=== PATIENT | male | born 1940 | race Caucasian/White ===

== ENCOUNTER → 2018-01-27 06:52 | Outpatient (CLI) | payer MEDICARE, SELFPAY ==
[2018-01-27 07:45] LABS: AST(SGOT) 27 U/L (15-37); Alanine Aminotransfer ALT/SGPT 45 U/L (16-61); Albumin, Serum 3.7 g/dL (3.2-5.0); Alkaline Phosphatase 60 U/L (45-117); Cholesterol 94 mg/dL (200); Globulin 3.1 g/dL (2.2-4.2); High Density Lipoprotein 30 mg/dL; Protein, Total 6.8 g/dL (6.4-8.2); Triglycerides 202 mg/dL; Very Low Density Lipoprotein 40 mg/dL (5-40)
== END ==
PROVIDERS: Family Provider Family Medicine; PCP Family Medicine; Visit Provider Nurse Practitioner Family
DX: E78.5 Hyperlipidemia, unspecified (principal); Z79.899 Other long term (current) drug therapy
CPT/HCPCS: 36415; 80061; 80076

== ENCOUNTER → 2018-08-04 07:27 | Outpatient (CLI) | payer MEDICARE, SELFPAY ==
[2018-01-29 09:30] VITALS: BMI 34.2
[2018-08-04 08:31] LABS: Microalbumin,Random Urine 9.1 mg/L (NO RANGE EST.)
[2018-08-04 08:41] LABS: AST(SGOT) 38 U/L (15-37); Alanine Aminotransfer ALT/SGPT 63 U/L (16-61); Albumin, Serum 3.9 g/dL (3.2-5.0); Alkaline Phosphatase 68 U/L (45-117); Bilirubin, Direct 0.21 mg/dL (0.00-0.30); Cholesterol 122 mg/dL (200); Globulin 2.9 g/dL (2.2-4.2); High Density Lipoprotein 26 mg/dL; Protein, Total 6.8 g/dL (6.4-8.2); Triglycerides 429 mg/dL
[2018-08-04 08:51] LABS: Anion Gap 9 (5-15); BUN 26 mg/dL (7-18); BUN/Creat Ratio 20.5 RATIO (10-20); Calcium,Total 8.3 mg/dL (8.5-10.1); Chloride 104 mmol/L (98-107); Creatinine, Serum 1.27 mg/dL (0.70-1.30); EST Glomerular Filtration Rate 58 mL/min (>60); Est Glom Filt Rate - Afr Amer 70 mL/min (>60); Glucose 116 mg/dL (74-106); Potassium 3.8 mmol/L (3.5-5.1); Sodium Level 140 mmol/L (136-145)
--- OUTSIDE RECORDS SUMMARY | 2018-10-06 07:44 | XMS RPT_ITS ---
:1940 Author Organization OHIP Care Team Providers Name Role Phone Junior, Gordon Camargo Attending Unavailable Roof, Gordon Camargo Referring Unavailable Ennis, Mickey Primary Care Unavailable Osiris Rahman Attending Unavailable Ennis, Mickey Referring Unavailable Roof, Gordon Camargo Attending Unavailable Roof, Gordon Camargo Referring Unavailable EnnisMickey Primary Care Unavailable Nikhil Soto Attending Unavailable Ennis, Mickey Referring Unavailable Ennis, Mickey Primary Care Unavailable Roof, Gordon Camargo Attending Unavailable Ennis, Mickey Referring Unavailable Ennis, Mickey Primary Care Unavailable PROBLEMS PROBLEMS DATE TYPE CONDITION / CODE ATTENDING STATUS SOURCE 08/04/2018 Unknown E11.9 - Type 2 Godron Pacheco Active [place]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 mellitus Community without complications Hospital / E11.9(ICD-10) Repository 08/04/2018 Unknown E78.5 - Gordon Pacheco Active [place] Hyperlipidemia, Community unspecified / Hospital E78.5(ICD-10) Repository 01/27/2018 Unknown Z79.899 - Other long Gordon Pacheco Active [place] term (current) drug Community therapy / Hospital Z79.899(ICD-10) Repository 08/18/2017 Unknown I25.10 - Gordon Pacheco Active [place] Atherosclerotic heart Community disease of [facility] coronary artery Repository without angina pectoris / I25.10(ICD-10) 08/18/2017 Unknown I10 - Essential Roof, Gordon Camargo Active [place] (primary) Community hypertension / Hospital I10(ICD-10) Repository 08/18/2017 Unknown E78.2 - Mixed Roof, Gordon Camargo Active [place] hyperlipidemia / Community E78.2(ICD-10) Hospital Repository PROCEDURES PROCEDURES No Procedure Records FoundRESULTS RESULTS MICROALB:CREAT Collected: 08/04/2018 Status: F Source: [place] RATIO,RANDOM UR 7:36 AM [facility] REPOSITORY TYPE CODE TESTS RESULT OUT OF RANGE REFERENCE UNITS LAB L501.1200 NO RANGE EST. mg/dL Normal UR CREAT 82.70 LAB L502.0500 NO RANGE EST. mg/L Normal 9.1 MICROALBUMIN ,UR LAB L502.0600 <30 mg/g CRE mg/g CRE Normal 11.0 MALB:CREAT Performed By: #### L502.0250 #### [facility] [address], [place], [id number] LIVER PROFILE Collected: 08/04/2018 Status: F Source: [place] 7:36 AM [facility] REPOSITORY TYPE CODE TESTS RESULT OUT OF RANGE REFERENCE UNITS LAB L501.1500 6.4-8.2 g/dL Normal T PROT 6.8 LAB L501.1800 3.2-5.0 g/dL Normal ALB 3.9 LAB L501.1950 2.2-4.2 g/dL Normal GLOB 2.9 LAB L501.4100 15-37 U/L High AST 38 LAB L501.4305 45-117 U/L Normal ALK P 68 LAB L501.4405 16-61 U/L High ALT 63 LAB L501.4600 0.20-1.00 mg/dL Normal T BILI 0.90 LAB L501.4700 0.00-0.30 mg/dL Normal D BILI 0.21 Performed By: #### L500.3400, L500.4100 #### [facility] [address] [place], [place], [id number] LIPID PROFILE Collected: 08/04/2018 Status: F Source: [place] 7:36 AM [facility] REPOSITORY TYPE CODE TESTS RESULT OUT OF RANGE REFERENCE UNITS LAB L501.4900 200 mg/dL Normal CHOL 122 Result Comment: <200 mg/dL Desirable 200-240 mg/dL Borderline >240 mg/dL High Risk LAB L501.5000 mg/dL High TRIG 429 Result Comment: The drugs N-Acetylcysteine and Metamizole may falsely depress this assay. TRIGLYCERIDE IS GREATER THAN 400 mg/dL. LDL RESULT IS INVALID AND WILL NOT BE REPORTED. Serum Triglycerides Reference Interval Normal <150 mg/dL Borderline high 150 - 199 mg/dL High 200 - 499 mg/dL Very High > or = 500 mg/dL LAB L501.6400 mg/dL Low HDL 26 Result Comment: The drugs N-Acetylcysteine and Metamizole may falsely depress this assay. Reference Range HDL <40 mg/dL Low HDL Cholesterol HDL >or= 60 mg/dL High HDL Cholesterol LAB L501.6500 0-130 mg/dL Test Normal not performed LDL LAB L501.6600 5-40 mg/dL Test Normal not performed VLDL Performed By: #### L500.3400, L500.4100 #### [facility] [address] [place], [address] BASIC METABOLIC Collected: 08/04/2018 Status: F Source: [place] PROFILE ([facility]) 7:36 [facility] REPOSITORY TYPE CODE TESTS RESULT OUT OF RANGE REFERENCE UNITS LAB L501.0100 74-106 mg/dL High GLU 116 Result Comment: Fasting Glucose result from 100 to 125 mg/dL suggests IMPAIRED HOMEOSTASIS per A.D.A. criteria. Please note revised GLUCOSE reference range effective 2017. LAB L501.1000 7-18 mg/dL High BUN 26 LAB L501.1100 0.70-1.30 mg/dL Normal CREAT,SERUM 1.27 Result Comment: The validity of the calculated GFR AND GFRAA in patients over 70 years has not been determined. Clinical correlation is essential. LAB L501.1110 >60 mL/min Low EST GFR 58 Result Comment: Non- GFR Calc LAB L501.1115 >60 mL/min Normal EST GFR - AA 70 Result Comment: GFR Calc LAB L501.1300 10-20 RATIO High BUN/CRE 20.5 LAB L501.2200 8.5-10.1 mg/dL Low CA 8.3 LAB L501.5300 136-145 mmol/L NA Normal 140 LAB L501.5600 3.5-5.1 mmol/L K Normal 3.8 LAB L501.5900 98-107 mmol/L CL Normal 104 LAB L501.6100 21.0-32.0 mmol/L Normal CO2 27.0 LAB L501.6200 5-15 Normal GAP 9 Performed By: #### L500.2500 #### [facility] [address] [place], [address] CARDIOLOGY VISIT Observed: 01/29/2018 Status: F Source: [place] REPORT 4:07 PM [facility] REPOSITORY [place] [facility] [address] [place] [address] OFFICE VISIT Date of Service: 01/29/18 MR#: [id number] Acct: [id number] Name: JOSE MANUEL DOMINGUEZ Rep #: [id number] : 1940 Provider: Nikhil Soto MD Age/Sex: 77/M Location: [facility] Status: Signed HPI HPI Chief Complaint: Follow up visit Details: JOSE MANUEL DOMINGUEZ, is a 77 M who presents to the office today for a cardiovascular outpatient follow-up. Patient has a history of coronary artery disease status post rotational atherectomy, balloon angioplasty, and stent placement to LAD in December 2016 at [facility]. He also has a history of bradycardia, hypertension, and hyperlipidemia.Pt. denies chest, jaw, or neck discomfort. His exercise tolerance is stable via walking for 30 minutes for at least two days a week. Pt. denies symptoms of CHF, palpitations, lightheadedness, dizziness, near syncope, or syncopal episodes. Pt. denies edema or claudication issues. Pt. denies orthopnea, PND, fever, chills, blood in urine, blood in stool, myalgia, or unexplainable fatigue. He has not had any adjustments to his CPAP machine and does have some mild shortness of breath when he exerts himself. His physical exam today demonstrates clear lung denney regular rate and rhythm and no pedal edema his blood pressure is under excellent control. 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 Accompanied by: none Is patient in pain?: No Allergies mushroom Allergy (Verified 01/29/18 09:31) Other tetanus and diphtheria toxoids [tetanus AND diphtheria toxoids] Allergy (Verified 01/29/18 09:31) Hives atorvastatin [From Lipitor] Adverse Reaction (Unknown, Verified 01/29/18 09:31) Myalgias with 80mg, not 40mg pravastatin Adverse Reaction (Unknown, Verified 01/29/18 09:31) Severe myalgias, memory and balance issues rosuvastatin [From Crestor] Adverse Reaction (Unknown, Verified 01/29/18 09:31) Severe Myalgias poinsettias Adverse Reaction (Unknown, Uncoded 08/08/17 09:28) Nasal Congestion Medications Allopurinol [Zyloprim] 300 mg PO DAILY 01/01/16 [History Confirmed 01/29/18] Lisinopril [Zestril] 5 mg PO DAILY 01/01/16 [History Confirmed 01/29/18] Metformin HCl [Glucophage] 500 mg PO BIDCM 01/01/16 [History Confirmed 01/29/18] Aspirin [Aspirin, Baby] 81 mg PO DAILY@0800 12/27/16 [History Confirmed 01/29/18] Clopidogrel Bisulfate [Plavix] 75 mg PO DAILY 12/30/16 [History Confirmed 01/29/18] furosemide 40 mg tablet 40 mg PO QDAY 07/30/17 [History Confirmed 01/29/18] atorvastatin 40 mg tablet 40 mg PO .every other day tab 08/08/17 [History Confirmed 01/29/18] Ejection fraction %: 55 to 59 PFSH Medical History Bradycardia (Chronic) Atherosclerosis of ass[place] coronary artery of ass[place] si[place] heart without angina pectoris (Chronic) Hyperlipidemia (Chronic) Hypertension (Chronic) SUZANNE (obstructive sleep apnea) (Chronic) Surgical History H/O right knee surgery (Chronic) History of PTCA (Chronic) History of left heart catheterization (Chronic) Family History Mother Hypertension CAD (coronary artery disease) Social History Smoking Status: Former smoker how long ago did patient quit smokin alcohol intake: current alcohol intake frequency: a few times a week Alcohol type: hard liquor substance use type: does not use caffeine: Yes Type: coffee what type of physical activity do you participate in: walking frequency: 1-2 times per week duration: 15-30 minutes/day seatbelt use: always do you feel safe at home: Yes ROS Const Const: Negative for fatigue, weakness, night sweats, excessive sweating, frequent falls, headache(s) or daytime sleepiness Eyes Eyes: Negative for loss of peripheral vision, transient loss of vision, blind spots, double vision or blurry vision ENT ENT: Negative for headache(s), dizziness, balance problems, Nosebleed/epistaxis, tongue swelling or lip swelling Cardio Chest Pain: No Palpitations: No Edema: None Muscle aches with walking: None Resp Respiratory: Positive for SOB with activity; negative for SOB at rest, SOB orthopnea\SOB lying down, Cough or paroxysmal nocturnal dyspnea GI GI: Negative nausea, vomiting, heartburn, black,tarry stools or bright, red blood in stools : Negative for hematuria Musc Musc: Negative for balance problems, muscle aches/ myalgia, muscle weakness or joint pain Skin Skin: Negative non-healing lesions, unusual bruising or rash Neuro Neuro: Negative for weakness, frequent falls, headache(s), double vision, dizziness, lightheadedness, orthostatic symptoms, blurry vision or lack of coordination [place] Hematologic/Lymphatic: Negative for easy bruising or easy bleeding Endo Endo: Negative for fatigue, excessive sweating, cold intolerance, heat intolerance, increased thirst/drinking or hair loss Psych Psych: Negative for anxiety or depression Allergy Allergy/Immunology: Negative for throat swelling, Negative for tongue swelling, Negative for hives, Negative for rash, Negative for lip swelling Cardiology Exam Const Appearance: cooperative, healthy appearing, well developed, well groomed and no acute distress Nutritional Appearance: well nourished and average body habitus Orientation: alert, awake and oriented x3 Head Head: normal to inspection, normocephalic and atraumatic Ears: hearing grossly normal bilaterally and external ears normal Nose: external nose normal, nasal mucous membranes and turbinates normal, nares normal, septum normal, no nasal discharge Face and Sinus: face symmetric Mouth: oral mucosae normal, tongue normal, oropharynx normal and moist mucous membranes Teeth and gingiva: dentition normal Throat: posterior oropharynx normal, tonsils normal and uvula midline Eyes General: appearance normal, both eyes and all related structures Eyelids: eyelids normal Conjunctivae: conjunctivae normal Pupils: PERRL, normal by confrontation and accommodation normal EOM: EOM intact bilaterally Neck Neck: normal visual inspection, trachea midline and no JVD JVD: +5 Carotids: normal carotid upstroke and bounding pulses Chest Chest inspection: normal inspection of the chest, symmetric chest movement and normal respiratory effort Auscultation: Bilateral: Clear to Auscultation Cardio Palpation: normal PMI Rate: regular rate Rhythm: regular rhythm Heart sounds: S1 normal, S2 normal and normal, physiologic split S2; negative rub, gallop or murmur GI GI: normal to inspection, soft, no hepatosplenomegaly and bowel sounds present Neuro General: alert, awake, oriented x3, no focal sensory deficit, gait normal and moves all extremities Skin Skin: no rashes or lesions noted Extremities Pulses: Normal: Right Femoral Pulse, Left Femoral Pulse, Right Dorsalis Pedis Pulse, Left Dorsalis Pedis Pulse, Right Posterior Tibial Pulse, Left Posterior Tibial Pulse, Right Radial Pulse, Left Radial Pulse Lower Extremity Edema: None: Bilateral Musculoskel Musculoskeletal: No joint tenderness Psych Psychological: normal affect Assessment AND Plan 1. Atherosclerosis of [place] coronary artery of [place] heart without angina pectoris I25.10 PTCA/HECTOR to LAD 12/30/2016; Plan He is status post angioplasty and rotational atherectomy to the left anterior descending artery he continues to do well and spent a year since his last event he has not had any symptoms and my recommendation would be for him to continue with aggressive risk factor modification. No other changes will be made. 2. Essential hypertension I10 Plan His blood pressure appears to be under excellent control on the current medical therapy I would not recommend that we make any changes. 3. Mixed hyperlipidemia E78.2 Plan He does have a history of hyperlipidemia with his most recent lipid profile demonstrated total cholesterol of 94 HDL 30 LDL of 24 triglycerides were 202. He will continue with the same medications without any changes. He does express some concerns about his CPAP machine whether he needs to be reevaluated and I am suggesting that he discusses this with you. He may also require another sleep study. Thank you for allowing me to participate in the care of your patient. 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) Coding Level of Care Code Off vis,est,level 4 Diagnoses Atherosclerosis of ass[place] coronary artery of [place] heart without angina pectoris I25.10 Essential hypertension I10 Hypertension type: essential hypertension Mixed hyperlipidemia E78.2 Hyperlipidemia type: mixed hyperlipidemia Coding Level of Care Code Off vis,est,level 4 Diagnoses Atherosclerosis of [place] coronary artery of [place] heart without angina pectoris I25.10 Essential hypertension I10 Hypertension type: essential hypertension Mixed hyperlipidemia E78.2 Hyperlipidemia type: mixed hyperlipidemia 01/29/18 1607 <Electronically signed by Nikhil Soto MD> Date Nikhil Soto MD Cosigner Signature: Date (if applicable) CC: Mickey Ennis MD LIVER PROFILE Collected: 01/27/2018 Status: F Source: [place] 6:57 AM [facility] REPOSITORY TYPE CODE TESTS RESULT OUT OF RANGE REFERENCE UNITS LAB L501.1500 6.4-8.2 g/dL Normal T PROT 6.8 LAB L501.1800 3.2-5.0 g/dL Normal ALB 3.7 LAB L501.1950 2.2-4.2 g/dL Normal GLOB 3.1 LAB L501.4100 15-37 U/L Normal AST 27 LAB L501.4305 45-117 U/L Normal ALK P 60 LAB L501.4405 16-61 U/L Normal ALT 45 LAB L501.4600 0.20-1.00 mg/dL Normal T BILI 0.90 LAB L501.4700 0.00-0.30 mg/dL Normal D BILI 0.20 Performed By: #### L500.3400, L500.4100 #### [facility] [address] [place], [address] LIPID PROFILE Collected: 01/27/2018 Status: F Source: [place] 6:57 AM [facility] REPOSITORY TYPE CODE TESTS RESULT OUT OF RANGE REFERENCE UNITS LAB L501.4900 200 mg/dL Normal CHOL 94 Result Comment: <200 mg/dL Desirable 200-240 mg/dL Borderline >240 mg/dL High Risk LAB L501.5000 mg/dL High TRIG 202 Result Comment: The drugs N-Acetylcysteine and Metamizole may falsely depress this assay. Serum Triglycerides Reference Interval Normal <150 mg/dL Borderline high 150 - 199 mg/dL High 200 - 499 mg/dL Very High > or = 500 mg/dL LAB L501.6400 mg/dL Low HDL 30 Result Comment: The drugs N-Acetylcysteine and Metamizole may falsely depress this assay. Reference Range HDL <40 mg/dL Low HDL Cholesterol HDL >or= 60 mg/dL High HDL Cholesterol LAB L501.6500 0-130 mg/dL Normal LDL 24 LAB L501.6600 5-40 mg/dL Normal VLDL 40 Performed By: #### L500.3400, L500.4100 #### [facility] [address] [place], [address] CARDIOLOGY VISIT Observed: 08/11/2017 Status: F Source: [place] REPORT 7:31 AM [facility] REPOSITORY [facility] [address] [place] [address] OFFICE VISIT Date of Service: 08/08/17 MR#: [id number] Acct: [id number] Name: JOSE MANUEL DOMINGUEZ Rep #: [id number] : 1940 Provider: KERWIN Pacheco Age/Sex: 76/M Location: [facility] Status: Signed HPI 6 M FU: Details: JOSE MANUEL DOMINGUEZ, is a 76 M who presents to the office today for a cardiovascular outpatient follow-up. Patient has a history of coronary artery disease status post rotational atherectomy, balloon angioplasty, and stent placement to RCA in December 2016 at [facility]. He also has a history of bradycardia, hypertension, and hyperlipidemia. Pt. denies chest, jaw, or neck discomfort. His exercise tolerance is stable via walking for 30 minutes for at least two days a week. Pt. denies symptoms of CHF, palpitations, lightheadedness, dizziness, near syncope, or syncopal episodes. Pt. denies edema or claudication issues. Pt. denies orthopnea, PND, fever, chills, blood in urine, blood in stool, myalgia, or unexplainable fatigue. He states some left shoulder pain since using his arm more often with a machine at the [facility]. Pt. continues to use his CPAP machine. Heart catheterization from December 2016 showed a left ventriculogram ejection fraction of 55%. Echocardiogram from November 2016 showed an estimated ejection fraction 55%, mild tricuspid valve insufficiency, and mild aortic valve insufficiency. 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 Accompanied by: None Is patient in pain?: No Allergies mushroom Allergy (Verified 08/08/17 09:28) Other tetanus and diphtheria toxoids [tetanus AND diphtheria toxoids] Allergy (Verified 08/08/17 09:28) Hives atorvastatin [From Lipitor] Adverse Reaction (Unknown, Unverified 08/08/17 09:28) Myalgias with 80mg, not 40mg pravastatin Adverse Reaction (Unknown, Unverified 08/08/17 09:28) Severe myalgias, memory and balance issues rosuvastatin [From Crestor] Adverse Reaction (Unknown, Unverified 08/08/17 09:28) Severe Myalgias poinsettias Adverse Reaction (Unknown, Uncoded 08/08/17 09:28) Nasal Congestion Medications Allopurinol [Zyloprim] 300 mg PO DAILY 01/01/16 [History Confirmed 07/30/17] Lisinopril [Zestril] 5 mg PO DAILY 01/01/16 [History Confirmed 07/30/17] Metformin HCl [Glucophage] 500 mg PO BIDCM 01/01/16 [History Confirmed 07/30/17] Aspirin [Aspirin, Baby] 81 mg PO DAILY@0800 12/27/16 [History Confirmed 07/30/17] Clopidogrel Bisulfate [Plavix] 75 mg PO DAILY 12/30/16 [History Confirmed 07/30/17] furosemide 40 mg tablet 40 mg PO QDAY 07/30/17 [History Confirmed 07/30/17] atorvastatin 40 mg tablet 40 mg PO .every other day tab 08/08/17 [History Confirmed 08/08/17] Ejection fraction %: 55 to 59 PFSH Medical History Bradycardia (Chronic) Atherosclerosis of ass[place] si[place] coronary artery of ass[place] and si[place] heart without angina pectoris (Chronic) Hyperlipidemia (Chronic) Hypertension (Chronic) SUZANNE (obstructive sleep apnea) (Chronic) Surgical History H/O right knee surgery (Chronic) History of PTCA (Chronic) History of left heart catheterization (Chronic) Family History Mother Hypertension CAD (coronary artery disease) Social History Smoking Status: Former smoker how long ago did patient quit smokin alcohol intake: current alcohol intake frequency: a few times a week Alcohol type: hard liquor substance use type: does not use caffeine: Yes Type: coffee what type of physical activity do you participate in: walking frequency: 1-2 times per week duration: 15-30 minutes/day seatbelt use: always do you feel safe at home: Yes ROS Const Const: Negative for fatigue, weakness, body ache, fever(s) or chills ENT ENT: Negative for dizziness Cardio Chest Pain: No Palpitations: Positive for No Edema: None Muscle aches with walking: None Resp Respiratory: Negative for SOB with activity, SOB at rest, SOB orthopnea\SOB lying down or paroxysmal nocturnal dyspnea GI GI: Negative nausea, black,tarry stools, bright, red blood in stools or vomiting blood/hematemesis : Negative for hematuria or frequent nighttime urination/ nocturia Musc Musc: Negative for muscle aches/ myalgia Neuro Neuro: Negative for weakness, Negative for dizziness, Negative for lightheadedness, Negative for near syncope, Negative for syncope, Negative for orthostatic symptoms Endo Endo: Negative for fatigue Cardiology Exam Const Appearance: cooperative, healthy appearing, comfortable and no acute distress Orientation: alert, awake and oriented x3 Head Head: normal to inspection Mouth: oral mucosae normal Neck Neck: no JVD and normal visual inspection Carotids: normal carotid upstroke Chest Chest inspection: normal inspection of the chest and normal respiratory effort Auscultation: Bilateral: Clear to Auscultation Cardio Rate: regular rate Rhythm: regular rhythm Heart sounds: S1 normal and S2 normal; negative rub or gallop GI GI: normal to inspection Neuro General: alert, awake, oriented x3 and CN's II-XI intact bilaterally Skin Skin: no rashes or lesions noted Extremities Pulses: Normal: Right Posterior Tibial Pulse, Left Posterior Tibial Pulse, Right Radial Pulse, Left Radial Pulse Lower Extremity Edema: None: Bilateral Psych Psychological: normal affect Assessment AND Plan 1. Atherosclerosis of ass[place] coronary artery of ass[place] si[place] heart without angina pectoris I25.10 PTCA/HECTOR to LAD 12/30/2016; Plan - BELEN Gaspar Patient denies any chest pain, arm pain, jaw pain, neck pain, shortness of breath, or fatigue suggestive of angina at this time. We will continue to monitor this. We will not make any medication regimen changes and will continue risk factor modification. Patient's heart rate is 60 bpm today in office. We will not start beta-jared at this time. 2. Essential hypertension I10 Plan - BELEN Gaspar Patient blood pressure on the higher end of the expected range. He was asked to continually modify his activity and diet to help with this. We will not make any medication regimen changes. We will continue to monitor this. 3. Mixed hyperlipidemia E78.2 Plan - BELEN Gaspar Most recent lipid panel from July 2017 showed cholesterol: 118, HDL: 34, LDL: 35, and triglycerides: 243. Patient was reminded of the activity and diet control for his triglycerides. He will continue his current cholesterol lowering medication and dosage. Plan Detail Additional Comments - BELEN Gaspar Discussed the above patient with Dr. Soto, he agrees with the plan of care. Thank you for allowing us to participate in the patients plan of care, if you have any questions please do not hesitate to call. This note was generated using a voice recognition system and there may be incorrect words, spelling or punctuation that were not noted when reviewing the office note prior to saving. 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) Coding Level of Care Code Off vis,est,level 3 Diagnoses Atherosclerosis of ass[place] coronary artery of ass[place] and [place] heart without angina pectoris I25.10 Essential hypertension I10 Hypertension type: essential hypertension Mixed hyperlipidemia E78.2 Hyperlipidemia type: mixed hyperlipidemia 08/08/17 1159 <Electronically signed by Gordon H Roof HEAD REFRIGERATION ENGINEER-C> Date Gordon Pacheco HEAD REFRIGERATION ENGINEER-C 08/11/17 0731<Electronically signed by Nikhil Soto MD> Cosigner Signature: Date (if applicable) Nikhil Soto MD CC: Mickey Ennis MD ALLERGIES ALLERGIES DATE TYPE / CODE NAME / CODE REACTION SEVERITY SOURCE Drug pravastatin/F006 Severe Unknown [place] 8 Allergy/[id number]( 041340(RXNORM) myalgias, Community SNOMED CT) memory and Hospital balance issues Repository Drug tetanus and Hives Unknown [place] 8 Allergy/[id number]( diphtheria [facility] SNOMED CT) toxoids/[id number] Hospital 14(RXNORM) Repository Drug atorvastatin/F00 Myalgias with Unknown [place] 8 Allergy/[id number]( 0106026(RXNORM) 80mg, not 40mg [facility] Hospital Repository Drug rosuvastatin/F00 Severe Myalgias Unknown [place] 8 Allergy/971994363( 6881143(RXNORM) [facility] SNOMED CT) Hospital Repository Drug mushroom/[id number] Other Unknown [place] 8 Allergy/425963963( 188(RXNORM) [facility] SNOMED CT) Hospital Repository Miscellaneous poinsettias Nasal Unknown [place] Allergy/350359474( Congestion [facility] Hospital Repository ENCOUNTERS ENCOUNTERS ADMIT/DISCHARGE ACCOUNT ADMITTING ENCOUNTER LOCATION SOURCE NUMBER CLASS 08/04/2018 [id number] Amb[place] [facility] ing:LAB Repository 01/29/2018/ [id number] Ambulatory BMSBuilding:B [place] 8 6 MS.G [facility] Hospital Repository 01/27/2018 [id number] Ambulatory [place] 7 [facility] ing:LAB Repository 12/15/2017 [id number] Ambulatory BMSBuilding:B [place] 4 [facility] Repository 08/08/2017/ [id number] Ambulatory BMSBuilding:B [place] 8 5 MS.[facility] Repository PAYERS PAYERS ENCOUNTER GUARANTOR PAYER SUBSCRIBER SOURCE 08/04/2018 JOSE MANUEL E Primary JOSE MANUEL Camryn Euceda [id number] Insurance:KEVIN BUCHERDOB: [facility] [id number] Number: Repository [id number]: 330 [id number] [phone] (HP) Date:2269-99-82[address] [address]DO: 08/04/2018 Secondary NOT GIVENUNK [place] Insurance:SELF PAY [facility] Number: Effective Repository Date:2018-08-04 01/29/2018 JOSE MANUEL E Primary JOSE MANUEL E [place] [id number] Insurance:KEVIN BUCHERDOB: [facility] [id number] Health Number: Repository [id number]: 330 [id number] [phone] (HP) Date:4604-44-64KE [address] [address]VM: 01/29/2018 Secondary NOT GIVENUNK [place] Insurance:SELF PAY [facility] Number: Effective Repository Date:2018-01-29 01/27/2018 JOSE MANUEL E Primary JOSE MANUEL E [place] [id number] Insurance:KEVIN BUCHERDOB: [facility] [id number] Health Number: Repository [id number]: 330 [id number] [phone] (HP) Date:9008-62-30NI [address] [address]KF: 01/27/2018 Secondary NOT GIVENUNK [place] Insurance:SELF PAY [facility] Number: Effective Repository Date:2018-01-27 12/15/2017 JOSE MANUEL Camryn Primary JOSE MANUEL Camryn PaintingMariano [id number] Insurance:KEVIN HALEY: [facility] [id number] Health Number: Repository [id number]: 330 [id number] [phone] () Date:0035-52-10DE [facility] [address] [place] [address]MM: 12/15/2017 Secondary NOT GIVENUNK [place] Insurance:SELF PAY [facility] Number: Effective Repository Date:2017-06-23 08/08/2017 JOSE MANUEL Cowan Primary JOSE MANUEL [id number] Insurance:KEVIN HALEYB: [facility] [id number] HospitalOP[facility] Number: Repository [id number]: 330 [id number] [phone] () Date:2458-58-84YT [facility] [address] [place] [address]SO: 08/08/2017 Secondary NOT GIVENUNK [place] Insurance:SELF PAY [facility] Number: Effective Repository Date:2017-06-15
== END ==
PROVIDERS: Family Provider Family Medicine; PCP Family Medicine; Referring Provider Nurse Practitioner Family; Visit Provider Nurse Practitioner Family
DX: E11.9 Type 2 diabetes mellitus without complications (principal); E78.5 Hyperlipidemia, unspecified
CPT/HCPCS: 36415; 80048; 80061; 80076; 82043; 82570

== ENCOUNTER → 2018-08-31 11:57 | Outpatient (CLI) | payer MEDICARE, SELFPAY | PROVIDERS: Family Provider Family Medicine; PCP Family Medicine; Visit Provider Family Medicine | DX: Z48.03 Encounter for change or removal of drains (principal) ==

== ENCOUNTER → 2018-09-30 06:46 | Outpatient (CLI) | payer MEDICARE, SELFPAY ==
[2018-09-30 08:28] LABS: AST(SGOT) 34 U/L (15-37); Alanine Aminotransfer ALT/SGPT 63 U/L (16-61); Albumin, Serum 3.8 g/dL (3.2-5.0); Alkaline Phosphatase 62 U/L (45-117); Bilirubin, Direct 0.18 mg/dL (0.00-0.30); Cholesterol 91 mg/dL (200); Globulin 2.9 g/dL (2.2-4.2); High Density Lipoprotein 29 mg/dL; Protein, Total 6.7 g/dL (6.4-8.2); Triglycerides 217 mg/dL; Very Low Density Lipoprotein 43 mg/dL (5-40)
== END ==
PROVIDERS: Family Provider Family Medicine; PCP Family Medicine; Referring Provider Nurse Practitioner Family; Visit Provider Nurse Practitioner Family
DX: I25.10 Atherosclerotic heart disease of native coronary artery without angina pectoris (principal); E78.5 Hyperlipidemia, unspecified
CPT/HCPCS: 36415; 80061; 80076

== ENCOUNTER → 2019-02-05 06:24 | Outpatient (CLI) | payer MEDICARE, SELFPAY ==
[2018-01-29 09:30] VITALS: BMI 34.2
[2019-02-05 07:15] LABS: ALB/GLOB Ratio 1.3 RATIO (0.9-2.4); AST(SGOT) 25 U/L (15-37); Alanine Aminotransfer ALT/SGPT 48 U/L (16-61); Albumin, Serum 3.7 g/dL (3.2-5.0); Alkaline Phosphatase 67 U/L (45-117); Anion Gap 3 (5-15); BUN 25 mg/dL (7-18); BUN/Creat Ratio 19.8 RATIO (10-20); Calcium,Total 8.3 mg/dL (8.5-10.1); Chloride 104 mmol/L (98-107); Cholesterol 105 mg/dL (200); Creatinine, Serum 1.26 mg/dL (0.70-1.30); EST Glomerular Filtration Rate 59 mL/min (>60); Est Glom Filt Rate - Afr Amer 71 mL/min (>60); Globulin 2.8 g/dL (2.2-4.2); Glucose 129 mg/dL (74-106); High Density Lipoprotein 28 mg/dL; Potassium 3.6 mmol/L (3.5-5.1); Protein, Total 6.5 g/dL (6.4-8.2); Sodium Level 139 mmol/L (136-145); Triglycerides 408 mg/dL
== END ==
PROVIDERS: Family Provider Family Medicine; PCP Family Medicine; Referring Provider Family Medicine; Visit Provider Family Medicine
DX: E11.9 Type 2 diabetes mellitus without complications (principal)
CPT/HCPCS: 36415; 80053; 80061

== ENCOUNTER → 2019-03-02 20:23 | Outpatient (CLI) | payer MEDICARE, SELFPAY ==
[2019-02-05 08:42] VITALS: BMI 34.7
== END ==
PROVIDERS: Family Provider Family Medicine; PCP Family Medicine; Referring Provider Family Medicine; Visit Provider Family Medicine
DX: G47.33 Obstructive sleep apnea (adult) (pediatric) (principal)
CPT/HCPCS: 95811

== ENCOUNTER → 2019-03-16 09:00 | Outpatient (CLI) | payer MEDICARE, SELFPAY ==
[2019-02-05 08:42] VITALS: BMI 34.7
== END ==
PROVIDERS: Family Provider Family Medicine; PCP Family Medicine; Referring Provider Family Medicine; Visit Provider Family Medicine
DX: Z46.89 Encounter for fitting and adjustment of other specified devices (principal)

== ENCOUNTER → 2019-04-08 06:42 | Outpatient (CLI) | payer MEDICARE, SELFPAY ==
[2019-02-05 08:42] VITALS: BMI 34.7
[2019-04-08 07:51] LABS: AST(SGOT) 30 U/L (15-37); Alanine Aminotransfer ALT/SGPT 58 U/L (16-61); Albumin, Serum 3.6 g/dL (3.2-5.0); Alkaline Phosphatase 61 U/L (45-117); Bilirubin, Direct 0.16 mg/dL (0.00-0.30); Cholesterol 95 mg/dL (200); Globulin 2.8 g/dL (2.2-4.2); High Density Lipoprotein 31 mg/dL; Protein, Total 6.4 g/dL (6.4-8.2); Triglycerides 227 mg/dL; Very Low Density Lipoprotein 45 mg/dL (5-40)
== END ==
PROVIDERS: Family Provider Family Medicine; PCP Family Medicine; Referring Provider Nurse Practitioner Family; Visit Provider Nurse Practitioner Family
DX: E78.5 Hyperlipidemia, unspecified (principal)
CPT/HCPCS: 36415; 80061; 80076

== ENCOUNTER → 2019-08-09 10:56 | Outpatient (CLI) | payer MEDICARE, SELFPAY ==
[2019-02-05 08:42] VITALS: BMI 34.7
[2019-08-09 12:45] LABS: Anion Gap 5 (5-15); BUN 30 mg/dL (7-18); BUN/Creat Ratio 21.9 RATIO (10-20); Calcium,Total 8.6 mg/dL (8.5-10.1); Chloride 104 mmol/L (98-107); Creatinine, Serum 1.37 mg/dL (0.70-1.30); EST Glomerular Filtration Rate 53 mL/min (>60); Est Glom Filt Rate - Afr Amer 64 mL/min (>60); Glucose 287 mg/dL (74-106); Potassium 3.6 mmol/L (3.5-5.1); Sodium Level 139 mmol/L (136-145)
== END ==
LOC: MFPLAB 10:56
PROVIDERS: PCP Family Medicine; Referring Provider Family Medicine; Visit Provider Family Medicine
DX: E11.9 Type 2 diabetes mellitus without complications (principal)
CPT/HCPCS: 36415; 80048

== ENCOUNTER → 2020-02-16 06:26 | Outpatient (CLI) | payer MEDICARE, SELFPAY ==
[2020-02-08 10:19] VITALS: BMI 34.4
--- NOTE | 2020-02-16 08:44 | STRESSREP ---
Stress Test Report Exercise myocardial perfusion stress test. 79-year-old man with a history of previous angioplasty and stenting. Stress protocol: Resting EKG demonstrates sinus bradycardia with a rate of 52 bpm normal intervals are noted resting blood pressure is 140/78 mmHg. The patient exercised according to regular Wan protocol for a total duration of 6 minutes. The maximum heart rate attained was 110 bpm which was 78% of maximum predicted heart rate the maximum workload was 7 metabolic equivalents. At rest there were no ST or T wave changes noted suggest ischemia at peak exercise upsloping ST changes only were noted with no meet the criteria for ischemia. During recovery premature ventricular complexes were noted. The peak blood pressure was 198/74 which was a normal response to exercise. Myocardial perfusion protocol. 14.5 mCi of technetium 99m sestamibi was injected at rest. The patient exercised for 6 minutes and at peak exercise 44.8 mCi of technetium 99m sestamibi was injected stress images were obtained stress and rest images were reconstructed and compared in the short axis vertical long horizontal long axis. Gated images were also obtained Perfusion SPECT analysis: Review of the stress images demonstrate normal uptake of tracer noted in all areas of the myocardium except for small portion of the apex. The resting images similarly demonstrate normal uptake of tracer noted in all areas of myocardium. No areas of reversibility are noted suggest ischemia. No previous infarct is noted. Gated SPECT analysis: The gated ejection fraction is noted to be 60%. Conclusion: Normal exercise myocardial perfusion stress test at a moderate workload. Preserved ejection fraction.
== END ==
PROVIDERS: PCP Family Medicine; Referring Provider Internal Medicine Cardiovascular Disease; Visit Provider Internal Medicine Cardiovascular Disease
DX: I25.10 Atherosclerotic heart disease of native coronary artery without angina pectoris (principal); Z95.5 Presence of coronary angioplasty implant and graft
CPT/HCPCS: 78452; 93017; A9500; A4216

== ENCOUNTER → 2020-05-30 10:11 | Outpatient (CLI) | payer MEDICARE, SELFPAY ==
[2020-02-08 10:19] VITALS: BMI 34.4
[2020-05-30 12:34] LABS: Absolute Lymphocyte Count 0.59 X10^3/uL (0.83-4.51); Absolute Neutrophil Count 4.2 X10^3/uL (2.0-7.7); Basophil# 0.04 X10^3/uL; Basophil% 0.8 % (0-1); Eosinophil# 0.02 X10^3/uL; Eosinophils% 0.4 % (0-5); Hematocrit 40.5 % (40-54); Hemoglobin 13.5 g/dL (13.0-16.5); Lymphocyte # 0.59 X10^3/ul (4.0); Lymphocyte % 11.3 % (19-41); Mean Corp Hgb Conc 33.3 g/dL (32-36); Mean Corpuscular Hgb 31.6 pg (27.0-32.0); Mean Corpuscular Volume 94.8 fL (80-94); Mean Platelet Vol. 10.5 fl (6.2-12.0); Monocyte# 0.42 X10^3/uL; NRBC Flagged by Analyzer 0 % (0-5); Neutrophil # 4.15 X10^3/uL (2.7-7.7); Neutrophil % 79.3 % (47-70); POSITIVE DIFFERENTIAL YES; Platelet Count 175 K/mm3 (150-450); RBC Distribution Width CV 14.4 % (11.6-14.6); RBC Distribution Width SD 50.3 fl (35.1-43.9); Red Blood Count 4.27 M/mm3 (4.6-6.2); White Blood Count 5.2 K/mm3 (4.4-11.0)
[2020-05-30 12:41] LABS: Differential Indicated SCAN CRITERIA MET
[2020-05-30 13:24] LABS: AST(SGOT) 620 U/L (15-37); Alanine Aminotransfer ALT/SGPT 980 U/L (16-61); Albumin, Serum 3.4 g/dL (3.2-5.0); Alkaline Phosphatase 1025 U/L (45-117); Amylase 268 U/L (25-115); Bilirubin, Direct 11.92 mg/dL (0.00-0.30); Globulin 3.9 g/dL (2.2-4.2); Lipase 4155 U/L (73-393); Protein, Total 7.3 g/dL (6.4-8.2)
== END ==
PROVIDERS: PCP Family Medicine; Referring Provider Family Medicine; Visit Provider Family Medicine
DX: R17 Unspecified jaundice (principal)
CPT/HCPCS: 36415; 80076; 82150; 83690; 85025

== ENCOUNTER → 2020-05-31 07:16 | Outpatient (CLI) | payer MEDICARE, SELFPAY ==
[2020-02-08 10:19] VITALS: BMI 34.4
--- NOTE | 2020-05-31 07:17 | US_ITS ---
STUDY: ABDOMINAL ULTRASOUND - RIGHT UPPER QUADRANT REASON FOR VISIT: Male, 79 years old PAINLESS JAUNDICE TECHNIQUE: Ultrasound evaluation of the right upper quadrant was performed with real-time and static epps-scale imaging. TECHNICAL QUALITY: Limited. Examination limited by bowel gas. COMPARISON: None. FINDINGS: Liver: The liver is enlarged and measures 22.3 cm. There is increased echogenicity consistent with fatty infiltration. The bile ducts are dilated. There is hepatic color flow. The direction of portal flow is hepatopetal. There is no demonstrated mass lesion. Gallbladder: Normal distended gallbladder. The gallbladder wall measures 2 mm. There is a negative sonographic Barrett''s sign. There is no pericholecystic fluid. There are no gallstones. Common Bile Duct (C.B.D.): The common bile duct is dilated and measures 16 mm. Pancreas: There is nonvisualization of the pancreas due to overlying bowel gas. Right Kidney: Normal size of the right kidney. The right kidney measures 12.1cm x 5.3 cm x 5.3 cm. Normal renal cortex. The right cortex measures 1.1 cm. There is no demonstrated renal mass or cyst. There is no right hydronephrosis. US/Abdomen Limited IMPRESSION: Hepatomegaly. Fatty flexion of the liver. Dilated intrahepatic biliary ducts. Dilated common bile duct. Correlation with the CT scan of the abdomen and pelvis following IV contrast is recommended to assess the region of the pancreas and ampulla of VATER. Electronically Signed: Dexter Dugan, at 12:12 EST , Service support ,
== END ==
PROVIDERS: PCP Family Medicine; Referring Provider Family Medicine; Visit Provider Family Medicine
DX: R17 Unspecified jaundice (principal)
CPT/HCPCS: 76705; 87070; 87075; 87077; 87186; 87205

== ENCOUNTER → 2020-06-02 16:03 | Outpatient (CLI) | payer MEDICARE, SELFPAY ==
[2020-02-08 10:19] VITALS: BMI 34.4
[2020-06-02 17:55] LABS: International Normalized Ratio 1.4; Prothrombin Time (Protime)PT. 16.3 SECONDS (11.7-14.9)
[2020-06-02 17:56] LABS: Partial Thromboplast Time 36.5 Seconds (24.1-36.2)
[2020-06-04 12:13] LABS: Cancer Antigen 125 22.9 U/mL (Not Estab.); Carcinoembryonic Antigen 2.5 ng/mL (0.0-4.7)
[2020-06-06 08:08] LABS: Carbohydrate AG 19-9 363 U/mL (0-35)
== END ==
PROVIDERS: PCP Family Medicine; Referring Provider Internal Medicine Gastroenterology; Visit Provider Internal Medicine Gastroenterology
DX: R17 Unspecified jaundice (principal); K83.8 Other specified diseases of biliary tract; C22.1 Intrahepatic bile duct carcinoma
CPT/HCPCS: 36415; 82378; 85610; 85730; 86301; 86304

== ENCOUNTER → 2020-06-05 14:03 | Outpatient (CLI) | payer MEDICARE, SELFPAY ==
[2020-02-08 10:19] VITALS: BMI 34.4
--- NOTE | 2020-06-05 14:07 | MRI_ITS ---
STUDY: MR MRCP WITHOUT CONTRAST REASON FOR EXAM: Male, 79 years old. jaundice, dilated cbd, abn labs, no pain TECHNIQUE: Standard MRCP technique was utilized. 3-D rotational displacement maximum intensity projections were performed on a stand-alone workstation for review. COMPARISON: January 01 2016, May 31 2020 ultrasound FINDINGS: Examination is mildly technically suboptimal, predominantly due to respiratory motion artifact. Diagnostic information is available. Gallbladder is normal without stones. There is moderate intrahepatic and extrahepatic biliary dilation with a sharp transition in the lower supra pancreatic common bile duct to a narrowed segment. Intrapancreatic segment of the CBD is not well seen. However, pancreatic duct is normal and not dilated. A discrete mass lesion is not seen in the common bile duct. However, a smaller lesion would not be detectable due to the above stated limitations of the scan. Liver is normal. Spleen, adrenals, kidneys and pancreas are normal. MRI/MRCP Abdomen without Contrast IMPRESSION: 1. Lower suprapancreatic portion sharp transition stricture of the CBD. ERCP is advised to evaluate for possibility of malignant stricture such as intraductal cholangiocarcinoma. 2. Refer to CT of the abdomen with IV contrast dedicated hepatic pancreatic protocol for further assessment.. Electronically Signed: Onel Castro, at 16:04 EST Tel , Service support ,
== END ==
PROVIDERS: PCP Family Medicine; Referring Provider Internal Medicine Gastroenterology; Visit Provider Internal Medicine Gastroenterology
DX: R17 Unspecified jaundice (principal); K83.8 Other specified diseases of biliary tract
CPT/HCPCS: 74181

== ENCOUNTER → 2020-06-16 09:20 | Outpatient (CLI) | payer MEDICARE, SELFPAY ==
[2020-02-08 10:19] VITALS: BMI 34.4
[2020-06-16 10:40] LABS: AST(SGOT) 91 U/L (15-37); Alanine Aminotransfer ALT/SGPT 217 U/L (16-61); Albumin, Serum 3.3 g/dL (3.2-5.0); Alkaline Phosphatase 443 U/L (45-117); Bilirubin, Direct 3.06 mg/dL (0.00-0.30); Globulin 3.3 g/dL (2.2-4.2); Protein, Total 6.6 g/dL (6.4-8.2)
== END ==
PROVIDERS: PCP Family Medicine; Referring Provider Internal Medicine Gastroenterology; Visit Provider Internal Medicine Gastroenterology
DX: C22.1 Intrahepatic bile duct carcinoma (principal)
CPT/HCPCS: 36415; 80076

== ENCOUNTER → 2020-08-07 08:03 | Outpatient (CLI) | payer MEDICARE, SELFPAY ==
[2020-07-27 09:46] VITALS: BMI 33.5
[2020-08-07 08:35] LABS: Allen Test Positive; Base Excess 2 mmol/L (-2 to +2); Bicarbonate 26.4 mmol/L (22-26); Blood Gas Specimen Type ART; O2 Delivery Device Room Air; PO2 80 mmHG (75-100); SITE L Radial; SO2 96 % (95-99); Total Carbon Dioxide 28 mmol/L; pH 7.43 (7.35-7.45)
--- NOTE | 2020-08-08 07:22 | PFT ---
INTRODUCTION: The patient is an 79-year-old male that presents for pulmonary function studies secondary to a diagnosis of non-small cell lung cancer. Respiratory therapy reports good patient effort. Bronchodilators were used during testing. INTERPRETATION: Forced expiration spirometry demonstrates no evidence of a large airways obstructive ventilatory defect. There was, however, subtle stigmata of small airways disease with significant bronchodilator response. Spirograms are of good quality and plateau normally. Body plethysmography was performed and reveals lung volumes to be within normal limits. Diffusing capacity by single breath CO was within normal limits. IMPRESSION: Grossly normal pulmonary function studies, with subtle stigmata of small airways disease and significant bronchodilator response.
== END ==
PROVIDERS: PCP Family Medicine; Referring Provider Internal Medicine Medical Oncology; Visit Provider Internal Medicine Medical Oncology
DX: C34.92 Malignant neoplasm of unspecified part of left bronchus or lung (principal)
CPT/HCPCS: 36600; 82803; 94060; 94726; 94729

== ENCOUNTER 2020-08-30 08:08 | Outpatient (RCR) | payer MEDICARE, SELFPAY ==
[2020-08-10 13:39] VITALS: BMI 33.5
== END 2020-08-30 23:59 ==
LOC: IMMUN 08:08
PROVIDERS: PCP Family Medicine; Visit Provider Family Medicine
DX: Z23 Encounter for immunization (principal)
CPT/HCPCS: 0011A; 0012A

== ENCOUNTER 2020-09-02 08:28 | Emergency (ER) | payer MEDICARE, SELFPAY ==
[2020-08-10 13:39] VITALS: BMI 33.5
[2020-09-02 08:29] VITALS: BP 164/101; PULSE 82; RESP 18; TEMP 36.6; O2SAT 98; BMI 33.6
[2020-09-02 08:38] VITALS: BP 148/81; PULSE 66; RESP 14; O2SAT 97
--- NOTE | 2020-09-02 09:10 | ED.VISSUMM ---
- ER Visit Summary Date of Service: 09/02/20 Chief Complaint: Nausea and vomiting History of Present Illness: The patient is a [address] Mickey Hernandez, Dr. Freeman, and Dr. Monet. He reports he has nausea and vomiting again 2 days ago. He vomited once 2 days ago and 2 times yesterday. Reports that his emesis yesterday was dark. He denies any coffee-ground or gross blood in his emesis. He denies abdominal pain. His last bowel was yesterday. He has had no melena medic easier. No dysuria or frequency. 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 He had endoscopy [address] Ramsey at [facility] for exchange of a biliary stent. On review of systems patient complains of a subjective fever and a little bit of headache. He denies any other complaints. Physical Examination: Vitals: Stable. Afebrile. General: Well-nourished and well-developed. Head: Normocephalic atraumatic. Neck: Supple, no lymphadenopathy. No JVD. Nontender. Cardiovascular: Regular rate and rhythm. No murmurs. Respiratory: No respiratory distress. Clear to auscultation bilaterally. Abdominal: Soft, nontender, nondistended, normal bowel sounds. No guarding, rebound, or peritoneal signs. Back: Nontender. Extremities: Nontender, no edema. Skin: Normal color, no rash. Neurologic: Alert and oriented ?3. Cranial nerves II through XII are intact. Normal strength and sensation. Psych: Normal affect. Test Results: CBC shows an H&H 12.9 and 39.8, segmented neutrophils 85, lymphocytes of 8. Last hemoglobin was 13.5 in May 2020. Chem-7 shows a potassium of 3.2, CO2 of 34, glucose 217. LFTs are normal. Lipase is slightly elevated 856. Lipase in May 2020 was 4155. Emergency Department Course and Treatment: Patient had an IV placed. He was given Zofran IV. He is resting comfortably. Treatment Plan: Patient feels well and would like to go home. He will be discharged with Zofran. Instructed to take a liquid diet. Follow-up with his primary care physician in 2 days for another exam. Return to the emergency department for any worsening symptoms. Disposition: To home in improved and stable condition. Impression: 1. Vomiting. 2. Mild pancreatitis. 3. Hypokalemia. This note was generated with [employer] dictation software. It may contain incorrect words, spelling, and punctuation that were not noted in review of the chart prior to signing ED Disposition - Plan for ED Patient: Instructions: ED Vomiting (Adult) Prescriptions: Ondansetron [Zofran Odt] 4 mg PO Q8H PRN PRN #10 tablet PRN Reason: Nausea Referrals: Mickey Ennis MD [Primary Care Provider] - 2 Days
[2020-09-02] MEDS: 0.9% Normal Saline 1,000 ML 1000 ML IV (09:11)
[2020-09-02] MEDS: Ondansetron 4 MG/2 ML Vial IV (09:11)
[2020-09-02 09:12] LABS: Absolute Lymphocyte Count 0.63 X10^3/uL (0.83-4.51); Absolute Neutrophil Count 6.8 X10^3/uL (2.0-7.7); Basophil# 0.02 X10^3/uL; Basophil% 0.2 % (0-1); Hematocrit 39.8 % (40-54); Hemoglobin 12.9 g/dL (13.0-16.5); Lymphocyte # 0.63 X10^3/ul (4.0); Lymphocyte % 7.8 % (19-41); Mean Corp Hgb Conc 32.4 g/dL (32-36); Mean Corpuscular Hgb 29.8 pg (27.0-32.0); Mean Corpuscular Volume 91.9 fL (80-94); Mean Platelet Vol. 9.2 fl (6.2-12.0); Monocyte# 0.54 X10^3/uL; Monocyte% 6.7 % (0-10); NRBC Flagged by Analyzer 0 % (0-5); Neutrophil # 6.84 X10^3/uL (2.7-7.7); Neutrophil % 84.8 % (47-70); Platelet Count 151 K/mm3 (150-450); RBC Distribution Width CV 12.8 % (11.6-14.6); RBC Distribution Width SD 43.1 fl (35.1-43.9); Red Blood Count 4.33 M/mm3 (4.6-6.2); White Blood Count 8.1 K/mm3 (4.4-11.0)
[2020-09-02 09:26] LABS: International Normalized Ratio 1.2; Prothrombin Time (Protime)PT. 14.2 SECONDS (11.7-14.9)
[2020-09-02 09:27] LABS: Partial Thromboplast Time 36.3 Seconds (24.1-36.2)
[2020-09-02 09:34] LABS: ALB/GLOB Ratio 0.9 RATIO (0.9-2.4); AST(SGOT) 20 U/L (15-37); Alanine Aminotransfer ALT/SGPT 39 U/L (16-61); Albumin, Serum 3.5 g/dL (3.2-5.0); Alkaline Phosphatase 117 U/L (45-117); Anion Gap 5 (5-15); BUN 18 mg/dL (7-18); BUN/Creat Ratio 15.8 RATIO (10-20); Calcium,Total 9.1 mg/dL (8.5-10.1); Chloride 99 mmol/L (98-107); Creatinine, Serum 1.14 mg/dL (0.70-1.30); EST Glomerular Filtration Rate 66 mL/min (>60); Est Glom Filt Rate - Afr Amer 79 mL/min (>60); Estimated Creatinine Clearance 51.68 ml/min; Glucose 217 mg/dL (74-106); Lipase 856 U/L (73-393); Potassium 3.2 mmol/L (3.5-5.1); Protein, Total 7.5 g/dL (6.4-8.2); Sodium Level 138 mmol/L (136-145)
[2020-09-02 10:44] VITALS: BP 136/69; PULSE 64; RESP 15; O2SAT 94
== END 2020-09-02 10:46 | disposition home or self-care (01) ==
PROVIDERS: Emergency Provider Emergency Medicine; PCP Family Medicine
DX: R11.2 Nausea with vomiting, unspecified (principal); K85.90 Acute pancreatitis without necrosis or infection, unspecified; E87.6 Hypokalemia
CPT/HCPCS: 80053; 83690; 85025; 85610; 85730; 86850; 86900; 86901; 96361; 96374; 99283; J2405

== ENCOUNTER → 2020-10-26 08:14 | Outpatient (CLI) | payer MEDICARE, SELFPAY ==
[2020-09-18 15:13] VITALS: BMI 32.5
--- NOTE | 2020-10-26 08:19 | CT_ITS ---
STUDY: CT CHEST WITHOUT CONTRAST REASON FOR EXAM: Male, 80 years old. LUNG CANCER-MONITORING RADIATION DOSAGE (If Supplied By Facility): CTDIvol = ( 17.00 ) mGy, DLP = ( 633.01 ) mGycm TECHNIQUE: Transaxial imaging was performed without the administration of intravenous contrast material. Multiplanar coronal and sagittal images were reformatted. Individualized dose optimization techniques were used for this CT. COMPARISON: Comparison is made with prior PET scan dated 08/01/2020. FINDINGS: There is a 1.2 cm irregular nodule in the posterior left lung apex. Calcified granuloma in the lateral aspect of the right upper lobe. There is no demonstrated pleural abnormality. There are calcifications of the coronary arteries. Calcified right hilar lymph nodes and mediastinal lymph nodes. Normal unenhanced pulmonary arteries. There is atherosclerotic calcification of the aortic arch with tortuosity and elongation of the aortic arch and descending thoracic aorta. There are multi-level degenerative changes of the thoracic spine. Small hiatal hernia. CT/Chest without Contrast IMPRESSION: 1.2 cm irregular nodule in the posterior aspect of the left lung apex. Electronically Signed: Dexter Dugan MD at 15:15 EDT , Service support ,
== END ==
PROVIDERS: PCP Family Medicine; Referring Provider Internal Medicine Medical Oncology; Visit Provider Internal Medicine Medical Oncology
DX: C34.12 Malignant neoplasm of upper lobe, left bronchus or lung (principal)
CPT/HCPCS: 71250

== ENCOUNTER → 2021-05-28 07:09 | Outpatient (CLI) | payer MEDICARE, SELFPAY ==
--- NOTE | 2021-05-28 07:10 | CT_ITS ---
STUDY: CT CHEST, ABDOMEN T PELVIS WITH CONTRAST REASON FOR EXAM: Male, 80 years old. ASSESS TREATMENT-PANCREATIC CA RADIATION DOSAGE (If Supplied By Facility): CTDIvol = ( 24.02 ) mGy, DLP = ( 2904.34 ) mGycm TECHNIQUE: Transaxial imaging was performed following intravenous administration of IV 100mL Isovue-370. Multiplanar coronal and sagittal images were reformatted. Individualized dose optimization techniques were used for this CT. COMPARISON: October 26, 2020 CT scan chest, December 14 CT scan chest abdomen and pelvis FINDINGS: CHEST Since prior study the nodule within the left apex is enlarged into a solid spiculated abnormal appearing mass measuring 2.8 x 2.4 x 3.6 cm. On prior study it measured 1.4 x 0.7 x 1.2 cm. There is a calcified granuloma within the right upper lobe stable since prior study. There is a small pleural based right anteriorly located soft tissue density measuring 8 mm. This is slightly larger when compared to the prior study allowing for differences in technique. There is left apical pleural thickening associated with the unilateral solitary mass in the left chest. There is mild cardiac enlargement. There are coronary calcifications. There are small reactive mediastinal lymph nodes measuring up to 1.5 cm. Normal hilar regions. Normal unenhanced pulmonary arteries. There is atherosclerotic calcification of the aortic arch with tortuosity and elongation of the aortic arch and descending thoracic aorta. There are multi-level degenerative changes of the thoracic spine. The liver is enlarged and fatty infiltrated. The spleen is enlarged. The visualized hydroureter hernia. ABDOMEN There is a small focus of nodular pleural thickening in the anterior aspect of the right lower chest. There is mild to moderate cardiac enlargement or coronary calcifications. There is periportal edema. The main portal vein appears patent. There is limited enhancement of the right hepatic lobe is a courses posterior to the pancreatectomy site. There is non-visualization of the gallbladder, which may be secondary to either contraction or a prior cholecystectomy. There is moderate splenomegaly atrophy of the tail and body of the pancreas. There is a stable appearance of the head of the pancreas and postoperative change. Normal bilateral adrenal glands. There is a stable right renal cyst measuring 2.5 mm. Normal left kidney. There is hypertrophy of the perinephric fat. There is a small hiatal hernia. There is an edematous appearance of the proximal duodenum. There appears to been a gastrojejunostomy. There is moderate stool in the colon from the cecum to the rectum. The appendix is visualized and appears normal. Aorta is partially calcified Normal inferior vena cava. There is stranding in the right upper quadrant in the retroperitoneum. Normal abdominal wall. There are diffuse degenerative changes of the visualized lumbar spine. PELVIS The thick walled appearance of the bladder measuring up to 6.9 mm. For visualization of the right hepatic lobe through the level of the post pancreatectomy site and duodenum. Cannot exclude mild stenosis. There is a mildly edematous appearance of the duodenum. There is moderate stool in the colon. There is a small amount of free fluid in the pelvis with Hounsfield units in the range of simple fluid. There is no pelvic lymphadenopathy or mass lesion. Normal visualized prostate gland. There is diffuse atherosclerotic calcification of the pelvic arteries. Normal abdominal wall. There is degenerative changes of both hip joints. There is degenerative change of the SI joints. There is degenerative change of the lumbar spine. There is disc space narrowing L1-L2 L2-L3 and L3-L4 with moderate neural foramina narrowing. At L3-L4 there is moderate central stenosis. CT/CT Chest, Abd, Pel w/Contrast IMPRESSION: Since prior study the nodule within the left apex is enlarged into a solid spiculated abnormal appearing mass measuring 2.8 x 2.4 x 3.6 cm. This is a solid spiculated mass raises concern for primary lung carcinoma and her the potential for possible metastatic disease. Recommend consideration for follow-up PET scan for plan for biopsy if clinically appropriate. Mild cardiomegaly coronary calcification. Calcified granuloma right lung. Periportal edema. Vague enhancement of the mid right hepatic artery proximal to the riaz hepatis which a follow-up ultrasound and/or angiogram could be considered. Constipation. Wall thickening of the bladder consider cystitis. Degenerative change of the thoracolumbar spine. 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 There is mild edema of the proximal duodenum suggesting enteritis. Electronically Signed: Elva Zabala MD at 7:50 EST Tel , Service support ,
[2021-05-28 07:30] LABS: CREATININE FINGERSTICK 0.7 mg/dL (0.70-1.30); EGFR FINGERSTICK > 60.0000 mL/min (>60)
[2021-05-28 07:34] LABS: Absolute Lymphocyte Count 0.36 X10^3/uL (0.83-4.51); Absolute Neutrophil Count 2.4 X10^3/uL (2.0-7.7); Basophil# 0.01 X10^3/uL; Basophil% 0.3 % (0-1); Eosinophil# 0.09 X10^3/uL; Eosinophils% 2.9 % (0-5); Hematocrit 33.1 % (40-54); Hemoglobin 10.6 g/dL (13.0-16.5); Lymphocyte # 0.36 X10^3/ul (0.83-4.51); Lymphocyte % 11.5 % (19-41); Mean Corpuscular Hgb 28.9 pg (27.0-32.0); Mean Corpuscular Volume 90.2 fL (80-94); Mean Platelet Vol. 9.8 fl (6.2-12.0); Monocyte# 0.29 X10^3/uL; Monocyte% 9.3 % (0-10); NRBC Flagged by Analyzer 0 % (0-5); Neutrophil # 2.36 X10^3/uL (2.7-7.7); Neutrophil % 75.7 % (47-70); POSITIVE COUNT YES; POSITIVE DIFFERENTIAL YES; Platelet Count 85 K/mm3 (150-450); RBC Distribution Width CV 15.7 % (11.6-14.6); RBC Distribution Width SD 51.8 fl (35.1-43.9); Red Blood Count 3.67 M/mm3 (4.6-6.2); White Blood Count 3.1 K/mm3 (4.4-11.0)
[2021-05-28 07:39] LABS: Differential Indicated SCAN CRITERIA MET
[2021-05-28 08:26] LABS: AST(SGOT) 77 U/L (15-37); Alanine Aminotransfer ALT/SGPT 96 U/L (16-61); Albumin, Serum 3.2 g/dL (3.2-5.0); Alkaline Phosphatase 148 U/L (45-117); Anion Gap 5 (5-15); BUN 18 mg/dL (7-18); BUN/Creat Ratio 15.8 RATIO (10-20); Calcium,Total 8.4 mg/dL (8.5-10.1); Chloride 105 mmol/L (98-107); Creatinine, Serum 1.14 mg/dL (0.70-1.30); EST Glomerular Filtration Rate 65 mL/min (>60); Est Glom Filt Rate - Afr Amer 79 mL/min (>60); Globulin 3.3 g/dL (2.2-4.2); Glucose 169 mg/dL (74-106); LDH 149 U/L (87-241); Potassium 3.4 mmol/L (3.5-5.1); Protein, Total 6.5 g/dL (6.4-8.2); Sodium Level 139 mmol/L (136-145)
[2021-05-28 08:47] LABS: Platelet Estimate MOD DEC (ADEQ)
[2021-05-29 11:24] LABS: Carbohydrate AG 19-9 7 U/mL (0-35)
[2021-05-29 12:21] LABS: Pathologist Review Reviewed
== END ==
PROVIDERS: PCP Family Medicine; Referring Provider Internal Medicine Medical Oncology; Visit Provider Internal Medicine Medical Oncology
DX: C25.9 Malignant neoplasm of pancreas, unspecified (principal); C24.9 Malignant neoplasm of biliary tract, unspecified; E78.2 Mixed hyperlipidemia
CPT/HCPCS: 36415; 71260; 74177; 80053; 83615; 85025; 86301; Q9967; A4216

== ENCOUNTER 2021-10-26 07:32 | Outpatient (CLI) | payer MEDICARE, SELFPAY ==
[2021-10-26 08:44] LABS: Microalbumin,Random Urine 36.4 mg/L (NO RANGE EST.); Microalbumin:Creatinine Ratio 22.1 mg/g CRE (<30 mg/g CRE)
[2021-10-26 08:49] LABS: AST(SGOT) 50 U/L (15-37); Alanine Aminotransfer ALT/SGPT 75 U/L (16-61); Albumin, Serum 3.4 g/dL (3.2-5.0); Alkaline Phosphatase 111 U/L (45-117); Anion Gap 4 (5-15); BUN 19 mg/dL (7-18); BUN/Creat Ratio 17.3 RATIO (10-20); Bilirubin, Direct 0.31 mg/dL (0.00-0.30); Calcium,Total 7.9 mg/dL (8.5-10.1); Chloride 107 mmol/L (98-107); Cholesterol 69 mg/dL (200); EST Glomerular Filtration Rate 68 mL/min (>60); Est Glom Filt Rate - Afr Amer 82 mL/min (>60); Globulin 2.7 g/dL (2.2-4.2); Glucose 161 mg/dL (74-106); High Density Lipoprotein 36 mg/dL; Potassium 3.4 mmol/L (3.5-5.1); Protein, Total 6.1 g/dL (6.4-8.2); Sodium Level 141 mmol/L (136-145); Triglycerides 116 mg/dL; Very Low Density Lipoprotein 23 mg/dL (5-40)
== END 2021-10-26 23:59 | disposition home or self-care (01) ==
LOC: LAB 07:34
PROVIDERS: Nurse Practitioner Family; PCP Family Medicine; Referring Provider Family Medicine; Visit Provider Family Medicine
DX: E11.9 Type 2 diabetes mellitus without complications (principal)
CPT/HCPCS: 36415; 80048; 80061; 80076; 82043; 82570

== ENCOUNTER → 2021-12-03 | Outpatient (CLI) | payer MEDICARE, SELFPAY ==
[2021-12-03 08:25] LABS: Absolute Lymphocyte Count 0.39 X10^3/uL (0.83-4.51); Absolute Neutrophil Count 3.3 X10^3/uL (2.0-7.7); Basophil# 0.01 X10^3/uL; Basophil% 0.2 % (0-1); Eosinophil# 0.05 X10^3/uL; Eosinophils% 1.2 % (0-5); Hematocrit 36.7 % (40-54); Hemoglobin 12.2 g/dL (13.0-16.5); Lymphocyte # 0.39 X10^3/ul (0.83-4.51); Lymphocyte % 9.7 % (19-41); Mean Corp Hgb Conc 33.2 g/dL (32-36); Mean Corpuscular Hgb 31.6 pg (27.0-32.0); Mean Corpuscular Volume 95.1 fL (80-94); Mean Platelet Vol. 8.7 fl (6.2-12.0); Monocyte# 0.26 X10^3/uL; Monocyte% 6.5 % (0-10); NRBC Flagged by Analyzer 0 % (0-5); Neutrophil # 3.31 X10^3/uL (2.7-7.7); Neutrophil % 82.2 % (47-70); POSITIVE DIFFERENTIAL YES; Platelet Count 103 K/mm3 (150-450); RBC Distribution Width CV 13.1 % (11.6-14.6); RBC Distribution Width SD 44.9 fl (35.1-43.9); Red Blood Count 3.86 M/mm3 (4.6-6.2)
[2021-12-03 08:26] LABS: Differential Indicated SCAN CRITERIA MET
--- NOTE | 2021-12-03 08:28 | CT_ITS ---
EXAM: CT CHEST WITH INTRAVENOUS CONTRAST CLINICAL INDICATION: MONITOR LUNG CA Technologist Notes pancreatic cancer, whipple, coronary stent. TECHNIQUE: Helically acquired images were obtained of the chest with intravenous contrast. This CT exam was performed using one or more of the following dose reduction techniques: automated exposure control, adjustment of the mA and/or kV according to patient size, and/or use of iterative reconstruction technique. This report was created using [employer] report generation technology. CONTRAST: IV 100mL Isovue-370 RADIATION DOSE: CTDIvol = 19.07 mGy, DLP = 591.14 mGy-cm COMPARISON: None. FINDINGS: LUNGS AND PLEURAL SPACES: There is a spiculated mass in the left upper lobe measuring 27 x 22 mm. Differential includes pneumonia versus neoplasm. There are no prior studies available for comparison. Given the history this is likely a neoplasm. Surveillance is warranted. No pleural effusion or thickening. HEART: There are calcifications of the coronary arteries. Heart size is normal. No pericardial effusion. MEDIASTINUM: Unremarkable. No mediastinal or hilar adenopathy. Esophagus is unremarkable. No hiatal hernia. THYROID: Unremarkable. No thyroid lesions. BONES/JOINTS: There are degenerative changes of the shoulders. There are multi-level degenerative changes of the thoracic spine. No suspicious lytic or blastic abnormality. VASCULATURE: There is atherosclerotic calcification of the aortic arch with tortuosity and elongation of the aortic arch and descending thoracic aorta. Thoracic aorta is non-dilated. No thoracic aortic dissection. No obvious central pulmonary embolism although this study was not performed with the pulmonary embolism protocol. CT/Chest WITH Contrast IMPRESSION: There is a spiculated mass in the left upper lobe measuring 27 x 22 mm. Differential includes pneumonia versus neoplasm. There are no prior studies available for comparison. Given the history this is likely a neoplasm. Surveillance is warranted. Electronically Signed: Gonsalo Lemus MD at 20:15 EDT ,
[2021-12-03 08:40] LABS: CREATININE FINGERSTICK < 0.9 mg/dL (0.70-1.30); EGFR FINGERSTICK > 60.0000 mL/min (>60)
[2021-12-03 08:51] LABS: ALB/GLOB Ratio 1.1 RATIO (0.9-2.4); AST(SGOT) 41 U/L (15-37); Alanine Aminotransfer ALT/SGPT 75 U/L (16-61); Albumin, Serum 3.4 g/dL (3.2-5.0); Alkaline Phosphatase 136 U/L (45-117); Anion Gap 3 (5-15); BUN 19 mg/dL (7-18); BUN/Creat Ratio 16.2 RATIO (10-20); Calcium,Total 8.4 mg/dL (8.5-10.1); Chloride 106 mmol/L (98-107); Creatinine, Serum 1.17 mg/dL (0.70-1.30); EST Glomerular Filtration Rate 63 mL/min (>60); Est Glom Filt Rate - Afr Amer 77 mL/min (>60); Globulin 3.2 g/dL (2.2-4.2); Glucose 173 mg/dL (74-106); LDH 173 U/L (87-241); Potassium 3.9 mmol/L (3.5-5.1); Protein, Total 6.6 g/dL (6.4-8.2); Sodium Level 141 mmol/L (136-145)
[2021-12-04 09:32] LABS: Carbohydrate AG 19-9 9 U/mL (0-35)
[2021-12-04 12:34] LABS: Pathologist Review Reviewed
== END | disposition home or self-care (01) ==
LOC: CT 08:07
PROVIDERS: PCP Family Medicine; Referring Provider Internal Medicine Medical Oncology; Visit Provider Internal Medicine Medical Oncology
DX: C34.12 Malignant neoplasm of upper lobe, left bronchus or lung (principal); C25.9 Malignant neoplasm of pancreas, unspecified
CPT/HCPCS: 36415; 71260; 80053; 83615; 85025; 86301; Q9967

== ENCOUNTER 2022-03-23 20:30 | Emergency (ER) | payer MEDICARE, SELFPAY ==
[2022-03-23 20:31] VITALS: BP 146/70; PULSE 94; RESP 16; TEMP 36.8; O2SAT 98; BMI 27.9
--- NOTE | 2022-03-23 20:53 | EX.ED.DYSGE1 ---
HPI <Dr. Johann Schafer MD - Last Filed: 03/23/22 22:48> History of Present Illness Chief Complaint: Fever Informant: patient Narrative Narrative: Patient presents with episode of fevers and rigors at home. He states he has been feeling just fine. He sat down to eat dinner. He was eating corn and peas. He suddenly got a chill and started some shaking. Checked his temperature and it was 104. He states he thinks his thermometer needs a new battery might not be reading right but he did feel warm. He denies any other symptoms. No cough or sore throat. No congestion. No myalgias no chest pain no shortness of breath. No abdominal pain diarrhea. No urinary symptoms. He had a history of both stage I lung cancer and stage II pancreatic cancer. He was treated over a year ago. He had Whipple. He had chemotherapy but his last chemo was over a year. He has not had any recurrence. He is not on any immunosuppressant drugs at this time. [facility] <Dr. 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 Essential (primary) hypertension Hepatomegaly Hyperlipidemia Jaundice Malignant neoplasm of biliary tract Nasal polyps NSCLC of left lung Obesity SUZANNE (obstructive sleep apnea) Pilonidal cyst Secondary pulmonary arterial hypertension Uses continuous positive airway pressure (CPAP) ventilation at home Home Medications allopurinol 300 mg tablet 300 mg PO DAILY 01/01/16 [History Last Taken 12/30/16] aspirin 81 mg chewable tablet 81 mg PO DAILY@0800 12/27/16 [History Last Taken 12/30/16] clopidogrel 75 mg tablet 75 mg PO DAILY 12/30/16 [History Last Taken 12/30/16] furosemide 40 mg tablet (Lasix) 40 mg PO QDAY #90 tabs 02/06/18 [Rx Last Taken Unknown] lisinopril 10 mg tablet 10 mg PO DAILY #90 tabs 02/05/19 [History Last Taken Unknown] atorvastatin 40 mg tablet 40 mg PO DAILY #90 tabs 07/19/19 [Rx Last Taken Unknown] ondansetron 4 mg disintegrating tablet 4 mg PO Q8H PRN PRN Nausea #10 tabs 09/02/20 [Rx Last Taken Unknown] omega-3 acid ethyl esters 1 gram capsule See Rx Instructions .Route .COMPLEX #90 caps 01/28/22 [Rx Last Taken Unknown] metformin 750 mg tablet,extended release 24 hr 1,500 mg PO BID 02/15/22 [History Last Taken Unknown] Allergy/AdvReac Type Severity Reaction Status Date / Time mushroom Allergy Hives Verified 03/23/22 20:33 tetanus and diphtheria Allergy Hives Verified 03/23/22 20:33 toxoids [tetanus & diphtheria toxoids] atorvastatin [From Lipitor] AdvReac Unknown Myalgias Verified 03/23/22 20:33 with 80mg, not 40mg pravastatin AdvReac Unknown Severe Verified 03/23/22 20:33 myalgias, memory and balance issues rosuvastatin [From Crestor] AdvReac Unknown Severe Verified 03/23/22 20:33 Myalgias [place] AdvReac Unknown Nasal Uncoded 03/23/22 20:33 Congestion Family History Mother CAD (coronary artery disease) Hypertension CHF (congestive heart failure) Sister AML (acute myeloid leukemia) Surgical History H/O endoscopy H/O right knee surgery History of biliary duct stent placement History of common bile duct surgery History of coronary artery stent placement (01/01/17) History of left heart catheterization (12/30/16) History of lung biopsy Hx of nasal polypectomy Social History Smoking Status: Former smoker Tobacco: How many years used: 60 how long ago did patient quit smokin second hand exposure: No alcohol intake: current alcohol intake frequency: a few times a week Alcohol type: hard liquor details: dry since november 11, 2020. cocktails socially. substance use type: does not use caffeine: Yes Type: coffee what type of physical activity do you participate in: walking frequency: 1-2 times per week duration: 15-30 minutes/day seatbelt use: always do you feel safe at home: Yes ROS <Dr. Johann Schafer MD - Last Filed: 03/23/22 22:48> ROS ED Constitutional Constitutional ED: Reports chills, fever(s) and subjective; Denies sweats Eyes Eyes: Denies change in vision ENT ENT ED: Denies rhinorrhea or sore throat Cardiovascular Cardiovascular: Denies chest pain, palpitations or racing heartbeat Respiratory/Chest Respiratory/Chest: Denies cough, dyspnea or sputum Gastrointestinal Gastrointestinal: Denies abdominal pain, diarrhea, nausea or vomiting Genitourinary Genitourinary ED: Denies dysuria, hematuria or urinary frequency Musculoskeletal Musculoskeletal: Denies arthralgias or myalgias Integumentary Denies abscess Neurologic Neurologic: Denies headache(s), paresthesias or weakness Endocrine Endocrinology: Denies polyuria Hematologic/Lymphatic Hematologic/Lymphatic: Denies anemia Allergic/Immunologic Allergic/Immunologic ED: Denies urticaria EXAM <Dr. Johann Schafer MD - Last Filed: 03/23/22 22:48> Physical Exam Const Vital Signs: 03/23/22 20:31 03/23/22 20:40 03/23/22 22:01 Temperature 98.2 F 99.6 F H Temperature Source Oral Temporal Pulse Rate 94 71 Respiratory Rate 16 20 H Respiratory Effort Normal Non-Labored Respiratory Pattern Normal Blood Pressure 146/70 H 122/53 H Blood Pressure Mean 95 76 Pulse Ox 98 97 Oxygen Delivery Method Room Air Room Air Positive well nourished and well developed General Appearance ED: well developed and NAD HEENT Reports moist mucous membranes Eyes PERRL General Eye ED: Negative for scleral icterus Neck supple Neck Narrative: No meningismus. Chest Wall inspection of chest normal Resp normal respiratory effort and clear to auscultation bilaterally Auscultation: Negative for rales, rhonchi or wheezes Cardio regular rate, regular rhythm and no murmurs GI normal to inspection, nondistended, normoactive bowel sounds, non-tender and non-distended GI Narrative: Completely benign abdominal exam. Back/Spine no CVA tenderness Extremity normal to inspection Neuro oriented x3 Psych mental status grossly normal Skin no rashes or lesions noted Skin Narrative: Patient had normal temperature when he came in here. But he does feel little warm to the touch now. <Dr. Yong Levy MD - Last Filed: 03/23/22 23:33> Physical Exam Const Vital Signs: 03/23/22 20:31 03/23/22 20:40 03/23/22 22:01 Temperature 98.2 F 99.6 F H Temperature Source Oral Temporal Pulse Rate 94 71 Respiratory Rate 16 20 H Respiratory Effort Normal Non-Labored Respiratory Pattern Normal Blood Pressure 146/70 H 122/53 H Blood Pressure Mean 95 76 Pulse Ox 98 97 Oxygen Delivery Method Room Air Room Air MDM <Dr. Johann Schafer MD - Last Filed: 03/23/22 22:48> [facility] Narrative Medical decision making narrative: Blood work shows some pancytopenia but this is not new. Electrolytes are overall normal. Glucose was updated to 25. LFTs were normal. Chest x-ray shows no acute process. COVID is negative. Patient's recheck. He feels well. He is drinking water trying to urinate. I think this patient can go home. But I do want to get a urinalysis back. If his urine shows signs of infection, we will add antibiotics. If the urine does not show signs of infection I think he can follow-up with pending blood cultures. He is not clinically ill and I do not think he needs admission for a fever that he had at home Lab Data Attestation: I reviewed the patient's lab results. Labs: Laboratory Results - last 24 hr 03/23/22 03/23/22 03/23/22 21:15 21:15 23:07 WBC 3.7 L RBC 3.53 L Hgb 11.3 L Hct 33.5 L MCV 94.9 H MCH 32.0 MCHC 33.7 RDW Std Deviation 43.8 RDW Coeff of Audra 12.7 Plt Count 66 L MPV 9.4 Immature Gran % (Auto) 0.300 Neut % (Auto) 92.3 H Lymph % (Auto) 3.3 L [place] % (Auto) 3.8 Eos % (Auto) 0.3 Baso % (Auto) 0.0 Absolute Neuts (auto) 3.4 Absolute Lymphs (auto) 0.12 L Nucleated RBC % 0 Differential Comment SEE COMMENT Diff Path Review May foll Platelet Estimate ADEQUATE RBC Morphology N CHROM Anisocytosis RARE Macrocytosis RARE Sodium 140 Potassium 3.7 Chloride 106 Carbon Dioxide 27.0 Anion Gap 7 BUN 20 H Creatinine 1.17 Estim Creat Clear Calc 48.68 Est GFR (MDRD) Af Amer 77 Est GFR (MDRD) Non-Af 63 BUN/Creatinine Ratio 17.1 Glucose 225 H Calcium 8.4 L Total Bilirubin 1.00 AST 27 ALT 42 Alkaline Phosphatase 98 Total Protein 6.0 L Albumin 3.1 L Globulin 2.9 Albumin/Globulin Ratio 1.1 Urine Color Yellow Urine Clarity Clear Urine pH 6.0 Ur Specific [place] 1.010 Urine Protein Negative Urine Glucose (UA) Normal Urine Ketones Negative Urine Occult Blood Negative Urine Nitrite Negative Urine Bilirubin Negative Urine Urobilinogen Normal Ur Leukocyte Esterase Negative Urine RBC 0 SEEN Urine WBC 0 SEEN Ur Squamous Epith Cells 0 SEEN Urine Bacteria 0 SEEN Urine Mucus 0 SEEN Radiography Diagnostic Testing: Clinical Impression(s) from Imaging Studies Chest X-Ray 03/23/22 21:35 IMPRESSION: 1. Mild cardiomegaly without heart failure. 2. Borderline emphysema. 3. No adenopathy or evidence of active cardiopulmonary disease. No pneumonia, pneumonitis, bronchitis or soft tissue pulmonary mass lesions. 4. No evidence of other interval change since the previous study of December 13, 2016. Electronically Signed: Alex Guzman MD at 22:23 EDT , <Dr. Yong Levy MD - Last Filed: 03/23/22 23:33> [facility] MDM Narrative Medical decision making narrative: Blood work shows some pancytopenia but this is not new. Electrolytes are overall normal. Glucose was updated to 25. LFTs were normal. Chest x-ray shows no acute process. COVID is negative. Patient's recheck. He feels well. He is drinking water trying to urinate. I think this patient can go home. But I do want to get a urinalysis back. If his urine shows signs of infection, we will add antibiotics. If the urine does not show signs of infection I think he can follow-up with pending blood cultures. He is not clinically ill and I do not think he needs admission for a fever that he had at home Patient checked out to me. Urinalysis came back completely clean, he is doing well. Suspect viral etiology however it is possible he has not developed all of the symptoms of this illness yet since it is early on. We discussed reasons to return, I advise following up with his doctor to review culture results and for reevaluation. He is comfortable with that plan all questions answered at the bedside. Lab Data Labs: Laboratory Results - last 24 hr 03/23/22 03/23/22 03/23/22 21:15 21:15 23:07 WBC 3.7 L RBC 3.53 L Hgb 11.3 L Hct 33.5 L MCV 94.9 H MCH 32.0 MCHC 33.7 RDW Std Deviation 43.8 RDW Coeff of Audra 12.7 Plt Count 66 L MPV 9.4 Immature Gran % (Auto) 0.300 Neut % (Auto) 92.3 H Lymph % (Auto) 3.3 L [place] % (Auto) 3.8 Eos % (Auto) 0.3 Baso % (Auto) 0.0 Absolute Neuts (auto) 3.4 Absolute Lymphs (auto) 0.12 L Nucleated RBC % 0 Differential Comment SEE COMMENT Diff Path Review May foll Platelet Estimate ADEQUATE RBC Morphology N CHROM Anisocytosis RARE Macrocytosis RARE Sodium 140 Potassium 3.7 Chloride 106 Carbon Dioxide 27.0 Anion Gap 7 BUN 20 H Creatinine 1.17 Estim Creat Clear Calc 48.68 Est GFR (MDRD) Af Amer 77 Est GFR (MDRD) Non-Af 63 BUN/Creatinine Ratio 17.1 Glucose 225 H Calcium 8.4 L Total Bilirubin 1.00 AST 27 ALT 42 Alkaline Phosphatase 98 Total Protein 6.0 L Albumin 3.1 L Globulin 2.9 Albumin/Globulin Ratio 1.1 Urine Color Yellow Urine Clarity Clear Urine pH 6.0 Ur Specific [place] 1.010 Urine Protein Negative Urine Glucose (UA) Normal Urine Ketones Negative Urine Occult Blood Negative Urine Nitrite Negative Urine Bilirubin Negative Urine Urobilinogen Normal Ur Leukocyte Esterase Negative Urine RBC 0 SEEN Urine WBC 0 SEEN Ur Squamous Epith Cells 0 SEEN Urine Bacteria 0 SEEN Urine Mucus 0 SEEN Radiography Diagnostic Testing: Clinical Impression(s) from Imaging Studies Chest X-Ray 03/23/22 21:35 IMPRESSION: 1. Mild cardiomegaly without heart failure. 2. Borderline emphysema. 3. No adenopathy or evidence of active cardiopulmonary disease. No pneumonia, pneumonitis, bronchitis or soft tissue pulmonary mass lesions. 4. No evidence of other interval change since the previous study of December 13, 2016. Electronically Signed: Alex Guzman MD at 22:23 EDT , Discharge Plan Triage Chief Complaint: Fever ED Provider: Johann Schafer Dx/Rx/DC Orders Clinical Impression: History of fever Instructions: ED FUO Adult Prescriptions: No Action lisinopril 10 mg tablet 10 mg PO DAILY Qty: 90 metformin 750 mg tablet extended release 24 hr 1,500 mg PO BID Label Comments: take 2 tablets by mouth twice a day allopurinol 300 MG tablet 300 mg PO DAILY aspirin 81 MG tablet,chewable 81 mg PO DAILY@0800 clopidogrel 75 MG tablet 75 mg PO DAILY ondansetron 4 MG tablet 4 mg PO Q8H PRN PRN (Reason: Nausea) Qty: 10 0RF furosemide [Lasix] 40 mg tablet 40 mg PO QDAY Qty: 90 3RF atorvastatin 40 mg tablet 40 mg PO DAILY Qty: 90 3RF omega-3 acid ethyl esters 1 gram capsule See Rx Instructions .ROUTE .COMPLEX Qty: 90 3RF Dose Instruction: TAKE 1 CAPSULE DAILY Rx Instructions: TAKE 1 CAPSULE DAILY Primary Care Provider: Mickey Ennis Referrals: Mickey Ennis MD [Primary Care Provider] - 1-2 Days if not improving Disposition Disposition: Home, Self Care
[2022-03-23 21:34] LABS: Absolute Lymphocyte Count 0.12 X10^3/uL (0.83-4.51); Absolute Neutrophil Count 3.4 X10^3/uL (2.0-7.7); Eosinophil# 0.01 X10^3/uL; Eosinophils% 0.3 % (0-5); Hematocrit 33.5 % (40-54); Hemoglobin 11.3 g/dL (13.0-16.5); Lymphocyte # 0.12 X10^3/ul (0.83-4.51); Lymphocyte % 3.3 % (19-41); Mean Corp Hgb Conc 33.7 g/dL (32-36); Mean Corpuscular Volume 94.9 fL (80-94); Mean Platelet Vol. 9.4 fl (6.2-12.0); Monocyte# 0.14 X10^3/uL; Monocyte% 3.8 % (0-10); NRBC Flagged by Analyzer 0 % (0-5); Neutrophil # 3.41 X10^3/uL (2.7-7.7); Neutrophil % 92.3 % (47-70); POSITIVE COUNT YES; POSITIVE DIFFERENTIAL YES; Platelet Count 66 K/mm3 (150-450); RBC Distribution Width CV 12.7 % (11.6-14.6); RBC Distribution Width SD 43.8 fl (35.1-43.9); Red Blood Count 3.53 M/mm3 (4.6-6.2); White Blood Count 3.7 K/mm3 (4.4-11.0)
[2022-03-23 21:35] LABS: Differential Indicated SCAN CRITERIA MET
--- NOTE | 2022-03-23 21:35 | RAD_ITS ---
STUDY: PORTABLE AP UPRIGHT CHEST X-RAY 2133 HOURS ON 03/23/2022 REASON FOR EXAM: 81-year-old male with fever. TECHNIQUE: A single view portable AP upright chest x-ray was performed per protocol. COMPARISON: 12/13/2016. FINDINGS: Mild demineralization. Moderate osteophytic degenerative changes of the lower thoracic spine. Mild cardiomegaly without heart failure. Borderline emphysema. Small calcified granuloma in the periphery of the right upper lobe. Small calcified granuloma in the left suprahilar region. No pulmonary infiltrates, atelectasis, effusion, pulmonary mass lesions. No pneumonia, pneumonitis or bronchitis. No significant interval change since the previous study of 12/13/2016. RAD/Chest 1 View (Portable) IMPRESSION: 1. Mild cardiomegaly without heart failure. 2. Borderline emphysema. 3. No adenopathy or evidence of active cardiopulmonary disease. No pneumonia, pneumonitis, bronchitis or soft tissue pulmonary mass lesions. 4. No evidence of other interval change since the previous study of December 13, 2016. Electronically Signed: Alex Guzman MD at 22:23 EDT ,
[2022-03-23 21:42] LABS: ALB/GLOB Ratio 1.1 RATIO (0.9-2.4); AST(SGOT) 27 U/L (15-37); Alanine Aminotransfer ALT/SGPT 42 U/L (16-61); Albumin, Serum 3.1 g/dL (3.2-5.0); Alkaline Phosphatase 98 U/L (45-117); Anion Gap 7 (5-15); BUN 20 mg/dL (7-18); BUN/Creat Ratio 17.1 RATIO (10-20); Calcium,Total 8.4 mg/dL (8.5-10.1); Chloride 106 mmol/L (98-107); Creatinine, Serum 1.17 mg/dL (0.70-1.30); EST Glomerular Filtration Rate 63 mL/min (>60); Est Glom Filt Rate - Afr Amer 77 mL/min (>60); Estimated Creatinine Clearance 48.68 ml/min; Globulin 2.9 g/dL (2.2-4.2); Glucose 225 mg/dL (74-106); Potassium 3.7 mmol/L (3.5-5.1); Sodium Level 140 mmol/L (136-145)
[2022-03-23 21:59] LABS: Platelet Estimate ADEQUATE (ADEQ); Red Cell Morphology N CHROM NORMAL (NORM C&C)
[2022-03-23 22:00] LABS: Anisocytosis RARE; Macrocytosis RARE
[2022-03-23] MEDS: Acetaminophen 500 MG Tablet 1000 MG PO (22:00)
[2022-03-23 22:01] VITALS: BP 122/53; PULSE 71; RESP 20; TEMP 37.6; O2SAT 97
[2022-03-23 23:16] LABS: Bacteria 0 SEEN /hpf (None Seen); Mucous, Urine 0 SEEN /hpf (<or=2+); Red Blood Cells-Urine 0 SEEN /hpf (0-5); Squamous Epithelial Cells - UA 0 SEEN /hpf (0-5); White Blood Cells 0 SEEN /hpf (0-5)
[2022-03-23 23:22] LABS: Color, Urine Yellow (Yellow); Glucose, Dipstick Normal (Normal); Ketone-Dipstick Negative (Negative); Leukocyte Esterase-Dipstick Negative /ul (Negative); Nitrite-Dipstick Negative (Negative); Occult Blood-Urine Negative /ul (Negative); Protein-Dipstick Negative (Negative); Urine Bilirubin Dipstick Negative (Negative); Urine Clarity Clear (Clear); Urine Urobilinogen Normal (Normal)
[2022-03-23 23:43] VITALS: BP 102/50; PULSE 66; RESP 17; O2SAT 97
--- NOTE | 2022-03-24 10:22 | ED.RN ---
THIS ED RN GIVEN POSITIVE BLOOD CULTURE RESULT BY LAB X'S [address]. RESULTS G[address] OBRIEN. NO NEW ORDERS AT THIS TIME. TO LOOK INTO VISIT
--- NOTE | 2022-03-24 11:17 | ED.RN ---
PER DR OBRIEN THIS RN SPOKE TO BOTH PATIENT AND PRIMARY ACETYLENE GAS COMPRESSOR-DR. ADALI TOURE FOR DR. FLORES. FOR PATIENT PLAN OF CARE. PATIENT STATES HE FEELS BETTER THIS MORNING THEN YESTERDAY AND NO FEVER THIS MORNING. PT VERBALIZED UNDERSTANDING THAT IF HE STARTS FEELING WORSE OR DEVELOPS FEVER TO COME BACK TO ED. THIS RN THEN SPOKE WITH DR. TOURE TO GIVE UPDATE ON PATIENT AND LAB RESULTS. HE VERBALIZES UNDERSTANDING AND STATES HE WILL BE IN CONTACT WITH DR. FLORES.
[2022-03-25 13:42] LABS: Pathologist Review Reviewed
== END 2022-03-23 23:43 | disposition home or self-care (01) ==
PROVIDERS: Emergency Provider Emergency Medicine; PCP Family Medicine; Visit Provider Emergency Medicine
DX: R50.9 Fever, unspecified (principal); D61.818 Other pancytopenia; E11.9 Type 2 diabetes mellitus without complications; E78.5 Hyperlipidemia, unspecified; I25.10 Atherosclerotic heart disease of native coronary artery without angina pectoris; I10 Essential (primary) hypertension; Z87.891 Personal history of nicotine dependence; Z85.118 Personal history of other malignant neoplasm of bronchus and lung; Z85.07 Personal history of malignant neoplasm of pancreas
CPT/HCPCS: 71045; 80053; 81001; 85025; 87040; 87077; 87086; 87186; 87428; 99283; A4216

== ENCOUNTER → 2022-03-25 | Outpatient (CLI) | payer MEDICARE, SELFPAY ==
[2022-03-25 17:49] LABS: Absolute Lymphocyte Count 0.35 X10^3/uL (0.83-4.51); Absolute Neutrophil Count 2.3 X10^3/uL (2.0-7.7); Basophil# 0.01 X10^3/uL; Basophil% 0.3 % (0-1); Eosinophil# 0.03 X10^3/uL; Eosinophils% 0.9 % (0-5); Hematocrit 32.6 % (40-54); Hemoglobin 10.8 g/dL (13.0-16.5); Lymphocyte # 0.35 X10^3/ul (0.83-4.51); Mean Corp Hgb Conc 33.1 g/dL (32-36); Mean Corpuscular Volume 96.7 fL (80-94); Mean Platelet Vol. 9.9 fl (6.2-12.0); Monocyte# 0.47 X10^3/uL; Monocyte% 14.7 % (0-10); NRBC Flagged by Analyzer 0 % (0-5); Neutrophil # 2.32 X10^3/uL (2.7-7.7); Neutrophil % 72.8 % (47-70); POSITIVE COUNT YES; POSITIVE DIFFERENTIAL YES; Platelet Count 63 K/mm3 (150-450); RBC Distribution Width SD 46.1 fl (35.1-43.9); Red Blood Count 3.37 M/mm3 (4.6-6.2); White Blood Count 3.2 K/mm3 (4.4-11.0)
[2022-03-25 18:12] LABS: ALB/GLOB Ratio 0.8 RATIO (0.9-2.4); AST(SGOT) 22 U/L (15-37); Alanine Aminotransfer ALT/SGPT 33 U/L (16-61); Albumin, Serum 2.7 g/dL (3.2-5.0); Alkaline Phosphatase 98 U/L (45-117); Anion Gap 6 (5-15); BUN 19 mg/dL (7-18); BUN/Creat Ratio 15.4 RATIO (10-20); Calcium,Total 8.4 mg/dL (8.5-10.1); Chloride 103 mmol/L (98-107); Creatinine, Serum 1.23 mg/dL (0.70-1.30); EST Glomerular Filtration Rate 60 mL/min (>60); Est Glom Filt Rate - Afr Amer 72 mL/min (>60); Globulin 3.3 g/dL (2.2-4.2); Glucose 188 mg/dL (74-106); Sodium Level 137 mmol/L (136-145)
[2022-03-25 18:13] LABS: Differential Indicated SCAN CRITERIA MET
[2022-03-25 18:31] LABS: Differential Comment SCANNED
[2022-03-25 18:34] LABS: Platelet Estimate MOD DEC (ADEQ)
[2022-03-26 14:28] LABS: Pathologist Review Reviewed
== END | disposition home or self-care (01) ==
LOC: MFPLAB 16:41
PROVIDERS: PCP Family Medicine; Visit Provider Family Medicine
DX: R53.83 Other fatigue (principal)
CPT/HCPCS: 36415; 80053; 85025

== ENCOUNTER → 2022-06-10 | Outpatient (CLI) | payer MEDICARE, SELFPAY ==
--- NOTE | 2022-06-10 08:06 | CT_ITS ---
STUDY: CT CHEST T ABDOMEN WITH CONTRAST REASON FOR EXAM: Male, 81 years old. MONITOR LUNG CA BILE DUCT CA-BOTH CONTRASTS RADIATION DOSAGE (If Supplied By Facility): CTDIvol = ( 18.74 ) mGy, DLP = ( 1075.74 ) mGycm TECHNIQUE: Transaxial imaging was performed following intravenous administration of Oral and amp; IV Readi-CAT and amp; 100mL Isovue-300. Multiplanar coronal and sagittal images were reformatted. Individualized dose optimization techniques were used for this CT. COMPARISON: Comparison is made with prior study dated 12/03/2021. FINDINGS: CHEST Stable spiculated irregular mass in the left upper lobe. This is essentially unchanged. There is evidence of scarring in the posterior aspect of the left lung apex. Stable calcified granuloma in the lateral aspect of the right upper lobe as seen on axial image #52. There is no demonstrated pleural abnormality. There are calcifications of the coronary arteries. Normal mediastinum. Calcified right hilar lymphadenopathy. Calcified right precarinal lymph nodes. Normal unenhanced pulmonary arteries. Normal aorta arch and descending thoracic aorta. There are multi-level degenerative changes of the thoracic spine. There is no demonstrated abnormality of the visualized upper abdomen. ABDOMEN Mildly dilated intrahepatic biliary ducts. The patient is status post cholecystectomy. There are multiple benign calcified granulomata of the spleen. Normal pancreas. Normal bilateral adrenal glands. Normal right kidney. Normal left kidney. Normal visualized stomach. Normal small intestine. Moderate amount of fecal material is seen in the visualized colon. The appendix is visualized and appears normal. There is scattered atherosclerotic calcification of the abdominal aorta, without a demonstrated aneurysm. Normal inferior vena cava. Normal retroperitoneum. Normal abdominal wall. There are degenerative changes of the visualized lumbar spine. CT/CT Chest AND Abd W/ Contrast IMPRESSION: Mild degree of intrahepatic biliary ductal dilatation. The patient is status post cholecystectomy. Stable appearance of the spiculated heterogeneous nodule in the left upper lobe. Electronically Signed: Dexter Dugan MD at 15:14 EST ,
[2022-06-10 08:11] LABS: Absolute Lymphocyte Count 0.37 X10^3/uL (0.83-4.51); Absolute Neutrophil Count 2.3 X10^3/uL (2.0-7.7); Basophil# 0.02 X10^3/uL; Basophil% 0.7 % (0-1); Eosinophil# 0.01 X10^3/uL; Eosinophils% 0.3 % (0-5); Hematocrit 36.7 % (40-54); Lymphocyte # 0.37 X10^3/ul (0.83-4.51); Lymphocyte % 12.5 % (19-41); Mean Corp Hgb Conc 32.7 g/dL (32-36); Mean Corpuscular Hgb 31.5 pg (27.0-32.0); Mean Corpuscular Volume 96.3 fL (80-94); Mean Platelet Vol. 8.9 fl (6.2-12.0); Monocyte# 0.23 X10^3/uL; Monocyte% 7.8 % (0-10); NRBC Flagged by Analyzer 0 % (0-5); Neutrophil # 2.32 X10^3/uL (2.7-7.7); Neutrophil % 78.4 % (47-70); POSITIVE DIFFERENTIAL YES; Platelet Count 112 K/mm3 (150-450); RBC Distribution Width CV 13.6 % (11.6-14.6); Red Blood Count 3.81 M/mm3 (4.6-6.2)
[2022-06-10 08:13] LABS: Differential Indicated SCAN CRITERIA MET
[2022-06-10 08:26] LABS: AST(SGOT) 40 U/L (15-37); Alanine Aminotransfer ALT/SGPT 52 U/L (16-61); Albumin, Serum 3.2 g/dL (3.2-5.0); Alkaline Phosphatase 122 U/L (45-117); Anion Gap 5 (5-15); BUN 22 mg/dL (7-18); BUN/Creat Ratio 22.1 RATIO (10-20); Calcium,Total 8.3 mg/dL (8.5-10.1); Chloride 108 mmol/L (98-107); Creatinine, Serum 0.99 mg/dL (0.70-1.30); EST Glomerular Filtration Rate 76 mL/min (>60); Est Glom Filt Rate - Afr Amer 93 mL/min (>60); Globulin 3.3 g/dL (2.2-4.2); Glucose 175 mg/dL (74-106); LDH 154 U/L (87-241); Potassium 3.7 mmol/L (3.5-5.1); Protein, Total 6.5 g/dL (6.4-8.2); Sodium Level 140 mmol/L (136-145)
[2022-06-10 08:51] LABS: CREATININE FINGERSTICK < 0.9 mg/dL (0.70-1.30); EGFR FINGERSTICK > 60.0000 mL/min (>60)
[2022-06-10 16:00] LABS: Xtra Tube EP Lab EXTRA TUBE
[2022-06-11 11:12] LABS: Pathologist Review Reviewed
[2022-06-11 15:20] LABS: Carbohydrate AG 19-9 9 U/mL (0-35)
== END | disposition home or self-care (01) ==
PROVIDERS: PCP Family Medicine; Referring Provider Internal Medicine Medical Oncology; Visit Provider Internal Medicine Medical Oncology
DX: C34.12 Malignant neoplasm of upper lobe, left bronchus or lung (principal); C24.0 Malignant neoplasm of extrahepatic bile duct; C25.9 Malignant neoplasm of pancreas, unspecified
CPT/HCPCS: 36415; 71260; 74160; 80053; 83615; 85025; 86301; Q9967

== ENCOUNTER → 2023-01-06 | Outpatient (CLI) | payer MEDICARE, SELFPAY ==
--- NOTE | 2023-01-06 08:00 | CT_ITS ---
STUDY: CT CHEST, ABDOMEN T PELVIS WITH CONTRAST REASON FOR EXAM: Male, 82 years old. MONITOR MULTIPLE CANCER SITES. Prior chemotherapy and radiation therapy. Prior Whipple procedure. RADIATION DOSAGE (If Supplied By Facility): CTDIvol = ( 21.10 ) mGy, DLP = ( 1670.97 ) mGycm TECHNIQUE: Transaxial imaging was performed following intravenous administration of Oral and amp; IV Readi-CAT and amp; 100mL Isovue-300. Multiplanar coronal and sagittal images were reformatted. Individualized dose optimization techniques were used for this CT. COMPARISON: Comparison is made with prior study dated June 10, 2022. FINDINGS: CHEST Essentially stable 2.6 cm x 2.1 Kraig testicular nodule in the left lung apex with surrounding scarring. Stable calcified granuloma in the lateral aspect of the right upper lobe as seen on axial image #46. There is no demonstrated pleural abnormality. There are calcifications of the coronary arteries. Calcified right paratracheal and right hilar lymph nodes. Normal hilar regions. Normal unenhanced pulmonary arteries. There is atherosclerotic calcification of the aortic arch. There are multi-level degenerative changes of the thoracic spine. Fatty infiltration of the liver. ABDOMEN Stable mild degree of intrahepatic blue ductal dilatation. The patient is status post cholecystectomy. There are multiple benign calcified granulomata of the spleen. The patient is status post Whipple procedure. Stable appearance of the bowel anastomosis in the region of the hepatic hilum in keeping with prior gastrojejunostomy.. Normal bilateral adrenal glands. Stable 2.5 cm right renal cyst. Normal left kidney. Stable mild degree of nonspecific bilateral perinephric stranding. Normal visualized stomach. Normal small intestine. Moderate amount of fecal material is seen in the colon. The appendix is visualized and appears normal. There is diffuse atherosclerotic calcification of the abdominal aorta is major visceral branches, without a demonstrated aneurysm. Normal inferior vena cava. Normal retroperitoneum. Normal abdominal wall. There are diffuse degenerative changes of the visualized lumbar spine. PELVIS Mild degree of the diffuse bladder wall thickening. Normal visualized small intestine. Normal visualized colon. There is no pelvic fluid. There is no pelvic lymphadenopathy or mass lesion. Normal visualized pelvic arteries. CT/CT Chest, Abd, Pel w/Contrast IMPRESSION: Stable examination. Electronically Signed: Dexter Dugan MD at 13:39 EDT ,
[2023-01-06 08:16] LABS: Absolute Lymphocyte Count 0.53 X10^3/uL (0.83-4.51); Absolute Neutrophil Count 2.1 X10^3/uL (2.0-7.7); Basophil# 0.02 X10^3/uL; Basophil% 0.7 % (0-1); Eosinophil# 0.06 X10^3/uL; Hematocrit 34.6 % (40-54); Hemoglobin 11.1 g/dL (13.0-16.5); Lymphocyte # 0.53 X10^3/ul (0.83-4.51); Lymphocyte % 17.9 % (19-41); Mean Corp Hgb Conc 32.1 g/dL (32-36); Mean Corpuscular Hgb 31.7 pg (27.0-32.0); Mean Corpuscular Volume 98.9 fL (80-94); Mean Platelet Vol. 9.6 fl (6.2-12.0); Monocyte# 0.29 X10^3/uL; Monocyte% 9.8 % (0-10); NRBC Flagged by Analyzer 0 % (0-5); Neutrophil # 2.05 X10^3/uL (2.7-7.7); Neutrophil % 69.3 % (47-70); POSITIVE COUNT YES; POSITIVE DIFFERENTIAL YES; Platelet Count 86 K/mm3 (150-450); RBC Distribution Width CV 13.3 % (11.6-14.6); RBC Distribution Width SD 47.8 fl (35.1-43.9)
[2023-01-06 08:28] LABS: Differential Indicated SCAN CRITERIA MET
[2023-01-06 08:31] LABS: ALB/GLOB Ratio 1.2 RATIO (0.9-2.4); AST(SGOT) 48 U/L (15-37); Alanine Aminotransfer ALT/SGPT 62 U/L (16-61); Albumin, Serum 2.9 g/dL (3.2-5.0); Alkaline Phosphatase 111 U/L (45-117); Anion Gap 6 (5-15); BUN 18 mg/dL (7-18); BUN/Creat Ratio 17.3 RATIO (10-20); Calcium,Total 7.7 mg/dL (8.5-10.1); Chloride 110 mmol/L (98-107); Creatinine, Serum 1.04 mg/dL (0.70-1.30); EST Glomerular Filtration Rate 72 mL/min (>60); Est Glom Filt Rate - Afr Amer 88 mL/min (>60); Globulin 2.5 g/dL (2.2-4.2); Glucose 143 mg/dL (74-106); LDH 152 U/L (87-241); Potassium 3.8 mmol/L (3.5-5.1); Protein, Total 5.4 g/dL (6.4-8.2); Sodium Level 142 mmol/L (136-145)
[2023-01-06 08:39] LABS: Differential Comment SCANNED
[2023-01-06 08:44] LABS: CREATININE FINGERSTICK < 0.9 mg/dL (0.70-1.30); EGFR FINGERSTICK > 60.0000 mL/min (>60)
[2023-01-06 13:04] LABS: Pathologist Review Reviewed
[2023-01-07 04:07] LABS: Carbohydrate AG 19-9 10 U/mL (0-35)
== END | disposition home or self-care (01) ==
LOC: CT 07:39
PROVIDERS: PCP Family Medicine; Referring Provider Internal Medicine Medical Oncology; Visit Provider Internal Medicine Medical Oncology
DX: C25.9 Malignant neoplasm of pancreas, unspecified (principal)
CPT/HCPCS: 36415; 71260; 74177; 80053; 83615; 85025; 86301; Q9967

== ENCOUNTER → 2023-07-09 | Outpatient (CLI) | payer MEDICARE, SELFPAY ==
--- NOTE | 2023-07-09 07:47 | CT_ITS ---
STUDY: CT CHEST, ABDOMEN T PELVIS WITH CONTRAST REASON FOR EXAM: Male, 82 years old. MONITOR LUNG AND PANCREATIC CA-IV ONLY RADIATION DOSAGE (If Supplied By Facility): CTDIvol = ( 22.90 ) mGy, DLP = ( 1942.12 ) mGycm TECHNIQUE: Transaxial imaging was performed following intravenous administration of IV 100mL Isovue-370. Individualized dose optimization techniques were used for this CT. COMPARISON: Prior study dated: 01/06/2023. FINDINGS: CHEST Persistent spiculated mass in the left lung apex measuring about 2.5 x 2 cm essentially unchanged since the prior exam. Calcified granuloma in the right upper lobe. No focal infiltrate otherwise is seen. Mild atelectatic changes in the right lower lobe. There is no demonstrated pleural abnormality. Normal heart and pericardium. There are calcifications of the coronary arteries. Calcified mediastinal and right hilar nodes. No evidence of adenopathy. No evidence of central pulmonary embolism. There is atherosclerotic tortuosity of the aortic arch and descending thoracic aorta. Mild degenerative changes of the thoracic spine. ABDOMEN No focal lesion is seen in the liver. Prominent intrahepatic biliary ductal. Absent gallbladder consistent with previous cholecystectomy. There are multiple benign calcified granulomata of the spleen. Calcifications in the region of the head of the pancreas. Normal bilateral adrenal glands. Stable small simple right renal cyst. No evidence of hydronephrosis. Gastrojejunostomy anastomosis is again seen. Normal in caliber small bowel loops. Fecal retention. No evidence of acute diverticulitis. The appendix is visualized and appears normal. There is diffuse atherosclerotic calcification of the abdominal aorta, without a demonstrated aneurysm. Atherosclerotic calcifications of the celiac axis branches. Normal inferior vena cava. Normal retroperitoneum. Normal abdominal wall. Degenerative changes of the spine. PELVIS Mild circumferential bladder wall thickening. Mild free fluid in the pelvis. There is no pelvic lymphadenopathy or mass lesion. CT/CT Chest, Abd, Pel w/Contrast IMPRESSION: 1. Spiculated left apical mass unchanged prior exam concerning for malignancy. 2. No evidence of new metastatic disease. 3. Status post gastrojejunal anastomosis unchanged. 4. Mild free fluid in the pelvis new since previous exam. 5. Additional nonacute changes unchanged. Electronically Signed: Zac Muñiz MD at 14:30 EST ,
[2023-07-09 08:28] LABS: CREATININE FINGERSTICK 1.2 mg/dL (0.70-1.30); EGFR FINGERSTICK > 60.0000 mL/min (>60)
== END | disposition home or self-care (01) ==
LOC: CT 07:45
PROVIDERS: PCP Family Medicine; Referring Provider Internal Medicine Medical Oncology; Visit Provider Internal Medicine Medical Oncology
DX: C34.12 Malignant neoplasm of upper lobe, left bronchus or lung (principal)
CPT/HCPCS: 71260; 74177; Q9967

== ENCOUNTER → 2023-11-12 | Outpatient (CLI) | payer MEDICARE, SELFPAY ==
--- NOTE | 2023-11-12 09:52 | ECHOD_ITS ---
Reason For Study: CAD/ASHD Procedure This was a 2D Doppler, Color Flow transthoracic echocardiogram. Exam performed in department. Left Ventricle Normal LV size. Mild concentric left ventricular hypertrophy. Left ventricular systolic function is normal. The left ventricular ejection fraction is 55 %. Stage 1 diastolic dysfunction. No regional wall motion abnormalities noted. Right Ventricle Normal RV size. Normal systolic function. Atria The left atrium is mildly enlarged. Normal right atrium. Mitral Valve Bileaflet diffuse mitral valve thickening. Trivial eccentric mitral valve insufficiency. Tricuspid Valve Normal tricuspid valve. Mild (1+) tricuspid valve insufficiency. Pulmonary artery systolic pressure is 40 mmHg. Aortic Valve Trisinus/trileaflet aortic valve. Mild (1+) aortic valve insufficiency. Pulmonic Valve Normal pulmonic valve. Great Vessels Mildly dilated aortic root. The pulmonary artery is normal size. Normal inferior vena cava. Pericardium/Pleural No pericardial effusion. MMode/2D Measurements & Calculations LVIDd: 6.2 cm IVSd: 1.2 cm Ao root diam: 4.4 cm LVIDs: 4.4 cm LVPWd: 1.2 cm RVDd: 4.1 cm FS: 29.5 % LAV(MOD-bp): 97.9 ml LVAd ap4: 42.3 cm2 LVAd ap2: 40.9 cm2 LAV(MOD-bp) Indexed: 48.5 ml/m2 LVLd ap4: 8.8 cm LVLd ap2: 8.8 cm LAV(MOD-sp2): 91.4 ml EDV(MOD-sp4): 166.0 ml EDV(MOD-sp2): 160.6 ml LAV(MOD-sp4): 91.3 ml EDV(sp4-el): 172.4 ml EDV(sp2-el): 160.4 ml LVAs ap4: 26.2 cm2 LVAs ap2: 25.2 cm2 LVLs ap4: 7.4 cm LVLs ap2: 7.2 cm ESV(MOD-sp4): 81.3 ml ESV(MOD-sp2): 74.5 ml ESV(sp4-el): 78.7 ml ESV(sp2-el): 75.4 ml EF(MOD-sp4): 51.1 % EF(MOD-sp2): 53.6 % EF(sp4-el): 54.3 % SV(MOD-sp4): 84.8 ml SV(MOD-sp2): 86.0 ml SV(sp4-el): 93.7 ml LA dimension(2D): 4.4 cm LA A4 area: 24.9 cm2 RA A4 area: 18.6 cm2 TAPSE: 2.7 cm Time Measurements MV dec time: 0.19 sec Doppler Measurements & Calculations MV E max rick: 57.9 cm/sec Lat Peak E' Rick: 7.8 cm/sec Med Peak E' Rick: 8.9 cm/sec MV A max rick: 66.3 cm/sec E/E' lat: 7.4 E/E' med: 6.5 MV E/A: 0.87 MV V2 max: 66.1 cm/sec MV P1/2t max rick: 67.8 cm/sec Ao V2 max: 111.0 cm/sec MV max P.7 mmHg MV P1/2t: 87.9 msec Ao max P.9 mmHg MV V2 mean: 31.4 cm/sec MV dec slope: 226.0 cm/sec2 Ao V2 mean: 72.1 cm/sec MV mean P.51 mmHg Ao mean P.3 mmHg MV V2 VTI: 26.2 cm MVA(P1/2t): 2.5 cm2 Ao V2 VTI: 27.3 cm AV (velocity ratio): 0.84 AI max rick: 321.5 cm/sec LV V1 max: 90.6 cm/sec PA V2 max: 85.2 cm/sec AI max P.3 mmHg LV V1 max P.3 mmHg PA V2 mean: 65.2 cm/sec AI dec slope: 101.5 cm/sec2 LV V1 mean P.5 mmHg AI P1/2t: 927.6 msec LV V1 mean: 58.7 cm/sec LV V1 VTI: 22.8 cm TR max rick: 303.0 cm/sec TR max P.7 mmHg ECHO/Echo Complete Interpretation Summary Normal LV size. Mild concentric left ventricular hypertrophy. Left ventricular systolic function is normal. The left ventricular ejection fraction is 55 %. Stage 1 diastolic dysfunction. Pulmonary artery systolic pressure is 40 mmHg. Mildly dilated aortic root. Ordering Physician: Nikhil Soto Referring Physician: Mickey Ennis Performed By: Tonya Mcpherson, RDOVI, RVT
== END | disposition home or self-care (01) ==
PROVIDERS: PCP Family Medicine; Referring Provider Internal Medicine Cardiovascular Disease; Visit Provider Internal Medicine Cardiovascular Disease
DX: I27.21 Secondary pulmonary arterial hypertension (principal)
CPT/HCPCS: 93306

== ENCOUNTER → 2024-02-05 | Outpatient (CLI) | payer MEDICARE, SELFPAY ==
--- NOTE | 2024-02-05 07:37 | CT_ITS ---
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 This CT exam was performed using one or more of the following dose reduction techniques: automated exposure control, adjustment of the mA and/or kV according to patient size, and/or use of iterative reconstruction technique. CONTRAST: IV 100mL [id number]-370 COMPARISON: CT chest, abdomen, pelvis dated 07/09/2023. FINDINGS: CHEST: LUNGS AND PLEURAL SPACES: Right upper lobe calcified granuloma is again identified. No discrete evidence of new pulmonary nodule or mass. Left upper lobe spiculated nodule is unchanged measuring approximately 2.3 cm in maximal diameter. Unchanged right lower lobe nodule measuring approximately 3 mm. No pleural effusion or thickening. No pneumothorax. HEART: No significant abnormality. Heart size is normal. No pericardial effusion. MEDIASTINUM: Mediastinal granulomas. No mediastinal or hilar adenopathy. Esophagus is unremarkable. No hiatal hernia. THYROID: No significant abnormality. No thyroid lesions. ABDOMEN: LIVER: Mild periportal edema. No focal hepatic abnormality. GALLBLADDER AND BILE DUCTS: Status post cholecystectomy. Intrahepatic pneumobilia. Otherwise, no focal or diffuse hepatic abnormality. No intra- or extrahepatic biliary ductal dilation. PANCREAS: Near complete resection of the pancreas. At the level of the pancreatic body, surgical clips are present and there is mild soft tissue fullness which is similar to prior examinations likely indicative of residual pancreatic parenchyma. No focal cystic or solid mass. SPLEEN: Splenic granulomas. Otherwise, the spleen appears normal. ADRENALS: No significant abnormality. No nodules. KIDNEYS AND URETERS: No significant abnormality. Normal renal size and position. No hydronephrosis. STOMACH AND BOWEL: Evidence of mild diffuse small bowel wall thickening without small bowel distention slightly greater than the prior examination. Moderate volume distal colorectal stool retention. No bowel obstruction. Gastroenteric anastomosis. PELVIS: APPENDIX: A normal appendix is identified in the right lower quadrant. BLADDER: No significant abnormality. REPRODUCTIVE: Normal as visualized. No mass. CHEST, ABDOMEN and PELVIS: INTRAPERITONEAL SPACE: Minimal free fluid within the pelvis is nonspecific. No free air. BONES/JOINTS: Degenerative changes of the axial and appendicular skeleton. Apparent bone island in the intertrochanteric region of the right femur. No suspicious lytic or blastic abnormality. SOFT TISSUES: Bilateral medium to large gynecomastia. VASCULATURE: Atherosclerosis. Aorta is non-dilated. No aortic dissection. No obvious central pulmonary embolism although this study was not performed with the pulmonary embolism protocol. LYMPH NODES: No significant abnormality. No enlarged lymph nodes. CT/CT Chest, Abd, Pel w/Contrast IMPRESSION: 1. Left upper lobe spiculated nodule is unchanged measuring approximately 2.3 cm in maximal diameter. 2. Post Whipple changes as detailed above. 3. Small bowel wall thickening. Consider an enteritis or malabsorptive pattern. 4. Mild periportal edema. This is nonspecific and similar to the prior exam. 5. Moderate volume distal colorectal stool retention. No bowel obstruction. Electronically Signed: Christopher Miller DO at 23:21 EDT ,
[2024-02-05 08:07] LABS: CREATININE FINGERSTICK < 1.0 mg/dL (0.70-1.30); EGFR FINGERSTICK > 60.0000 mL/min (>60)
== END | disposition home or self-care (01) ==
LOC: CT 07:36
PROVIDERS: PCP Family Medicine; Referring Provider Internal Medicine Medical Oncology; Visit Provider Internal Medicine Medical Oncology
DX: C34.12 Malignant neoplasm of upper lobe, left bronchus or lung (principal); C24.0 Malignant neoplasm of extrahepatic bile duct
CPT/HCPCS: 71260; 74177; Q9967

== ENCOUNTER 2024-03-22 14:57 | Emergency (ER) | payer MEDICARE, SELFPAY ==
[2024-03-22 14:59] VITALS: BP 137/73; PULSE 87; RESP 18; TEMP 36.3; O2SAT 100; BMI 25.7
--- NOTE | 2024-03-22 16:34 | EX.ED.DYSGE1 ---
HPI History of Present Illness Chief Complaint: Nosebleed Narrative Narrative: Chief complaint and HPI: Epistaxis. 83-year-old gentleman with history of HTN, HLD, CAD on Plavix and aspirin presents for evaluation of epistaxis. Patient states since noon he has been having intermittent epistaxis. He states he thinks most of the bleeding is coming out of his left nare. He states this recent bleeding started at approximately 2:45 PM. He denies any fever, chills, sinus pressure, headache, lightheadedness, nausea, vomiting, difficulty swallowing. He denies any blood in the mouth. Review of systems: See HPI Medications: As listed on the chart Allergies: As listed on the chart PFSH: Per chart Vital signs: As listed on the chart. Reviewed. Physical exam: Gen: A&O x3, NAD Head: Normocephalic, atraumatic Eyes: No sclera icterus, conjunctiva clear ENT: Moist mucous membranes, large blood clot in the left nare-removed by patient blowing nose, no active bleeding of the left or right nare currently, posterior oropharynx unremarkable without blood in the mouth, tolerating secretions Neck: Trachea midline, full range of motion CV: Regular Rate Resp: Nonlabored Respirations Musc: Full ROM, no deformity Skin: Warm, dry Neuro: Alert, oriented, grossly intact Psych: Cooperative, appropriate mood and affect 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 Obesity Essential (primary) hypertension Bradycardia Atherosclerosis of [place] coronary artery of [place] heart without angina pectoris Hyperlipidemia SUZANNE (obstructive sleep apnea) Home Medications ?Medication ?Instructions ?Recorded ?Last Taken ?Type allopurinol 300 mg tablet 300 mg PO DAILY 01/01/16 12/30/16 History aspirin 81 mg chewable tablet 81 mg PO DAILY@0800 12/27/16 12/30/16 History clopidogrel 75 mg tablet 75 mg PO DAILY 12/30/16 12/30/16 History furosemide 40 mg tablet (Lasix) 40 mg PO QDAY #90 tabs 02/06/18 Unknown Rx lisinopril 10 mg tablet 10 mg PO DAILY #90 tabs 02/05/19 Unknown History atorvastatin 40 mg tablet 40 mg PO DAILY #90 tabs 07/19/19 Unknown Rx ondansetron 4 mg disintegrating 4 mg PO Q8H PRN PRN Nausea #10 tabs 09/02/20 Unknown Rx tablet metformin 750 mg tablet,extended 1,500 mg PO BID 02/15/22 Unknown History release 24 hr omega-3 acid ethyl esters 1 gram See Rx Instructions .Route 01/19/24 Unknown Rx capsule .COMPLEX #90 caps Allergy/AdvReac Type Severity Reaction Status Date / Time mushroom Allergy Hives Verified 02/10/24 13:31 tetanus and diphtheria Allergy Hives Verified 02/10/24 13:31 toxoids (tetanus & diphtheria toxoids) atorvastatin (From Lipitor) AdvReac Unknown Myalgias Verified 02/10/24 13:31 with 80mg, not 40mg pravastatin AdvReac Unknown Severe Verified 02/10/24 13:31 myalgias, memory and balance issues rosuvastatin (From Crestor) AdvReac Unknown Severe Verified 02/10/24 13:31 Myalgias espino AdvReac nasal Verified 02/10/24 13:31 congestion Family History Mother CAD (coronary artery disease) Hypertension CHF (congestive heart failure) Sister AML (acute myeloid leukemia) Surgical History History of common bile duct surgery History of lung biopsy History of biliary duct stent placement H/O endoscopy Hx of nasal polypectomy History of coronary artery stent placement (01/01/17) H/O right knee surgery History of left heart catheterization (12/30/16) Social History Smoking Status: Former smoker Tobacco: How many years used: 60 how long ago did patient quit smokin second hand exposure: No alcohol intake: current alcohol intake frequency: a few times a week Alcohol type: hard liquor details: dry since november 11, 2020. cocktails socially. substance use type: does not use caffeine: Yes Type: coffee what type of physical activity do you participate in: walking frequency: 1-2 times per week duration: 15-30 minutes/day seatbelt use: always do you feel safe at home: Yes EXAM Physical Exam Const Vital Signs: 03/22/24 14:59 Temperature 97.4 F L Temperature Source Temporal Pulse Rate 87 Respiratory Rate 18 Blood Pressure 137/73 H Blood Pressure Mean 94 Pulse Ox 100 Oxygen Delivery Method Room Air MDM MDM MDM Narrative Medical decision making narrative: 83-year-old gentleman on aspirin and Plavix presents for evaluation of epistaxis. See physical exam findings. After patient removed large clot in the left nare, there is no active bleeding. His vitals are stable. Asymptomatic. I do not think any laboratory workup is needed at this time. Will give Afrin spray with nasal plug to prevent rebleed. Afrin spray was given without rebleeding. Patient ambulated around the ED without rebleeding. Patient is stable to discharge home. To follow-up with PCP. He confirmed understanding of plan. Patient was educated to not touch his nose for the rest of the evening. Return precautions explained. Impression 1. Left nare epistaxis Discharge Plan Triage Chief Complaint: Nosebleed ED Provider: Jer Garcia Dx/Rx/DC Orders Clinical Impression: Anterior epistaxis Instructions: ED Epistaxis (Adult) Prescriptions: No Action lisinopril 10 mg tablet 10 mg PO DAILY Qty: 90 metformin 750 mg tablet extended release 24 hr 1,500 mg PO BID Patient Comments: take 2 tablets by mouth twice a day allopurinol 300 MG tablet 300 mg PO DAILY aspirin 81 MG tablet,chewable 81 mg PO DAILY@0800 clopidogrel 75 MG tablet 75 mg PO DAILY ondansetron 4 MG tablet 4 mg PO Q8H PRN PRN (Reason: Nausea) Qty: 10 0RF furosemide [Lasix] 40 mg tablet 40 mg PO QDAY Qty: 90 3RF atorvastatin 40 mg tablet 40 mg PO DAILY Qty: 90 3RF omega-3 acid ethyl esters 1 gram capsule See Rx Instructions .ROUTE .COMPLEX Qty: 90 3RF Dose Instruction: TAKE 1 CAPSULE DAILY Rx Instructions: TAKE 1 CAPSULE DAILY Primary Care Provider: Mickey Ennis Referrals: Mickey Ennis MD [Primary Care Provider] - 3-5 Days Print Language: British Disposition Disposition: Home, Self Care
[2024-03-22] MEDS: Oxymetazoline 0.05% 1 SPRAY SPRAY.BTL 2 SPRAY NASAL (16:37)
[2024-03-22 16:58] VITALS: PULSE 87; RESP 19
== END 2024-03-22 17:47 | disposition home or self-care (01) ==
PROVIDERS: Emergency Provider Surgery; PCP Family Medicine; Visit Provider Surgery
DX: R04.0 Epistaxis (principal); E11.9 Type 2 diabetes mellitus without complications; I10 Essential (primary) hypertension; Z87.891 Personal history of nicotine dependence; E78.5 Hyperlipidemia, unspecified; I25.10 Atherosclerotic heart disease of native coronary artery without angina pectoris; Z95.5 Presence of coronary angioplasty implant and graft; Z79.82 Long term (current) use of aspirin; Z99.89 Dependence on other enabling machines and devices; G47.33 Obstructive sleep apnea (adult) (pediatric)
CPT/HCPCS: 30901; 99282

== ENCOUNTER 2024-04-16 09:47 | Emergency (ER) | payer MEDICARE, SELFPAY ==
[2024-04-16 09:48] VITALS: BP 137/66; PULSE 63; RESP 15; TEMP 36.7; O2SAT 100; BMI 25.2
--- NOTE | 2024-04-16 10:54 | EX.ED.DYSGE1 ---
HPI History of Present Illness Chief Complaint: Nosebleed Informant: patient Narrative Narrative: Patient states he has a sinus infection that he was seen by his doctor for, he blew his nose this morning and it suddenly started bleeding out of the left side. He swallowed a little bit of blood but the majority of it came out the front. No right-sided bleeding. No systemic symptoms. He states he was able to get it to stop right now by putting a paper towel in it. He is on clopidogrel no anticoagulants. He pulled a couple clots out of his nose prior to coming here and sprayed oxymetazoline into his nose before he placed the paper towel in it. 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 Obesity Essential (primary) hypertension Bradycardia Atherosclerosis of [place] coronary artery of [place] heart without angina pectoris Hyperlipidemia SUZANNE (obstructive sleep apnea) Home Medications ?Medication ?Instructions ?Recorded ?Last Taken ?Type allopurinol 300 mg tablet 300 mg PO DAILY 01/01/16 12/30/16 History aspirin 81 mg chewable tablet 81 mg PO DAILY@0800 12/27/16 12/30/16 History clopidogrel 75 mg tablet 75 mg PO DAILY 12/30/16 12/30/16 History furosemide 40 mg tablet (Lasix) 40 mg PO QDAY #90 tabs 02/06/18 Unknown Rx lisinopril 10 mg tablet 10 mg PO DAILY #90 tabs 02/05/19 Unknown History atorvastatin 40 mg tablet 40 mg PO DAILY #90 tabs 07/19/19 Unknown Rx ondansetron 4 mg disintegrating 4 mg PO Q8H PRN PRN Nausea #10 tabs 09/02/20 Unknown Rx tablet metformin 750 mg tablet,extended 1,500 mg PO BID 02/15/22 Unknown History release 24 hr omega-3 acid ethyl esters 1 gram See Rx Instructions .Route 01/19/24 Unknown Rx capsule .COMPLEX #90 caps Allergy/AdvReac Type Severity Reaction Status Date / Time mushroom Allergy Hives Verified 04/16/24 09:50 tetanus and diphtheria Allergy Hives Verified 04/16/24 09:50 toxoids (tetanus & diphtheria toxoids) atorvastatin (From Lipitor) AdvReac Unknown Myalgias Verified 04/16/24 09:50 with 80mg, not 40mg pravastatin AdvReac Unknown Severe Verified 04/16/24 09:50 myalgias, memory and balance issues rosuvastatin (From Crestor) AdvReac Unknown Severe Verified 04/16/24 09:50 Myalgias espino AdvReac nasal Verified 04/16/24 09:50 congestion Family History Mother CAD (coronary artery disease) Hypertension CHF (congestive heart failure) Sister AML (acute myeloid leukemia) Surgical History History of common bile duct surgery History of lung biopsy History of biliary duct stent placement H/O endoscopy Hx of nasal polypectomy History of coronary artery stent placement (01/01/17) H/O right knee surgery History of left heart catheterization (12/30/16) Social History Smoking Status: Former smoker Tobacco: How many years used: 60 how long ago did patient quit smokin second hand exposure: No alcohol intake: current alcohol intake frequency: a few times a week Alcohol type: hard liquor details: dry since november 11, 2020. cocktails socially. substance use type: does not use caffeine: Yes Type: coffee what type of physical activity do you participate in: walking frequency: 1-2 times per week duration: 15-30 minutes/day seatbelt use: always do you feel safe at home: Yes ROS ROS ED Constitutional Constitutional ED: Denies fever(s) Eyes Eyes: Denies change in vision or diplopia ENT ENT ED: Reports epistaxis, nasal congestion and rhinorrhea Cardiovascular Cardiovascular: Denies lightheadedness or syncope Integumentary Denies rash Neurologic Neurologic: Denies headache(s), paresthesias or weakness EXAM Physical Exam Const Vital Signs: 04/16/24 09:48 Temperature 98.0 F Temperature Source Oral Pulse Rate 63 Respiratory Rate 15 Blood Pressure 137/66 H Blood Pressure Mean 89 Pulse Ox 100 Oxygen Delivery Method Room Air Positive well nourished and well developed General Appearance ED: well developed and NAD HEENT HEENT Narrative: I pulled a bloodsoaked piece paper towel out of the patient's left naris and there is no active bleeding. There are some mild residual clot. There is a small punctate sized area at Nicole box plexus against the septum that appears to have been the source and it is not actively bleeding. There is no hematoma at the septum or perforation. The right side is clear. Posterior pharynx has a small amount of blood in it but no active bleeding. No dysphonia. Eyes PERRL and EOMs intact bilaterally Resp normal respiratory effort Neuro oriented x3, CN's II-XII intact bilaterally and no sensory deficits noted Motor Exam: strength 5/5 throughout Psych mental status grossly normal Psych Narrative: Conversive in full sentences well-appearing, pleasant Skin no rashes or lesions noted and no wounds MDM MDM MDM Narrative Medical decision making narrative: Patient has normal vital signs and no symptoms of anemia I do not think we need to check blood counts here. See the procedure note, his nose was cauterized and he can be discharged home, we discussed reasons to return. Procedures Other Procedures Procedure(s): Epistaxis care: Using silver nitrate stick, cauterized the small nidus of bleeding left septum. No complications tolerated well no active bleeding. Discharge Plan Triage Chief Complaint: Nosebleed ED Provider: Yong Levy Dx/Rx/DC Orders Clinical Impression: Acute anterior epistaxis Instructions: ED Epistaxis (Adult) Prescriptions: No Action lisinopril 10 mg tablet 10 mg PO DAILY Qty: 90 metformin 750 mg tablet extended release 24 hr 1,500 mg PO BID Patient Comments: take 2 tablets by mouth twice a day allopurinol 300 MG tablet 300 mg PO DAILY aspirin 81 MG tablet,chewable 81 mg PO DAILY@0800 clopidogrel 75 MG tablet 75 mg PO DAILY ondansetron 4 MG tablet 4 mg PO Q8H PRN PRN (Reason: Nausea) Qty: 10 0RF furosemide [Lasix] 40 mg tablet 40 mg PO QDAY Qty: 90 3RF atorvastatin 40 mg tablet 40 mg PO DAILY Qty: 90 3RF omega-3 acid ethyl esters 1 gram capsule See Rx Instructions .ROUTE .COMPLEX Qty: 90 3RF Dose Instruction: TAKE 1 CAPSULE DAILY Rx Instructions: TAKE 1 CAPSULE DAILY Primary Care Provider: Mickey Ennis Referrals: Mickey Ennis MD [Primary Care Provider] - As Needed Print Language: Turkish Disposition Disposition: Home, Self Care
[2024-04-16] MEDS: Silver Nitrate (BKC) 1 EACH TOPICAL (12:04)
== END 2024-04-16 12:54 | disposition home or self-care (01) ==
LOC: ED 11:15
PROVIDERS: Emergency Provider Emergency Medicine; PCP Family Medicine; Visit Provider Emergency Medicine
DX: R04.0 Epistaxis (principal); E11.9 Type 2 diabetes mellitus without complications; Z87.891 Personal history of nicotine dependence; E78.5 Hyperlipidemia, unspecified; I25.10 Atherosclerotic heart disease of native coronary artery without angina pectoris; I10 Essential (primary) hypertension; G47.33 Obstructive sleep apnea (adult) (pediatric); Z99.89 Dependence on other enabling machines and devices; Z95.5 Presence of coronary angioplasty implant and graft
CPT/HCPCS: 30901; 99282

== ENCOUNTER → 2024-07-30 | Outpatient (CLI) | payer MEDICARE, SELFPAY ==
[2024-07-30 12:35] LABS: ALB/GLOB Ratio 0.9 RATIO (0.9-2.4); AST(SGOT) 39 U/L (15-37); Alanine Aminotransfer ALT/SGPT 49 U/L (16-61); Albumin, Serum 2.8 g/dL (3.2-5.0); Alkaline Phosphatase 148 U/L (45-117); Anion Gap 5 (5-15); BUN 22 mg/dL (7-18); Calcium,Total 7.8 mg/dL (8.5-10.1); Chloride 109 mmol/L (98-107); Cholesterol 112 mg/dL (200); Creatinine, Serum 1.05 mg/dL (0.70-1.30); EST Glomerular Filtration Rate 71 mL/min (>60); Est Glom Filt Rate - Afr Amer 86 mL/min (>60); Globulin 3.1 g/dL (2.2-4.2); Glucose 199 mg/dL (74-106); High Density Lipoprotein 59 mg/dL; Potassium 3.8 mmol/L (3.5-5.1); Protein, Total 5.9 g/dL (6.4-8.2); Sodium Level 140 mmol/L (136-145); Triglycerides 39 mg/dL; Very Low Density Lipoprotein 8 mg/dL (5-40)
[2024-07-30 12:40] LABS: Protein, Urine (Random) 9.8 mg/dL (<11.9); Protein:Creat Ratio 394 mg/g CRE (0-200)
== END | disposition home or self-care (01) ==
LOC: MFPLAB 09:50
PROVIDERS: PCP Family Medicine; Referring Provider Family Medicine; Visit Provider Family Medicine
DX: E11.9 Type 2 diabetes mellitus without complications (principal)
CPT/HCPCS: 36415; 80053; 80061; 82570; 84156

== ENCOUNTER → 2024-11-01 | Outpatient (CLI) | payer MEDICARE, SELFPAY | END | disposition home or self-care (01) | LOC: PSN 08:22 | PROVIDERS: PCP Family Medicine; Referring Provider Nurse Practitioner Gerontology; Visit Provider Nurse Practitioner Gerontology | DX: R00.1 Bradycardia, unspecified (principal) | CPT/HCPCS: 93225; 93226 ==

== ENCOUNTER → 2025-01-28 | Outpatient (CLI) | payer MEDICARE, SELFPAY ==
[2025-01-28 09:55] LABS: Hematocrit 31.2 % (40-54); Hemoglobin 10.3 g/dL (13.0-16.5); Immature Granulocytes Count 0.020 X10^3/uL (0.0-0.0); Mean Corp Hgb Conc 33.0 g/dL (32-36); Mean Corpuscular Volume 93.7 fL (80-94); Mean Platelet Vol. 9.5 fl (6.2-12.0); NRBC Flagged by Analyzer 0 % (0-5); POSITIVE DIFFERENTIAL YES; Platelet Count 121 K/mm3 (150-450); RBC Distribution Width CV 13.8 % (11.6-14.6); RBC Distribution Width SD 46.6 fl (35.1-43.9); Red Blood Count 3.33 M/mm3 (4.6-6.2); White Blood Count 4.0 K/mm3 (4.4-11.0)
--- OUTSIDE RECORDS SUMMARY | 2025-01-28 10:42 | XMS RPT_ITS | CCD ---
Author Organization 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 Mickey Flores Primary Care Provider Dr. Mickey Flores Referring Provider Dr. Jose A Booker Attending Provider Dr. Mickey Flores Primary Care Provider Dr. Mickey Flores Referring Provider Dr. Pete Chaves Attending Provider Dr. Nikhil Soto Attending Provider Dr. Jose A Booker Attending Provider Mickey Flores MD Primary Care Provider [phone] Charles, Nikhil S Unavailable Dr. Mickey Flores Primary Care Provider Dr. Mickey Flores Referring Provider Dr. Nikhil Soto Attending Provider Dr. Jose A Booker Attending Provider Dr. Pete Chaves Attending Provider Mickey Flores MD Primary Care Provider Charles, Nikhil S Unavailable Mickey Flores MD Primary Care Provider Charles, [place] S Unavailable TAPAN COLLINS Referring Unavailable JENNA SIMON Attending Unavailable MICKEY FLORES Primary Care Unavailable JENNA SIMON Attending Unavailable RAYMON MICKEY Alaniz Primary Care Unavailable Raymon, Dr. Arevalo Primary Care Provider [phone] Raymon, Dr. Arevalo Referring Provider Tierney, Dr. Freeman Attending Provider Raymon, Dr. Arevalo Primary Care Provider Raymon, Dr. Arevalo Referring Provider Dr. Nikhil Soto Attending Provider Jeff SURESH, BELEN Amaral Attending Provider Raymon, Mickey Primary Care Unavailable Nikhil Soto Attending Unavailable Jeff SURESH, Cristin Referring Unavailable Prah, Pete Attending Unavailable Flores, Mickey Referring Unavailable Flores, Mickey Primary Care Unavailable Prah, Pete Attending Unavailable Prah, Pete Referring Unavailable Flores, Mickey Primary Care Unavailable Flores, Mickey Primary Care Unavailable Prah, Pete Attending Unavailable OREBER CARRILLO Referring Unavailable Flores, Mickey Primary Care Unavailable Jeff SURESH, Cristin Attending Unavailable Jeff SURESH, Cristni Referring Unavailable Flores, Mickey Attending Unavailable Flores, Mickey Referring Unavailable Flores, Mickey Primary Care Unavailable Flores, Mickey Primary Care Unavailable Yong Levy Attending Unavailable Flores, Mickey Primary Care Unavailable Jer Garcia Attending Unavailabl e Prah, Pete Referring Unavailable Flores, Mickey Primary Care Unavailable Prah, Pete Attending Unavailable Flores, Mickey Referring Unavailable Flores, Mickey Primary Care Unavailable Jeff SURESH, Cristin Attending Unavailable Flores, Mickey Referring Unavailable Flores, Mickey Primary Care Unavailable Massimo Mcpherson Attending Unavailable Allergies Allergy Classification Reported Allergen(s) Allergy Type Date of Onset Reaction(s) Facility (8 sources) atorvastatin Drug Allergy 2 Myalgias with 80mg, not 40mg [facility] (12 sources) cultivated mushroom extract; Translations: [MUSHROOM] Drug Allergy 1 Hives, Other: See Comments [facility] (8 sources) Pravastatin Drug Allergy 2 Severe myalgias, memory and balance issues [facility] (12 sources) rosuvastatin; Translations: [ROSUVASTATIN] Drug Allergy 7 Myalgia [facility] (13 sources) tetanus and diphtheria toxoids; Translations: [TETANUS AND DIPHTHERIA TOXOIDS] Allergy to substance 6 [facility] (9 sources) poinsettias; Translations: [POINSETTIAS] Propensity to adverse reactions 1 Other: See Comments [facility] (4 sources) tetanus toxoid vaccine, inactivated; Translations: [TETANUS TOXOID, ADSORBED] Drug Allergy 1 [facility] (4 sources) espino; Translations: [espino] Propensity to adverse reactions 3 nasal congestion [facility] (1 source) atorvastatin Drug Allergy 5 [facility] (1 source) Mushroom (edible) Drug allergy (disorder) 5 [facility] (1 source) Pravastatin Drug Allergy 5 [facility] (1 source) rosuvastatin Drug Allergy 5 [facility] Medications Current Medications Medication Drug Class(es) Dates Sig (Normalized) Sig (Original) allopurinol 300 mg oral tablet (11 sources) Xanthine Oxidase Inhibitor Start: 01-01-2016 take 300 mg by mouth once daily Allopurinol Active 300 MG PO DAILY January 01, 2016 12:00am Comment on above: Take 300 mg by mouth once daily. aspirin 81 mg chewable tablet (11 sources) Platelet Aggregation Inhibitor, Nonsteroidal Anti-inflammatory Drug Start: 12-27-2016 take 81 mg by mouth once daily Aspirin Active 81 MG PO DAILY@0800 December 27, 2016 12:00am Comment on above: Take 81 mg by mouth once daily. clopidogrel 75 mg oral tablet (11 sources) P2Y12 Platelet Inhibitor Start: 12-30-2016 take 75 mg by mouth once daily Clopidogrel Active 75 MG PO DAILY December 30, 2016 12:00am Comment on above: Take 75 mg by mouth once daily. furosemide 40 mg oral tablet (19 sources) Loop Diuretic Start: 07-30-2017 End: 02-06-2018 take 1 tablet by mouth once daily Furosemide (Lasix) 40 mg tablet Active 40 MG PO daily February 06, 2018 5:32pm Comment on above: Take 40 mg by mouth once daily. lisinopril 10 mg oral tablet (19 sources) Angiotensin Converting Enzyme Inhibitor Start: 02-05-2019 take 10 mg by mouth once daily Lisinopril Active 10 MG PO DAILY February 05, 2019 12:00am Start: 01-01-2016 End: 02-05-2019 take 5 mg by mouth once daily Lisinopril Discontinued 5 MG PO DAILY January 01, 2016 12:00am February 05, 2019 9:07am Comment on above: Take 10 mg by mouth once daily. ondansetron 4 mg disintegrating oral tablet (8 sources) Serotonin-3 Receptor Antagonist Start: take 4 mg by mouth every eight hours as needed Ondansetron Active 4 MG PO EVERY 8 HOURS NEEDED September 02, 2020 1:00am Completed/Discontinued Medications Medication Drug Class(es) Dates Sig (Normalized) Sig (Original) atorvastatin 40 mg oral tablet (20 sources) HMG-CoA Reductase Inhibitor Start: 06-15-2018 End: 07-19-2019 take 40 mg by mouth once daily Atorvastatin Discontinued 40 MG PO DAILY June 15, 2018 2:15pm July 19, 2019 4:14pm Start: 08-08-2017 End: 06-15-2018 take 40 mg by mouth every other day Atorvastatin Discontinued 40 MG PO .every other day August 08, 2017 9:20am June 15, 2018 2:15pm Start: 01-01-2016 End: 08-08-2017 take 40 mg by mouth at bedtime Atorvastatin Discontinu ed 40 MG PO AT BEDTIME January 01, 2016 12:00am August 08, 2017 9:21am atorvastatin (LI PITOR) 80 mg tablet Take 40 mg by mouth once daily. 0 Active Comment on above: Take 40 mg by mouth once daily. ferrous sulfate 325 mg oral tablet (8 sources) Start: 03-14-20 End: 02-16-20 take 325 mg by mouth once daily Ferrous Sulfate Discontinued 325 MG PO DAILY March 14, 2021 12:00am February 15, 2022 11:22am levoFLOXacin 500 mg oral tablet (3 sources) Quinolone Antimicrobial Start: 03-25-20 levoFLOXacin (LEVAQUIN) 500 mg tablet 24 hr metFORMIN hydrochloride 500 mg extended release oral tablet (20 sources) Biguanide Start: 02-16-20 take 1500 mg by mouth twice daily Metformin Active 1500 MG PO TWICE A DAY February 15, 2022 12:00am Start: 07-24-2020 End: 12-21-2020 take 1000 mg by mouth at bedtime Metformin Discontinue d 1000 MG PO AT BEDTIME July 24, 2020 1:00am December 21, 2020 1:44pm Start: 06-05-2020 End: 02-15-2022 take 1000 mg by mouth twice daily Metformin Discontinued 1000 MG PO TWICE A DAY February 05, 2021 10:07am February 15, 2022 11:24am Start: 06-05-2020 End: 02-25-2022 take 500 mg by mouth twice daily Metformin Discontinue d 500 MG PO TWICE A DAY February 15, 2022 11:23am February 25, 2022 11:32am Start: 02-08-2020 End: 02-05-2021 take 500 mg by mouth once daily Metformin Discontinued 500 MG PO DAILY February 08, 2020 12:00am February 05, 2021 10:07am Start: 01-01-2016 End: 02-08-2020 take 500 mg by mouth twice daily at mealtime Metformin Discontinued 500 MG PO TWICE DAILY WITH MEALS January 01, 2016 12:00am February 08, 2020 10:13am take 1 tablet by viri twice daily metFORMIN ER (GLUCOPHAGE XR) 750 mg 24 hr tablet Take 750 mg by mouth twice daily. 0 Active Comment on above: Take by mouth twice daily. 2 tablet in the morning, 2 tablets in the evening Take 750 mg by mouth twice daily. omega-3 acid ethyl esters (penitentiary) 1000 mg oral capsule (20 sources) Start: 04-07-2020 omega-3 acid ethyl esters (LOVAZA) 1 gram capsule Take 1 capsule by mouth once daily. 0 04/07/2020 Active Start: 02-08-2020 End: 01-22-2023 [place]-3 Acid Ethyl Esters Di scontinued 0 .ROUTE .COMPLEX January 28, 2022 8:41am January 22, 2023 8:29am TAKE 1 CAPSULE DAILY Comment on above: Take 1 capsule by mo [facility] once daily. [place]-3 Fatty Acids (Fish Oil Concentrate) 1,000 mg capsule (8 sources) Start: 02-05-2019 End: 02-08-2020 take 1 capsule by mouth once daily [place]-3 Fatty Acids (Fish Oil Concentrate) 1,000 mg capsule Discontinued 1000 MG PO DAILY February 05, 2019 9:21am February 08, 2020 10:14am Start: 02-05-2019 End: 02-08-2020 take 1 capsule by mouth once daily [place]-3 Fatty Acids (Fish Oil Concentrate) 1,000 mg capsule Discontinued 1000 MG PO DAILY February 04, 2019 11:00pm February 08, 2020 9:14am Start: 02-05-2019 End: 02-08-2020 take 1 capsule by mouth once daily [place]-3 Fatty Acids (Fish Oil Concentrate) 1,000 mg capsule Discontinued 1000 MG PO DAILY February 05, 2019 12:00am February 08, 2020 10:14am pantoprazole 40 mg delayed release oral tablet (10 sources) Proton Pump Inhibitor Start: 11-21-2020 End: 02-15-2022 take 1 tablet by mouth once daily Pantoprazole (Protonix) 40 mg tablet,delayed release (DR/EC) Discontinued 40 MG PO DAILY December 07, 2020 12:00am February 15, 2022 11:22am Comment on above: Take 1 tablet by viri th once daily. potassium chloride 20 meq extended release oral tablet (16 sources) Start: 03-14-2021 End: 02-15-2022 take 1 tablet by mouth once daily Potassium Chloride Discontinued 0 .ROUTE .COMPLEX March 23, 2021 10:20am February 15, 2022 11:25am take 1 tablet by mouth once daily spironolactone 50 mg oral tablet (8 sources) Aldosterone Antagonist Start: 12-27-2016 End: 01-30-2017 take 50 mg by mouth once daily Spironolactone Discontinued 50 MG PO DAILY December 27, 2016 12:00am January 30, 2017 8:24am Problems Active Problems Problem Classification Problem Date Documented Date Episodic/Chronic Biliary tract disease (3 sources) Stricture of bile duct; Translations: [Obstruction of bile duct] 06-23-2020 Chronic Cancer of bronchus; lung (15 sources) Non-small cell lung cancer; Translations: [Malignant neoplasm of unspecified part of left bronchus or lung] Onset: 4 Chronic Cancer of liver and intrahepatic bile duct (17 sources) Cholangiocarcinoma of biliary tract; 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] Onset: 0 Chronic Cancer of other GI organs; peritoneum (10 sources) Malignant tumor of biliary tract; Translations: [Malignant neoplasm of biliary tract, unspecified] Onset: 4 10-09-2020 Chronic Cancer of pancreas (20 sources) Adenocarcinoma of pancreas; Translations: [Malignant neoplasm of pancreas, unspecified] Chronic Cardiac dysrhythmias (9 sources) Bradycardia; Translations: [Bradycardia, unspecified] Onset: 5 08-08-2017 Episodic Coagulation and hemorrhagic disorders (11 sources) Platelet count below reference range; Translations: [Thrombocytopenia, unspecified] Onset: 1 11-17-2020 Chronic Coronary atherosclerosis and other heart disease (11 sources) Coronary atherosclerosis; Translations: [Atherosclerotic heart disease of [place] coronary artery without angina pectoris] 06-23-2020 Chronic Diabetes mellitus without complication (5 sources) Type 2 diabetes mellitus without complication; Translations: [Type 2 diabetes mellitus without complications] Onset: 4 06-23-2020 Chronic Disorders of lipid metabolism (12 sources) Hyperlipidemia; Translations: [Hyperlipidemia, unspecified] Chronic Essential hypertension (15 sources) Essential hypertension; Translations: [Essential (primary) hypertension] Chronic Maintenance chemotherapy; radiotherapy (8 sources) Patient encounter status; Translations: [Encounter for antineoplastic chemotherapy] 01-29-2021 Chronic Other liver diseases (3 sources) Jaundice; Translations: [Unspecified jaundice] 11-17-2020 Episodic Other nutritional; endocrine; and metabolic disorders (3 sources) Obese class I; Translations: [Obesity, unspecified] Onset: 1 11-17-2020 Chronic Other screening for suspected conditions (not mental disorders or infectious disease) (3 sources) Patient encounter status; Translations: [Encounter for screening for malignant neoplasm of colon] 06-23-2020 Episodic Pulmonary heart disease (8 sources) Pulmonary arterial hypertension; Translations: [Secondary pulmonary arterial hypertension] 07-27-2020 Chronic Residual codes; unclassified (6 sources) History of clinical finding in subject; Translations: [Personal history of other specified conditions] 03-31-2022 Episodic Unclassified (1 source) Unknown / UNK(Unknown) Onset: 7 Past or Other Problems Problem Classification Problem Date Documented Date Episodic/Chronic Acute posthemorrhagic anemia (3 sources) Anemia following acute postoperative blood loss; Translations: [Acute posthemorrhagic anemia] Onset: 11-17-2020 11-17-2020 Episodic Complications of surgical procedures or medical care (3 sources) Hemorrhagic shock; Translations: [Other postprocedural shock, initial encounter] Onset: 11-17-2020 11-17-2020 Episodic Coronary atherosclerosis and other heart disease (4 sources) Presence of coronary angioplasty implant and graft; Translations: [Percutaneous transluminal coronary angioplasty status] Onset: 01-01-2017 Episodic Other liver diseases (3 sources) Elevated liver enzymes level; Translations: [Abnormal levels of other serum enzymes] Onset: 11-17-2020 11-17-2020 Episodic Other upper respiratory disease (1 source) Epistaxis; Translations: [Epistaxis] Onset: 05-07-2024 Episodic Unclassified (1 source) P Onset: 01-08-2017 Results Test Name Value Interpretation Reference Range Facility Cardiology Visit Reporton Cardiology Visit Report [facility] [address] [place] [address] OFFICE VISIT Date of Service: 10/28/24 MR#: [id number] Acct: [id number] Name: JOSE MANUEL DOMINGUEZ Rep #: [id number] : 1940 Provider: BELEN chavez Age/Sex: 84/M [place] [facility] [place]: Signed HPI HPI History of Present Illness Details: JOSE MANUEL DOMINGUEZ, is a 84 M who presents to the office today for a cardiovascular outpatient follow-up. He has a history of coronary artery disease status post rotational atherectomy, balloon angioplasty, and stent placement to LAD in December 2016 at [facility]. He also has a history of bradycardia, hypertension, and hyperlipidemia. He has been diagnosed with pancreatic adenocarcinoma and biliary duct carcinoma. He underwent a Whipple procedure and had chemotherapy and radiation. He is being followed by the oncology service. You remember he underwent a stress test in February 2020 at a moderate workload with no evidence of ischemia. From a cardiac standpoint, the patient is doing well. He denies any palpitations, chest pain, pressure or heaviness. He denies SOB, Orthopnea, and PND. He does not have bleeding issues; no blood in urine, stool, or nosebleeds. He denies any decrease in energy level, myalgias, or claudication. He does have bilateral lower extremity edema. He does not have sudden weight gain. He denies lightheadedness, dizziness, syncopal or near syncopal episodes, and headaches. His just passed this week. Intake Vital Signs 04/04/24 09:28 05/11/24 13:48 10/28/24 10:04 Height 5 ft 9 in 5 ft 9 in 5 ft 9 in Weight: 182 lb BMI 26.9 BP 122/67 H Blood Pressure Location Lt brachial Position Sitting Respiration 18 Pulse 51 L Pulse Source Monitor Pulse Oximetry (%) 100 Intake Visit Reasons: 1 Y [employer] Required: No Is patient in pain?: No Allergies mushroom Allergy (Verified 10/28/24 10:18) Hives tetanus and diphtheria toxoids (tetanus diphtheria toxoids) Allergy (Verified 10/28/24 10:18) Hives atorvastatin (From Lipitor) Adverse Reaction (Unknown, Verified 10/28/24 10:18) Myalgias with 80mg, not 40mg pravastatin Adverse Reaction (Unknown, Verified 10/28/24 10:18) Severe myalgias, memory and balance issues rosuvastatin (From Crestor) Adverse Reaction (Unknown, Verified 10/28/24 10:18) Severe Myalgias espino Adverse Reaction (Verified 10/28/24 10:18) nasal congestion Medications ???Medication ???Instructions ???Recorded ???Confirmed ???Type allopurinol 300 mg tablet 300 mg PO DAILY 01/01/16 10/28/24 History aspirin 81 mg chewable tablet 81 mg PO DAILY@0800 12/27/1610/28 History clopidogrel 75 mg tablet 75 mg PO DAILY 12/30/16 10/28/24 H istory lisinopril 10 mg tablet 10 mg PO DAILY #90 tabs 02/05/19 0 10/28/24 History atorvastatin 40 mg tablet 40 mg PO DAILY #90 tabs 07/19/19 0 10/28/24 Rx ondansetron 4 mg disintegrating 4 mg PO Q8H PRN PRN Nausea #10 tab s 09/02/20 10/28/24 Rx tablet metformin 750 mg tablet,extended 1,500 mg PO BID 02/15/22 10/28/24 History release 24 hr omega-3 acid ethyl esters 1 gram See Rx Instructions .Route 4 10/28/24 Rx capsule .COMPLEX #90 caps furosemide 40 mg tablet (Lasix) 40 mg PO BID 10/28/24 10/28/24 His tory Ejection fraction %: 55 Have you fallen in the past year?: No PFSH Medical History (Reviewed 10/28/24 @ 10:23 by Cristin Aguilar MARKETING ANALYTICS SPECIALIST, MARKETING ANALYTICS SPECIALIST-C) Paronychia of left middle finger NSCLC of left lung Uses continuous positive airway pressure (CPAP) ventilation at home Nasal polyps Pilonidal cyst Hepatomegaly Jaundice Diabetes mellitus type II, controlled, with no complications 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 pulmonary arterial hypertension Obesity Essential (primary) hypertension Bradycardia Atherosclerosis of [place] coronary artery of [place] heart without angina pectoris Hyperlipidemia SUZANNE (obstructive sleep apnea) Surgical History (Reviewed 10/28/24 @ 10:23 by Crisitn Aguilar MARKETING ANALYTICS SPECIALIST, MARKETING ANALYTICS SPECIALIST-C) History of common bile duct surgery History of lung biopsy History of biliary duct stent placement H/O endoscopy Hx of nasal polypectomy History of coronary artery stent placement (01/01/17) H/O right knee surgery History of left heart catheterization (12/30/16) Family History (Reviewed 10/28/24 @ 10:23 by Cristin Aguilar MARKETING ANALYTICS SPECIALIST, MARKETING ANALYTICS SPECIALIST-C) Mother CAD (coronary artery disease) Hypertension CHF (congestive heart failure) Sister AML (acute myeloid leukemia) Social History Smoking Status: Former smoker Tobacco: How many years used: 60 how long ago did patient quit smokin second hand exposure: No alcohol intake: current alcohol intake frequency: a few times a week Alcohol type (more content not included)... Normal [facility] Comprehensive Metabolic Prof ilon 07-30-2024 Albumin [Mass/Vol] 2.8 g/dL Low 3.2-5.0 [facility] Comment on above: Performed By: #### L 500.4100, L501.0900, L500.4050 #### [facility] [address] [place], [address] Albumin/Globulin [Mass ratio] 0.9 {ratio} Normal 0.9-2.4 [facility] Comment on above: Performed By: #### L 500.4100, L501.0900, L500.4050 #### [facility] [address] [place], [address] ALK P 148 U/L High 45-117 [facility] Comment on above: Performed By: #### L 500.4100, L501.0900, L500.4050 #### [facility] [address] [place], [address] ALT [Catalytic activity/Vol] 49 U/L Normal 16-61 [facility] Comment on above: Performed By: #### L 500.4100, L501.0900, [id number] #### [facility] [address] [place], [address] AST [Catalytic activity/Vol] 39 U/L High 15-37 [facility] Comment on above: Performed By: #### L 500.4100, L501.0900, [id number] #### [facility] [address] [place], [address] Bilirubin [Mass/Vol] 0.90 mg/dL Normal 0.20-1.00 [facility] Comment on above: Result Comment: For patients on eltrombopag therapy, use of Dimension [place] TBIL is not recommended. Performed By: #### L 500.4100, L501.0900, L500.4050 #### [facility] [address] [place], [address] BUN/CRE 21.0 RATIO High 10-20 [facility] Comment on above: Performed By: #### L 500.4100, L501.0900, [id number] #### [facility] [address] [place], [address] CA,Total 7.8 mg/dL Low 8.5-10.1 [facility] Comment on above: Performed By: #### L 500.4100, L501.0900, [id number] #### [facility] [address] [place], [address] Chloride [Moles/Vol] 109 mmol/L High 98-107 [facility] Comment on above: Performed By: #### L 500.4100, L501.0900, L500.4050 #### [facility] [address] [place], [address] CO2 [Moles/Vol] 26.0 mmol/L Normal 21.0-32.0 [facility] Comment on above: Performed By: #### L 500.4100, L501.0900, L500.4050 #### [facility] [address] [place], [address] Creatinine [Mass/Vol] 1.05 mg/dL Normal 0.70-1.30 [facility] Comment on above: Result Comment: The validity of the calculated GFR GFRAA in patients over 70 years has not been determined. Clinical correlation is essential. Performed By: #### L 500.4100, L501.0900, L500.4050 #### [facility] [address] [place], [address] EST GFR - AA 86 mL/min Normal >60 [facility] Comment on above: Result Comment: Afri can Turkish GFR Calc Performed By: #### L 500.4100, L501.0900, L500.4050 #### [facility] [address] [place], [address] GAP 5 Normal 5-15 [facility] Comment on above: Performed By: #### L 500.4100, L501.0900, [id number] #### [facility] [address] [place], [address] GFR/1.73 sq M.predicted among non-blacks MDRD (S/P/Bld) [Vol rate/Area] 71 mL/min/{1.73_m2} Normal >60 [facility] Comment on above: Result Comment: Non- GFR Calc Performed By: #### L 500.4100, L501.0900, L500.4050 #### [facility] [address] [place], [address] Globulin (S) [Mass/Vol] 3.1 g/dL Normal 2.2-4.2 [facility] Comment on above: Performed By: #### L 500.4100, L501.0900, L500.4050 #### [facility] [address] [place], [address] Glucose [Mass/Vol] 199 mg/dL High 74-106 [facility] Comment on above: Result Comment: Fast ing Glucose result greater than or equal to 126 mg/dL suggests DIABETES MELLITUS per A.D.A. criteria. Performed By: #### L 500.4100, L501.0900, L500.4050 #### [facility] [address] [place], [address] Potassium [Moles/Vol] 3.8 mmol/L Normal 3.5-5.1 [facility] Comment on above: Performed By: #### L 500.4100, L501.0900, [id number] #### [facility] [address] [place], [address] Sodium [Moles/Vol] 140 mmol/L Normal 136-145 [facility] Comment on above: Performed By: #### L 500.4100, L501.0900, L500.4050 #### [facility] [address] [place], [address] T PROT 5.9 g/dL Low 6.4-8.2 [facility] Comment on above: Performed By: #### L 500.4100, L501.0900, [id number] #### [facility] [address] [place], [address] Urea nitrogen [Mass/Vol] 22 mg/dL High 7-18 [facility] Comment on above: Performed By: #### L 500.4100, L501.0900, [id number] #### [facility] [address] [place], [address] Lipid Profileon 07-30-2024 Cholesterol [Mass/Vol] 112 mg/dL Normal 200 [facility] Comment on above: Result Comment: <200 mg/dL Desirable 200-240 mg/dL Borderline >240 mg/dL High Risk Performed By: #### L 500.4100, L501.0900, L500.4050 #### [facility] [address] [place], [address] Cholesterol in HDL [Mass/Vol] 59 mg/dL Normal [facility] Comment on above: Result Comment: The drugs N-Acetylcysteine and Metamizole may falsely depress this assay. Reference Range HDL <40 mg/dL Low HDL Cholesterol HDL >or= 60 mg/dL High HDL Cholesterol Performed By: #### L 500.4100, L501.0900, L500.4050 #### [facility] [address] [place], [address] Cholesterol in LDL [Mass/Vol] 45 mg/dL Normal 0-130 [facility] Comment on above: Performed By: #### L 500.4100, L501.0900, L500.4050 #### [facility] [address] [place], [address] Cholesterol in VLDL [Mass/Vol] 8 mg/dL Normal 5-40 [facility] Comment on above: Performed By: #### L 500.4100, L501.0900, L500.4050 #### [facility] [address] [place], [address] Triglyceride [Mass/Vol] 39 mg/dL Normal [facility] Comment on above: Result Comment: The drugs N-Acetylcysteine and Metamizole may falsely depress this assay. Serum Triglycerides Reference Interval Normal <150 mg/dL Borderline high 150 - 199 mg/dL High 200 - 499 mg/dL Very High > or = 500 mg/dL Performed By: #### L 500.4100, L501.0900, L500.4050 #### [facility] [address] [place], [address] Protein+Creatinine Ratio,Uri neon 07-30-2024 PROT:CRE RATIO 394 mg/g CRE High 0-200 [facility] Comment on above: Performed By: #### L 500.4100, L501.0900, L500.4050 #### [facility] [address] [place], [address] Protein (U) [Mass/Vol] 9.8 mg/dL Normal <11.9 [facility] Comment on above: Performed By: #### L 500.4100, L501.0900, L500.4050 #### [facility] [address] [place], [address] UR CREAT 24.90 mg/dL Normal NO RANGE EST. [facility] Comment on above: Performed By: #### L 500.4100, L501.0900, L500.4050 #### [facility] [address] [place], [address] Urgent Care Visit Reporton 1 Urgent Care Visit Report [facility] [address], [address] [place], [place] [address] OFFICE VISIT Date of Service: 05/11/24 MR#: [id number] Acct: [id number] Name: JOSE MANUEL DOMINGUEZ DARIEN Rep #: [id number] : 1940 Provider: LAQUITA Tracey Age/Sex: 83/M Location: [facility] Status: Signed Intake Vital Signs 04/16/24 09:48 05/11/24 13:48 Height 5 ft 9 in 5 ft 9 in Weight: 181 lb 6 oz BMI 26.7 BP 142/56 H Blood Pressure Location Rt brachial Position Sitting Respiration 17 Pulse 52 L Pulse Source NIBP Temp 98.0 F Temp Source Oral Pulse Oximetry (%) 99 Oxygen Delivery Method room air Intake Visit Reasons: L MIDDLE FINGER INJURY/CONCERN FOR INFECTION Chief Complaint: left 3rd finger infection [employer] Manager Required: No Is patient in pain?: Yes Allergies mushroom Allergy (Verified 05/11/24 13:49) Hives tetanus and diphtheria toxoids (tetanus diphtheria toxoids) Allergy (Verified 05/11/24 13:49) Hives atorvastatin (From Lipitor) Adverse Reaction (Unknown, Verified 05/11/24 13:49) Myalgias with 80mg, not 40mg pravastatin Adverse Reaction (Unknown, Verified 05/11/24 13:49) Severe myalgias, memory and balance issues rosuvastatin (From Crestor) Adverse Reaction (Unknown, Verified 05/11/24 13:49) Severe Myalgias espino Adverse Reaction (Verified 05/11/24 13:49) nasal congestion Medications ???Medication ???Instructions ???Recorded ???Confirmed ???Type allopurinol 300 mg tablet 300 mg PO DAILY 01/01/16 05/11/24 History aspirin 81 mg chewable tablet 81 mg PO DAILY@0800 12/27/16 05/11/24 History clopidogrel 75 mg tablet 75 mg PO DAILY 12/30/16 05/11/24 History furosemide 40 mg tablet (Lasix) 40 mg PO QDAY #90 tabs 02/06/18 05/11/24 Rx lisinopril 10 mg tablet 10 mg PO DAILY #90 tabs 02/05/19 05/11/24 History atorvastatin 40 mg tablet 40 mg PO DAILY #90 tabs 07/19/19 05/11/24 Rx ondansetron 4 mg disintegrating 4 mg PO Q8H PRN PRN Nausea #10 tabs 09/02/20 05/11/24 Rx tablet metformin 750 mg tablet,extended 1,500 mg PO BID 02/15/22 05/11/24 History release 24 hr omega-3 acid ethyl esters 1 gram See Rx Instructions .Route 01/19/24 05/11/24 Rx capsule .COMPLEX #90 caps cephalexin 500 mg capsule 500 mg PO TID #21 caps 05/11/24 05/11/24 Rx Have you fallen in the past year?: No Nurse's Note: left 3rd finger infection with pain and pus x 3 days. pt is diabetic. +redness, +swelling, +drainage noted. 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 pulmonary arterial hypertension Obesity Essential (primary) hypertension Bradycardia Atherosclerosis of [place] coronary artery of [place] heart without angina pectoris Hyperlipidemia SUZANNE (obstructive sleep apnea) Surgical History History of common bile duct surgery History of lung biopsy History of biliary duct stent placement H/O endoscopy Hx of nasal polypectomy History of coronary artery stent placement (01/01/17) H/O right knee surgery History of left heart catheterization (12/30/16) Family History Mother CAD (coronary artery disease) Hypertension CHF (congestive heart failure) Sister AML (acute myeloid leukemia) Social History Smoking Status: Former smoker Tobacco: How many years used: 60 how long ago did patient quit smokin second hand exposure: No alcohol intake: current alcohol intake frequency: a few times a week Alcohol type: hard liquor details: dry since november 11, 2020. cocktails socially. substance use type: does not use caffeine: Yes Type: coffee what type of physical activity do you participate in: walking frequency: 1-2 times per week duration: 15-30 minutes/day seatbelt use: always do you feel safe at home: Yes HPI HPI Chief Complaint: left 3rd finger infection Details: JOSE MANUEL DOMINGUEZ, is a 83 M who presents to the office today for 1 wk after trimming hang-nail radial left middle finger, therefore radial paronechia developed with localized erythema, swelling, purulent discharge. No fever/ chills, though increased pain to the same particularly over the last 48 to 72 hours. No loss of sensation or strength or function to the same. [id number]. No evix-mkp-[id number] products taken to assist. No other associated symptoms and no other alleviating/aggravating factors. ROS Const Constitutional: No other (as abo (more content not included)... Normal [facility] Emergency Department Summary on 04-16-2024 Emergency Department Summary [facility] Department [address] [place] [address] Emergency Department Summary 04/16/24 MR#: [id number] Acct: [id number] Name: JOSE MANUEL DOMINGUEZ Rep #: [id number] : 1940 83 From: Yong Levy MD PCP: Dr. Mickey Flores MD Status:DEP ER Location: ED HPI History of Present Illness Chief Complaint: Nosebleed Informant: patient Narrative Narrative: Patient states he has a sinus infection that he was seen by his doctor for, he blew his nose this morning and it suddenly started bleeding out of the left side. He swallowed a little bit of blood but the majority of it came out the front. No right-sided bleeding. No systemic symptoms. He states he was able to get it to stop right now by putting a paper towel in it. He is on clopidogrel no anticoagulants. He pulled a couple clots out of his nose prior to coming here and sprayed oxymetazoline into his nose before he placed the paper towel in it. 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 pulmonary arterial hypertension Obesity Essential (primary) hypertension Bradycardia Atherosclerosis of [place] coronary artery of [place] heart without angina pectoris Hyperlipidemia SUZANNE (obstructive sleep apnea) Home Medications ???Medication ???Instructions ???Recorded ???Last Taken ???Type allopurinol 300 mg tablet 300 mg PO DAILY 01/01/16 12/30/16 History aspirin 81 mg chewable tablet 81 mg PO DAILY@0800 12/27/16 12/30/16 History clopidogrel 75 mg tablet 75 mg PO DAILY 12/30/16 12/30/16 History furosemide 40 mg tablet (Lasix) 40 mg PO QDAY #90 tabs 02/06/18 Unknown Rx lisinopril 10 mg tablet 10 mg PO DAILY #90 tabs 02/05/19 Unknown History atorvastatin 40 mg tablet 40 mg PO DAILY #90 tabs 07/19/19 Unknown Rx ondansetron 4 mg disintegrating 4 mg PO Q8H PRN PRN Nausea #10 tabs 09/02/20 Unknown Rx tablet metformin 750 mg tablet,extended 1,500 mg PO BID 02/15/22 Unknown History release 24 hr omega-3 acid ethyl esters 1 gram See Rx Instructions .Route 01/19/24 Unknown Rx capsule .COMPLEX #90 caps Allergy/AdvReac Type Severity Reaction Status Date / Time mushroom Allergy Hives Verified 04/16/24 09:50 tetanus and diphtheria Allergy Hives Verified 04/16/24 09:50 toxoids (tetanus diphtheria toxoids) atorvastatin (From Lipitor) AdvReac Unknown Myalgias Verified 04/16/24 09:50 with 80mg, not 40mg pravastatin AdvReac Unknown Severe Verified 04/16/24 09:50 myalgias, memory and balance issues rosuvastatin (From Crestor) AdvReac Unknown Severe Verified 04/16/24 09:50 Myalgias espino AdvReac nasal Verified 04/16/24 09:50 congestion Family History Mother CAD (coronary artery disease) Hypertension CHF (congestive heart failure) Sister AML (acute myeloid leukemia) Surgical History History of common bile duct surgery History of lung biopsy History of biliary duct stent placement H/O endoscopy Hx of nasal polypectomy History of coronary artery stent placement (01/01/17) H/O right knee surgery History of left heart catheterization (12/30/16) Social History Smoking Status: Former smoker Tobacco: How many years used: 60 how long ago did patient quit smokin second hand exposure: No alcohol intake: current alcohol intake frequency: a few times a week Alcohol type: hard liquor details: dry since november 11, 2020. cocktails socially. substance use type: does not use caffeine: Yes Type: coffee what type of physical activity do you participate in: walking frequency: 1-2 times per week duration: 15-30 minutes/day seatbelt use: always do you feel safe at home: Yes ROS ROS ED Constitutional Constitutional ED: Denies fever(s) Eyes Eyes: Denies change in vision or diplopia ENT ENT ED: Reports epistaxis, nasal congestion and rhinorrhea Cardiovascular Cardiovascular: Denies lightheadedness or syncope Integumentary Denies rash Neurologic Neurologic: Denies headache(s), paresthesias or weakness EXAM Physical Exam Const Vital Signs: 04/16/24 09:48 Temperature 98.0 F Temperature Source Oral Pulse Rate 63 Respiratory Rate 15 Blood Pressure 137/66 H Blood Pressure Mean 89 Pulse Ox 100 Oxygen Delivery Method Room Air Positive well nourished and well developed General Appearance ED: well developed and NAD H (more content not included)... Normal [facility] Emergency Department Summary on 03-22-2024 Emergency Department Summary [facility] Medical Records Department [address] [place] [address] Emergency Department Summary 03/22/24 MR#: [id number] Acct: [id number] Name: JOSE MANUEL DOMINGUEZ Rep #: [id number] : 1940 83 From: Jer Garcia DO PCP: Dr. Mickey Flores MD Status:REG ER Location: ED HPI History of Present Illness Chief Complaint: Nosebleed Narrative Narrative: Chief complaint and HPI: Epistaxis. 83-year-old gentleman with history of HTN, HLD, CAD on Plavix and aspirin presents for evaluation of epistaxis. Patient states since noon he has been having intermittent epistaxis. He states he thinks most of the bleeding is coming out of his left nare. He states this recent bleeding started at approximately 2:45 PM. He denies any fever, chills, sinus pressure, headache, lightheadedness, nausea, vomiting, difficulty swallowing. He denies any blood in the mouth. Review of systems: See HPI Medications: As listed on the chart Allergies: As listed on the chart PFSH: Per chart Vital signs: As listed on the chart. Reviewed. Physical exam: Gen: A O x3, NAD Head: Normocephalic, atraumatic Eyes: No sclera icterus, conjunctiva clear ENT: Moist mucous membranes, large blood clot in the left nare-removed by patient blowing nose, no active bleeding of the left or right nare currently, posterior oropharynx unremarkable without blood in the mouth, tolerating secretions Neck: Trachea midline, full range of motion CV: Regular Rate Resp: Nonlabored Respirations Musc: Full ROM, no deformity Skin: Warm, dry Neuro: Alert, oriented, grossly intact Psych: Cooperative, appropriate mood and affect 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 pulmonary arterial hypertension Obesity Essential (primary) hypertension Bradycardia Atherosclerosis of [place] coronary artery of [place] heart without angina pectoris Hyperlipidemia SUZANNE (obstructive sleep apnea) Home Medications ???Medication ???Instructions ???Recorded ???Last Taken ???Type allopurinol 300 mg tablet 300 mg PO DAILY 01/01/16 12/30/16 History aspirin 81 mg chewable tablet 81 mg PO DAILY@0800 12/27/16 12/30/16 History clopidogrel 75 mg tablet 75 mg PO DAILY 12/30/16 12/30/16 History furosemide 40 mg tablet (Lasix) 40 mg PO QDAY #90 tabs 02/06/18 Unknown Rx lisinopril 10 mg tablet 10 mg PO DAILY #90 tabs 02/05/19 Unknown History atorvastatin 40 mg tablet 40 mg PO DAILY #90 tabs 07/19/19 Unknown Rx ondansetron 4 mg disintegrating 4 mg PO Q8H PRN PRN Nausea #10 tabs 09/02/20 Unknown Rx tablet metformin 750 mg tablet,extended 1,500 mg PO BID 02/15/22 Unknown History release 24 hr omega-3 acid ethyl esters 1 gram See Rx Instructions .Route 01/19/24 Unknown Rx capsule .COMPLEX #90 caps Allergy/AdvReac Type Severity Reaction Status Date / Time mushroom Allergy Hives Verified 02/10/24 13:31 tetanus and diphtheria Allergy Hives Verified 02/10/24 13:31 toxoids (tetanus diphtheria toxoids) atorvastatin (From Lipitor) AdvReac Unknown Myalgias Verified 02/10/24 13:31 with 80mg, not 40mg pravastatin AdvReac Unknown Severe Verified 02/10/24 13:31 myalgias, memory and balance issues rosuvastatin (From Crestor) AdvReac Unknown Severe Verified 02/10/24 13:31 Myalgias espino AdvReac nasal Verified 02/10/24 13:31 congestion Family History Mother CAD (coronary artery disease) Hypertension CHF (congestive heart failure) Sister AML (acute myeloid leukemia) Surgical History History of common bile duct surgery History of lung biopsy History of biliary duct stent placement H/O endoscopy Hx of nasal polypectomy History of coronary artery stent placement (01/01/17) H/O right knee surgery History of left heart catheterization (12/30/16) Social History Smoking Status: Former smoker Tobacco: How many years used: 60 how long ago did patient quit smokin second hand exposure: No alcohol intake: current alcohol intake frequency: a few times a week Alcohol type: hard liquor details: dry since november 11, 2020. cocktails socially. substance use type: does not use caffeine: Yes Type: coffee what type of physical activity do you participate in: walking frequency: 1-2 times per week duration: 15-30 minutes/day seatbelt use: always do you feel safe at home: Yes EXAM Physical Exam Const (more content not included)... Normal [facility] Oncology Visit Reporton 01-13 Oncology Visit Report [facility] [address] [place] [address] OFFICE VISIT Date of Service: 02/10/24 1321 MR#: [id number] Acct: [id number] Name: JOSE MANUEL DOMINGUEZ DARIEN Rep #: [id number] : 1940 From: Pete Chaves MD Age/Sex: 83/M Location: [facility] Status: Signed HPI Subjective Date of Service 02/10/24 Chief Complaint F/u for Pancreatic cancer/NSCLC History of Present Illness 83 year-old man presented with obstructive jaundice in May 2020.??? Abdominal ultrasound on 05/31/2020 showed dilated intrahepatic and common bile duct.??? MRCP on 06/05/2020 showed stricture of common bile duct.??? He had ERCP with stent placement by Dr. Freeman on 06/06/2020 at [place].??? It also showed stricture of the common bile duct, brushing was done and cytology showed atypical cells suspicious for malignancy.??? He was seen by Dr. Sousa in [place], had a CT scan of the chest abdomen and pelvis done on 07/05/2020.??? It showed left upper lobe nodule 1.2 cm with pneumobilia.??? CT-guided biopsy of left upper lobe lung nodule was done on 07/18/2020.??? Pathology showed adenocarcinoma consistent with lung primary.??? He was referred for further evaluation and management.??? PET/CT on 08/01/2020 showed L upper lobe mass 34 mm with SUV 2.4??? and ? activity around the Bile duct tube. ??? PFT on 08/08/2020was normal. He elected to do Radiation therapy so was referred for SBRT at [place]. Finished on 09/11/2020. CT chest on 10/26/2020 showed 1.2cm nodule in JUAN ANTONIO. He went on to have pancreaticoduodenectomy with portal vein reconstruction on [facility]. Pathology showed pancreatic adenocarcinoma, tumor size 5 cm, margins positive, lymphovascular invasion positive, low-grade and high-grade pancreatic intraepithelial neoplasia, portal vein and pancreatic parenchymal margins were positive, lymph nodes 2 out of 20 Positive. pT3 pN1 M0-stage IIB. Started Adjuvant chemotherapy-Xeloda and Radiation therapy on 12/25/2020 and finished on 02/01/2021. 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 CT on 05/28/2021 showed increase in [place] nodule. PET/CT scan done on 06/12/2021 showed no significant activity. He is on observation and comes for follow up after CT. Feels well. 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 pulmonary arterial hypertension Obesity Essential (primary) hypertension Bradycardia Atherosclerosis of [place] coronary artery of [place] heart without angina pectoris Hyperlipidemia SUZANNE (obstructive sleep apnea) Surgical History History of common bile duct surgery History of lung biopsy History of biliary duct stent placement H/O endoscopy Hx of nasal polypectomy History of coronary artery stent placement (01/01/17) H/O right knee surgery History of left heart catheterization (12/30/16) Family History Mother CAD (coronary artery disease) Hypertension CHF (congestive heart failure) Sister AML (acute myeloid leukemia) Social History Smoking Status: Former smoker Tobacco: How many years used: 60 how long ago did patient quit smokin second hand exposure: No alcohol intake: current alcohol intake frequency: a few times a week Alcohol type: hard liquor details: dry since november 11, 2020. cocktails socially. substance use type: does not use caffeine: Yes Type: coffee what type of physical activity do you participate in: walking frequency: 1-2 times per week duration: 15-30 minutes/day seatbelt use: always do you feel safe at home: Yes Intake Vital Signs 10/16/23 09:28 02/10/24 13:21 Height 5 ft 9 in 5 ft 9 in Weight: 83.206 kg BMI 27.1 BP 118/69 Blood Pressure Location Lt brachial Position Sitting Respiration 16 Pulse 43 L Pulse Source Monitor Temp 98.8 F Temperature Source Temporal Artery Pulse Oximetry (%) 99 Oxygen Delivery Method room air Intake Is patient in pain?: No Allergies mushroom Allergy (Verified 02/10/24 13:31) Hives tetanus and diphtheria toxoids (tetanus diphtheria toxoids) Allergy (Verified 02/10/24 13:31) Hives atorvastatin (From Lipitor) Adverse Reaction (Unknown, Verified 02/10/24 13:31) Myalgias with 80mg, not 40mg pravastatin Adverse Reaction (Unknown, Verified 02/10/24 13:31) Severe myalgias, memory and balance issues rosuvastatin (From Crestor) Adverse Reaction (more content not included)... Normal [facility] CREATININE FINGERSTICKon CREATININE WB < 1.0 Normal 0.70-1.30 [facility] Comment on above: Performed By: #### L 9100.0200 ####[facility] [id number] [place], [address] EGFR WB > 60.0000 Normal >60 [facility] Comment on above: Performed By: #### L 9100.0200 ####[facility] [id number] [place], [address] CT Chest, Abd, Pel w/Contras ton 02-05-2024 CT Chest, Abd, Pel w/Contrast [facility] [address] [place] [address] CT Chest, Abd, Pel w/Contrast MR#: [id number] Acct: [id number] Name: JOSE MANUEL DOMINGUEZ Rep #: [id number] : 1940 83 From: Christopher del cid DO PCP: Dr. Mickey Flores MD Status: [facility] Study: CT Chest, Abd, Pel w/Contrast Date of Exam: Exam# [id number] Ordering Dr: Pete Chaves MD [id number] 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 This CT exam was performed using one or more of the following dose reduction techniques: automated exposure control, adjustment of the mA and/or kV according to patient size, and/or use of iterative reconstruction technique. CONTRAST: IV 100mL [id number] COMPARISON: CT chest, abdomen, pelvis dated 07/09/2023. FINDINGS: CHEST: LUNGS AND PLEURAL SPACES: Right upper lobe calcified granuloma is again identified. No discrete evidence of new pulmonary nodule or mass. Left upper lobe spiculated nodule is unchanged measuring approximately 2.3 cm in maximal diameter. Unchanged right lower lobe nodule measuring approximately 3 mm. No pleural effusion or thickening. No pneumothorax. HEART: No significant abnormality. Heart size is normal. No pericardial effusion. MEDIASTINUM: Mediastinal granulomas. No mediastinal or hilar adenopathy. Esophagus is unremarkable. No hiatal hernia. THYROID: No significant abnormality. No thyroid lesions. ABDOMEN: LIVER: Mild periportal edema. No focal hepatic abnormality. GALLBLADDER AND BILE DUCTS: Status post cholecystectomy. Intrahepatic pneumobilia. Otherwise, no focal or diffuse hepatic abnormality. No intra- or extrahepatic biliary ductal dilation. PANCREAS: Near complete resection of the pancreas. At the level of the pancreatic body, surgical clips are present and there is mild soft tissue fullness which is similar to prior examinations likely indicative of residual pancreatic parenchyma. No focal cystic or solid mass. SPLEEN: Splenic granulomas. Otherwise, the spleen appears normal. ADRENALS: No significant abnormality. No nodules. KIDNEYS AND URETERS: No significant abnormality. Normal renal size and position. No hydronephrosis. STOMACH AND BOWEL: Evidence of mild diffuse small bowel wall thickening without small bowel distention slightly greater than the prior examination. Moderate volume distal colorectal stool retention. No bowel obstruction. Gastroenteric anastomosis. PELVIS: APPENDIX: A normal appendix is identified in the right lower quadrant. BLADDER: No significant abnormality. REPRODUCTIVE: Normal as visualized. No mass. CHEST, ABDOMEN and PELVIS: INTRAPERITONEAL SPACE: Minimal free fluid within the pelvis is nonspecific. No free air. BONES/JOINTS: Degenerative changes of the axial and appendicular skeleton. Apparent bone island in the intertrochanteric region of the right femur. No suspicious lytic or blastic abnormality. SOFT TISSUES: Bilateral medium to large gynecomastia. VASCULATURE: Atherosclerosis. Aorta is non-dilated. No aortic dissection. No obvious central pulmonary embolism although this study was not performed with the pulmonary embolism protocol. LYMPH NODES: No significant abnormality. No enlarged lymph nodes. CT/CT Chest, Abd, Pel w/Contrast IMPRESSION: 1. Left upper lobe spiculated nodule is unchanged measuring approximately 2.3 cm in maximal diameter. 2. Post Whipple changes as detailed above. 3. Small bowel wall thickening. Consider an enteritis or malabsorptive pattern. 4. Mild periportal edema. This is nonspecific and similar to the prior exam. 5. Moderate volume distal colorectal stool retention. No bowel obstruction. Electronically Signed: Christopher Miller DO at 23:21 EDT , CC: Dr. Pete Chaves MD; Dr. Mickey Flores MD [employer]: Signed Normal [facility] Carbohydrate AG 19-9on 02-02 CA 19-9 20 U/mL Normal 0-35 [facility] Comment on above: Order Comment: DR. Roman COLLINS ORDERED UAC, LIPID, CMPDR CHAVES ORDERED CBCD, CMP, LDH, CA19 Result Comment: [employer] Electrochemiluminescence Immunoassay (ECLIA) Values obtained with different assay methods or kits cannot be used interchangeably. Results cannot be interpreted as absolute evidence of the presence or absence of malignant disease. Performed at: [address] [id number] Gang Pusher: Ulises Licea PhD, Phone: [phone] Performed By: #### L 400.0001, L500.4100, L100.0100, L504.2610, L3100.5020, L500.4050 ####[facility] [address] [place], [place], [address] CBC W/Diff, Automatedon 01-12 Absolute Lymph 0.43 X10 3/uL Low 0.83-4.51 [facility] Comment on above: Order Comment: DR. Roman COLLINS ORDERED UAC, LIPID, CMP DR CHAVES ORDERED CBCD, CMP, LDH, CA19 Performed By: #### L 400.0001, L500.4100, L100.0100, L504.2610, L3100.5020, L500.4050 #### [facility] [address] [place], [address] Absolute Neut 2.3 X10 3/uL Normal 2.0-7.7 [facility] Comment on above: Order Comment: DR. Roman COLLINS ORDERED UAC, LIPID, CMP DR CHAVES ORDERED CBCD, CMP, LDH, CA19 Performed By: #### L 400.0001, L500.4100, L100.0100, L504.2610, L3100.5020, L500.4050 #### [facility] [address] [place], [address] Basophils/100 WBC (Bld) 0.7 % Normal 0-1 [facility] Comment on above: Order Comment: DR. Roman COLLINS ORDERED UAC, LIPID, CMP DR CHAVES ORDERED CBCD, CMP, LDH, CA19 Performed By: #### L 400.0001, L500.4100, L100.0100, L504.2610, L3100.5020, L500.4050 #### [facility] [address] [place], [address] Eosinophils/100 WBC (Bld) 0.3 % Normal 0-5 [facility] Comment on above: Order Comment: DR. Roman COLLINS ORDERED UAC, LIPID, CMP DR CHAVES ORDERED CBCD, CMP, LDH, CA19 Performed By: #### L 400.0001, L500.4100, L100.0100, L504.2610, L3100.5020, L500.4050 #### [facility] [address] [place], [address] Erythrocyte distribution width (RBC) [Ratio] 13.2 % Normal 11.6-14.6 [facility] Comment on above: Order Comment: DR. Roman COLLINS ORDERED UAC, LIPID, CMP DR CHAVES ORDERED CBCD, CMP, LDH, CA19 Performed By: #### L 400.0001, L500.4100, L100.0100, L504.2610, L3100.5020, L500.4050 #### [facility] [address] [place], [address] Hematocrit (Bld) [Volume fraction] 36.0 % Low 40-54 [facility] Comment on above: Order Comment: DR. Roman COLLINS ORDERED UAC, LIPID, CMP DR CHAVES ORDERED CBCD, CMP, LDH, CA19 Performed By: #### L 400.0001, L500.4100, L100.0100, L504.2610, L3100.5020, L500.4050 #### [facility] [address] [place], [address] Hemoglobin (Bld) [Mass/Vol] 11.7 g/dL Low 13.0-16.5 [facility] Comment on above: Order Comment: DR. Roman COLLINS ORDERED UAC, LIPID, CMP DR CHAVES ORDERED CBCD, CMP, LDH, CA19 Performed By: #### L 400.0001, L500.4100, L100.0100, L504.2610, L3100.5020, L500.4050 #### [facility] [address] [place], [address] IG% 0.300 Normal 0.0-0.9 [facility] Comment on above: Order Comment: DR. Roman COLLINS ORDERED UAC, LIPID, CMP DR CHAVES ORDERED CBCD, CMP, LDH, CA19 Result Comment: IG% - Immature Granulocytes (promyelocytes, myelocytes and metamyelocytes) > 1% indicates that a LEFT SHIFT is Present. Performed By: #### L 400.0001, L500.4100, L100.0100, L504.2610, L3100.5020, L500.4050 #### [facility] [address] [place], [address] Lymphocytes/100 WBC (Bld) 14.6 % Low 19-41 [facility] Comment on above: Order Comment: DR. Roman COLLINS ORDERED UAC, LIPID, CMP DR CHAVES ORDERED CBCD, CMP, LDH, CA19 Performed By: #### L 400.0001, L500.4100, L100.0100, L504.2610, L3100.5020, L500.4050 #### [facility] [address] [place], [address] MCH (RBC) [Entitic mass] 31.7 pg Normal 27.0-32.0 [facility] Comment on above: Order Comment: DR. Roman COLLINS ORDERED UAC, LIPID, CMP DR CHAVES ORDERED CBCD, CMP, LDH, CA19 Performed By: #### L 400.0001, L500.4100, L100.0100, L504.2610, L3100.5020, L500.4050 #### [facility] [address] [place], [address] MCHC (RBC) [Mass/Vol] 32.5 g/dL Normal 32-36 [facility] Comment on above: Order Comment: DR. Roman COLLINS ORDERED UAC, LIPID, CMP DR CHAVES ORDERED CBCD, CMP, LDH, CA19 Performed By: #### L 400.0001, L500.4100, L100.0100, L504.2610, L3100.5020, L500.4050 #### [facility] [address] [place], [address] MCV (RBC) [Entitic vol] 97.6 fL High 80-94 [facility] Comment on above: Order Comment: DR. Roman COLLINS ORDERED UAC, LIPID, CMP DR CHAVES ORDERED CBCD, CMP, LDH, CA19 Performed By: #### L 400.0001, L500.4100, L100.0100, L504.2610, L3100.5020, L500.4050 #### [facility] [address] [place], [address] Monocytes/100 WBC (Bld) 6.4 % Normal 0-10 [facility] Comment on above: Order Comment: DR. Roman COLLINS ORDERED UAC, LIPID, CMP DR CHAVES ORDERED CBCD, CMP, LDH, CA19 Performed By: #### L 400.0001, L500.4100, L100.0100, L504.2610, L3100.5020, L500.4050 #### [facility] [address] [place], [address] Neutrophils/100 WBC (Bld) 77.7 % High 47-70 [facility] Comment on above: Order Comment: DR. Roman COLLINS ORDERED UAC, LIPID, CMP DR CHAVES ORDERED CBCD, CMP, LDH, CA19 Performed By: #### L 400.0001, L500.4100, L100.0100, L504.2610, L3100.5020, L500.4050 #### [facility] [address] [place], [address] Nucleated RBC (Bld) [#/Vol] 0 10*3/uL Normal 0-5 [facility] Comment on above: Order Comment: DR. Roman COLLINS ORDERED UAC, LIPID, CMP DR CHAVES ORDERED CBCD, CMP, LDH, CA19 Performed By: #### L 400.0001, L500.4100, L100.0100, L504.2610, L3100.5020, L500.4050 #### [facility] [address] [place], [address] Platelet mean volume (Bld) [Entitic vol] 9.1 fL Normal 6.2-12.0 [facility] Comment on above: Order Comment: DR. Roman COLLINS ORDERED UAC, LIPID, CMP DR CHAVES ORDERED CBCD, CMP, LDH, CA19 Performed By: #### L 400.0001, L500.4100, L100.0100, L504.2610, L3100.5020, L500.4050 #### [facility] [address] [place], [address] Platelets (Bld) [#/Vol] 101 10*3/uL Low 150-450 [facility] Comment on above: Order Comment: DR. Roman COLLINS ORDERED UAC, LIPID, CMP DR CHAVES ORDERED CBCD, CMP, LDH, CA19 Performed By: #### L 400.0001, L500.4100, L100.0100, L504.2610, L3100.5020, L500.4050 #### [facility] [address] [place], [address] RBC (Bld) [#/Vol] 3.69 10*6/uL Low 4.6-6.2 [facility] Comment on above: Order Comment: DR. Roman COLLINS ORDERED UAC, LIPID, CMP DR CHAVES ORDERED CBCD, CMP, LDH, CA19 Performed By: #### L 400.0001, L500.4100, L100.0100, L504.2610, L3100.5020, L500.4050 #### [facility] [address] [place], [address] RDW SD 47.1 fl High 35.1-43.9 [facility] Comment on above: Order Comment: DR. Roman COLLINS ORDERED UAC, LIPID, CMP DR CHAVES ORDERED CBCD, CMP, LDH, CA19 Performed By: #### L 400.0001, L500.4100, L100.0100, L504.2610, L3100.5020, L500.4050 #### [facility] [address] [place], [place], [address] WBC (Bld) [#/Vol] 3.0 10*3/uL Low 4.4-11.0 [facility] Comment on above: Order Comment: DR. Roman COLLINS ORDERED UAC, LIPID, CMP DR CHAVES ORDERED CBCD, CMP, LDH, CA19 Performed By: #### L 400.0001, L500.4100, L100.0100, L504.2610, L3100.5020, L500.4050 #### [facility] [address] [place], [address] Comprehensive Metabolic Prof [facility] 02-02-2024 Albumin [Mass/Vol] 3.0 g/dL Low 3.2-5.0 [facility] Comment on above: Order Comment: DR. Roman COLLINS ORDERED UAC, LIPID, CMP DR CHAVES ORDERED CBCD, CMP, LDH, CA19 1 Performed By: #### L 400.0001, L500.4100, L100.0100, L504.2610, L3100.5020, L500.4050 #### [facility] [address] [place], [address] Albumin/Globulin [Mass ratio] 1.0 {ratio} Normal 0.9-2.4 [facility] Comment on above: Order Comment: DR. Roman COLLINS ORDERED UAC, LIPID, CMP DR CHAVES ORDERED CBCD, CMP, LDH, CA19 1 Performed By: #### L 400.0001, L500.4100, L100.0100, L504.2610, L3100.5020, L500.4050 #### [facility] [address] [place], [address] ALK P 223 U/L High 45-117 [facility] Comment on above: Order Comment: DR. Rmoan COLLINS ORDERED UAC, LIPID, CMP DR CHAVES ORDERED CBCD, CMP, LDH, CA19 1 Performed By: #### L 400.0001, L500.4100, L100.0100, L504.2610, L3100.5020, L500.4050 #### [facility] [address] [facility] [place], [address] ALT [Catalytic activity/Vol] 90 U/L High 16-61 [facility] Comment on above: Order Comment: DR. Roman COLLINS ORDERED UAC, LIPID, CMP DR CHAVES ORDERED CBCD, CMP, LDH, CA19 1 Performed By: #### L 400.0001, L500.4100, L100.0100, L504.2610, L3100.5020, L500.4050 #### [facility] [address] [place], [address] AST [Catalytic activity/Vol] 69 U/L High 15-37 [facility] Comment on above: Order Comment: DR. Roman COLLINS ORDERED UAC, LIPID, CMP DR CHAVES ORDERED CBCD, CMP, LDH, CA19 1 Performed By: #### L 400.0001, L500.4100, L100.0100, L504.2610, L3100.5020, L500.4050 #### [facility] [address] [place], [address] Bilirubin [Mass/Vol] 1.00 mg/dL Normal 0.20-1.00 [facility] Comment on above: Order Comment: DR. Roman COLLINS ORDERED UAC, LIPID, CMP DR CHAVES ORDERED CBCD, CMP, LDH, CA19 1 Result Comment: For patients on eltrombopag therapy, use of Dimension [place] TBIL is not recommended. Performed By: #### L 400.0001, L500.4100, L100.0100, L504.2610, L3100.5020, L500.4050 #### [facility] [address] [place], [address] BUN/CRE 18.3 RATIO Normal 10-20 [facility] Comment on above: Order Comment: DR. Roman COLLINS ORDERED UAC, LIPID, CMP DR CHAVES ORDERED CBCD, CMP, LDH, CA19 1 Performed By: #### L 400.0001, L500.4100, L100.0100, L504.2610, L3100.5020, L500.4050 #### [facility] [address] [place], [address] CA,Total 8.3 mg/dL Low 8.5-10.1 [facility] Comment on above: Order Comment: DR. Roman COLLINS ORDERED UAC, LIPID, CMP DR CHAVES ORDERED CBCD, CMP, LDH, CA19 1 Performed By: #### L 400.0001, L500.4100, L100.0100, L504.2610, L3100.5020, L500.4050 #### [facility] [address] [place], [address] Chloride [Moles/Vol] 105 mmol/L Normal 98-107 [facility] Comment on above: Order Comment: DR. Roman COLLINS ORDERED UAC, LIPID, CMP DR CHAVES ORDERED CBCD, CMP, LDH, CA19 1 Performed By: #### L 400.0001, L500.4100, L100.0100, L504.2610, L3100.5020, L500.4050 #### [facility] [address] [place], [address] CO2 [Moles/Vol] 28.0 mmol/L Normal 21.0-32.0 [facility] Comment on above: Order Comment: DR. Roman COLLINS ORDERED UAC, LIPID, CMP DR CHAVES ORDERED CBCD, CMP, LDH, CA19 1 Performed By: #### L 400.0001, L500.4100, L100.0100, L504.2610, L3100.5020, L500.4050 #### [facility] [address] [place], [address] Creatinine [Mass/Vol] 1.20 mg/dL Normal 0.70-1.30 [facility] Comment on above: Order Comment: DR. Roman COLLINS ORDERED UAC, LIPID, CMP DR CHAVES ORDERED CBCD, CMP, LDH, CA19 1 Result Comment: The validity of the calculated GFR GFRAA in patients over 70 years has not been determined. Clinical correlation is essential. Performed By: #### L 400.0001, L500.4100, L100.0100, L504.2610, L3100.5020, L500.4050 #### [facility] [address] [place], [address] ECRCL 50.22 ml/min Normal [facility] Comment on above: Order Comment: DR. Roman COLLINS ORDERED UAC, LIPID, CMP DR CHAVES ORDERED CBCD, CMP, LDH, CA19 1 Performed By: #### L 400.0001, L500.4100, L100.0100, L504.2610, L3100.5020, L500.4050 #### [facility] [address] [place], [address] EST GFR - AA 74 mL/min Normal >60 [facility] Comment on above: Order Comment: DR. Roman COLLINS ORDERED UAC, LIPID, CMP DR CHAVES ORDERED CBCD, CMP, LDH, CA19 1 Result Comment: Afri can Turkish GFR Calc Performed By: #### L 400.0001, L500.4100, L100.0100, L504.2610, L3100.5020, L500.4050 #### [facility] [address] [place], [address] GAP 6 Normal 5-15 [facility] Comment on above: Order Comment: DR. Roman COLLINS ORDERED UAC, LIPID, CMP DR CHAVES ORDERED CBCD, CMP, LDH, CA19 1 Performed By: #### L 400.0001, L500.4100, L100.0100, L504.2610, L3100.5020, L500.4050 #### [facility] [address] [place], [address] GFR/1.73 sq M.predicted among non-blacks MDRD (S/P/Bld) [Vol rate/Area] 61 mL/min/{1.73_m2} Normal >60 [facility] Comment on above: Order Comment: DR. Roman COLLINS ORDERED UAC, LIPID, CMP DR CHAVES ORDERED CBCD, CMP, LDH, CA19 1 Result Comment: Non- GFR Calc Performed By: #### L 400.0001, L500.4100, L100.0100, L504.2610, L3100.5020, L500.4050 #### [facility] [address] [place], [address] Globulin (S) [Mass/Vol] 2.9 g/dL Normal 2.2-4.2 [facility] Comment on above: Order Comment: DR. Roman COLLINS ORDERED UAC, LIPID, CMP DR CHAVES ORDERED CBCD, CMP, LDH, CA19 1 Performed By: #### L 400.0001, L500.4100, L100.0100, L504.2610, L3100.5020, L500.4050 #### [facility] [address] [place], [address] Glucose [Mass/Vol] 218 mg/dL High 74-106 [facility] Comment on above: Order Comment: DR. Roman COLLINS ORDERED UAC, LIPID, CMP DR CHAVES ORDERED CBCD, CMP, LDH, CA19 1 Result Comment: Gluc ose result greater than or equal to 200 mg/dL suggests DIABETES MELLITUS per A.D.A. criteria. Performed By: #### L 400.0001, L500.4100, L100.0100, L504.2610, L3100.5020, L500.4050 #### [facility] [address] [place], [address] Potassium [Moles/Vol] 3.7 mmol/L Normal 3.5-5.1 [facility] Comment on above: Order Comment: DR. Roman COLLINS ORDERED UAC, LIPID, CMP DR CHAVES ORDERED CBCD, CMP, LDH, CA19 1 Performed By: #### L 400.0001, L500.4100, L100.0100, L504.2610, L3100.5020, L500.4050 #### [facility] [address] [place], [address] Sodium [Moles/Vol] 139 mmol/L Normal 136-145 [facility] Comment on above: Order Comment: DR. Roman COLLINS ORDERED UAC, LIPID, CMP DR CHAVES ORDERED CBCD, CMP, LDH, CA19 1 Performed By: #### L 400.0001, L500.4100, L100.0100, L504.2610, L3100.5020, L500.4050 #### [facility] [address] [place], [address] T PROT 5.9 g/dL Low 6.4-8.2 [facility] Comment on above: Order Comment: DR. Roman COLLINS ORDERED UAC, LIPID, CMP DR CHAVES ORDERED CBCD, CMP, LDH, CA19 1 Performed By: #### L 400.0001, L500.4100, L100.0100, L504.2610, L3100.5020, L500.4050 #### [facility] [address] [place], [address] Urea nitrogen [Mass/Vol] 22 mg/dL High 7-18 [facility] Comment on above: Order Comment: DR. Roman COLLINS ORDERED UAC, LIPID, CMP DR TIERNEY ORDERED CBCD, CMP, LDH, CA19 1 Performed By: #### L 400.0001, L500.4100, L100.0100, L504.2610, L3100.5020, L500.4050 #### [facility] [address] [place], [address] LDHon 02-02-2024 LDH 198 U/L Normal 87-241 [facility] Comment on above: Order Comment: DR. Roman COLLINS ORDERED UAC, LIPID, CMP PRARaman ORDERED CBCD, CMP, LDH, CA191 Performed By: #### L 400.0001, L500.4100, L100.0100, L504.2610, L3100.5020, L500.4050 ####[facility] [address] [place], [address] Lipid Profileon 02-02-2024 Cholesterol [Mass/Vol] 84 mg/dL Normal 200 [facility] Comment on above: Order Comment: DR. Roman COLLINS ORDERED UAC, LIPID, BREA CHAVES ORDERED CBCD, CMP, LDH, CA191 Result Comment: <200 mg/dL Desirable 200-240 mg/dL Borderline >240 mg/dL High Risk Performed By: #### L 400.0001, L500.4100, L100.0100, L504.2610, L3100.5020, L500.4050 ####[facility] [address] [place], [address] Cholesterol in HDL [Mass/Vol] 55 mg/dL Normal [facility] Comment on above: Order Comment: DR. Roman COLLINS ORDERED UAC, LIPID, CMPDR PRAH ORDERED CBCD, CMP, LDH, CA191 Result Comment: The drugs N-Acetylcysteine and Metamizole may falsely depress this assay. Reference Range HDL <40 mg/dL Low HDL Cholesterol HDL >or= 60 mg/dL High HDL Cholesterol Performed By: #### L 400.0001, L500.4100, L100.0100, L504.2610, L3100.5020, L500.4050 ####[facility] [address] [facility] [place], [place], [address] Cholesterol in LDL [Mass/Vol] 17 mg/dL Normal 0-130 [facility] Comment on above: Order Comment: DR. Roman COLLINS ORDERED UAC, LIPID, CMPDR PRAH ORDERED CBCD, CMP, LDH, CA191 Performed By: #### L 400.0001, L500.4100, L100.0100, L504.2610, L3100.5020, L500.4050 ####[facility] [address] [place], [place], [id number] Cholesterol in VLDL [Mass/Vol] 12 mg/dL Normal 5-40 [facility] Comment on above: Order Comment: DR. Roman COLLINS ORDERED UAC, LIPID, CMPDR PRAH ORDERED CBCD, CMP, LDH, CA191 Performed By: #### L 400.0001, L500.4100, L100.0100, L504.2610, L3100.5020, L500.4050 ####[facility] [address] [place], [place], [id number]) Triglyceride [Mass/Vol] 58 mg/dL Normal [facility] Comment on above: Order Comment: DR. Roman COLLINS ORDERED UAC, LIPID, CMPDR PRAH ORDERED CBCD, CMP, LDH, CA191 Result Comment: The drugs N-Acetylcysteine and Metamizole may falsely depress this assay. Serum Triglycerides Reference Interval Normal <150 mg/dL Borderline high 150 - 199 mg/dL High 200 - 499 mg/dL Very High > or = 500 mg/dL Performed By: #### L 400.0001, L500.4100, L100.0100, L504.2610, L3100.5020, L500.4050 ####[facility] [address] [place], [address] Urinalysis, Completeon 02-01 BACTERIA 0 SEEN Normal None Seen [facility] Comment on above: Order Comment: DR. Roman COLLINS ORDERED UAC, LIPID, CMP DR CHAVES ORDERED CBCD, CMP, LDH, CA19 CLEAN CATCH Performed By: #### L 400.0001, L500.4100, L100.0100, L504.2610, L3100.5020, L500.4050 #### [facility] [address] [place], [address] EPI,SQUAMOUS 0 SEEN Normal 0-5 [facility] Comment on above: Order Comment: DR. Roman COLLINS ORDERED UAC, LIPID, CMP DR CHAVES ORDERED CBCD, CMP, LDH, CA19 CLEAN CATCH Performed By: #### L 400.0001, L500.4100, L100.0100, L504.2610, L3100.5020, L500.4050 #### [facility] [address] [place], [address] Mucus Ql (Urine sed) 0 SEEN Normal [facility] Comment on above: Order Comment: DR. Roman COLLINS ORDERED UAC, LIPID, CMP DR CHAVES ORDERED CBCD, CMP, LDH, CA19 CLEAN CATCH Performed By: #### L 400.0001, L500.4100, L100.0100, L504.2610, L3100.5020, L500.4050 #### [facility] [address] [place], [address] RBC 0 SEEN Normal 0-5 [facility] Comment on above: Order Comment: DR. Roman COLLINS ORDERED UAC, LIPID, CMP DR CHAVES ORDERED CBCD, CMP, LDH, CA19 CLEAN CATCH Performed By: #### L 400.0001, L500.4100, L100.0100, L504.2610, L3100.5020, L500.4050 #### [facility] [address] [place], [address] WBC 0 SEEN Normal 0-5 [facility] Comment on above: Order Comment: DR. Roman COLLINS ORDERED UAC, LIPID, CMP DR CHAVES ORDERED CBCD, CMP, LDH, CA19 CLEAN CATCH Performed By: #### L 400.0001, L500.4100, L100.0100, L504.2610, L3100.5020, L500.4050 #### [facility] [address] [place], [place], [address] Basophil percentageOrdered B y: Pete Chaves on 07-09-2023 Creatinine [Mass/Vol] 1.2 mg/dL 0.70-1.30 [facility] No Panel InformationOrdered By: Pete Cruzraman on 07-09-2023 Bedside Estimated GFR (eGFR) > 60.0000 mL/min >60 [facility] Absolute lymphocyte countOrd ered By: Pete Anthonyraman on 07-08-2023 Lymphocytes Auto (Unsp spec) [#/Vol] 0.44 10*3/uL 0.83-4.51 [facility] Basophil percentageOrdered B y: Pete Cruzraman on 07-08-2023 Basophils/100 WBC (Bld) 0.6 % 0-1 [facility] Bilirubin [Mass/Vol] 0.90 mg/dL 0.20-1.00 [facility] Comment on above: For patients on eltr ombopag therapy, use of Dimension [place] TBIL is not recommended. Chloride [Moles/Vol] 108 mmol/L 98-107 [facility] Eosinophils/100 WBC (Bld) 2.2 % 0-5 [facility] Glucose [Mass/Vol] 266 mg/dL 74-106 [facility] Comment on above: Glucose result great er than or equal to 200 mg/dLsuggests DIABETES MELLITUS per A.D.A. criteria. LDH [Catalytic activity/Vol] 191 U/L 87-241 [facility] Neutrophils (Bld) [#/Vol] 2.8 10*3/uL 2.0-7.7 [facility] Neutrophils/100 WBC (Bld) 77.3 % 47-70 [facility] Potassium [Moles/Vol] 3.6 mmol/L 3.5-5.1 [facility] Protein [Mass/Vol] 5.8 g/dL 6.4-8.2 [facility] Sodium [Moles/Vol] 139 mmol/L 136-145 [facility] WBC (Bld) [#/Vol] 3.6 10*3/uL 4.4-11.0 [facility] Blood erythrocytes count (nu mber/volume)Ordered By: Pete Chaves on 07-08-2023 RBC (Bld) [#/Vol] 3.72 10*6/uL 4.6-6.2 [facility] Blood hemoglobin measurement (mass/volume)Ordered By: Pete Chaves on 07-08-2023 Hemoglobin (Bld) [Mass/Vol] 11.8 g/dL 13.0-16.5 [facility] Blood lymphocytes/100 leukoc ytesOrdered By: Pete Chaves on 07-08-2023 Lymphocytes/100 WBC (Bld) 12.3 % 19-41 [facility] Blood manual differential co mment interpretation (narrative result)Ordered By: Pete Chaves on 07-08-2023 Manual differential comment [place] (Bld) [Interp] SCANNED [facility] Blood monocytes/100 leukocyt esOrdered By: Pete Chaves on 07-08-2023 Monocytes/100 WBC (Bld) 7.3 % 0-10 [facility] Blood platelet mean volumeOr dered By: Pete Chaves on 07-08-2023 Platelet mean volume (Bld) [Entitic vol] 9.8 fL 6.2-12.0 [facility] Determination of erythrocyte mean corpuscular volume (MCV)Ordered By: Pete Chaves on 07-08-2023 MCV (RBC) [Entitic vol] 98.7 fL 80-94 [facility] Hematocrit Auto (Bld) [Volum e fraction]Ordered By: Pete Chaves on 07-08-2023 Hematocrit (Bld) [Volume fraction] 36.7 % 40-54 [facility] - Chemistry and C hemistry - challengeOrdered By: Pete Chaves on 07-08-2023 ALP [Catalytic activity/Vol] 114 U/L 45-117 [facility] ALT [Catalytic activity/Vol] 90 U/L 16-61 [facility] CO2 [Moles/Vol] 27.0 mmol/L 21.0-32.0 [facility] Globulin (S) [Mass/Vol] 2.8 g/dL 2.2-4.2 [facility] Urea nitrogen/Creatinine [Mass ratio] 17.6 mg/mg 10-20 [facility] - Hematology and Cell countsOrdered By: Pete Chaves on 07-08-2023 Erythrocyte distribution width (RBC) [Entitic vol] 47.3 fL 35.1-43.9 [facility] Erythrocyte distribution width (RBC) [Ratio] 13.1 % 11.6-14.6 [facility] Immature granulocytes/100 WBC (Bld) 0.300 % 0.0-0.9 [facility] Comment on above: IG% - Immature Granu locytes (promyelocytes, myelocytes and metamyelocytes) > 1% indicates that a LEFT SHIFT is Present. MCH (RBC) [Entitic mass] 31.7 pg 27.0-32.0 [facility] Nucleated RBC/100 WBC (Bld) [Ratio] 0 % 0-5 [facility] MCHC Auto (RBC) [Mass/Vol]Or dered By: Pete Chaves on 07-08-2023 MCHC (RBC) [Mass/Vol] 32.2 g/dL 32-36 [facility] No Panel InformationOrdered By: Pete Chaves on 07-08-2023 CA 19-9 Antigen 12 U/mL 0-35 [facility] Comment on above: [facility] El ectrochemiluminescence Immunoassay(ECLIA)Values obtained with different assay methods or kits cannotbe used interchangeably. Results cannot be interpreted asabsolute evidence of the presence or absence of malignantdisease.Performed at: [address] [id number] Director: Ulises Licea PhD, Phone: [phone] Estimated Creatinine Clearance Calc 47.03 ml/min [facility] Estimated GFR (MDRD) Amer 75 mL/min >60 [facility] Comment on above: GFR Calc Estimated GFR (MDRD) Non-Af Amer 62 mL/min >60 [facility] Comment on above: Non- GFR Calc Platelets bldOrdered By: Kodi Chaves on 07-08-2023 Platelets (Bld) [#/Vol] 97 10*3/uL 150-450 [facility] Review by pathologistOrdered By: Pete Chaves on 07-08-2023 Pathologist review [place] (Unsp spec) [Interp] Reviewed [facility] Comment on above: Previous reported re sult: Jasmyne ozuna Edited by: RGOJAYCEE on 07/09/23:1321Pancytopenia.Leukopenia Macrocytic anemia.ThrombocytopeniaClinical correlation necessary.Kenn Leach M.D. 07/09/23 AMENDED REPORT 07/09/23 1321 PATH REV previously reported as: Jasmyne ozuna Serum or plasma albumin koby urement (mass/volume)Ordered By: Pete Chaves on 07-08-2023 Albumin [Mass/Vol] 3.0 g/dL 3.2-5.0 [facility] Serum or plasma albumin/glob ulin mass ratioOrdered By: Pete Chaves on 07-08-2023 Albumin/Globulin [Mass ratio] 1.1 {ratio} 0.9-2.4 [facility] Serum or plasma calcium koby urement (mass/volume)Ordered By: Pete Chaves on 07-08-2023 Calcium [Mass/Vol] 8.2 mg/dL 8.5-10.1 [facility] Serum or plasma creatinine m easurement (mass/volume)Ordered By: Pete Chaves on 07-08-2023 Creatinine [Mass/Vol] 1.19 mg/dL 0.70-1.30 [facility] Comment on above: The validity of the calculated GFR & GFRAA in patients over 70 years has not been determined. Clinical correlation is essential. Serum or plasma urea nitroge n measurement (mass/volume)Ordered By: Pete Chaves on 07-08-2023 Urea nitrogen [Mass/Vol] 21 mg/dL 7-18 [facility] Thin prep Papanicolaou smear with manual screeningOrdered By: Pete Chaves on 07-08-2023 Thin prep Papanicolaou smear with manual screening 106 U/L 15-37 [facility] Thin prep Papanicolaou smear with manual screening 4 5-15 [facility] Absolute lymphocyte countOrd ered By: Pete Chaves on 01-06-2023 Lymphocytes Auto (Unsp spec) [#/Vol] 0.53 10*3/uL 0.83-4.51 [facility] Basophil percentageOrdered B y: Pete Chaves on 01-06-2023 Basophil percentage < 0.9 mg/dL 0.70-1.30 [facility] Basophils/100 WBC (Bld) 0.7 % 0-1 [facility] Bilirubin [Mass/Vol] 0.80 mg/dL 0.20-1.00 [facility] Comment on above: For patients on eltr ombopag therapy, use of Dimension [place] TBIL is not recommended. Chloride [Moles/Vol] 110 mmol/L 98-107 [facility] Eosinophils/100 WBC (Bld) 2.0 % 0-5 [facility] Glucose [Mass/Vol] 143 mg/dL 74-106 [facility] Comment on above: Fasting Glucose resu lt greater than or equal to 126 mg/dL suggests DIABETES MELLITUS per A.D.A. criteria. LDH [Catalytic activity/Vol] 152 U/L 87-241 [facility] Neutrophils (Bld) [#/Vol] 2.1 10*3/uL 2.0-7.7 [facility] Neutrophils/100 WBC (Bld) 69.3 % 47-70 [facility] Potassium [Moles/Vol] 3.8 mmol/L 3.5-5.1 [facility] Protein [Mass/Vol] 5.4 g/dL 6.4-8.2 [facility] Sodium [Moles/Vol] 142 mmol/L 136-145 [facility] WBC (Bld) [#/Vol] 3.0 10*3/uL 4.4-11.0 [facility] Blood erythrocytes count (nu mber/volume)Ordered By: Pete Chaves on 01-06-2023 RBC (Bld) [#/Vol] 3.50 10*6/uL 4.6-6.2 [facility] Blood hemoglobin measurement (mass/volume)Ordered By: Pete Chaves on 01-06-2023 Hemoglobin (Bld) [Mass/Vol] 11.1 g/dL 13.0-16.5 [facility] Blood lymphocytes/100 leukoc ytesOrdered By: Pete Chaves on 01-06-2023 Lymphocytes/100 WBC (Bld) 17.9 % 19-41 [facility] Blood manual differential co mment interpretation (narrative result)Ordered By: Pete Chaves on 01-06-2023 Manual differential comment [place] (Bld) [Interp] SCANNED [facility] Blood monocytes/100 leukocyt esOrdered By: Pete Chaves on 01-06-2023 Monocytes/100 WBC (Bld) 9.8 % 0-10 [facility] Blood platelet mean volumeOr dered By: Pete Chaves on 01-06-2023 Platelet mean volume (Bld) [Entitic vol] 9.6 fL 6.2-12.0 [facility] Determination of erythrocyte mean corpuscular volume (MCV)Ordered By: Pete Chaves on 01-06-2023 MCV (RBC) [Entitic vol] 98.9 fL 80-94 [facility] Hematocrit Auto (Bld) [Volum e fraction]Ordered By: Pete Chaves on 01-06-2023 Hematocrit (Bld) [Volume fraction] 34.6 % 40-54 [facility] Laboratory - Chemistry and C hemistry - challengeOrdered By: Beulah Anthony on 01-06-2023 ALP [Catalytic activity/Vol] 111 U/L 45-117 [facility] ALT [Catalytic activity/Vol] 62 U/L 16-61 [facility] CO2 [Moles/Vol] 26.0 mmol/L 21.0-32.0 [facility] Globulin (S) [Mass/Vol] 2.5 g/dL 2.2-4.2 [facility] Urea nitrogen/Creatinine [Mass ratio] 17.3 mg/mg 10-20 [facility] Laboratory - Hematology and Cell countsOrdered By: Pete Anthony on 01-06-2023 Erythrocyte distribution width (RBC) [Entitic vol] 47.8 fL 35.1-43.9 [facility] Erythrocyte distribution width (RBC) [Ratio] 13.3 % 11.6-14.6 [facility] Immature granulocytes/100 WBC (Bld) 0.300 % 0.0-0.9 [facility] Comment on above: IG% - Immature Granu locytes (promyelocytes, myelocytes and metamyelocytes) > 1% indicates that a LEFT SHIFT is Present. MCH (RBC) [Entitic mass] 31.7 pg 27.0-32.0 [facility] Nucleated RBC/100 WBC (Bld) [Ratio] 0 % 0-5 [facility] MCHC Auto (RBC) [Mass/Vol]Or dered By: Pete Chaves on 01-06-2023 MCHC (RBC) [Mass/Vol] 32.1 g/dL 32-36 [facility] No Panel InformationOrdered By: Pete Chaves on 01-06-2023 Bedside Estimated GFR (eGFR) > 60.0000 mL/min >60 [facility] CA 19-9 Antigen 10 U/mL 0-35 [facility] Comment on above: [facility] El ectrochemiluminescence Immunoassay(ECLIA)Values obtained with different assay methods or kits cannotbe used interchangeably. Results cannot be interpreted asabsolute evidence of the presence or absence of malignantdisease.Performed at: [place] [id number] Director: Ulises Licea PhD, Phone: [phone] Estimated GFR (MDRD) Amer 88 mL/min >60 [facility] Comment on above: GFR Calc Estimated GFR (MDRD) Non-Af Amer 72 mL/min >60 [facility] Comment on above: Non- GFR Calc Platelets bldOrdered By: Kodi Chaves on 01-06-2023 Platelets (Bld) [#/Vol] 86 10*3/uL 150-450 [facility] Review by pathologistOrdered By: Pete Chaves on 01-06-2023 Pathologist review [place] (Unsp spec) [Interp] Reviewed [facility] Comment on above: Previous reported re sult: November foll Edited by: RGOOD on 01/06/23:1304Pancytopenia.Leukopenia Macrocytic anemia.ThrombocytopeniaClinical correlation necessary.Kenn Leach M.D. 01/06/23 AMENDED REPORT 01/06/23 1304 PATH REV previously reported as: November foll Serum or plasma albumin koby urement (mass/volume)Ordered By: Pete Chaves on 01-06-2023 Albumin [Mass/Vol] 2.9 g/dL 3.2-5.0 [facility] Serum or plasma albumin/glob ulin mass ratioOrdered By: Pete [facility] on 01-06-2023 Albumin/Globulin [Mass ratio] 1.2 {ratio} 0.9-2.4 [facility] Serum or plasma calcium koby urement (mass/volume)Ordered By: Pete [facility] on 01-06-2023 Calcium [Mass/Vol] 7.7 mg/dL 8.5-10.1 [facility] Serum or plasma creatinine m easurement (mass/volume)Ordered By: [facility] on 01-06-2023 Creatinine [Mass/Vol] 1.04 mg/dL 0.70-1.30 [facility] Comment on above: The validity of the calculated GFR & GFRAA in patients over 70 years has not been determined. Clinical correlation is essential. Serum or plasma urea nitroge n measurement (mass/volume)Ordered By: [facility] on 01-06-2023 Urea nitrogen [Mass/Vol] 18 mg/dL 7-18 [facility] Thin prep Papanicolaou smear with manual screeningOrdered By: [facility] on 01-06-2023 Thin prep Papanicolaou smear with manual screening 48 U/L 15-37 [facility] Thin prep Papanicolaou smear with manual screening 6 5-15 [facility] CNOVon 09-24-2022 CNOV Office Visit (AGGENS 1) -- JOSE MANUEL DOMINGUEZ ([id number]) 1940 M Date Time Provider Department 09/24/22 10:30 AM JENNA SIMON During your visit today, we recorded the following information about you: Pulse Blood pressure Weight Height 50/minute 134/73 86.6 kg 1.753 m Jenna Simon PA-C 09/24/2022 11:02 AM Signed Patient referred by: Tapan Collins 1 [facility] [address] [facility] [id number] Patient presents with: Established Patient: Mr. Dominguez is here today for his 6 month check up for cholangiocarcinoma. HPI: The patient is s/p robotic converted to open pancreaticoduodenectomy on 11/16/[address] Sousa. He has been following every [address] Sousa and his oncologist for monitoring of his cholangiocarcinoma. He reports no new symptoms since last seen. No abdominal pain. No nausea, vomiting, fever/chills, jaundice. No weight gain or weight loss. He had a recent CT scan in June,. PAST MEDICAL HISTORY Diagnosis Date Bradycardia CAD (coronary artery disease) stetn 12/2016 Cholangiocarcinoma (HCC) 06/21/2020 Daryn SOUSA MD Common bile duct (CBD) stricture Diabetes mellitus type II, controlled, with no complications (HCC) Essential hypertension Gout Jaundice Mixed hyperlipidemia Sleep apnea + cpap Special screening for malignant neoplasm of colon PAST SURGICAL HISTORY Procedure Laterality Date EGD X2 LAST ONE IN AUG 2020 KNEE SURGERY HX Right 1981 LUNG BIOPSY HX Left 07/2020 STAGE 1 WITH 5 RADIATION TREATMENT NASAL ENDO, SURG; W/NASAL POLYP 1992 1993 PILONIDAL CYST/SINUS EXCISION 1961 PRQ CARDIAC STENT W/ANGIO 1 VSL 2016 REMV CATARACT EXTRACAP,INSERT LENS Right 2009 FAMILY HISTORY Problem Relation Age of Onset other (Other) Mother 77 other (Other) Father 99 Dementia Father Leukemia Sister Social History Tobacco Use Smoking status: Former Types: Cigarettes Quit date: 2004 Years since quittin.2 Smokeless tobacco: Never Substance Use Topics Alcohol use: Yes Alcohol/week: 1.3 - 3.9 standard drinks Types: 1 - 3 Mixed Drinks per week Comment: 1-2X/WEEK Drug use: Never Current Outpatient Medications Medication Sig metFORMIN ER (GLUCOPHAGE XR) 750 mg 24 hr tablet Take 750 mg by mouth twice daily. atorvastatin (LIPITOR) 80 mg tablet Take 40 mg by mouth once daily. aspirin 81 mg chewable tablet Take 81 mg by mouth once daily. omega-3 acid ethyl esters (LOVAZA) 1 gram capsule Take 1 capsule by mouth once daily. lisinopril (ZESTRIL, PRINIVIL) 10 mg tablet Take 10 mg by mouth once daily. UNILET SUPER THIN LANCETS 30 gauge once daily. USE DIRECTED. furosemide (LASIX) 40 mg tablet Take 40 mg by mouth once daily. clopidogrel (PLAVIX) 75 mg tablet Take 75 mg by mouth once daily. TRUE METRIX GLUCOSE TEST STRIP test strip TESTING BLOOD SUGAR ONCE DAIILY allopurinol (ZYLOPRIM) 300 mg tablet Take 300 mg by mouth once daily. levoFLOXacin (LEVAQUIN) 500 mg tablet (Patient not taking: Reported on 09/24/2022) pantoprazole DR (PROTONIX) 40 mg tablet Take 1 tablet by mouth once daily. metFORMIN ER (GLUCOPHAGE XR) 500 mg 24 hr tablet Take by mouth twice daily. 2 tablet in the morning, 2 tablets in the evening (Patient not taking: Reported on 09/24/2022) No current facility-administered medications for this visit. ALLERGIES Allergen Reactions Mushroom Hives, Other: See Comments Poinsettias Other: See Comments Nasal congestion Rosuvastatin Myalgia Tetanus Toxoid, Ads* Hives HORSE TETANUS Tetanus And Diphthe* Hives REVIEW OF SYSTEMS: GENERAL: No weight loss, malaise or fevers GI: Negative for abdominal pain, nausea , vomiting, diarrhea, constipation, and signs of jaundice Positive for none PHYSICAL EXAM: BP 134/73 Pulse 50 Ht 5' 9 (1.75m) Wt 191 lb (86.6kg) SpO2 99% BMI 28.19 kg/(m2). GENERAL APPEARANCE: Well appearing, alert, in no acute distress, well-hydrated, well nourished. No jaundice. ABDOMEN: Abdomen soft, non-tender. Bowel sounds normal. No masses, organomegaly NEURO: Alert, oriented x3, no asterixis, speech clear and articulate, and OSWALD DATA: Diagnostic tests reviewed for today's visit: Most recent imaging I spent a total of 30 minutes on the date of the service which included preparing to see the patient, [id number] patient care, completing clinical documentation, obtaining and/or reviewing separately obtained history, performing a medically appropriate examination, counseling and educating the patient/family/caregiver, and independently interpreting results (not separately reported). .Greater than 50% of the direct patient contact time was spent in counseling or coordination of care. ASSESSMENT / PLAN Cholangiocarcinoma The patient is an 82 year old male nearly 2 year s/p Whipple operation for cholangiocarcinoma. I reviewed his recent Ct scans from June, (more content not included)... Normal [facility] Absolute lymphocyte counton 06-10-2022 Lymphocytes Auto (Unsp spec) [#/Vol] 0.37 10*3/uL 0.83-4.51 [facility] Work Phone: Basophil percentageon 2021 Basophil percentage < 0.9 mg/dL 0.70-1.30 [facility] Work Phone: Basophils/100 WBC (Bld) 0.7 % 0-1 [facility] Work Phone: Bilirubin [Mass/Vol] 0.70 mg/dL 0.20-1.00 [facility] Work Phone: Comment on above: For patients on eltr ombopag therapy, use of Dimension [place] TBIL is not recommended. Chloride [Moles/Vol] 108 mmol/L 98-107 [facility] Work Phone: Eosinophils/100 WBC (Bld) 0.3 % 0-5 [facility] Work Phone: Glucose [Mass/Vol] 175 mg/dL 74-106 [facility] Work Phone: Comment on above: Fasting Glucose resu lt greater than or equal to 126 mg/dL suggests DIABETES MELLITUS per A.D.A. criteria. Neutrophils (Bld) [#/Vol] 2.3 10*3/uL 2.0-7.7 [facility] Work Phone: Neutrophils/100 WBC (Bld) 78.4 % 47-70 [facility] Work Phone: Potassium [Moles/Vol] 3.7 mmol/L 3.5-5.1 [facility] Work Phone: Protein [Mass/Vol] 6.5 g/dL 6.4-8.2 [facility] Work Phone: Sodium [Moles/Vol] 140 mmol/L 136-145 [facility] Work Phone: WBC (Bld) [#/Vol] 3.0 10*3/uL 4.4-11.0 [facility] Work Phone: Blood erythrocytes count (nu mber/volume)on 06-10-2022 RBC (Bld) [#/Vol] 3.81 10*6/uL 4.6-6.2 [facility] Work Phone: [phone] Blood hemoglobin measurement (mass/volume)on 06-10-2022 Hemoglobin (Bld) [Mass/Vol] 12.0 g/dL 13.0-16.5 [facility] Work Phone: [phone] Blood lymphocytes/100 leukoc yteson 06-10-2022 Lymphocytes/100 WBC (Bld) 12.5 % 19-41 [facility] Work Phone: [phone] Blood manual differential co mment interpretation (narrative result)on 06-10-2022 Manual differential comment [place] (Bld) [Interp] COMMENT [facility] Work Phone: Comment on above: LYMPHOPENIA. Blood monocytes/100 leukocyt eson 06-10-2022 Monocytes/100 WBC (Bld) 7.8 % 0-10 [facility] Work Phone: [phone] Blood platelet mean volumeon 06-10-2022 Platelet mean volume (Bld) [Entitic vol] 8.9 fL 6.2-12.0 [facility] Work Phone: [phone] Determination of erythrocyte mean corpuscular volume (MCV)on 06-10-2022 MCV (RBC) [Entitic vol] 96.3 fL 80-94 [facility] Work Phone: [phone] Hematocrit Auto (Bld) [Volum e fraction]on 06-10-2022 Hematocrit (Bld) [Volume fraction] 36.7 % 40-54 [facility] Work Phone: Laboratory - Chemistry and C hemistry - challengeon 06-10-2022 ALP [Catalytic activity/Vol] 122 U/L 45-117 [facility] Work Phone: ALT [Catalytic activity/Vol] 52 U/L 16-61 [facility] Work Phone: [phone] CO2 [Moles/Vol] 27.0 mmol/L 21.0-32.0 [facility] Work Phone: [phone] Globulin (S) [Mass/Vol] 3.3 g/dL 2.2-4.2 [facility] Work Phone: [phone] Urea nitrogen/Creatinine [Mass ratio] 22.1 mg/mg 10-20 [facility] Work Phone: [phone] Laboratory - Hematology and Cell countson 06-10-2022 Erythrocyte distribution width (RBC) [Entitic vol] 48.0 fL 35.1-43.9 [facility] Work Phone: [phone] Erythrocyte distribution width (RBC) [Ratio] 13.6 % 11.6-14.6 [facility] Work Phone: [phone] Immature granulocytes/100 WBC (Bld) 0.300 % 0.0-0.9 [facility] Work Phone: [phone] Comment on above: IG% - Immature Granu locytes (promyelocytes, myelocytes and metamyelocytes) > 1% indicates that a LEFT SHIFT is Present. MCH (RBC) [Entitic mass] 31.5 pg 27.0-32.0 [facility] Work Phone: [phone] Nucleated RBC/100 WBC (Bld) [Ratio] 0 % 0-5 [facility] Work Phone: [phone] MCHC Auto (RBC) [Mass/Vol]on 06-10-2022 MCHC (RBC) [Mass/Vol] 32.7 g/dL 32-36 [facility] Work Phone: [phone] Panel Informationon 06-10 Bedside Estimated GFR (eGFR) > 60.0000 mL/min >60 [facility] Work Phone: [phone] 19-9 Antigen 9 U/mL 0-35 [facility] Work Phone: [phone] Comment on above: [facility] El ectrochemiluminescence Immunoassay(ECLIA)Values obtained with different assay methods or kits cannotbe used interchangeably. Results cannot be interpreted asabsolute evidence of the presence or absence of malignantdisease.Performed at: [address] [id number] Director: Ulises Licea PhD, Phone: [phone] Estimated GFR (MDRD) Amer 93 mL/min >60 [facility] Work Phone: Comment on above: GFR Calc Estimated GFR (MDRD) Non-Af Amer 76 mL/min >60 [facility] Work Phone: Comment on above: Non- GFR Calc Platelets bldon 06-10-2022 Platelets (Bld) [#/Vol] 112 10*3/uL 150-450 [facility] Work Phone: Review by pathologiston 05-15 Pathologist review [place] (Unsp spec) [Interp] Reviewed [facility] Work Phone: Comment on above: Previous reported re sult: Jasmyne ozuna Edited by: DAKOTAH on 06/11/22:1111Pancytopenia.Leukopenia Macrocytic anemia.Mild ThrombocytopeniaClinical correlation necessary.Kenn Leach M.D. 06/11/22 AMENDED REPORT 06/11/22 1111 PATH REV previously reported as: Jasmyne ozuna Serum or plasma albumin koby urement (mass/volume)on 06-10-2022 Albumin [Mass/Vol] 3.2 g/dL 3.2-5.0 [facility] Work Phone: Serum or plasma albumin/glob ulin mass ratioon 06-10-2022 Albumin/Globulin [Mass ratio] 1.0 {ratio} 0.9-2.4 [facility] Work Phone: [phone] Serum or plasma calcium koby urement (mass/volume)on 06-10-2022 Calcium [Mass/Vol] 8.3 mg/dL 8.5-10.1 [facility] Work Phone: [phone] Serum or plasma creatinine m easurement (mass/volume)on 06-10-2022 Creatinine [Mass/Vol] 0.99 mg/dL 0.70-1.30 [facility] Work Phone: Comment on above: The validity of the calculated GFR & GFRAA in patients over 70 years has not been determined. Clinical correlation is essential. Serum or plasma urea nitroge n measurement (mass/volume)on 06-10-2022 Urea nitrogen [Mass/Vol] 22 mg/dL 7-18 [facility] Work Phone: Thin prep Papanicolaou smear with manual screeningon 06-10-2022 Thin prep Papanicolaou smear with manual screening 40 U/L 15-37 [facility] Work Phone: Thin prep Papanicolaou smear with manual screening 5 5-15 [facility] Work Phone: Thin prep Papanicolaou smear with manual screening 154 U/L 87-241 [facility] Work Phone: Absolute lymphocyte counton 03-25-2022 Lymphocytes Auto (Unsp spec) [#/Vol] 0.35 10*3/uL 0.83-4.51 [facility] Work Phone: Basophil percentageon 2021 Basophils/100 WBC (Bld) 0.3 % 0-1 [facility] Work Phone: Bilirubin [Mass/Vol] 0.70 mg/dL 0.20-1.00 [facility] Work Phone: Comment on above: For patients on eltr ombopag therapy, use of Dimension [place] TBIL is not recommended. Chloride [Moles/Vol] 103 mmol/L 98-107 [facility] Work Phone: Eosinophils/100 WBC (Bld) 0.9 % 0-5 [facility] Work Phone: Glucose [Mass/Vol] 188 mg/dL 74-106 [facility] Work Phone: Comment on above: Fasting Glucose resu lt greater than or equal to 126 mg/dL suggests DIABETES MELLITUS per A.D.A. criteria. Neutrophils (Bld) [#/Vol] 2.3 10*3/uL 2.0-7.7 [facility] Work Phone: Neutrophils/100 WBC (Bld) 72.8 % 47-70 [facility] Work Phone: Potassium [Moles/Vol] 4.0 mmol/L 3.5-5.1 [facility] Work Phone: Protein [Mass/Vol] 6.0 g/dL 6.4-8.2 [facility] Work Phone: [phone] Sodium [Moles/Vol] 137 mmol/L 136-145 [facility] Work Phone: [phone] WBC (Bld) [#/Vol] 3.2 10*3/uL 4.4-11.0 [facility] Work Phone: Blood erythrocytes count (nu mber/volume)on 03-25-2022 RBC (Bld) [#/Vol] 3.37 10*6/uL 4.6-6.2 [facility] Work Phone: [phone] Blood hemoglobin measurement (mass/volume)on 03-25-2022 Hemoglobin (Bld) [Mass/Vol] 10.8 g/dL 13.0-16.5 [facility] Work Phone: Blood lymphocytes/100 leukoc yteson 03-25-2022 Lymphocytes/100 WBC (Bld) 11.0 % 19-41 [facility] Work Phone: Blood manual differential co mment interpretation (narrative result)on 03-25-2022 Manual differential comment [place] (Bld) [Interp] SCANNED [facility] Work Phone: [phone] Comment on above: LYMPHOPENIA NOTED Blood monocytes/100 leukocyt eson 03-25-2022 Monocytes/100 WBC (Bld) 14.7 % 0-10 [facility] Work Phone: Blood platelet adequacy dete ction by light microscopyon 03-25-2022 Platelets LM Ql (Bld) MOD DEC ADEQ [facility] Work Phone: Blood platelet mean volumeon 03-25-2022 Platelet mean volume (Bld) [Entitic vol] 9.9 fL 6.2-12.0 [facility] Work Phone: [phone] Determination of erythrocyte mean corpuscular volume (MCV)on 03-25-2022 MCV (RBC) [Entitic vol] 96.7 fL 80-94 [facility] Work Phone: [phone] Hematocrit Auto (Bld) [Volum e fraction]on 03-25-2022 Hematocrit (Bld) [Volume fraction] 32.6 % 40-54 [facility] Work Phone: [phone] Laboratory - Chemistry and C hemistry - challengeon 03-25-2022 ALP [Catalytic activity/Vol] 98 U/L 45-117 [facility] Work Phone: [phone] ALT [Catalytic activity/Vol] 33 U/L 16-61 [facility] Work Phone: [phone] CO2 [Moles/Vol] 28.0 mmol/L 21.0-32.0 [facility] Work Phone: [phone] Globulin (S) [Mass/Vol] 3.3 g/dL 2.2-4.2 [facility] Work Phone: [phone] Urea nitrogen/Creatinine [Mass ratio] 15.4 mg/mg 10-20 [facility] Work Phone: [phone] Laboratory - Hematology and Cell countson 03-25-2022 Erythrocyte distribution width (RBC) [Entitic vol] 46.1 fL 35.1-43.9 [facility] Work Phone: [phone] Erythrocyte distribution width (RBC) [Ratio] 13.0 % 11.6-14.6 [facility] Work Phone: [phone] Immature granulocytes/100 WBC (Bld) 0.300 % 0.0-0.9 [facility] Work Phone: [phone] Comment on above: IG% - Immature Granu locytes (promyelocytes, myelocytes and metamyelocytes) > 1% indicates that a LEFT SHIFT is Present. MCH (RBC) [Entitic mass] 32.0 pg 27.0-32.0 [facility] Work Phone: [phone] Nucleated RBC/100 WBC (Bld) [Ratio] 0 % 0-5 [facility] Work Phone: [phone] MCHC Auto (RBC) [Mass/Vol]on 03-25-2022 MCHC (RBC) [Mass/Vol] 33.1 g/dL 32-36 [facility] Work Phone: No Panel Informationon 03-25 Estimated GFR (MDRD) Amer 72 mL/min >60 [facility] Work Phone: Comment on above: GFR Calc Estimated GFR (MDRD) Non-Af Amer 60 mL/min >60 [facility] Work Phone: [phone] Comment on above: Non- GFR Calc Platelets bldon 03-25-2022 Platelets (Bld) [#/Vol] 63 10*3/uL 150-450 [facility] Work Phone: Review by pathologiston 03-14 Pathologist review [place] (Unsp spec) [Interp] Reviewed [facility] Work Phone: Comment on above: Previous reported re sult: Jasmyne ozuna Edited by: DAKOTAH on 03/26/22:1428Pancytopenia.Leukopenia Macrocytic anemia.ThrombocytopeniaClinical correlation necessary.Kenn Leach M.D. 03/26/22 AMENDED REPORT 03/26/22 1428 PATH REV previously reported as: Jasmyne ozuna Serum or plasma albumin koby urement (mass/volume)on 03-25-2022 Albumin [Mass/Vol] 2.7 g/dL 3.2-5.0 [facility] Work Phone: [phone] Serum or plasma albumin/glob ulin mass ratioon 03-25-2022 Albumin/Globulin [Mass ratio] 0.8 {ratio} 0.9-2.4 [facility] Work Phone: [phone] Serum or plasma calcium koby urement (mass/volume)on 03-25-2022 Calcium [Mass/Vol] 8.4 mg/dL 8.5-10.1 [facility] Work Phone: [phone] Serum or plasma creatinine m easurement (mass/volume)on 03-25-2022 Creatinine [Mass/Vol] 1.23 mg/dL 0.70-1.30 [facility] Work Phone: Comment on above: The validity of the calculated GFR & GFRAA in patients over 70 years has not been determined. Clinical correlation is essential. Serum or plasma urea nitroge n measurement (mass/volume)on 03-25-2022 Urea nitrogen [Mass/Vol] 19 mg/dL 7-18 [facility] Work Phone: Thin prep Papanicolaou smear with manual screeningon 03-25-2022 Thin prep Papanicolaou smear with manual screening 22 U/L 15-37 [facility] Work Phone: [phone] Thin prep Papanicolaou smear with manual screening 6 5-15 [facility] Work Phone: [phone] Absolute lymphocyte counton 03-23-2022 Lymphocytes Auto (Unsp spec) [#/Vol] 0.12 10*3/uL 0.83-4.51 [facility] Work Phone: Basophil percentageon 2021 Basophil percentage 0 SEEN /hpf 0-5 [facility] Work Phone: [phone] Basophils/100 WBC (Bld) 0.0 % 0-1 [facility] Work Phone: [phone] Bilirubin [Mass/Vol] 1.00 mg/dL 0.20-1.00 [facility] Work Phone: Comment on above: For patients on eltr ombopag therapy, use of Dimension [place] TBIL is not recommended. Chloride [Moles/Vol] 106 mmol/L 98-107 [facility] Work Phone: Eosinophils/100 WBC (Bld) 0.3 % 0-5 [facility] Work Phone: Glucose [Mass/Vol] 225 mg/dL 74-106 [facility] Work Phone: Comment on above: Glucose result great er than or equal to 200 mg/dLsuggests DIABETES MELLITUS per A.D.A. criteria. Neutrophils (Bld) [#/Vol] 3.4 10*3/uL 2.0-7.7 [facility] Work Phone: Neutrophils/100 WBC (Bld) 92.3 % 47-70 [facility] Work Phone: Potassium [Moles/Vol] 3.7 mmol/L 3.5-5.1 [facility] Work Phone: Protein [Mass/Vol] 6.0 g/dL 6.4-8.2 [facility] Work Phone: Sodium [Moles/Vol] 140 mmol/L 136-145 [facility] Work Phone: WBC (Bld) [#/Vol] 3.7 10*3/uL 4.4-11.0 [facility] Work Phone: Bilirubin Test strip Ql (U)o n 03-23-2022 Bilirubin Ql (U) Negative Negative [facility] Work Phone: Blood erythrocytes count (nu mber/volume)on 03-23-2022 RBC (Bld) [#/Vol] 3.53 10*6/uL 4.6-6.2 [facility] Work Phone: Blood hemoglobin measurement (mass/volume)on 03-23-2022 Hemoglobin (Bld) [Mass/Vol] 11.3 g/dL 13.0-16.5 [facility] Work Phone: Blood lymphocytes/100 leukoc yteson 03-23-2022 Lymphocytes/100 WBC (Bld) 3.3 % 19-41 [facility] Work Phone: Blood manual differential co mment interpretation (narrative result)on 03-23-2022 Manual differential comment [place] (Bld) [Interp] SEE COMMENT [facility] Work Phone: Comment on above: LYMPHOPENIA NOTED Blood monocytes/100 leukocyt eson 03-23-2022 Monocytes/100 WBC (Bld) 3.8 % 0-10 [facility] Work Phone: Blood platelet adequacy dete ction by light microscopyon 03-23-2022 Platelets LM Ql (Bld) ADEQUATE ADEQ [facility] Work Phone: Blood platelet mean volumeon 03-23-2022 Platelet mean volume (Bld) [Entitic vol] 9.4 fL 6.2-12.0 [facility] Work Phone: [phone] Determination of erythrocyte mean corpuscular volume (MCV)on 03-23-2022 MCV (RBC) [Entitic vol] 94.9 fL 80-94 [facility] Work Phone: [phone] Hematocrit Auto (Bld) [Volum e fraction]on 03-23-2022 Hematocrit (Bld) [Volume fraction] 33.5 % 40-54 [facility] Work Phone: Ketones Test strip Ql (U)on 03-23-2022 Ketones Ql (U) Negative Negative [facility] Work Phone: [phone] Laboratory - Chemistry and C hemistry - challengeon 03-23-2022 ALP [Catalytic activity/Vol] 98 U/L 45-117 [facility] Work Phone: [phone] ALT [Catalytic activity/Vol] 42 U/L 16-61 [facility] Work Phone: [phone] CO2 [Moles/Vol] 27.0 mmol/L 21.0-32.0 [facility] Work Phone: [phone] Globulin (S) [Mass/Vol] 2.9 g/dL 2.2-4.2 [facility] Work Phone: [phone] Urea nitrogen/Creatinine [Mass ratio] 17.1 mg/mg 10-20 [facility] Work Phone: [phone] Laboratory - Hematology and Cell countson 03-23-2022 Anisocytosis Ql (Bld) [facility]: [phone] Erythrocyte distribution width (RBC) [Entitic vol] 43.8 fL 35.1-43.9 [facility] Work Phone: [phone] Erythrocyte distribution width (RBC) [Ratio] 12.7 % 11.6-14.6 [facility] Work Phone: Immature granulocytes/100 WBC (Bld) 0.300 % 0.0-0.9 [facility] Work Phone: Comment on above: IG% - Immature Granu locytes (promyelocytes, myelocytes and metamyelocytes) > 1% indicates that a LEFT SHIFT is Present. MCH (RBC) [Entitic mass] 32.0 pg 27.0-32.0 [facility] Work Phone: Nucleated RBC/100 WBC (Bld) [Ratio] 0 % 0-5 [facility] Work Phone: MCHC Auto (RBC) [Mass/Vol]on 03-23-2022 MCHC (RBC) [Mass/Vol] 33.7 g/dL 32-36 [facility] Work Phone: Macrocytes detectionon 03-23 Macrocytes Ql (Bld) RARE [facility] Work Phone: Mucus LM Ql (Urine sed)on Mucus Ql (Urine sed) 0 SEEN /hpf [facility] Work Phone: Nitrite Test strip Ql (U)on 03-23-2022 Nitrite Ql (U) Negative Negative [facility] Work Phone: No Panel Informationon 03-23 Estimated Creatinine Clearance Calc 48.68 ml/min [facility] Work Phone: Estimated GFR (MDRD) Amer 77 mL/min >60 [facility] Work Phone: Comment on above: GFR Calc Estimated GFR (MDRD) Non-Af Amer 63 mL/min >60 [facility] Work Phone: Comment on above: Non- GFR Calc Platelets bldon 03-23-2022 Platelets (Bld) [#/Vol] 66 10*3/uL 150-450 [facility] Work Phone: Protein Test strip Ql (U)on 03-23-2022 Protein Ql (U) Negative Negative [facility] Work Phone: RBC morphologyon 03-23-2022 RBC morphology finding Nom (Bld) N CHROM NORMAL NORM C&C [facility] Work Phone: Review by pathologiston 03-14 Pathologist review [place] (Unsp spec) [Interp] Jasmyne ozuna [facility] Work Phone: Pathologist review [place] (Unsp spec) [Interp] Reviewed [facility] Work Phone: Comment on above: Previous reported re sult: Jasmyne ozuna Edited by: RGOOD on 03/25/22:1341Pancytopenia.Leukopenia Macrocytic anemia.ThrombocytopeniaClinical correlation necessary.Kenn Leach M.D. 03/25/22 AMENDED REPORT 03/25/22 1341 PATH REV previously reported as: November sulma Serum or plasma albumin koby urement (mass/volume)on 03-23-2022 Albumin [Mass/Vol] 3.1 g/dL 3.2-5.0 [facility] Work Phone: Serum or plasma albumin/glob ulin mass ratioon 03-23-2022 Albumin/Globulin [Mass ratio] 1.1 {ratio} 0.9-2.4 [facility] Work Phone: Serum or plasma calcium koby urement (mass/volume)on 03-23-2022 Calcium [Mass/Vol] 8.4 mg/dL 8.5-10.1 [facility] Work Phone: Serum or plasma creatinine m easurement (mass/volume)on 03-23-2022 Creatinine [Mass/Vol] 1.17 mg/dL 0.70-1.30 [facility] Work Phone: Comment on above: The validity of the calculated GFR & GFRAA in patients over 70 years has not been determined. Clinical correlation is essential. Serum or plasma urea nitroge n measurement (mass/volume)on 03-23-2022 Urea nitrogen [Mass/Vol] 20 mg/dL 7-18 [facility] Work Phone: Squamous epithelial cells de tection in urine sediment by light microscopyon 03-23-2022 Epithelial cells.squamous LM Ql (Urine sed) 0 SEEN /hpf 0-5 [facility] Work Phone: Thin prep Papanicolaou smear with manual screeningon 03-23-2022 Thin prep Papanicolaou smear with manual screening 27 U/L 15-37 [facility] Work Phone: Thin prep Papanicolaou smear with manual screening 7 5-15 [facility] Work Phone: Urine blood detectionon 03-14 RBC Ql (U) Negative Negative [facility] Work Phone: RBC Ql (U) 0 SEEN /hpf 0-5 [facility] Work Phone: Urine clarityon 03-23-2022 Clarity (U) Clear Clear [facility] Work Phone: Urine color determinationon 03-23-2022 Color (U) Yellow Yellow [facility] Work Phone: Urine glucose detectionon Glucose Ql (U) Normal mg/dl Normal [facility] Work Phone: Urine leukocyte esterase det ection by dipstickon 03-23-2022 Leukocyte esterase Test strip Ql (U) Negative Negative [facility] Work Phone: Urine pHon 03-23-2022 pH (U) 6.0 [pH] 5.0 - 8.0 [facility] Work Phone: Urine sediment bacteria coun t by microscopy (number/high power field)on 03-23-2022 Bacteria LM.HPF (Urine sed) [#/Area] 0 /[HPF] None Seen [facility] Work Phone: Urine specific gravity measu rementon 03-23-2022 Specific gravity (U) [Rel density] 1.010 1.002-1.030 [facility] Work Phone: Urobilinogen Auto test strip Ql (U)on 03-23-2022 Urobilinogen Ql (U) Normal mg/dl Normal [facility] Work Phone: Absolute lymphocyte counton 12-03-2021 Lymphocytes Auto (Unsp spec) [#/Vol] 0.39 10*3/uL 0.83-4.51 [facility] Work Phone: Basophil percentageon 2021 Basophil percentage < 0.9 mg/dL 0.70-1.30 [facility] Work Phone: Basophils/100 WBC (Bld) 0.2 % 0-1 [facility] Work Phone: Bilirubin [Mass/Vol] 0.90 mg/dL 0.20-1.00 [facility] Work Phone: Comment on above: For patients on eltr ombopag therapy, use of Dimension [place] TBIL is not recommended. Chloride [Moles/Vol] 106 mmol/L 98-107 [facility] Work Phone: Eosinophils/100 WBC (Bld) 1.2 % 0-5 [facility] Work Phone: Glucose [Mass/Vol] 173 mg/dL 74-106 [facility] Work Phone: Comment on above: Fasting Glucose resu lt greater than or equal to 126 mg/dL suggests DIABETES MELLITUS per A.D.A. criteria. Neutrophils (Bld) [#/Vol] 3.3 10*3/uL 2.0-7.7 [facility] Work Phone: Neutrophils/100 WBC (Bld) 82.2 % 47-70 [facility] Work Phone: Potassium [Moles/Vol] 3.9 mmol/L 3.5-5.1 [facility] Work Phone: Protein [Mass/Vol] 6.6 g/dL 6.4-8.2 [facility] Work Phone: Sodium [Moles/Vol] 141 mmol/L 136-145 [facility] Work Phone: WBC (Bld) [#/Vol] 4.0 10*3/uL 4.4-11.0 [facility] Work Phone: Blood erythrocytes count (nu mber/volume)on 12-03-2021 RBC (Bld) [#/Vol] 3.86 10*6/uL 4.6-6.2 [facility] Work Phone: Blood hemoglobin measurement (mass/volume)on 12-03-2021 Hemoglobin (Bld) [Mass/Vol] 12.2 g/dL 13.0-16.5 [facility] Work Phone: [phone] Blood lymphocytes/100 leukoc yteson 12-03-2021 Lymphocytes/100 WBC (Bld) 9.7 % 19-41 [facility] Work Phone: [phone] Blood manual differential co mment interpretation (narrative result)on 12-03-2021 Manual differential comment [place] (Bld) [Interp] COMMENT [facility] Work Phone: Comment on above: LYMPHOPENIA. Blood monocytes/100 leukocyt eson 12-03-2021 Monocytes/100 WBC (Bld) 6.5 % 0-10 [facility] Work Phone: [phone] Blood platelet mean volumeon 12-03-2021 Platelet mean volume (Bld) [Entitic vol] 8.7 fL 6.2-12.0 [facility] Work Phone: [phone] Determination of erythrocyte mean corpuscular volume (MCV)on 12-03-2021 MCV (RBC) [Entitic vol] 95.1 fL 80-94 [facility] Work Phone: [phone] Hematocrit Auto (Bld) [Volum e fraction]on 12-03-2021 Hematocrit (Bld) [Volume fraction] 36.7 % 40-54 [facility] Work Phone: [phone] Laboratory - Chemistry and C hemistry - challengeon 12-03-2021 ALP [Catalytic activity/Vol] 136 U/L 45-117 [facility] Work Phone: [phone] ALT [Catalytic activity/Vol] 75 U/L 16-61 [facility] Work Phone: [phone] CO2 [Moles/Vol] 32.0 mmol/L 21.0-32.0 [facility] Work Phone: [phone] Globulin (S) [Mass/Vol] 3.2 g/dL 2.2-4.2 [facility] Work Phone: [phone] Urea nitrogen/Creatinine [Mass ratio] 16.2 mg/mg 10-20 [facility] Work Phone: [phone] Laboratory - Hematology and Cell countson 12-03-2021 Erythrocyte distribution width (RBC) [Entitic vol] 44.9 fL 35.1-43.9 [facility] Work Phone: [phone] distribution width (RBC) [Ratio] 13.1 % 11.6-14.6 [facility] Work Phone: [phone] Immature granulocytes/100 WBC (Bld) 0.200 % 0.0-0.9 [facility] Work Phone: [phone] Comment on above: IG% - Immature Granu locytes (promyelocytes, myelocytes and metamyelocytes) > 1% indicates that a LEFT SHIFT is Present. MCH (RBC) [Entitic mass] 31.6 pg 27.0-32.0 [facility] Work Phone: [phone] Nucleated RBC/100 WBC (Bld) [Ratio] 0 % 0-5 [facility] Work Phone: [phone] MCHC Auto (RBC) [Mass/Vol]on 12-03-2021 MCHC (RBC) [Mass/Vol] 33.2 g/dL 32-36 [facility] Work Phone: [phone] Panel Informationon 12-03 Bedside Estimated GFR (eGFR) > 60.0000 mL/min >60 [facility] Work Phone: [phone] [phone] Antigen 9 U/mL 0-35 [facility] Work Phone: [phone] Comment on above: [employer] El ectrochemiluminescence Immunoassay(ECLIA)Values obtained with different assay methods or kits cannotbe used interchangeably. Results cannot be interpreted asabsolute evidence of the presence or absence of malignantdisease.Performed at: [facility] [employer] [id number] Director: Ulises Licea PhD, Phone: [phone] Estimated GFR (MDRD) Amer 77 mL/min >60 [facility] Work Phone: Comment on above: GFR Calc Estimated GFR (MDRD) Non-Af Amer 63 mL/min >60 [facility] Work Phone: Comment on above: Non- GFR Calc Platelets bldon 12-03-2021 Platelets (Bld) [#/Vol] 103 10*3/uL 150-450 [facility] Work Phone: [phone] Review by pathologiston 11-12 Pathologist review [place] (Unsp spec) [Interp] Reviewed [facility] Work Phone: [phone] Comment on above: Previous reported re sult: Jasmyne ozuna Edited by: DAKOTAH on 12/04/21:1233Pancytopenia.Leukopenia Macrocytic anemia.Mild ThrombocytopeniaAs per EMR, the patient has history of adenocarcinoma lung and pancreatic carcinoma.Clinical correlation necessary.Kenn Leach M.D. 12/04/21 AMENDED REPORT 12/04/21 1233 PATH REV previously reported as: Jasmyne ozuna Serum or plasma albumin koby urement (mass/volume)on 12-03-2021 Albumin [Mass/Vol] 3.4 g/dL 3.2-5.0 [facility] Work Phone: Serum or plasma albumin/glob ulin mass ratioon 12-03-2021 Albumin/Globulin [Mass ratio] 1.1 {ratio} 0.9-2.4 [facility] Work Phone: [phone] Serum or plasma calcium koby urement (mass/volume)on 12-03-2021 Calcium [Mass/Vol] 8.4 mg/dL 8.5-10.1 [facility] Work Phone: Serum or plasma creatinine m easurement (mass/volume)on 12-03-2021 Creatinine [Mass/Vol] 1.17 mg/dL 0.70-1.30 [facility] Work Phone: Comment on above: The validity of the calculated GFR & GFRAA in patients over 70 years has not been determined. Clinical correlation is essential. Serum or plasma urea nitroge n measurement (mass/volume)on 12-03-2021 Urea nitrogen [Mass/Vol] 19 mg/dL 7-18 [facility] Work Phone: Thin prep Papanicolaou smear with manual screeningon 12-03-2021 Thin prep Papanicolaou smear with manual screening 41 U/L 15-37 [facility] Work Phone: [phone] Thin prep Papanicolaou smear with manual screening 3 5-15 [facility] Work Phone: [phone] Thin prep Papanicolaou smear with manual screening 173 U/L 87-241 [facility] Work Phone: Basophil percentageon 2021 Bilirubin [Mass/Vol] 1.00 mg/dL 0.20-1.00 [facility] Work Phone: [phone] Comment on above: For patients on eltr ombopag therapy, use of Dimension [place] TBIL is not recommended. Chloride [Moles/Vol] 107 mmol/L 98-107 [facility] Work Phone: [phone] Cholesterol [Mass/Vol] 69 mg/dL <200 [facility] Work Phone: [phone] Comment on above: <200 mg/dL Desirable 200-240 mg/dL Borderline >240 mg/dL High Risk Glucose [Mass/Vol] 161 mg/dL 74-106 [facility] Work Phone: Comment on above: Fasting Glucose resu lt greater than or equal to 126 mg/dL suggests DIABETES MELLITUS per A.D.A. criteria. Potassium [Moles/Vol] 3.4 mmol/L 3.5-5.1 [facility] Work Phone: [phone] Protein [Mass/Vol] 6.1 g/dL 6.4-8.2 [facility] Work Phone: [phone] Sodium [Moles/Vol] 141 mmol/L 136-145 [facility] Work Phone: [phone] Triglyceride [Mass/Vol] 116 mg/dL [facility] Work Phone: [phone] Comment on above: The drugs N-Acetylcy steine and Metamizole may falsely depress this assay.Serum Triglycerides Reference Interval Normal <150 mg/dL Borderline high 150 - 199 mg/dL High 200 - 499 mg/dL Very High > or = 500 mg/dL Direct bilirubinon Bilirubin.direct [Mass/Vol] 0.31 mg/dL 0.00-0.30 [facility] Work Phone: [phone] Laboratory - Chemistry and C hemistry - challengeon 10-26-2021 ALP [Catalytic activity/Vol] 111 U/L 45-117 [facility] Work Phone: [phone] ALT [Catalytic activity/Vol] 75 U/L 16-61 [facility] Work Phone: [phone] CO2 [Moles/Vol] 30.0 mmol/L 21.0-32.0 [facility] Work Phone: [phone] Globulin (S) [Mass/Vol] 2.7 g/dL 2.2-4.2 [facility] Work Phone: [phone] Urea nitrogen/Creatinine [Mass ratio] 17.3 mg/mg 10-20 [facility] Work Phone: No Panel Informationon 10-26 Estimated GFR (MDRD) Amer 82 mL/min >60 [facility] Work Phone: [phone] Comment on above: GFR Calc Estimated GFR (MDRD) Non-Af Amer 68 mL/min >60 [facility] Work Phone: [phone] Comment on above: Non- GFR Calc Urine Microalbumin/Creatini ne Ratio 22.1 mg/g CRE <30 [facility] Work Phone: [phone] Serum or plasma albumin koby urement (mass/volume)on 10-26-2021 Albumin [Mass/Vol] 3.4 g/dL 3.2-5.0 [facility] Work Phone: [phone] Serum or plasma calcium koby urement (mass/volume)on 10-26-2021 Calcium [Mass/Vol] 7.9 mg/dL 8.5-10.1 [facility] Work Phone: [phone] Serum or plasma cholesterol in HDL measurement (mass/volume)on 10-26-2021 Cholesterol in HDL [Mass/Vol] 36 mg/dL [facility] Work Phone: Comment on above: The drugs N-Acetylcy steine and Metamizole may falsely depress this assay. Reference Range HDL <40 mg/dL Low HDL Cholesterol HDL >or= 60 mg/dL High HDL Cholesterol Serum or plasma cholesterol in VLDL measurement (mass/volume)on 10-26-2021 Cholesterol in VLDL [Mass/Vol] 23 mg/dL 5-40 [facility] Work Phone: [phone] Serum or plasma creatinine m easurement (mass/volume)on 10-26-2021 Creatinine [Mass/Vol] 1.10 mg/dL 0.70-1.30 [facility] Work Phone: Comment on above: The validity of the calculated GFR & GFRAA in patients over 70 years has not been determined. Clinical correlation is essential. Serum or plasma low density lipoprotein (LDL) cholesterol measurement (mass/volume)on 10-26-2021 Cholesterol in LDL [Mass/Vol] 10 mg/dL 0-130 [facility] Work Phone: [phone] Serum or plasma urea nitroge n measurement (mass/volume)on 10-26-2021 Urea nitrogen [Mass/Vol] 19 mg/dL 7-18 [facility] Work Phone: [phone] Thin prep Papanicolaou smear with manual screeningon 10-26-2021 Thin prep Papanicolaou smear with manual screening 50 U/L 15-37 [facility] Work Phone: [phone] Thin prep Papanicolaou smear with manual screening 4 5-15 [facility] Work Phone: [phone] Thin prep Papanicolaou smear with manual screening 36.4 mg/L NO RANGE EST. [facility] Work Phone: [phone] Urine creatinine measurement (mass/volume)on 10-26-2021 Creatinine (U) [Mass/Vol] 165.00 mg/dL NO RANGE EST. [facility] Work Phone: [phone] Blood platelet adequacy dete ction by light microscopyon 03-14-2021 Platelets LM Ql (Bld) MOD DEC ADEQ [facility] Iron measurement (mass/mass) on 03-14-2021 Iron (Unsp spec) [Mass/Mass] 110 ug/dL 65-175 [facility] Laboratory - Hematology and Cell countson 03-14-2021 Anisocytosis Ql (Bld) 2+ [facility] No Panel Informationon 03-14 Total Iron Binding Capacity 406 ug/dL 250-450 [facility] RBC morphologyon 03-14-2021 RBC morphology finding Nom (Bld) N CHROM NORMAL NORM C&C [facility] Serum or plasma ferritin aurelio surement (mass/volume)on 03-14-2021 Ferritin [Mass/Vol] 19 ng/mL 26-388 [facility] Serum or plasma iron saturat ion measurement (mass fraction)on 03-14-2021 Iron saturation [Mass fraction] 27.1 % 15.0-55.0 [facility] Basophil percentageon 2020 Cholesterol [Mass/Vol] 76 mg/dL <200 [facility] Comment on above: <200 mg/dL Desirable 200-240 mg/dL Borderline >240 mg/dL High Risk Triglyceride [Mass/Vol] 88 mg/dL <199 [facility] Comment on above: The drugs N-Acetylcy steine and Metamizole may falsely depress this assay.Serum Triglycerides Reference Interval Normal <150 mg/dL Borderline high 150 - 199 mg/dL High 200 - 499 mg/dL Very High > or = 500 mg/dL Direct bilirubinon 1 Bilirubin.direct [Mass/Vol] 0.23 mg/dL 0.00-0.30 [facility] Serum or plasma cholesterol in HDL measurement (mass/volume)on 02-28-2021 Cholesterol in HDL [Mass/Vol] 35 mg/dL >40 [facility] Comment on above: The drugs N-Acetylcy steine and Metamizole may falsely depress this assay. Reference Range HDL <40 mg/dL Low HDL Cholesterol HDL >or= 60 mg/dL High HDL Cholesterol Serum or plasma cholesterol in VLDL measurement (mass/volume)on 02-28-2021 Cholesterol in VLDL [Mass/Vol] 18 mg/dL 5-40 [facility] Serum or plasma low density lipoprotein (LDL) cholesterol measurement (mass/volume)on 02-28-2021 Cholesterol in LDL [Mass/Vol] 23 mg/dL 0-130 [facility] Hypochromatic red blood cell detectionon 02-05-2021 Hypochromia Ql (Bld) 1+ [facility] Laboratory - Chemistry and C hemistry - challengeon 01-08-2021 Cobalamin (Vitamin B12) [Mass/Vol] 507 pg/mL 211-911 [facility] Serum or plasma folate measu rement (mass/volume)on 01-08-2021 Folate [Mass/Vol] 15.00 ng/mL 3.1-55.4 [facility] XR ERCP READ ONLYon 08-28-19 XR ERCP READ ONLY Final Report DATE OF EXAM: Aug 28 2020 3:18PM ANNETTE [id number] - XR ERCP READ ONLY / PROCEDURE REASON: BILIARY STRICTURE Physician Interpretation INTRAOPERATIVE FLUOROSCOPIC EXAMINATION; ERCP DATE: 08/28/2020 3:18 PM COMPARISON: CT examination of abdomen and pelvis with contrast dated 07/05/2020. HISTORY: Biliary stricture. ENCOUNTER: Not applicable TECHNIQUE: Images from fluoroscopic examination of the biliary system during endoscopic retrograde cholangiography were submitted for interpretation. Fluoroscopic Radiation Summary: Plane A, Air Kerma: 88.0 mGy Dose Area Product (DAP): [id number] mGycm Fluoro time: 2:25 min:sec RESULT: Examination is limited due to fluoroscopic technique. 11 fluoroscopic image(s) were submitted for interpretation. Initial fluoroscopic images again demonstrate plastic ERCP stent. There is subsequent removal of the stent with retrograde opacification of the common bile duct in the intrahepatic biliary system. There is long segment moderate to severe stenosis involving the mid to distal aspect of the common bile duct which demonstrates ill-defined filling defects. There is associated proximal dilation of the common bile duct as well as mild to moderate intrahepatic biliary ductal dilation. There is subsequent balloon cholangioplasty of the region of stenosis and placement of a metallic stent which extends from the superior aspect of the common bile duct to the small bowel lumen. Stent appears to be intact. No discrete suspicious filling defects within the opacified portions of the intrahepatic biliary system. IMPRESSION: Fluoroscopic images, demonstrating removal of indwelling ERCP stent, followed by cholangioplasty and placement of metallic biliary stent, as described above. 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 Please refer to operative notes for full details. [employer]: [employer] Transcribe Date/Time: Aug 29 2020 12:23P Dictated by : DELIA MCGUIRE MD This examination was interpreted and the report reviewed and electronically signed by: DELIA MCGUIRE MD on Aug 29 2020 12:26PM EST Normal [facility] CT BIOPSY LUNGon 07-18-2020 CT BIOPSY LUNG Final Report DATE OF EXAM: Jul 18 2020 12:02PM [facility] [address] - [address] BIOPSY LUNG / PROCEDURE REASON: cholangiocarcinoma Physician Interpretation EXAM TITLE: CT-GUIDED LUNG BIOPSY DATE: July 18, 2020 CLINICAL INDICATION/HISTORY: 79-year-old male with a 1.2 x 1.2 cm semisolid nodule in the left upper lobe. He presents for CT-guided biopsy of this nodule. Patient also has history of cholangiocarcinoma. COMPARISON: Chest CT July 05, 2020 PROCEDURE TIMES: -Preprocedure timeout: 1120 hrs -Procedure start time: 1121 hours -Procedure start time: 1134 hours PROCEDURE: The procedure was discussed with the patient including the risks, benefits and alternatives. After all the patient's questions were answered written and verbal consent was obtained. The patient was placed in the prone position and limited CT scanning through the lungs performed. The nodule in the right upper lobe was identified. The skin was marked. A timeout was performed. The skin was prepped and draped in a sterile fashion. Local anesthesia with 10 mL of 1% lidocaine was administered to the chest wall. The patient also received moderate IV sedation monitored by radiology nurse. Under CT guidance a 19-gauge introducer needle was advanced to the margin of the nodule. Through the introducer needle a 20-gauge core biopsy needle was advanced and a total 4 core biopsy passes performed. There is a moderate size area of post biopsy hemorrhage in the right upper lobe. The patient tolerated the procedure well. Intra-service time (monitoring for moderate sedation) (starts with administration of agent, ends when continuous [id number]-[id number] time ends): 13 minutes. Patient monitoring: I personally supervised and directed an independent trained observer who assisted in monitoring the patient?s level of consciousness and physiological status throughout the procedure. Medication: 50 micrograms of fentanyl IV; 1 milligrams of Versed IV CT Dose-Length Product: 82.[address] Dose Reduction Employed: 4. mAs or kVp was manually adjusted based on either the patient size or age and used in conjunction with iterative reconstruction. IMPRESSION: 1. Technically successful CT-guided biopsy of left upper lobe pulmonary nodule. [employer] Senior [employer]: [employer]LO[employer] Transcribe Date/Time: Jul 18 2020 12:39P Dictated by : NILDA CARRION MD This examination was interpreted and the report reviewed and electronically signed by: NILDA CARRION MD on Jul 18 2020 12:47PM EST Normal [employer] System XR CHEST 1V FRONTALon 2020 XR CHEST 1V FRONTAL Final Report DATE OF EXAM: Jul 18 2020 2:10PM [id number] - XR CHEST 1V FRONTAL / PROCEDURE REASON: Post-operative / post-procedure assessment, asymptomatic Physician Interpretation EXAMINATION: CHEST RADIOGRAPH (SINGLE VIEW AP OR PA) CLINICAL HISTORY: Post-operative / post-procedure assessment, asymptomatic MQ: XC1_5 Comparison: Chest radiograph same day at 12:17 PM RESULT: Lines, tubes, and devices: None. Lungs and pleura: No pneumothorax. Minimal airspace opacity in the left lung base. Lung volumes are low. Heart lobe granuloma noted. Cardiomediastinal silhouette: Stable cardiomediastinal silhouette. IMPRESSION: No pneumothorax status post left pulmonary nodule biopsy. [employer] Senior Officer: [facility] Transcribe Date/Time: Jul 18 2020 2:21P Dictated by : YUSUF COBOS MD This examination was interpreted and the report reviewed and electronically signed by: YUSUF COBOS MD on Jul 18 2020 2:23PM EST Normal [employer] System XR CHEST 1V FRONTAL Final Report DATE OF EXAM: Jul 18 2020 12:05PM [id number] - XR CHEST 1V FRONTAL / PROCEDURE REASON: Post-operative / post-procedure assessment, asymptomatic Physician Interpretation EXAMINATION: CHEST RADIOGRAPH (SINGLE VIEW AP OR PA) CLINICAL HISTORY: Post-operative / post-procedure assessment, asymptomatic MQ: XC1_5 Comparison: Chest CT July 05, 2020 RESULT: Lines, tubes, and devices: None. Lungs and pleura: No pneumothorax. No areas of consolidation. Small areas of scarring or atelectasis both lung bases. Faint increased opacity at the left lung apex likely representing postbiopsy hemorrhage. There is a 5 mm calcified granuloma in the right midlung. Cardiomediastinal silhouette: Normal cardiomediastinal silhouette. Other: None IMPRESSION: No pneumothorax. Faint opacity at the left lung apex likely post biopsy hemorrhage. [employer] Senior [employer]: [employer] Transcribe Date/Time: Jul 18 2020 12:14P Dictated by : NILDA CARRION MD This examination was interpreted and the report reviewed and electronically signed by: NILDA CARRION MD on Jul 18 2020 12:21PM EST Normal [facility] Non-Windows Systems Architect Cytology Reporton Non-Windows Systems Architect Cytology Report . Pathology Reports Accession: Collected Date/Time: Received Date/Time: Pathologist: [id number] 06/06/2020 16:16 EST 06/07/2020 14:28 EST DO NILDA HERNANDEZ Non-Windows Systems Architect Cytology Report CLINICAL INFORMATION: CBD STRICTURE [id number] DIAGNOSIS: ATYPICAL CELLS SUSPICIOUS FOR MALIGNANCY SPECIMEN: CBD BRUSHING GROSS DESCRIPTION: RECEIVED BRUSH IN CYTOLYT 1 MONOLAYER Electronically Signed by Pathology report verified by [facility] Screened by: GL MES Electronically signed by NILDA HERNANDEZ DO Sign-Out Date: 06/09/2020 08:27 Performing Lab: [facility], [address] [place] [address] ([place]) Comment on above: Performed By: #### N GCR #### [place] [id number] XR ERCP BILIARY AND PANCREAT IC DUCTon 06-07-2020 XR ERCP BILIARY AND PANCREATIC DUCT ORIGINAL XR ERCP BILIARY AND PANCREATIC DUCT ORDERING PROVIDER: SIXTO CLINICAL STATEMENT: ERCP Technical Details: History - ERCP. CBD stricture, CBD dilat; Total Dose - 153.56 mGy; Baker Bench - jlm; Fluoro Time - 5min 37sec; Films - 20; C-Arm# - oec elite; Outside Films for Comparison - n; FINDINGS: Fluoroscopic spot images were provided for interpretation. They demonstrate biliary dilatation as well as instrumentation and, and bile duct stent placement. Detail is limited. Please see the operative note for details. Interpreted By: Apollo Green MD Preliminary Report By: Apollo Green MD Electronically Signed By: Apollo Green MD Dictated Date: 06/07/2020 3:53:24 PM Prelim Date: 06/07/2020 3:53:24 PM Sign Date: 06/07/2020 3:54:02 PM Ordering Provider:Ulises Da Silva [facility]ly [facility] ([place]) Culture, urine Bacteria identified Cx Nom (U) Culture exhibits no growth. [facility] Work Phone: Influenza virus A and B and SARS-CoV-2 (COVID-19) Ag panel - Upper respiratory specim SARS-CoV-2 (COVID-19) RNA BLAKE+probe Ql (Resp) [facility] Work Phone: Laboratory - Microbiology an d Antimicrobial susceptibility Bacteria identified Cx Nom (Bld) GNR lactose service delivery consultant [facility] Work Phone: No Panel Information SARS-CoV-2 & FLU Antigen (Rapid) [facility] Work Phone: Vital Signs Date Time Vital Sign Value Performing Clinician Faci lity 10-16-2023 09:28-0400 Body height 175.[address] Mickey Flores Work Phone: [facility] 10-16-2023 09:28-0400 Body mass index (BMI) [Ratio] 27.9 kg/m2 Dr. Mickey Flores Work Phone: [facility] 10-16-2023 09:28-0400 Body weight 85.[address] Mickey Flores Work Phone: [facility] 10-16-2023 09:28-0400 Diastolic blood pressure 59 mm[Hg] Dr. Mickey Flores Work Phone: [facility] 10-16-2023 09:28-0400 Heart rate 45 /min Dr. Mickey Flores Work Phone: [facility] 10-16-2023 09:28-0400 Respiratory rate 16 /min Dr. Mickey Flores Work Phone: [facility] 10-16-2023 09:28-0400 Systolic blood pressure 125 mm[Hg] Dr. Mickey Flores Work Phone: [facility] 07-15-2023 13:58-0500 Body height 175.[address] Mickey Flores Work Phone: [facility] 07-15-2023 13:58-0500 Body mass index (BMI) [Ratio] 28.5 kg/m2 Dr. Mickey Flores Work Phone: [facility] 07-15-2023 13:58-0500 Body temperature 98.5 [degF] Dr. Mickey Flores Work Phone: [facility] 07-15-2023 13:58-0500 Body weight 87.[address] Mickey Flores Work Phone: [facility] 07-15-2023 13:58-0500 Diastolic blood pressure 61 mm[Hg] Dr. Mickey Flores Work Phone: [facility] 07-15-2023 13:58-0500 Heart rate 56 /min Dr. Mickey Flores Work Phone: [facility] 07-15-2023 13:58-0500 Respiratory rate 18 /min Dr. Mickey Flores Work Phone: [facility] 07-15-2023 13:58-0500 SaO2% (BldA) [Mass fraction] 100 % Dr. Mickey Flores Work Phone: [facility] 07-15-2023 13:58-0500 Systolic blood pressure 137 mm[Hg] Dr. Mickey Flores Work Phone: [facility] 09-24-2022 10:35-0400 Body height 175.3 cm Jenna Simon PA-C Work Phone: [facility] 09-24-2022 10:35-0400 Body weight 86.64 kg Jenna Simon PA-C Work Phone: [facility] 09-24-2022 10:35-0400 Diastolic blood pressure 73 mm[Hg] Jenna Simon PA-C Work Phone: [facility] 09-24-2022 10:35-0400 Heart rate 50 /min Jenna Simon PA-C Work Phone: [facility] 09-24-2022 10:35-0400 SaO2% (BldA) [Mass fraction] 99 % Jenna Simon PA-C Work Phone: [facility] 09-24-2022 10:35-0400 Systolic blood pressure 134 mm[Hg] Jenna Simon PA-Reese Work Phone: [facility] 06-13-2022 10:37-0500 Body height 176.[address] Mickey Flores Work Phone: [facility] Work Phone: 06-13-2022 10:27-0500 Body mass index (BMI) [Ratio] 27.1 kg/m2 Dr. Mickey Flores Work Phone: [facility] Work Phone: 06-13-2022 10:27-0500 Body temperature 98.4 [degF] Dr. Mickey Flores Work Phone: [facility] Work Phone: 06-13-2022 10:27-0500 Body weight 84.[address] Mickey Flores Work Phone: [facility] Work Phone: 06-13-2022 10:27-0500 Diastolic blood pressure 67 mm[Hg] Dr. Mickey Flores Work Phone: [facility] Work Phone: 06-13-2022 10:27-0500 Heart rate 42 /min Dr. Mickey Flores Work Phone: [facility] Work Phone: 06-13-2022 10:27-0500 Respiratory rate 16 /min Dr. Mickey Flores Work Phone: [facility] Work Phone: 06-13-2022 10:27-0500 SaO2% (BldA) [Mass fraction] 100 % Dr. Mickey Flores Work Phone: [facility] Work Phone: 06-13-2022 10:27-0500 Systolic blood pressure 129 mm[Hg] Dr. Mickey Flores Work Phone: [facility] Work Phone: 03-26-2022 09:30-0400 Body height 176.5 cm Mohini Sousa MD Work Phone: [facility] 03-26-2022 09:30-0400 Body weight 88.45 kg Mohini Sousa MD Work Phone: [facility] 03-26-2022 09:30-0400 Diastolic blood pressure 75 mm[Hg] Mohini Sousa MD Work Phone: [facility] 03-26-2022 09:30-0400 Heart rate 44 /min Mohini Sousa MD Work Phone: [facility] 03-26-2022 09:30-0400 SaO2% (BldA) [Mass fraction] 100 % Mohini Sousa MD Work Phone: [facility] 03-26-2022 09:30-0400 Systolic blood pressure 136 mm[Hg] Mohini Sousa MD Work Phone: [facility] 03-23-2022 23:43-0400 Diastolic blood pressure 50 mm[Hg] Dr. Mickey Flores Work Phone: [facility] Work Phone: 03-23-2022 23:43-0400 Heart rate 66 /min Dr. Mickey Flores Work Phone: [facility] Work Phone: 03-23-2022 23:43-0400 Respiratory rate 17 /min Dr. Mickey Flores Work Phone: [facility] Work Phone: 03-23-2022 23:43-0400 SaO2% (BldA) [Mass fraction] 97 % Dr. Mickey Flores Work Phone: [facility] Work Phone: 03-23-2022 23:43-0400 Systolic blood pressure 102 mm[Hg] Dr. Mickey Flores Work Phone: [facility] Work Phone: 03-23-2022 22:01-0400 Body temperature 99.6 [degF] Dr. Mickey Flores Work Phone: [facility] Work Phone: 03-23-2022 20:31-0400 Body height 176.[address] Mickey Flores Work Phone: [facility] Work Phone: 03-23-2022 20:31-0400 Body mass index (BMI) [Ratio] 27.9 kg/m2 Dr. Mickey Flores Work Phone: [facility] Work Phone: 03-23-2022 20:31-0400 Body weight 87.[address] Mickey Flores Work Phone: [facility] Work Phone: 02-25-2022 11:29-0400 Body mass index (BMI) [Ratio] 28.3 kg/m2 Dr. Mickey Flores Work Phone: [facility] Work Phone: 02-25-2022 11:29-0400 Body temperature 97.7 [degF] Dr. Mickey Flores Work Phone: [facility] Work Phone: 02-25-2022 11:29-0400 Body weight 88.[address] Mickey Flores Work Phone: [facility] Work Phone: 02-25-2022 11:29-0400 Diastolic blood pressure 64 mm[Hg] Dr. Mickey Flores Work Phone: [facility] Work Phone: 02-25-2022 11:29-0400 Heart rate 46 /min Dr. Mickey Flores Work Phone: [facility] Work Phone: 02-25-2022 11:29-0400 Respiratory rate 16 /min Dr. Mickey Flores Work Phone: [facility] Work Phone: 02-25-2022 11:29-0400 SaO2% (BldA) [Mass fraction] 100 % Dr. Mickey Flores Work Phone: [facility] Work Phone: 02-25-2022 11:29-0400 Systolic blood pressure 132 mm[Hg] Dr. Mickey Flores Work Phone: [facility] Work Phone: 02-15-2022 11:26-0400 Body mass index (BMI) [Ratio] 29.5 kg/m2 Dr. Mickey Flores Work Phone: [facility] Work Phone: 02-15-2022 09:36-0400 Body weight 88.[address] Mickey Flores Work Phone: [facility] Work Phone: 02-15-2022 09:36-0400 Diastolic blood pressure 64 mm[Hg] Dr. Mickey Flores Work Phone: [facility] Work Phone: 02-15-2022 09:36-0400 Heart rate 48 /min Dr. Mickey Flores Work Phone: [facility] Work Phone: 02-15-2022 09:36-0400 Respiratory rate 16 /min Dr. Mickey Flores Work Phone: [facility] Work Phone: 02-15-2022 09:36-0400 SaO2% (BldA) [Mass fraction] 100 % Dr. Mickey Flores Work Phone: [facility] Work Phone: 02-15-2022 09:36-0400 Systolic blood pressure 133 mm[Hg] Dr. Mickey Flores Work Phone: [facility] Work Phone: 12-12-2021 11:26-0400 Body mass index (BMI) [Ratio] 29.3 kg/m2 Dr. Mickey Flores Work Phone: [facility] Work Phone: 12-12-2021 11:26-0400 Body temperature 98.7 [degF] Dr. Mickey Flores Work Phone: [facility] Work Phone: 12-12-2021 11:26-0400 Body weight 91.[address] Mickey Flores Work Phone: [facility] Work Phone: 12-12-2021 11:26-0400 Diastolic blood pressure 69 mm[Hg] Dr. Mickey Flores Work Phone: [facility] Work Phone: 12-12-2021 11:26-0400 Heart rate 45 /min Dr. Mickey Flores Work Phone: [facility] Work Phone: 12-12-2021 11:26-0400 Respiratory rate 15 /min Dr. Mickey Flores Work Phone: [facility] Work Phone: 12-12-2021 11:26-0400 SaO2% (BldA) [Mass fraction] 99 % Dr. Mickey Flores Work Phone: [facility] Work Phone: 12-12-2021 11:26-0400 Systolic blood pressure 170 mm[Hg] Dr. Mickey Flores Work Phone: [facility] Work Phone: 08-30-2021 07:57-0500 Body temperature 97.9 [degF] Dr. Mickey Flores Work Phone: [facility] Work Phone: 08-30-2021 07:57-0500 Body weight 94.[address] Mickey Flores Work Phone: [facility] Work Phone: 08-30-2021 07:57-0500 Diastolic blood pressure 74 mm[Hg] Dr. Mickey Flores Work Phone: [facility] Work Phone: 08-30-2021 07:57-0500 Heart rate 74 /min Dr. Mickey Flores Work Phone: [facility] Work Phone: 08-30-2021 07:57-0500 Respiratory rate 14 /min Dr. Mickey Flores Work Phone: [facility] Work Phone: 08-30-2021 07:57-0500 SaO2% (BldA) [Mass fraction] 100 % Dr. Mickey Flores Work Phone: [facility] Work Phone: 08-30-2021 07:57-0500 Systolic blood pressure 153 mm[Hg] Dr. Mickey Flores Work Phone: [facility] Work Phone: 01-01-2021 11:28-0400 Body mass index (BMI) [Ratio] 30.2 kg/m2 Dr. Mickey Flores Work Phone: [facility] 10-30-2020 14:09-0400 Body temperature 98.3 [degF] Dr. Mickey Flores Work Phone: [facility] 10-30-2020 14:09-0400 Diastolic blood pressure 80 mm[Hg] Dr. Mickey Flores Work Phone: [facility] 10-30-2020 14:09-0400 Heart rate 52 /min Dr. Mickey Flores Work Phone: [facility] 10-30-2020 14:09-0400 Respiratory rate 16 /min Dr. Mickey Flores Work Phone: [facility] 10-30-2020 14:09-0400 SaO2% (BldA) [Mass fraction] 99 % Dr. Mickey Flores Work Phone: [facility] 10-30-2020 14:09-0400 Systolic blood pressure 163 mm[Hg] Dr. Mickey Flores Work Phone: [facility] Encounters Encounter Date Encounter Type Care Provider Facility Start: 01-31-2025 ambulatory [facility] Facility:[facility] Start: 11-01-2024 ambulatory Mickey Flores Facility:[facility] Start: 11-01-2024 End: 11-01-2024 ambulatory Mickey Flores Facility:[facility] Start: 10-28-2024 End: 10-28-2024 ambulatory Mickey Flores Facility:[facility] Start: 07-30-2024 End: 07-30-2024 ambulatory Mickey Flores Facility:[facility] Start: 05-11-2024 End: 05-11-2024 ambulatory Mickey Flores Facility:[facility] Start: 04-16-2024 End: 04-16-2024 Emergency department patient visit Mickey Flores Facility:[facility] Start: 03-22-2024 End: 03-22-2024 Emergency department patient visit Mickey Flores Facility:[facility] Start: 02-10-2024 End: 02-10-2024 ambulatory [facility] Facility:[facility] Start: 02-05-2024 End: 02-05-2024 ambulatory [facility] Facility:[facility] Start: 02-02-2024 ambulatory Mickey Flores Facility:[facility] Start: 11-12-2023 Non-patient / Non-visit Dr. Laquita Flores Work Phone: [facility] Work Phone: Start: 11-12-2023 Non-patient / Non-visit Dr. Laquita Flores Work Phone: [facility] Start: 11-12-2023 End: 11-12-[address] Mickey Flores Work Phone: [facility] Work Phone: Start: 11-12-2023 End: 11-12-[address] [facility] Work Phone: Start: 10-16-2023 End: 10-16-[address] Mickey Flores Work Phone: [facility] Work Phone: Start: 07-15-2023 End: 07-15-[address] Mickey Flores Work Phone: [facility] Work Phone: Start: 07-09-2023 End: 07-09-[address] Mickey Flores Work Phone: [facility] Work Phone: Start: 07-09-2023 End: 07-09-[address] Mickey Flores Work Phone: [facility] Work Phone: Start: 07-08-[address] Mickey Flores Work Phone: [facility] Start: 03-24-2023 End: 03-24-2023 Telemedicine consultation with patient Jenna Simon PA-C Work Phone: [facility] Start: 03-24-2023 End: 03-24-2023 ambulatory Jenna Simon PA-C Work Phone: [facility] Comment on above: Cholangiocarcinoma ( HCC) (Primary Dx) Start: 01-06-2023 End: 01-06-2023 ambulatory [facility] Work Phone: Start: 01-06-2023 End: 01-06-2023 Patient encounter procedure [facility] Work Phone: Start: 09-24-2022 End: 09-24-2022 ambulatory TAPAN COLLINS Facility:[facility] Start: 09-24-2022 End: 09-24-2022 Office outpatient visit 25 minutes Jenna Siomn PA-C Work Phone: [facility] Comment on above: Cholangiocarcinoma ( HCC) (Primary Dx) Start: 06-13-2022 End: 06-13-[address] Mickey Flores Work Phone: [facility] Start: 06-10-2022 End: 06-10-[address] Mickey Flores Work Phone: [facility] Work Phone: Start: 06-10-2022 End: 06-10-[address] Mickey Flores Work Phone: [facility] Start: 03-26-2022 End: 03-26-2022 Patient encounter procedure Mohini Sousa MD Work Phone: [facility] Comment on above: Cholangiocarcinoma ( HCC) (Primary Dx) Start: 03-25-2022 End: 03-25-[address] Mickey Flores Work Phone: [facility] Work Phone: Start: 03-25-2022 End: 03-25-[address] Mickey Flores Work Phone: [facility] Start: 03-23-2022 End: 03-23-2022 Emergency department patient visit Dr. Mickey Flores Work Phone: [facility] Start: 02-25-2022 End: 02-25-[address] Mickey Flores Work Phone: [facility] Start: 02-15-2022 End: 02-15-[address] Mickey Flores Work Phone: [facility] Start: 12-12-2021 End: 12-12-[address] Mickey Flores Work Phone: [facility] Start: 12-03-2021 End: 12-03-[address] Mickey Flores Work Phone: [facility]-Cat Scan, [facility] Start: 10-26-2021 End: 10-26-[address] Mickey Flores Work Phone: [facility]atory Start: 08-30-2021 End: 08-30-[address] Mickey Flores Work Phone: [facility] Start: 06-16-2020 End: 06-16-2020 Telephone encounter Tapan Collins Work Phone: [facility] Comment on above: Future Appointment Start: 01-08-2017 End: 01-08-2017 Ambulatory PHY WO ID REFERRING Facility:[facility] Procedures Date Procedure Procedure Detail Performing Clinician Start: 07-09-2023 CT of chest and abdomen Dr. Mickey Flores Work Phone: Start: 01-06-2023 CT of chest and abdomen Start: 06-10-2022 CT of chest and abdomen Dr. Mickey Flores Work Phone: Start: 03-23-2022 Plain chest X-ray Dr. Karl Flores Work Phone: Start: 12-03-2021 CT of thorax with contrast Dr. Mickey Flores Work Phone: Start: 06-12-2021 PET/CT Tumor Base -Thigh Subs Dr. Mickey Flores Work Phone: Start: 08-01-2020 Positron emission tomography with computed tomography Dr. Mickey Flores Work Phone: Start: 01-01-2017 History of placement of stent for coronary artery disease History of coronary artery stent placement Dr. Mickey Flores Work Phone: Bacteria identified in Blood by Culture Dr. Mickey Flores Work Phone: SARS-CoV-2 & FLU Antigen (Rapid) Dr. Mickey Flores Work Phone: Urine culture Dr. Mickey armstrong Work Phone: Plan of Treatment Date Care Activity Detail Author Start: 03-14-2023 Influenza vaccination Influenza Vaccine (#1) [facility] Start: 07-14-2022 ADVANCE DIRECTIVE DISCUSSION ADVANCE DIRECTIVE DISCUSSION [facility] Start: 07-14-2022 DEPRESSION ASSESSMENT DEPRESSION ASSESSMENT [facility] Start: 07-05-2022 COVID-19 VACCINE (4 - Booster for Moderna series) COVID-19 VACCINE (4 - Booster for Moderna series) [facility] Start: 04-30-2022 COVID-19 VACCINE (4 - Booster for Moderna series) COVID-19 VACCINE (4 - Booster for Moderna series) [facility] Start: 04-30-2022 Covid-19 Vaccine (4 - Moderna series) Covid-19 Vaccine (4 - Moderna series) [facility] Start: 03-23-2022 [facility] Work Phone: Start: 03-23-2022 End: 03-23-2022 Blood culture [facility] Work Phone: Start: 03-23-2022 [facility] Work Phone: Start: 03-14-2022 Influenza vaccination INFLUENZA (#1) [facility] Start: 07-14-2021 ADVANCE DIRECTIVE DISCUSSION ADVANCE DIRECTIVE DISCUSSION [facility] Start: 03-14-2020 Influenza vaccination INFLUENZA (#1) [facility] Start: 2004 ADVANCE DIRECTIVE DISCUSSION ADVANCE DIRECTIVE DISCUSSION [facility] Start: 2004 PNEUMOVAX AGE 65 AND OVER WITH 5YR LOOKBACK (#1) PNEUMOVAX AGE 65 AND OVER WITH 5YR LOOKBACK (#1) [facility] Start: 1989 SHINGRIX VACCINE (1 of 2) SHINGRIX VACCINE (1 of 2) [facility] Start: 1984 DIABETES SCREEN DIABETES SCREEN [facility] Start: 1974 LIPID SCREEN LIPID SCREEN [facility] Start: 1958 Urine microalbumin profile [facility] Start: 1957 Hepatitis B surface antibody level LDL CHOLESTEROL [facility] Start: 1949 3 comp foot exam completed DIABETIC FOOT EXAM [facility] Start: 1949 Hepatitis B screening URINE ALBUMIN:CREATININE RATIO [facility] Start: 1949 Hepatitis C antibody, confirmatory test DILATED RETINAL EXAM [facility] Start: 1945 Pneumococcal Vaccine: 65+ (1 - PCV) Pneumococcal Vaccine: 65+ (1 - PCV) [facility] Start: 1945 PNEUMOCOCCAL: 65+ (1 - PCV) PNEUMOCOCCAL: 65+ (1 - PCV) [facility] Start: 1944 Hemoglobin A1c/Hemoglobin.total in Blood HBA1C [facility] Bacteria identified in Blood by Culture Blood Culture [facility] Work Phone: Bacteria identified in Urine by Culture Urine Culture [facility] Work Phone: Blood culture [facility] Work Phone: Cancer Ag 19-9 [Units/volume] in Serum or Plasma [facility] Work Phone: CBC W Auto Different ial panel - Blood [facility] Work Phone: CT Chest and Abdomen W contrast IV [facility] Work Phone: Gas panel - Arterial blood [facility] Work Phone: Patient Education ED FUO Adult [facility] Work Phone: Patient referral [facility] Work Phone: [facility] Immunizations Immunization Date Immunization Notes Care Provider [place] [facility]21 influenza virus vaccine, unspecified formulation Jenna Simon PA-C Work Phone: [facility] 09-27-2020 Covid (Moderna) Dr. Mickey herman Work Phone: [facility] 08-30-2020 Covid (Moderna) Dr. Mickey herman Work Phone: [facility] Payers Date Payer Category Payer Medicare AETNA MEDICARE A ETNA MEDICARE PPO [id number] 2021-Present [phone] [address] [place] [address] PPO [id number] 2020 Private Health Insurance [id number] 2020 Self-pay [id number] 2019 Unknown MMO MMO TRADITIO NAL [id number] 2019-Present Indemnity [id number] 2016 Unknown [id number] Medicare [id number] Private Health Insurance AETNA MCR SEE NOTE [id number] Unknown [id number] Unknown [id number] 462 Unknown [id number] 462 Unknown [id number] 462 Unknown [id number] 462 Unknown [id number] 462 Unknown [id number] 462 Unknown [id number] 462 Unknown [id number] 462 Unknown [id number] 462 Unknown [id number] 462 Social History Date Type Detail Facility Tobacco smoking stat RUSTIS Unknown if ever smoked [facility] Start: 1940 Sex Assigned At Not on file C [facility] Start: 02-13-2021 End: 10-16-2023 Tobacco smoking status COIS Unknown if ever smoked [facility] Start: 10-30-2020 Non-smoker [facility] Start: 1940 Sex Assigned At Male W [facility] Start: 11-09-2020 Tobacco smoking stat [facility] Ex-smoker [facility] End: 07-14-2004 History of tobacco use Current smoker [facility] End: 07-14-2004 History of tobacco use Cigarette Smoker [facility] Start: 11-09-2020 Tobacco use and exposure Smokeless tobacco non-user [facility] Start: 03-26-2022 End: 09-24-2022 Alcohol intake Current drinker of alcohol (finding) [facility] Start: 06-23-2020 History SDOH Alcohol Frequency 1 [facility] Start: 11-09-2020 History SDOH Alcohol Comment 1-2X/WEEK [facility] Start: 03-16-2022 End: 03-26-2022 Exposure to SARS-CoV-2 (event) Not sure [facility] Start: 09-24-2022 End: 03-24-2023 History of Social function [facility] Start: 09-24-2022 End: 03-24-2023 Tobacco use panel [facility] National Score (1-10 0), lower number is lower risk 66 [facility] Medical Equipment Procedure Code Equipment Code Equipment Origin al Text Equipment Identifier Dates Patch Xenosure Bovine Pericardial Tissue 8x.8cm Vascular Sterile - [id number] Start: 11-16-2020 Stent Wallflex 1 0mm 8.5fr Permalume 60mm Biliary Rapid Exchange Self Expand - [id number] Start: 08-28-2020 Start: 06-12-2020 Comment on above: TESTING BLOOD SUGAR ONCE DAIILY once daily. USE D IRECTED. Mental Status Date Assessment Result Facility 03-23-2022 Cognitive function Level Of Cons ciousness Awake;Alert;Appropriate;Follow s Commands [facility] Work Phone: Clinical Notes 01-01-2017 to 03-24-2023 Jenna Simon PA-C - 03/24/2023 2:47 PM EDTNatalijannet Simon PA-C - 09/24/2022 10:36 AM EDTPatient Hiram Sousa MD - 03/26/2022 9:45 AM EDT Note Date & Type Note Facility 03-24-2023 Note HNO ID: [id number] Author: Jenna Simon PA-C Service: ? Author Type: Physician Railroad Hand Type: Progress Notes Filed: 03/28/2023 11:43 AM Note Text: Jenna Simon PA-C [facility] [address] [facility], [address] [place] [address] TELEPHONE VISIT NOTE SUBJECTIVE Jose Manuel Dominguez is a 82 year old male on the phone for a surveillance visit. 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 He denies abdominal pain, nausea, vomiting, weight loss, jaundice. No new changes in medical history. He is still following with Dr. Chaves, oncology. The ROS, medical, surgical, family, and social history were reviewed by Jenna Simon PA-C Plan Cholangiocarcinoma The patient is 2 years s/p whipple procedure for cholangiocarcinoma. No change in symptoms since last seen. He has a planned repeat CT scan in June that Dr. Chaves had ordered. Discussed with patient that he can continue surveillance visits with Dr. Chaves in the future. If he has any changes in symptoms, he was instructed to call the office. All questions were answered to the patient's satisfaction and he is agreeable with the plan. Total time of telephone encounter: 15 minutes Jenna Simon PA-C 03/24/2023 2:48 PM I have communicated my name and active licensure. The patient's identity and physical location were verified at the time of this visit. Either the patient or their legal used equipment sales representative has been informed of the risks and benefits of -- and alternatives to -- treatment through a remote evaluation and consents to proceed with the evaluation remotely. [facility] 03-24-2023 History of Present illness Narrative Images from the original note were not included. Jenna Simon PA-C [facility] [address] [facility], [address] [place] [id number] TELEPHONE VISIT NOTE SUBJECTIVE Jose Manuel Dominguez is a 82 year old male on the phone for a surveillance visit. 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 He denies abdominal pain, nausea, vomiting, weight loss, jaundice. No new changes in medical history. He is still following with Dr. Chaves, oncology. The ROS, medical, surgical, family, and social history were reviewed by Jenna Simon PA-C Plan Cholangiocarcinoma The patient is 2 years s/p whipple procedure for cholangiocarcinoma. No change in symptoms since last seen. He has a planned repeat CT scan in June that Dr. Chaves had ordered. Discussed with patient that he can continue surveillance visits with Dr. Chaves in the future. If he has any changes in symptoms, he was instructed to call the office. All questions were answered to the patient's satisfaction and he is agreeable with the plan. Total time of telephone encounter: 15 minutes Jenna Simon PA-C 03/24/2023 2:48 PM I have communicated my name and active licensure. The patient's identity and physical location were verified at the time of this visit. Either the patient or their legal used equipment sales representative has been informed of the risks and benefits of -- and alternatives to -- treatment through a remote evaluation and consents to proceed with the evaluation remotely. documented in this encounter [facility] 09-24-2022 Note HNO ID: [id number] Author: Jenna Simon PA-C Service: ? Author Type: Physician Railroad Hand Type: Progress Notes Filed: 09/24/2022 11:02 AM Note Text: Patient referred by: Tapan Collins [address] [place] [address] Patient presents with: Established Patient: Mr. Dominguez is here today for his 6 month check up for cholangiocarcinoma. HPI: The patient is s/p robotic converted to open pancreaticoduodenectomy on 11/16/[address] Sousa. He has been following every [address] Sousa and his oncologist for monitoring of his cholangiocarcinoma. He reports no new symptoms since last seen. No abdominal pain. No nausea, vomiting, fever/chills, jaundice. No weight gain or weight loss. He had a recent CT scan in June,. PAST MEDICAL HISTORY Diagnosis Date Bradycardia CAD (coronary artery disease) stetn 12/2016 Cholangiocarcinoma (HCC) 06/21/2020 Daryn SOUSA MD Common bile duct (CBD) stricture Diabetes mellitus type II, controlled, with no complications (HCC) Essential hypertension Gout Jaundice Mixed hyperlipidemia Sleep apnea + cpap Special screening for malignant neoplasm of colon PAST SURGICAL HISTORY Procedure Laterality Date EGD X2 LAST ONE IN AUG 2020 KNEE SURGERY HX Right 1981 LUNG BIOPSY HX Left 07/2020 STAGE 1 WITH 5 RADIATION TREATMENT NASAL ENDO, SURG; W/NASAL POLYP 1992 1993 PILONIDAL CYST/SINUS EXCISION 1961 PRQ CARDIAC STENT W/ANGIO 1 VSL 2016 REMV CATARACT EXTRACAP,INSERT LENS Right 2009 FAMILY HISTORY Problem Relation Age of Onset other (Other) Mother 77 other (Other) Father 99 Dementia Father Leukemia Sister Social History Tobacco Use Smoking status: Former Types: Cigarettes Quit date: 2004 Years since quittin.2 Smokeless tobacco: Never Substance Use Topics Alcohol use: Yes Alcohol/week: 1.3 - 3.9 standard drinks Types: 1 - 3 Mixed Drinks per week Comment: 1-2X/WEEK Drug use: Never Current Outpatient Medications Medication Sig metFORMIN ER (GLUCOPHAGE XR) 750 mg 24 hr tablet Take 750 mg by mouth twice daily. atorvastatin (LIPITOR) 80 mg tablet Take 40 mg by mouth once daily. aspirin 81 mg chewable tablet Take 81 mg by mouth once daily. omega-3 acid ethyl esters (LOVAZA) 1 gram capsule Take 1 capsule by mouth once daily. lisinopril (ZESTRIL, PRINIVIL) 10 mg tablet Take 10 mg by mouth once daily. UNILET SUPER THIN LANCETS 30 gauge once daily. USE DIRECTED. furosemide (LASIX) 40 mg tablet Take 40 mg by mouth once daily. clopidogrel (PLAVIX) 75 mg tablet Take 75 mg by mouth once daily. TRUE METRIX GLUCOSE TEST STRIP test strip TESTING BLOOD SUGAR ONCE DAIILY allopurinol (ZYLOPRIM) 300 mg tablet Take 300 mg by mouth once daily. levoFLOXacin (LEVAQUIN) 500 mg tablet (Patient not taking: Reported on 09/24/2022) pantoprazole DR (PROTONIX) 40 mg tablet Take 1 tablet by mouth once daily. metFORMIN ER (GLUCOPHAGE XR) 500 mg 24 hr tablet Take by mouth twice daily. 2 tablet in the morning, 2 tablets in the evening (Patient not taking: Reported on 09/24/2022) No current facility-administered medications for this visit. ALLERGIES Allergen Reactions Mushroom Hives, Other: See Comments Poinsettias Other: See Comments Nasal congestion Rosuvastatin Myalgia Tetanus Toxoid, Ads* Hives HORSE TETANUS Tetanus And Diphthe* Hives REVIEW OF SYSTEMS: GENERAL: No weight loss, malaise or fevers GI: Negative for abdominal pain, nausea , vomiting, diarrhea, constipation, and signs of jaundice Positive for none PHYSICAL EXAM: BP 134/73 Pulse 50 Ht 5' 9 (1.75m) Wt 191 lb (86.6kg) SpO2 99% BMI 28.19 kg/(m2). GENERAL APPEARANCE: Well appearing, alert, in no acute distress, well-hydrated, well nourished. No jaundice. ABDOMEN: Abdomen soft, non-tender. Bowel sounds normal. No masses, organomegaly NEURO: Alert, oriented x3, no asterixis, speech clear and articulate, and OSWALD DATA: Diagnostic tests reviewed for today's visit: Most recent imaging I spent a total of 30 minutes on the date of the service which included preparing to see the patient, [id number] patient care, completing clinical documentation, obtaining and/or reviewing separately obtained history, performing a medically appropriate examination, counseling and educating the patient/family/caregiver, and independently interpreting results (not separately reported). .Greater than 50% of the direct patient contact time was spent in counseling or coordination of care. ASSESSMENT / PLAN Cholangiocarcinoma The patient is an 82 year old male nearly 2 year s/p Whipple operation for cholangiocarcinoma. I reviewed his recent Ct scans from June, which demonstrated no new METS or reoccurrence. Stable lung nodule. He will continue to follow up with oncology. Can see our office following next CT scan. All questions were answered to the patient's satisfaction and she is agreeable with the p (more content not included)... [facility] 09-24-2022 History of Present illness Narrative Patient referred by: Tapan Collins 1 [facility] [address] [facility] [address] Patient presents with: Established Patient: Mr. Dominguez is here today for his 6 month check up for cholangiocarcinoma. HPI: The patient is s/p robotic converted to open pancreaticoduodenectomy on 11/16/[address] Sousa. He has been following every [address] Sousa and his oncologist for monitoring of his cholangiocarcinoma. He reports no new symptoms since last seen. No abdominal pain. No nausea, vomiting, fever/chills, jaundice. No weight gain or weight loss. He had a recent CT scan in June,. PAST MEDICAL HISTORY Diagnosis Date Bradycardia CAD (coronary artery disease) stetn 12/2016 Cholangiocarcinoma (HCC) 06/21/2020 Daryn SOUSA MD Common bile duct (CBD) stricture Diabetes mellitus type II, controlled, with no complications (HCC) Essential hypertension Gout Jaundice Mixed hyperlipidemia Sleep apnea + cpap Special screening for malignant neoplasm of colon PAST SURGICAL HISTORY Procedure Laterality Date EGD X2 LAST ONE IN AUG 2020 KNEE SURGERY HX Right 1981 LUNG BIOPSY HX Left 07/2020 STAGE 1 WITH 5 RADIATION TREATMENT NASAL ENDO, SURG; W/NASAL POLYP 1992 1993 PILONIDAL CYST/SINUS EXCISION 1961 PRQ CARDIAC STENT W/ANGIO 1 VSL 2016 REMV CATARACT EXTRACAP,INSERT LENS Right 2009 FAMILY HISTORY Problem Relation Age of Onset other (Other) Mother 77 other (Other) Father 99 Dementia Father Leukemia Sister Social History Tobacco Use Smoking status: Former Types: Cigarettes Quit date: 2004 Years since quittin.2 Smokeless tobacco: Never Substance Use Topics Alcohol use: Yes Alcohol/week: 1.3 - 3.9 standard drinks Types: 1 - 3 Mixed Drinks per week Comment: 1-2X/WEEK Drug use: Never Current Outpatient Medications Medication Sig metFORMIN ER (GLUCOPHAGE XR) 750 mg 24 hr tablet Take 750 mg by mouth twice daily. atorvastatin (LIPITOR) 80 mg tablet Take 40 mg by mouth once daily. aspirin 81 mg chewable tablet Take 81 mg by mouth once daily. omega-3 acid ethyl esters (LOVAZA) 1 gram capsule Take 1 capsule by mouth once daily. lisinopril (ZESTRIL, PRINIVIL) 10 mg tablet Take 10 mg by mouth once daily. UNILET SUPER THIN LANCETS 30 gauge once daily. USE DIRECTED. furosemide (LASIX) 40 mg tablet Take 40 mg by mouth once daily. clopidogrel (PLAVIX) 75 mg tablet Take 75 mg by mouth once daily. TRUE METRIX GLUCOSE TEST STRIP test strip TESTING BLOOD SUGAR ONCE DAIILY allopurinol (ZYLOPRIM) 300 mg tablet Take 300 mg by mouth once daily. levoFLOXacin (LEVAQUIN) 500 mg tablet (Patient not taking: Reported on 09/24/2022) pantoprazole DR (PROTONIX) 40 mg tablet Take 1 tablet by mouth once daily. metFORMIN ER (GLUCOPHAGE XR) 500 mg 24 hr tablet Take by mouth twice daily. 2 tablet in the morning, 2 tablets in the evening (Patient not taking: Reported on 09/24/2022) No current facility-administered medications for this visit. ALLERGIES Allergen Reactions Mushroom Hives, Other: See Comments Poinsettias Other: See Comments Nasal congestion Rosuvastatin Myalgia Tetanus Toxoid, Ads* Hives HORSE TETANUS Tetanus And Diphthe* Hives REVIEW OF SYSTEMS: GENERAL: No weight loss, malaise or fevers GI: Negative for abdominal pain, nausea , vomiting, diarrhea, constipation, and signs of jaundice Positive for none PHYSICAL EXAM: BP 134/73 Pulse 50 Ht 5' 9 (1.75m) Wt 191 lb (86.6kg) SpO2 99% BMI 28.19 kg/(m^2). GENERAL APPEARANCE: Well appearing, alert, in no acute distress, well-hydrated, well nourished. No jaundice. ABDOMEN: Abdomen soft, non-tender. Bowel sounds normal. No masses, organomegaly NEURO: Alert, oriented x3, no asterixis, speech clear and articulate, and OSWALD DATA: Diagnostic tests reviewed for today's visit: Most recent imaging I spent a total of 30 minutes on the date of the service which included preparing to see the patient, [id number] patient care, completing clinical documentation, obtaining and/or reviewing separately obtained history, performing a medically appropriate examination, counseling and educating the patient/family/caregiver, and independently interpreting results (not separately reported). .Greater than 50% of the direct patient contact time was spent in counseling or coordination of care. ASSESSMENT / PLAN Cholangiocarcinoma The patient is an 82 year old male nearly 2 year s/p Whipple operation for cholangiocarcinoma. I reviewed his recent Ct scans from June, which demonstrated no new METS or reoccurrence. Stable lung nodule. He will continue to follow up with oncology. Can see our office following next CT scan. All questions were answered to the patient's satisfaction and she is agreeable with the plan. Jenna Simon PA-C documented in this encounter [facility] 03-26-2022 Instructions Mohini Sousa MD - 03/26/2022 9:59 AM EDT Please call us after your next CT scan is performed. documented in this encounter [facility] 03-26-2022 History of Present illness Narrative Patient referred by: SELF Patient presents with: Established Patient: Mr. Dominguez is here today for his yearly check up. HPI: Doing well. Denies any abdominal complaints. No nausea or vomiting. Denies any weight loss or weight gain. Denies any jaundice. He is scheduled for a CT scan in May. PAST MEDICAL HISTORY Diagnosis Date Bradycardia CAD (coronary artery disease) stetn 12/2016 Cholangiocarcinoma (HCC) 06/21/2020 Daryn SOUSA MD Common bile duct (CBD) stricture Diabetes mellitus type II, controlled, with no complications (HCC) Essential hypertension Gout Jaundice Mixed hyperlipidemia Sleep apnea + cpap Special screening for malignant neoplasm of colon PAST SURGICAL HISTORY Procedure Laterality Date EGD X2 LAST ONE IN AUG 2020 KNEE SURGERY HX Right 1981 LUNG BIOPSY HX Left 07/2020 STAGE 1 WITH 5 RADIATION TREATMENT NASAL ENDO, SURG; W/NASAL POLYP 1992 1993 PILONIDAL CYST/SINUS EXCISION 1961 PRQ CARDIAC STENT W/ANGIO 1 VSL 2016 REMV CATARACT EXTRACAP,INSERT LENS Right 2009 FAMILY HISTORY Problem Relation Age of Onset other (Other) Mother 77 other (Other) Father 99 Dementia Father Leukemia Sister Social History Tobacco Use Smoking status: Former Types: Cigarettes Quit date: 2004 Years since quittin.7 Smokeless tobacco: Never Substance Use Topics Alcohol use: Yes Alcohol/week: 1.3 - 3.9 standard drinks Types: 1 - 3 Mixed Drinks per week Comment: 1-2X/WEEK Drug use: Never Current Outpatient Medications Medication Sig levoFLOXacin (LEVAQUIN) 500 mg tablet metFORMIN ER (GLUCOPHAGE XR) 750 mg 24 hr tablet Take 750 mg by mouth twice daily. atorvastatin (LIPITOR) 80 mg tablet Take 40 mg by mouth once daily. aspirin 81 mg chewable tablet Take 81 mg by mouth once daily. omega-3 acid ethyl esters (LOVAZA) 1 gram capsule Take 1 capsule by mouth once daily. lisinopril (ZESTRIL, PRINIVIL) 10 mg tablet Take 10 mg by mouth once daily. UNILET SUPER THIN LANCETS 30 gauge once daily. USE DIRECTED. furosemide (LASIX) 40 mg tablet Take 40 mg by mouth once daily. clopidogrel (PLAVIX) 75 mg tablet Take 75 mg by mouth once daily. TRUE METRIX GLUCOSE TEST STRIP test strip TESTING BLOOD SUGAR ONCE DAIILY allopurinol (ZYLOPRIM) 300 mg tablet Take 300 mg by mouth once daily. pantoprazole DR (PROTONIX) 40 mg tablet Take 1 tablet by mouth once daily. metFORMIN ER (GLUCOPHAGE XR) 500 mg 24 hr tablet Take by mouth twice daily. 2 tablet in the morning, 2 tablets in the evening (Patient not taking: Reported on 03/26/2022) No current facility-administered medications for this visit. ALLERGIES Allergen Reactions Mushroom Hives, Other: See Comments Poinsettias Other: See Comments Nasal congestion Rosuvastatin Myalgia Tetanus Toxoid, Ads* Hives HORSE TETANUS Tetanus And Diphthe* Hives REVIEW OF SYSTEMS: GENERAL: No weight loss, malaise or fevers GI: Negative for abdominal pain, nausea , vomiting, diarrhea, constipation, and signs of jaundice Positive for none PHYSICAL EXAM: BP 136/75 Pulse 44 Ht 5' 9.5 (1.77m) Wt 195 lb (88.5kg) SpO2 100% BMI 28.39 kg/(m^2). GENERAL APPEARANCE: Well appearing, alert, in no acute distress, well-hydrated, well nourished.. ABDOMEN: Normal abdominal exam, Abdomen soft, non-tender. Bowel sounds normal. No masses, organomegaly NEURO: Alert, oriented x3, no asterixis, speech clear and articulate, and OSWALD DATA: Diagnostic tests reviewed for today's visit: No new labs I spent a total of 25 minutes on the date of the service which included preparing to see the patient, [id number] patient care, completing clinical documentation, obtaining and/or reviewing separately obtained history, performing a medically appropriate examination, counseling and educating the patient/family/caregiver, ordering medications, tests, or procedures, and communicating results to the patient/family/caregiver. .Greater than 50% of the direct patient contact time was spent in counseling or coordination of care. Medical Decision Making: Medical Decision Making Level: 1 - N/A ASSESSMENT / PLAN 1. Cholangiocarcinoma (HCC) 81-year-old male status post Whipple operation. He is doing quite well. He has no abdominal complaints. I like to see him after his next CT scan. He can follow-up with me after that. Mohini Sousa MD Please Note: This office note has been created using [employer], a speech recognition software program, and may contain errors including punctuation, grammar, spelling, gender, and inappropriate words or phrases that pertain to the sytem. documented in this encounter [facility] 12-27-2021 Note HNO ID: [id number] Author: Nico Marcial PA-C Service: ? Author Type: Physician Railroad Hand Type: Progress Notes Filed: 12/27/2021 1:46 PM Note Text: Actionable Findings Registry I am following up on this actionable finding at the direction of the [place]. Patient was found previously to have an abnormal CT chest Consult to the lung nodule clinic was recommended. Outreach was done by the office and patient has encounters from an OSH regarding this. Will close this out of the actionable findings registry. Actionable Findings follow up status: Complete Nico Marcial PA-C December 27, 2021 1:45 PM [facility] 12-27-2021 Note Patient Outreach ([place] [facility]) ------ JOSE MANUEL DOMINGUEZ ([id number]) 1940 M Date Time Provider Department 12/27/21 NICO MARCIAL VTRIAG During your visit today, we recorded the following information about you: Nico Marcial PA-C 12/27/2021 1:46 PM Signed Actionable Findings Registry I am following up on this actionable finding at the direction of the [place]. Patient was found previously to have an abnormal CT chest Consult to the lung nodule clinic was recommended. Outreach was done by the office and patient has encounters from an OSH regarding this. Will close this out of the actionable findings registry. Actionable Findings follow up status: Complete Nico Marcial PA-C December 27, 2021 1:45 PM Allergies As of Date: 12/27/2021 Noted Allergy Reaction MUSHROOM 03/18/2011 4 - Hives 14 - Other: See Comments POINSETTIAS 03/18/2011 14 - Other: See Comments Comments: Nasal congestion ROSUVASTATIN 04/21/2017 17 - Myalgia TETANUS TOXOID, ADSORBED 03/18/2011 4 - Hives Comments: HORSE TETANUS TETANUS AND DIPHTHERIA TOXOIDS 01/01/2016 4 - Hives Date Reviewed: 03/06/2021 Reviewed by: Jennifer Vega MA - Fully Assessed Prescriptions as of 12/27/2021 - pantoprazole DR (PROTONIX) 40 mg tablet Take 1 tablet by mouth once daily. - atorvastatin (LIPITOR) 80 mg tablet Take 40 mg by mouth once daily. - aspirin 81 mg chewable tablet Take 81 mg by mouth once daily. - omega-3 acid ethyl esters (LOVAZA) 1 gram capsule Take 1 capsule by mouth once daily. - metFORMIN ER (GLUCOPHAGE XR) 500 mg 24 hr tablet Take by mouth twice daily. 2 tablet in the morning, 2 tablets in the evening - lisinopril (ZESTRIL, PRINIVIL) 10 mg tablet Take 10 mg by mouth once daily. - UNILET SUPER THIN LANCETS 30 gauge once daily. USE DIRECTED. - furosemide (LASIX) 40 mg tablet Take 40 mg by mouth once daily. - clopidogrel (PLAVIX) 75 mg tablet Take 75 mg by mouth once daily. - TRUE METRIX GLUCOSE TEST STRIP test strip TESTING BLOOD SUGAR ONCE DAIILY - allopurinol (ZYLOPRIM) 300 mg tablet Take 300 mg by mouth once daily. Problem List As Of Date 12/27/2021 Noted Resolved Cholangiocarcinoma determined by biopsy of bili*06/21/2020 Common bile duct (CBD) stricture [K83.1] Essential hypertension [I10] Jaundice [R17] Diabetes mellitus type II, controlled, with no * Special screening for malignant neoplasm of col* CAD (coronary artery disease) [I25.10] Cholangiocarcinoma (HCC) [C22.1] 11/16/2020 Obesity, Class I, BMI 30-34.9 [E66.9] 11/17/2020 Acute blood loss as cause of postoperative anem*11/17/2020 Postoperative hemorrhagic shock [T81.19XA] 11/17/2020 Thrombocytopenia (HCC) [D69.6] 11/17/2020 Elevated liver enzymes [R74.8] 11/17/2020 Encounter Status:Closed by NICO MARCIAL on 12/27/21 [facility] 01-01-2017 Evaluation note Diagnosis Onset Date Essential (primary) hypertension chronic Hyperlipidemia chronic Pancreatic adenocarcinoma [facility] History of coronary artery stent placement January 01, 2017 resolved Pancreatic adenocarcinoma ch [facility] NSCLC of left lung chronic Pancreatic adenocarcinoma [facility] Work Phone: [phone]) 995-359506-21-2017 Evaluation note* Diagnosis Onset Date Resolution Status Essential (primary) hypertension chronic Hyperlipidemia chronic Pancreatic adenocarcinoma ch ronic History of coronary artery stent placement January 01, 2017 resolved [facility] Work Phone: Evaluation note* Diagnosis Onset Date Resolution Status Pancreatic adenocarcinoma ac [facility] Work Phone: Evaluation note* Diagnosis Onset Date Resolution Status Pancreatic adenocarcinoma ac [facility] NSCLC of left lung chronic Pancreatic adenocarcinoma ac [facility] Essential (primary) hypertension chronic Hyperlipidemia chronic History of coronary artery stent placement January 01, 2017 resolved [address]reat[address] adenocarcinoma ac 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 Pancreatic adenocarcinoma ch [facility] Work Phone: Summary Purpose Family History No Family History Records Found Relationship Condition Age at Onset Recorded Date/T lucius mother Coronary artery disease Unknown Hypertension Unknown Congestive heart failure Unknown sister Acute myeloid leukemia Unknown Advance Directives No Advanced Directives Records Found Advance Directive Response Recorded Date/ Time Living Will Yes September 02 9:38am Power of Casing Flusher Yes September 02, 2020 9:38am Advance Directive Response Recorded Date/ Time Name of Medical Power of Casing Flusher Audelia Dominguez March 23, 2022 8:39pm Living Will Yes March 23, 2022 8:39pm Power of Casing Flusher Yes March 8:39pm Advance Directive Response Recorded Date/ Time Name of Medical Power of Casing Flusher Audelia Dominguez March 23, 2022 7:39pm Living Will Yes March 23, 2022 7:39pm Power of Casing Flusher Yes March 7:39pm Advance Directive Response Recorded Date/ Time Living Will Yes March 23, 2022 8:39pm Power of Casing Flusher Yes March 8:39pm Advance Directive Response Recorded Date/ Time Advance Directives on File Yes 2020 1:26pm Living Will Yes March 23, 2022 7:39pm Power of Casing Flusher Yes March 7:39pm Chief Complaint and Reason for Visit Chief Complaint followup pancreas Reason for Visit Pancreatic adenocarc inoma Chief Complaint followup pancreas LUNG CA IV CONTRAST ONLY Reason for Visit Pancreatic adenocarc inoma Chief Complaint LUNG CA IV CONTRAST ONLY 6MO LABS PRIOR REVIEW CT 1 Y FU followup pancreatic FEVER Reason for Visit Pancreatic adenocarc inoma NSCLC of left lung Pancreatic adenocarcinoma Essential (primary) hypertension Hyperlipidemia History of coronary artery stent placement Pancreatic adenocarcinoma Chief Complaint 1 Y FU followup pancreatic FEVER PANCREATIC CANCER *IV & ORAL* 6MO LABS PRIOR REVIEW CT Reason for Visit Essential (primary) hypertension Hyperlipidemia Pancreatic adenocarcinoma History of coronary artery stent placement Pancreatic adenocarcinoma NSCLC of left lung Pancreatic adenocarcinoma Chief Complaint MONITOR LUNG CANCER Chief Complaint STAGING BILE DUCT AN D LUNG CA MALIGNANT NEOPLASM OF UPPER LOBE 6MO LABS PRIOR REVIEW CT Reason for Visit Malignant neoplasm o f biliary tract NSCLC of left lung NSCLC of left lung Pancreatic adenocarcinoma Chief Complaint 1 Y FU CAD ASHD Amb Documentation Reason for Visit Essential (primary) hypertension Hyperlipidemia Pancreatic adenocarcinoma History of coronary artery stent placement Additional Source Comments (unrecognized sect ion and content) No Status Records FoundNo Status Records FoundNo Status Records FoundNo Status Records FoundNo Status Records FoundNo Status Records Found INFORMATION SOURCE (unrecogn ized section and content) DATE CREATED AUTHOR 01/07/2018 [facility] DATE CREATED AUTHOR AUTHOR'S ORGANIZ ATION 10/26/2020 [facility] ([place]) DATE CREATED AUTHOR AUTHOR'S ORGANIZ ATION 03/06/2021 [facility] DATE CREATED AUTHOR AUTHOR'S ORGANIZ ATION 12/28/2021 [facility] DATE CREATED AUTHOR AUTHOR'S ORGANIZ ATION 03/30/2023 [facility] DATE CREATED AUTHOR AUTHOR'S ORGANIZ ATION 01/26/2025 [facility] Source Comments (unrecognize d section and content) In the event this informatio n is protected by the Federal Confidentiality of Alcohol and Drug Abuse Patient Records regulations: The Federal rules restrict any use of the information to criminally investigate or prosecute any alcohol or drug abuse patient.[facility] the event this information is protected by the Federal Confidentiality of Alcohol and Drug Abuse Patient Records regulations: The Federal rules restrict any use of the information to criminally investigate or prosecute any alcohol or drug abuse patient.[facility] Campus[facility] the event this information is protected by the Federal Confidentiality of Alcohol and Drug Abuse Patient Records regulations: The Federal rules restrict any use of the information to criminally investigate or prosecute any alcohol or drug abuse patient.[facility] Campus[facility] the event this information is protected by the Federal Confidentiality of Alcohol and Drug Abuse Patient Records regulations: The Federal rules restrict any use of the information to criminally investigate or prosecute any alcohol or drug abuse patient.[facility] Reason for Visit (unrecogniz ed section and content) Reason Comments Future Appointment Reason Comments Established Patient Mr. Dominguez is here t [place] for his yearly check up. Reason Comments Established Patient Mr. Dominguez is here t [place] for his 6 month check up for cholangiocarcinoma. Reason Comments Cancer Surveillance Telephone Encounter - Erin Milner) - 06/16/2020 4:23 PM ESTTelephone Encounter - Tapan Collins - 06/16/2020 3:32 PM EST Miscellaneous Notes (unrecog nized section and content) Pt scheduled Erin Milner CMA pls add this pt on for VV on Friday PM Dx. CholangioCA; ERCP at [facility] for malignancy; needs Spyglass and EUS documented in this encounter Goals (unrecognized section and content) Goals may be documented in a n alternate sectionGoals may be documented in an alternate sectionGoals may be documented in an alternate sectionGoals may be documented in an alternate sectionGoals may be documented in an alternate sectionGoals may be documented in an alternate sectionGoals may be documented in an alternate sectionGoals may be documented in an alternate section Care Teams (unrecognized sec tion and content) [employer] Relationship Specialty Start Date End Date Mickey Flores MD [address] [place] [address] PCP - General Family Practice 06/19/20 [place], [place] S [facility] 06/21/20 [employer] Relationship Specialty Start Date End Date Mickey Flores MD [address] [facility] [address] [place] [address] PCP - General Family Medicine 06/19/20 Charles, [place] S [address] [facility] [address] [place], [place] [address] [facility] 06/21/20 Team Status: Active Member Role Status Dates Dr. Mickey Flores MD Family Provider Active Dr. Mickey Flores MD Primary Care Provider Active Team Status: Inactive Member Role Status Dates Dr. Mickey Flores MD Primary Care Provider Active Dr. Pete Chaves MD Attending Provider, Referring Pro vider Active [employer] Relationship Specialty Start Date End Date Mickey Flores MD [address] [facility] [address] [place] [address] PCP - General Family Medicine 06/19/20 Charles, [place] S [address] [facility] [address] [place] [address] [employer] [facility] Cardiology 06/21/20 Team Status: Inactive Member Role Status Dates Dr. Mickey Flores MD Primary Care Provider, Referring Provider Active Dr. Pete Chaves MD Attending Provider Active Team Status: Active Member Role Status Dates Dr. Mickey Flores MD Primary Care Provider Active Dr. Pete Chaves MD Attending Provider Active ROSSY FIGUEROA Referring Provider Active Team Status: Inactive Member Role Status Dates Dr. Mickey Flores MD Primary Care Provider, Referring Provider Active Dr. Nikhil Soto MD Attending Provider Active Team Status: Active Member Role Status Dates Dr. Mickey Flores MD Primary Care Provider Active Dr. Nikhil Soto MD Attending Provider Active Team Status: Active Member Role Status Dates Dr. Mickey Flores MD Primary Care Provider Active Cristin Aguilar NP, MARKETING ANALYTICS SPECIALIST-C Attending Provider Active Team Status: Inactive Member Role Status Dates Dr. Mickey Flores MD Primary Care Provider Active Dr. Nikhil Soto MD Attending Provider, Referring Pro vider Active FOR RECORDS PERTAINING TO PATIENTS WHO ARE OR HAVE BEEN ENROLLED IN A CHEMICAL DEPENDENCY/SUBSTANCEABUSE PROGRAM, SOME INFORMATION MAY BE OMITTED. This clinical summary was aggregated from multiple sources. Caution should be exercised in using it in the provision of clinical care. This summary normalizes information from multiple sources, and as a consequence, information in this document may materially change the coding, format and clinical context of patient data. In addition, data may be omitted in some cases. CLINICAL DECISIONS SHOULD BE BASED ON THE PRIMARY CLINICAL RECORDS. [facility] [employer] provides no warranty or guarantee of the accuracy or completeness of information in this document.
[2025-01-28 11:03] LABS: AST(SGOT) 33 U/L (<=37); Alanine Aminotransfer ALT/SGPT 30 U/L (<=46); Albumin, Serum 3.4 g/dL (3.4-4.8); Alkaline Phosphatase 286 U/L (40-129); Anion Gap 10 (5-15); BUN 23 mg/dL (4-19); BUN/Creat Ratio 21.2 RATIO (10-20); Calcium,Total 8.4 mg/dL (7.6-11.0); Carbon Dioxide 24.8 mmol/L (21.0-32.0); Chloride 103 mmol/L (98-108); Globulin 2.7 g/dL (2.2-4.2); Glucose 353 mg/dL (70-99); LDH 148 U/L (87-241); Potassium 3.6 mmol/L (3.3-5.1)
[2025-01-28 12:01] LABS: Cholesterol 72 mg/dL (<=200); Low Density Lipoprotein Calc. 17 mg/dL; Triglycerides 57 mg/dL; Very Low Density Lipoprotein 11 mg/dL (5-40); cholesterol:hdl ratio screen 1.66
== END | disposition home or self-care (01) ==
LOC: LAB 09:16
PROVIDERS: PCP Family Medicine; Referring Provider Internal Medicine Medical Oncology; Visit Provider Internal Medicine Medical Oncology
DX: E11.9 Type 2 diabetes mellitus without complications (principal); C24.9 Malignant neoplasm of biliary tract, unspecified; C34.92 Malignant neoplasm of unspecified part of left bronchus or lung
CPT/HCPCS: 36415; 80053; 80061; 83615; 85025; 86301

== ENCOUNTER → 2025-01-31 | Outpatient (CLI) | payer MEDICARE, SELFPAY ==
--- NOTE | 2025-01-31 12:37 | CT_ITS ---
PROCEDURE: CT CHEST, ABD, PEL W/CONTRAST 01/31/2025 REASON FOR EXAM: IV ONLY-HX OF LUNG CA TECHNIQUE: Chest, abdomen and pelvis CT with intravenous contrast. Coronal and Sagittal reconstruction series were provided. One or more dose reduction techniques were used (e.g., Automated exposure control, adjustment of the mA and/or kV according to patient size, use of iterative reconstruction technique. PATIENT PREPARATION: Per protocol ORAL CONTRAST TYPE: None. CONTRAST: Isovue 370 VOLUME: 100mL RADIATION DOSE SUMMARY: DLP: 2300 mGycm COMPARISON: CT chest, abdomen and pelvis 02/05/2024. FINDINGS: CT CHEST: Hardware: None. Lymph nodes: No axillary, mediastinal or hilar lymphadenopathy. Heart and Vasculature: The heart is normal in size without pericardial effusion. The great vessels are normal in caliber. Severe coronary artery calcifications. Mild thoracic aortic calcifications. Lungs and Airways: The central airways are patent. Slight increased size of the left upper lobe pulmonary mass, now measuring 3.0 x 1.8 cm (coronal image 147), previously measuring 2.9 x 1.7 cm when measured in a similar fashion. Slightly increased size/conspicuity of several small ground-glass pulmonary nodules (for example in the right upper lobe series 2, image 38, and right lower lobe series 2, image 84). The right lower lobe ground-glass nodule measures 0.6 cm. No pleural effusion or pneumothorax. Bones/soft tissues: Thoracic spondylosis. Bilateral gynecomastia. CT ABDOMEN/PELVIS: Liver: Normal in size without obvious hepatic mass. The major portal veins are patent. Mild intrahepatic and extrahepatic biliary ductal dilation. Mild left hepatic pneumobilia, unchanged. Gallbladder: Surgically absent. Spleen: Normal in size. Pancreas: Postsurgical changes of prior Whipple procedure. Marked atrophy of the pancreatic body/tail. Subtle soft tissue thickening within the pancreatic head resection bed and surrounding the celiac trunk and origin of the SMA (best visualized on coronal images 57-65). Persistent narrowing of the common hepatic artery off the celiac trunk, with additional subtle surrounding soft tissue thickening (series 3, images 29-30). Visualization for patency of the common hepatic artery is limited by venous phase imaging. Adrenals: No adrenal mass. Kidneys: Bilateral renal cysts and additional hypodensities. No hydronephrosis or nephrolithiasis. Bladder: Incompletely distended with diffuse, marked bladder wall thickening. Reproductive Organs: Dystrophic calcifications within the prostate gland. Bowel: The bowel loops are nondilated. Trace right-sided pelvic ascites, grossly unchanged over several examinations. No pneumoperitoneum. Venous contrast-enhancing mural nodule within the sigmoid colon, measuring 1.6 x 1.9 cm (series 3, image 97). This is retrospectively present on prior examination (see axial image 100 on prior examination). Normal appendix. Lymph nodes: Increased size/conspicuity of numerous central and retroperitoneal lymph nodes, which are technically normal by short axis diameter criteria. Vasculature: Moderate mixed plaque of the aortoiliac vessels. See above for additional vascular findings. Bones: Lumbar spondylosis. CT/CT Chest, Abd, Pel w/Contrast IMPRESSION: CT chest: 1. Slight increased size of the left upper lobe pulmonary mass, compatible with pulmonary neoplasm. 2. Increased size/conspicuity of several right lung ground-glass opacities, mos t compatible with additional sites of malignancy. These are below the threshold for accurate detection on PET-CT. CT abdomen/pelvis: 1. Postsurgical findings of prior Whipple procedure, with increased soft tissue thickening within the resection bed and surrounding the celiac trunk and SMA, most compatible with recurrent/residual n eoplasm. If aggressive treatment pursued, correlation with abdominal MRI and/or PET-CT is recommended. 2. Increased size/conspicuity of numerous central and retroperitoneal nodes, wh ich are technically normal in size by short axis diameter, however given findings in impression #1, are concerning for abisai met astatic disease. See above for follow-up recommendations. 3. Enhancing mural nodule within the sigmoid colon, which is retrospectively pr esent on prior examination (though not present on CT 07/09/2023). Given unchanged location and increased size, this is concernin g for colorectal neoplasm. Urgent gastroenterology consultation and colonoscopy recommended for further evaluatio n. Reading Location: [id number]
--- NOTE | 2025-01-31 13:05 | RAD_ITS ---
PROCEDURE: CHEST PA AND LATERAL 01/31/2025 REASON FOR EXAM: HX OF LUNG CA TECHNIQUE: CHEST PA AND LATERAL COMPARISON: CT 01/31/2025 FINDINGS: Normal heart size, possible LVH. Status post coronary stenting. Well inflated lungs. No consolidation, effusion or pneumothorax. Multiple calcified granulomas and calcified lymph nodes. The left apex, there is a 2 cm rounded opacity, shown on CT to be a spiculated mass. RAD/Chest PA and Lateral IMPRESSION: Left upper lobe spiculated mass as better seen on recent CT. No acute chest findings. Reading Location: [facility]
[2025-01-31 13:13] LABS: CREATININE FINGERSTICK < 1.0 mg/dL (0.70-1.30); EGFR FINGERSTICK > 60.0000 mL/min (>60)
== END | disposition home or self-care (01) ==
LOC: CT 12:34
PROVIDERS: PCP Family Medicine; Referring Provider Internal Medicine Medical Oncology; Visit Provider Internal Medicine Medical Oncology
DX: C34.92 Malignant neoplasm of unspecified part of left bronchus or lung (principal); C24.0 Malignant neoplasm of extrahepatic bile duct; C25.9 Malignant neoplasm of pancreas, unspecified
CPT/HCPCS: 71046; 71260; 74177; Q9967

== ENCOUNTER → 2025-05-10 | Outpatient (CLI) | payer MEDICARE, SELFPAY ==
[2025-05-10 08:10] LABS: Creatinine, Urine (random) 86.40 mg/dL (39.00-259.00); Microalbumin,Random Urine 105.0 mg/L (<20 mg/L)
[2025-05-10 08:14] LABS: AST(SGOT) 56 U/L (<=37); Alanine Aminotransfer ALT/SGPT 60 U/L (<=46); Albumin, Serum 3.4 g/dL (3.4-4.8); Alkaline Phosphatase 192 U/L (40-129); Anion Gap 8 (5-15); BUN 25 mg/dL (4-19); BUN/Creat Ratio 20.5 RATIO (10-20); Calcium,Total 8.2 mg/dL (7.6-11.0); Carbon Dioxide 25.2 mmol/L (21.0-32.0); Chloride 104 mmol/L (98-108); Cholesterol 82 mg/dL (<=200); Globulin 2.6 g/dL (2.2-4.2); Glucose 126 mg/dL (70-99); Low Density Lipoprotein Calc. 16 mg/dL; Potassium 4.2 mmol/L (3.3-5.1); Triglycerides 55 mg/dL; Very Low Density Lipoprotein 11 mg/dL (5-40); cholesterol:hdl ratio screen 1.55
== END | disposition home or self-care (01) ==
PROVIDERS: PCP Family Medicine; Referring Provider Family Medicine; Visit Provider Family Medicine
DX: E11.9 Type 2 diabetes mellitus without complications (principal)
CPT/HCPCS: 36415; 80053; 80061; 82043; 82570

== ENCOUNTER 2025-06-25 21:04 | Emergency (ER) | payer MEDICARE, SELFPAY ==
[2025-06-25] VITALS (10 sets, daily range): BP systolic 105–151; BP diastolic 51–114; PULSE 81–95; RESP 12–17; TEMP 36.2–37; O2SAT 98–100; BMI 24.8
--- NOTE | 2025-06-25 21:12 | CT_ITS ---
PROCEDURE: BRAIN/HEAD WITHOUT CONTRAST; SPINE CERVICAL WITHOUT CONTRAS 06/25/2025; N/A REASON FOR EXAM: HEAD TRAUMA WITH HEMATOMA; HEAD TRAUMA TECHNIQUE: Thin slice axial images obtained through the head without intravenous contrast. Coronal and Sagittal reconstruction series were provided. One or more dose reduction techniques were used (e.g., Automated exposure control, adjustment of the mA and/or kV according to patient size, use of iterative reconstruction technique. RADIATION DOSE SUMMARY: CTDlvol: 45 mGy DLP: 847 mGycm COMPARISON: None FINDINGS: Cerebrum: Mild loss ofcerebral volume. Negative for mass the frontal, parietal, temporal and occipital lobes otherwisenegative. White matter: Negative for periventricular white matter changes. Cerebellum: Negative. Negative for mass. Negative for acute infarction. CSF pathways and ventricles: Subarachnoid hemorrhage in the superior left frontal lobe. No blood in the basilar cisterns are or intraventricular cisterns to suggest non traumatic origin. Negative for ventricular dilatation or obstruction. Basal ganglia and thalami: Negative. No acute infarctions. Brainstem: Midbrain, brynn and medulla otherwisenegative. Calvarium: Negative. Negative for fractures. Orbital structures: Globes negative. Extraocular muscles negative. Paranasal sinuses: Nasal polyps and surgical changes in the sinuses. Remainder of the sinuses negative. Vascular structures: Mild calcifications of the distal intracranial internal carotid arteries. Soft tissues: Left parietal soft tissue swelling.. Other: : Negative for acute infarction. Remainder of exam negative. CT/Brain/Head without Contrast IMPRESSION: Mild traumatic subarachnoid hemorrhage left frontal parietal lobe. Reading Location: [id number]
--- NOTE | 2025-06-25 21:18 | ED.VIS.FALL ---
HPI HPI - Fall History of Present Illness Chief Complaint: Fall Informant: patient Occured/Mechanism Occurred: Today Mechanism/Context: Yes same level fall and Yes trip Usually ambulates: Without assistance Pain/Injury Pain Location: head Current Severity: Mild Maximum Severity: Mild Associated Symptoms Associated Symptoms: Negative for Parasthesias, Weakness, Loss of function, Inability to ambulate, Loss of consciousness or Amnesia Narrative Narrative: 84-year-old male history of diabetes, CAD with stent. On aspirin and Plavix. Tripped and fell hitting his head on the kitchen floor which is like tile. Causing hematoma in his posterior scalp and bleeding. He denies any LOC. He denies any neck pain. He denies any other injuries. Said prior to the fall he was feeling fine. Denies any loss of consciousness. 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 arterial hypertension Obesity Essential (primary) hypertension Bradycardia Atherosclerosis of [place] coronary artery of [place] heart without angina pectoris Hyperlipidemia SUZANNE (obstructive sleep apnea) Home Medications ?Medication ?Instructions ?Recorded ?Last Taken ?Type allopurinol 300 mg tablet 300 mg PO DAILY 01/01/16 12/30/16 History aspirin 81 mg chewable tablet 81 mg PO DAILY@0800 12/27/16 12/30/16 History clopidogrel 75 mg tablet 75 mg PO DAILY 12/30/16 12/30/16 History lisinopril 10 mg tablet 10 mg PO DAILY #90 tabs 02/05/19 Unknown History atorvastatin 40 mg tablet 40 mg PO DAILY #90 tabs 07/19/19 Unknown Rx furosemide 40 mg tablet (Lasix) 40 mg PO BID 10/28/24 Unknown History omega-3 acid ethyl esters 1 gram See Rx Instructions .Route 01/11/25 Unknown Rx capsule .COMPLEX #90 caps dapagliflozin propanediol 10 mg 10 mg PO QDAY 02/14/25 Unknown History tablet (Farxiga) metformin 750 mg tablet,extended 750 mg PO TID 04/14/25 Unknown History release 24 hr calcium carbonate 600 mg PO QDAY 04/29/25 Unknown History iron,carbonyl 65 mg-vitamin C 125 2 tab PO DAILY 04/29/25 Unknown History mg tablet Allergy/AdvReac Type Severity Reaction Status Date / Time tetanus and diphtheria Allergy Hives Verified 06/25/25 21:08 toxoids (tetanus & diphtheria toxoids) atorvastatin (From Lipitor) AdvReac Unknown Myalgias Verified 06/25/25 21:08 with 80mg, not 40mg pravastatin AdvReac Unknown Severe Verified 06/25/25 21:08 myalgias, memory and balance issues rosuvastatin (From Crestor) AdvReac Unknown Severe Verified 06/25/25 21:08 Myalgias espino AdvReac nasal Verified 06/25/25 21:08 congestion Family History Mother CAD (coronary artery disease) Hypertension CHF (congestive heart failure) Sister AML (acute myeloid leukemia) Surgical History Hx of colonoscopy with polypectomy History of common bile duct surgery History of lung biopsy History of biliary duct stent placement H/O endoscopy Hx of nasal polypectomy History of coronary artery stent placement (01/01/17) H/O right knee surgery History of left heart catheterization (12/30/16) Social History housing: house Smoking Status: Former smoker Tobacco: How many years used: 60 how long ago did patient quit smokin second hand exposure: No alcohol intake: current alcohol intake frequency: a few times a week Alcohol type: hard liquor details: dry since november 11, 2020. cocktails socially. substance use type: does not use caffeine: Yes Type: coffee what type of physical activity do you participate in: walking frequency: 1-2 times per week duration: 15-30 minutes/day seatbelt use: always do you feel safe at home: Yes ROS ROS ED ROS Narrative Denies recent illness. Constitutional Constitutional ED: Denies chills or fever(s) Eyes Eyes: Denies blurry vision ENT ENT ED: Denies ear pain Cardiovascular Cardiovascular: Denies chest pain Respiratory/Chest Respiratory/Chest: Denies cough Gastrointestinal Gastrointestinal: Denies abdominal pain Genitourinary Genitourinary ED: Denies dysuria Musculoskeletal Musculoskeletal: Denies arthralgias Integumentary Denies abscess Neurologic Neurologic: Denies headache(s) Psychiatric Psychiatric: Denies anxiety Endocrine Endocrinology: Denies polydipsia Hematologic/Lymphatic Hematologic/Lymphatic: Denies lymphadenopathy Allergic/Immunologic Allergic/Immunologic ED: Denies mouth swelling, tongue swelling or urticaria EXAM Physical Exam Narrative Exam Narrative: Well-appearing 84-year-old male sitting upright in bed. Vital signs are stable initial blood pressure is elevated be rechecked. H EENT exam pupils round react light. No facial trauma. Left posterior scalp there is a hematoma about the size of a ping-pong ball. There is blood on the back of his scalp. There is no heavy active bleeding. Will need to clean off the area to see if there is a wound that needs repaired. C-spine and neck are nontender. Back and spine are nontender. There is no bruising. Lungs clear to auscultation. Heart regular rhythm rate about 90 no murmur. Chest wall and ribs are nontender. There is no ecchymosis or bruising. Abdomen soft nontender. Nondistended normal bowel sounds without peritoneal signs. Large reducible ventral hernia that has had for years. Pelvic girdle intact. No shortening or rotation either hip. Normal harm reduction worker strength both upper extremities. Nontender no deformity. Lower extremities are nontender. Normal dorsi plantarflexion. Chronic lower extremity edema 1+ bilaterally. Neurologically is awake alert. Answering questions following commands. GCS 15. Const Vital Signs: 06/25/25 21:04 06/25/25 21:39 06/25/25 22:04 Temperature 97.2 F L Temperature Source Temporal Pulse Rate 95 89 Respiratory Rate 16 13 Respiratory Effort Normal Respiratory Depth Normal Respiratory Pattern Normal Blood Pressure 128/114 H 135/60 H Blood Pressure Mean 118 85 Pulse Ox 99 100 Oxygen Delivery Method Room Air Room Air Room Air 06/25/25 22:10 06/25/25 22:21 06/25/25 22:36 Temperature Temperature Source Pulse Rate 88 90 Respiratory Rate 17 15 Respiratory Effort Respiratory Depth Respiratory Pattern Blood Pressure 151/81 H 113/68 Blood Pressure Mean 104 83 Pulse Ox 100 100 Oxygen Delivery Method Room Air Room Air Room Air 06/25/25 22:51 06/25/25 23:06 Temperature Temperature Source Pulse Rate 84 83 Respiratory Rate 14 17 Respiratory Effort Respiratory Depth Respiratory Pattern Blood Pressure 116/67 105/64 Blood Pressure Mean 83 77 Pulse Ox 100 99 Oxygen Delivery Method Room Air Room Air MDM MDM MDM Narrative Medical decision making narrative: 84-year-old male tripped and fell at home as a close head injury with a hematoma there is bleeding. Area be cleaned off to see if there is a laceration we need to repair. He does not want a tetanus shot because he has an allergy to tetanus. We will CAT scan his head due to the head trauma and his history of being on both Plavix and aspirin. I do not think he needs any labs. Patient was offered but did not want any thing for pain and said he really does not have much of a headache. Nursing cleaned his scalp wound he had a small arterial bleed. I locally anesthetized that with lidocaine with epinephrine. Placed two 4-0 Ethilon sutures. Then we placed a scalp dressing on it. A pressure dressing. I reviewed the patient's that CAT scan shortly after he returned. It looks like there is a small intracranial bleed in the area where he hit his head and has the scalp hematoma. There is been no official read yet on the CT brain or CT C-spine. Screening labs been added. I have already spoken to [facility] See if they can excepting for head trauma and intracranial bleed. On repeat exam at about 9:55 PM patient is still awake and alert. He is not complaining of any headache. He and I discussed his test results. Patient is been accepted at [facility]. Due to the weather were having difficulty getting a ground squad. Also they are currently not flying due to the weather. Patient is stable at this time. History & Record Review Discussion w/independent historian: Patient Additional record(s) reviewed:: Prior outpatient record, Prior ED visit and Prior labs Lab Data Attestation: I reviewed the patient's lab results. Lab results narrative: CBC shows a white count of 5.6. H&H 11.6 and 35.8. Platelets 145. Consistent with prior labs. Chemistries show a potassium of 3.0. Gap 16. BUN and creatinine 27 and 1.1. Glucose 205. PT/INR 14 and 1.1. PTT 33. Labs: Laboratory Results - last 24 hr 06/25/25 21:10 WBC 5.6 RBC 3.69 L Hgb 11.6 L Hct 35.8 L MCV 97.0 H MCH 31.4 MCHC 32.4 RDW Std Deviation 50.2 H RDW Coeff of Audra 14.1 Plt Count 145 L MPV 10.3 Immature Gran % (Auto) 0.700 Neut % (Auto) 60.1 Lymph % (Auto) 30.0 [place] % (Auto) 8.2 Eos % (Auto) 0.5 Baso % (Auto) 0.5 Absolute Neuts (auto) 3.4 Absolute Lymphs (auto) 1.69 Nucleated RBC % 0 PT 14.4 INR 1.1 APTT 33.0 Sodium 141 Potassium 3.0 L Chloride 106 Carbon Dioxide 20.2 L Anion Gap 16 H BUN 27 H Creatinine 1.15 Estim Creat Clear Calc 46.96 L Est GFR (MDRD) Non-Af 62 BUN/Creatinine Ratio 23.1 H Glucose 205 H Calcium 8.7 Radiography Diagnostic Testing: Clinical Impression(s) from Imaging Studies Brain CT 06/25/25 21:12 IMPRESSION: Mild traumatic subarachnoid hemorrhage left frontal parietal lobe. Reading Location: [facility] Cervical Spine CT 06/25/25 21:55 IMPRESSION: Mild traumatic subarachnoid hemorrhage left frontal parietal lobe. Reading Location: [id number] Procedures Lacerations Posterior scalp laceration with hematoma repaired: Length: 0.5 in Depth: Sub Q Shape: Linear Prep: Swetha-Clens Laceration repair: Lidocaine with epi, Local and Skin sutures Number of Sutures/Lexie: 2 Suture Information: Ethilon, Simple and 4-0 Comment: Left posterior scalp hematoma laceration. Less than half inch laceration. Local anesthesia lidocaine with epinephrine. Area was cleaned. I placed 2 simple interrupted 4-0 Ethilon sutures. Proper hemostasis was obtained. We then placed a scalp pressure dressing on the wound. Patient tolerated well. Critical Care Time Critical Care Time: Yes Critical care time (excluding procedures): 30-74 minutes, Including time spent:, Discussing w/Patient &/or Family/Chef De Cuisine, Discussing w/Consultants, Arranging Admission or Transfer, Performing Direct Patient Care at Bedside and - (33 minutes) Discharge Plan Triage Chief Complaint: Fall ED Provider: Quincy Vega Dx/Rx/DC Orders Clinical Impression: Fall, Hematoma of scalp, Laceration of scalp, Head injury, Traumatic intracranial hemorrhage Prescriptions: No Action lisinopril 10 mg tablet 10 mg PO DAILY Qty: 90 metformin 750 mg tablet extended release 24 hr 750 mg PO TID Patient Comments: take 2 tablets by mouth twice a day furosemide [Lasix] 40 mg tablet 40 mg PO BID calcium carbonate 600 mg calcium (1,500 mg) tablet 600 mg PO QDAY iron,carbonyl-vitamin C 65 mg iron- 125 mg tablet 2 tab PO DAILY dapagliflozin propanediol [Farxiga] 10 mg tablet 10 mg PO QDAY allopurinol 300 MG tablet 300 mg PO DAILY aspirin 81 MG tablet,chewable 81 mg PO DAILY@0800 clopidogrel 75 MG tablet 75 mg PO DAILY atorvastatin 40 mg tablet 40 mg PO DAILY Qty: 90 3RF omega-3 acid ethyl esters 1 gram capsule See Rx Instructions .ROUTE .COMPLEX Qty: 90 3RF Dose Instruction: TAKE 1 CAPSULE DAILY Rx Instructions: TAKE 1 CAPSULE DAILY Primary Care Provider: Mickey Ennis Referrals: Mickey Ennis MD [Primary Care Provider, Family Practice] Print Language: Syriac Disposition Disposition: Acute Care Hospital Discharge Location: [facility]
[2025-06-25] MEDS: Lidocaine 1% /Epi 1:100 (20ml) 20 ML Vial 10 ML INFILT (21:37)
--- NOTE | 2025-06-25 21:55 | CT_ITS ---
PROCEDURE: BRAIN/HEAD WITHOUT CONTRAST; SPINE CERVICAL WITHOUT CONTRAS 06/25/2025; N/A REASON FOR EXAM: HEAD TRAUMA WITH HEMATOMA; HEAD TRAUMA TECHNIQUE: Thin slice axial images obtained through the head without intravenous contrast. Coronal and Sagittal reconstruction series were provided. One or more dose reduction techniques were used (e.g., Automated exposure control, adjustment of the mA and/or kV according to patient size, use of iterative reconstruction technique. RADIATION DOSE SUMMARY: CTDlvol: 45 mGy DLP: 847 mGycm COMPARISON: None FINDINGS: Cerebrum: Mild loss ofcerebral volume. Negative for mass the frontal, parietal, temporal and occipital lobes otherwisenegative. White matter: Negative for periventricular white matter changes. Cerebellum: Negative. Negative for mass. Negative for acute infarction. CSF pathways and ventricles: Subarachnoid hemorrhage in the superior left frontal lobe. No blood in the basilar cisterns are or intraventricular cisterns to suggest non traumatic origin. Negative for ventricular dilatation or obstruction. Basal ganglia and thalami: Negative. No acute infarctions. Brainstem: Midbrain, brynn and medulla otherwisenegative. Calvarium: Negative. Negative for fractures. Orbital structures: Globes negative. Extraocular muscles negative. Paranasal sinuses: Nasal polyps and surgical changes in the sinuses. Remainder of the sinuses negative. Vascular structures: Mild calcifications of the distal intracranial internal carotid arteries. Soft tissues: Left parietal soft tissue swelling.. Other: : Negative for acute infarction. Remainder of exam negative. CT/Spine Cervical without Contras IMPRESSION: Mild traumatic subarachnoid hemorrhage left frontal parietal lobe. Reading Location: [id number]
--- OUTSIDE RECORDS SUMMARY | 2025-06-25 22:05 | XMS RPT_ITS | CCD ---
Author Organization [facility] Care Team Providers Care Anodize Machine Operator Name Role Phone REFERRINGTONY SAMEER Unavailable Unavailable MICKEY FLORES Unavailable Unavailable Fast, Shanika A Primary Care Provider Dr. Mickey Flores Primary Care Provider Dr. Mickey Flores Referring Provider Dr. Jose A Booker Attending Provider Dr. Mickey Flores Primary Care Provider Dr. Mickey Flores Referring Provider Dr. Pete Monet Attending Provider Dr. Nikhil Soto Attending Provider Dr. Jose A Booker Attending Provider Mickey Flores MD Primary Care Provider [phone] Charles, Nikhil S Unavailable Dr. Mickey Flores Primary Care Provider Dr. Mickey Flores Referring Provider Dr. Nikhil Soto Attending Provider Dr. Jose A Booker Attending Provider Dr. Pete Monet Attending Provider Mickey Flores MD Primary Care Provider Charles, Lagrange S Unavailable Mickey Flores MD Primary Care Provider Charles, Nikhil S Unavailable Dr. Mickey lFores Primary Care Provider Dr. Mickey Flores Referring Provider Dr. Pete Monet Attending Provider Dr. Mickey Flores Primary Care Provider Dr. Mickey Flores Referring Provider Dr. Nikhil Soto Attending Provider Jeff COCOA BEAN ROASTER HELPER, COCOA BEAN ROASTER HELPER-C Cristin Attending Provider Raymon ALMONTE, Dr. Arevalo Primary Care Provider Raymon ALMONTE, Dr. Arevalo Referring Provider Jeff COCOA BEAN ROASTER HELPER-C, Cristin Attending Provider Jeff COCOA BEAN ROASTER HELPER-C, Cristin Referring Provider Charles ALMONTE, Dr. Tejeda Attending Provider Tierney ALMONTE, Dr. Freeman Attending Provider Tierney ALMONTE, Dr. Freeman Referring Provider Raymon ALMONTE, Dr. Arevalo Primary Care Provider Raymon ALMONTE, Dr. Arevalo Referring Provider CAROLINA SOUSA Referring Provider Raymon ALMONTE, Dr. Arevalo Primary Care Physician Tierney ALMONTE, Dr. Freeman Attending Physician SIXTO ALMONTE, DR QUICK Attending Unavailabl e Jeff COCOA BEAN ROASTER HELPER-C, Cristin Attending Physician Raymon ALMONTE, Dr. Arevalo Attending Physician Mickey Flores Primary Care Unavailable Nikhil Soto Attending Unavailable Cristin Aguilar Referring Unavailable Flores, Mickey Primary Care Unavailable Pramorenita, Pete Attending Unavailable Flores, Mickey Referring Unavailable Prah, Pete Attending Unavailable Raymon, Mickey Primary Care Unavailable Raulito Tellez Referring Unavailable Prah, Pete Referring Unavailable Flores, Mickey Primary Care Unavailable Pramorenita, Pete Attending Unavailable Flores, Mickey Primary Care Unavailable Flores, Mickey Attending Unavailable Flores, Mickey Referring Unavailable Florse, Mickey Primary Care Unavailable Flores, Mickey Attending Unavailable Flores, Mickey Referring Unavailable Flores, Mickey Primary Care Unavailable Cristin Aguilar Attending Unavailable Cristin Aguilar Referring Unavailable Prah, Pete Attending Unavailable Prah, Pete Referring Unavailable Flores, Mickey Primary Care Unavailable Flores, Mickey Primary Care Unavailable Cristin Aguilar Attending Unavailable Mickey Flores Referring Unavailable Mickey Flores Primary Care Unavailable Cristin Aguilar Attending Unavailable Mickey Flores Referring Unavailable Mickey Flores Primary Care Unavailable Pete Monet Attending Unavailable Mickey Flores Referring Unavailable Raymon, Mickey Primary Care Unavailable Pete Monet Attending Unavailable Raymon, Mickey Referring Unavailable Allergies Allergy Classification Reported Allergen(s) Allergy Type Date of Onset Reaction(s) Facility (15 sources) atorvastatin Drug Allergy 2 Myalgias with 80mg, not 40mg [facility] (17 sources) cultivated mushroom extract Drug Allergy 1 [facility], Other: See Comments [facility] (15 sources) Pravastatin Drug Allergy 2 Severe myalgias, memory and balance issues [facility] (18 sources) rosuvastatin Drug Allergy 7 Myalgia [facility] (19 sources) tetanus and diphtheria toxoids; Translations: [tetanus and diphtheria toxoids] Allergy to substance 6 [facility] Comment on above: states is the old ho rse tetanus med. (8 sources) poinsettias Propensity to adverse reactions 1 Other: See Comments [facility] (3 sources) tetanus toxoid vaccine, inactivated Drug Allergy 1 [facility] (11 sources) espino; Translations: [espino] Propensity to adverse reactions 3 nasal congestion [facility] Comment on above: poinsettias (1 source) atorvastatin Drug Allergy 5 [facility] (1 source) Mushroom (edible) Drug allergy (disorder) 5 [facility] (1 source) Pravastatin Drug Allergy 5 [facility] (1 source) rosuvastatin Drug Allergy 5 [facility] Medications Current Medications Medication Drug Class(es) Dates Sig (Normalized) Sig (Original) allopurinol 300 mg oral tablet (18 sources) Xanthine Oxidase Inhibitor Start: 01-01-2016 take 1 tablet by mouth once daily Comment on above: Take 300 mg by mouth once daily. aspirin 81 mg chewable tablet (18 sources) Platelet Aggregation Inhibitor, Nonsteroidal Anti-inflammatory Drug Start: 12-27-2016 take 1 tablet by mouth once daily Comment on above: Take 81 mg by mouth once daily. calcium carbonate 1500 mg oral tablet (1 source) Start: 04-29-2025 take 1 tablet by mouth once daily clopidogrel 75 mg oral tablet (18 sources) P2Y12 Platelet Inhibitor Start: 12-30-2016 take 1 tablet by mouth once daily Comment on above: Take 75 mg by mouth once daily. dapagliflozin 10 mg oral tablet (5 sources) Sodium-Glucose Cotransporter 2 Inhibitor Start: 02-14-2025 take 1 tablet by mouth once daily furosemide 40 mg oral tablet (20 sources) Loop Diuretic Start: 10-28-2024 take 1 tablet by mouth twice daily Start: 07-30-2017 End: 10-28-2024 take 1 tablet by mouth once daily Furosemide (Lasix) 40 mg tablet Discontinued 40 mg PO daily 90 February 06, 2018 5:32pm October 28, 2024 10:11am Comment on above: Take 40 mg by mouth once daily. Iron,Carbonyl-Vitamin C 65 mg iron- 125 mg tablet (1 source) Start: 04-29-2025 lisinopril 10 mg oral tablet (20 sources) Angiotensin Converting Enzyme Inhibitor Start: 02-05-2019 take 1 tablet by mouth once daily Start: 01-01-2016 End: 02-05-2019 take 5 mg by mouth once daily Lisinopril 20 MG tablet Discontinued 5 mg PO DAILY January 01, 2016 12:00am February 05, 2019 9:07am Start: 01-01-2016 End: 02-05-2019 take 5 mg by mouth once daily Lisinopril Discontinued 5 MG PO DAILY January 01, 2016 12:00am February 05, 2019 9:07am Comment on above: Take 10 mg by mouth once daily. 24 hr metFORMIN hydrochloride 750 mg extended release oral tablet (20 sources) Biguanide Start: 04-14-2025 take 1 tablet by mouth three times daily Start: 02-15-2022 End: 04-14-2025 Metformin 750 mg tablet exte nded release 24 hr Discontinued 1500 mg PO TWICE A DAY February 15, 2022 12:00am April 14, 2025 1:38pm Start: 02-15-2022 take 1500 mg by mout h twice daily Metformin Active 1500 MG PO TWICE A DAY February 15, 2022 12:00am Start: 02-05-2021 End: 02-15-2022 Metformin 500 mg tablet exte nded release 24 hr Discontinued 1000 mg PO TWICE A DAY February 05, 2021 10:07am February 15, 2022 11:24am Start: 07-24-2020 End: 12-21-2020 take 2 tablets by mouth at bedtime Metformin 500 MG tablet Discontinued 1000 mg PO AT BEDTIME July 24, 2020 1:00am December 21, 2020 1:44pm Start: 07-24-2020 End: 12-21-2020 take 1000 mg by mouth at bedtime Metformin Discontinue d 1000 MG PO AT BEDTIME July 24, 2020 1:00am December 21, 2020 1:44pm Start: 06-05-2020 End: 02-25-2022 take 1 tablet by mouth twice daily Metformin 500 mg tablet extended release 24 hr Discontinued 500 mg PO TWICE A DAY February 15, 2022 11:23am February 25, 2022 11:32am Start: 06-05-2020 End: 02-15-2022 take 1000 mg by mouth twice daily Metformin Discontinued 1000 MG PO TWICE A DAY February 05, 2021 10:07am February 15, 2022 11:24am Start: 02-08-2020 End: 02-05-2021 take 1 tablet by mouth once daily Metformin 500 mg tablet extended release 24 hr Discontinued 500 mg PO DAILY February 08, 2020 12:00am February 05, 2021 10:07am Start: 01-01-2016 End: 02-08-2020 take 1 tablet by mouth twice daily at mealtime Metformin 500 MG tablet Discontinued 500 mg PO TWICE DAILY WITH MEALS January 01, 2016 12:00am February 08, 2020 10:13am take 1 tablet by viir th twice daily metFORMIN ER (GLUCOPHAGE XR) 750 mg 24 hr tablet Take 750 mg by mouth twice daily. 0 Active Comment on above: Take by mouth twice daily. 2 tablet in the morning, 2 tablets in the evening Take 750 mg by mouth twice daily. Completed/Discontinued Medications Medication Drug Class(es) Dates Sig (Normalized) Sig (Original) atorvastatin 40 mg oral tablet (20 sources) HMG-CoA Reductase Inhibitor Start: 06-15-2018 End: 07-19-2019 take 1 tablet by mouth once daily Atorvastatin 40 mg tablet Discontinued 40 mg PO DAILY 90 3 June 15, 2018 2:15pm July 19, 2019 4:14pm Start: 08-08-2017 End: 06-15-2018 take 1 tablet by mouth every other day Atorvastatin 40 MG tablet Discontinued 40 mg PO .every other day August 08, 2017 9:20am June 15, 2018 2:15pm Start: 01-01-2016 End: 08-08-2017 take 1 tablet by mouth at bedtime Atorvastatin 40 MG tablet Discontinued 40 mg PO AT BEDTIME January 01, 2016 12:00am August 08, 2017 9:21am atorvastatin (LI PITOR) 80 mg tablet Take 40 mg by mouth once daily. 0 Active Comment on above: Take 40 mg by mouth once daily. cephalexin 500 mg oral capsule (7 sources) Cephalosporin Antibacterial Start: 05-11-20 End: 10-29-19 take 1 capsule by mouth three times daily Cephalexin 500 mg capsule Discontinued 500 mg PO THREE TIMES A DAY May 11, 2024 12:00am October 28, 2024 10:20am ferrous sulfate 325 mg oral tablet (15 sources) Start: 03-14-20 End: 02-16-20 take 1 tablet by mouth once daily Ferrous Sulfate 325 mg (65 mg iron) tablet Discontinued 325 mg PO DAILY March 14, 2021 12:00am February 15, 2022 11:22am levoFLOXacin 500 mg oral tablet (3 sources) Quinolone Antimicrobial Start: 03-25-20 levoFLOXacin (LEVAQUIN) 500 mg tablet omega-3 acid ethyl esters (jail) 1000 mg oral capsule (20 sources) Start: 02-08-20 End: 01-12-20 [place]-3 Acid Ethyl Esters 1 gram capsule Discontinued 0 .ROUTE .COMPLEX 90 3 January 19, 2024 9:40am January 11, 2025 4:37pm TAKE 1 CAPSULE DAILY Start: 02-08-2020 End: 01-22-2023 [place]-3 Acid Ethyl Esters Di scontinued 0 .ROUTE .COMPLEX 90 January 28, 2022 8:41am January 22, 2023 8:29am TAKE 1 CAPSULE DAILY Comment on above: Take 1 capsule by [facility] once daily. [place]-3 Fatty Acids (Fish Oil Concentrate) 1,000 mg capsule (15 sources) Start: 02-05-2019 End: 02-08-2020 take 1 capsule by mouth once daily [place]-3 Fatty Acids (Fish Oil Concentrate) 1,000 mg capsule Discontinued 1000 MG PO DAILY February 05, 2019 9:21am February 08, 2020 10:14am Start: 02-05-2019 End: 02-08-2020 take 1 capsule by mouth once daily [place]-3 Fatty Acids (Fish Oil Concentrate) 1,000 mg capsule Discontinued 1000 mg PO DAILY 90 February 05, 2019 12:00am February 08, 2020 10:14am Start: 02-05-2019 End: 02-08-2020 take 1 capsule by mouth once daily [place]-3 Fatty Acids (Fish Oil Concentrate) 1,000 mg capsule Discontinued 1000 MG PO DAILY February 04, 2019 11:00pm February 08, 2020 9:14am Start: 02-05-2019 End: 02-08-2020 take 1 capsule by mouth once daily [place]-3 Fatty Acids (Fish Oil Concentrate) 1,000 mg capsule Discontinued 1000 MG PO DAILY February 05, 2019 12:00am February 08, 2020 10:14am ondansetron 4 mg disintegrating oral tablet (15 sources) Serotonin-3 Receptor Antagonist Start: 09-02-2020 End: 04-29-2025 take 1 tablet by mouth every eight hours as needed for nausea Ondansetron 4 MG tablet Discontinued 4 mg PO EVERY 8 HOURS NEEDED as needed for Nausea September 02, 2020 1:00am April 29, 2025 10:35am pantoprazole 40 mg delayed release oral tablet (17 sources) Proton Pump Inhibitor Start: 11-21-2020 End: 02-15-2022 take 1 tablet by mouth once daily Pantoprazole (Protonix) 40 mg tablet,delayed release (DR/EC) Discontinued 40 mg PO DAILY December 07, 2020 12:00am February 15, 2022 11:22am Comment on above: Take 1 tablet by viri once daily. polysaccharide iron complex 150 mg oral capsule (1 source) Start: 04-14-2025 End: 04-29-2025 Polysaccharide Iron Complex (Ferrex 150) 150 mg iron capsule Discontinued 150 mg PO ONCE 90 April 14, 2025 12:00am April 29, 2025 10:34am potassium chloride 20 meq extended release oral tablet (20 sources) Start: 03-14-2021 End: 02-15-2022 take 1 tablet by mouth once daily Potassium Chloride 20 mEq tablet extended release Discontinued 0 .ROUTE .COMPLEX 14 0 March 23, 2021 10:20am February 15, 2022 11:25am take 1 tablet by mouth once daily spironolactone 50 mg oral tablet (15 sources) Aldosterone Antagonist Start: 12-27-2016 End: 01-30-2017 take 1 tablet by mouth once daily Spironolactone 50 MG tablet Discontinued 50 mg PO DAILY December 27, 2016 12:00am January 30, 2017 8:24am Problems Active Problems Problem Classification Problem Date Documented Date Episodic/Chronic Biliary tract disease (3 sources) Stricture of bile duct; Translations: [Obstruction of bile duct] 06-23-2020 Chronic Cancer of bronchus; lung (20 sources) Non-small cell lung cancer; Translations: [Malignant neoplasm of unspecified part of left bronchus or lung] Onset: Chronic Comment on above: S/P SRS. CT 05/28/20 shows increase in JUAN ANTONIO mass.PET/CT on 06/12/2021 shows no significant hypermetabolic activity.CT chest 06/10/2022 shows stable JUAN ANTONIO mass.CT 01/06/2023 reviewed. stable JUAN ANTONIO mass.CT 07/09/2023 reviewed, stable JUAN ANTONIO nodule.Comes for follow up.CT02/05/2024 reviewed, stable JUAN ANTONIO noduleNo evidence of progressive disease. 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 CA19-9 was 13 on 03/14/2021.Received adjuvant chemoradiation therapy from 12/25/2020 to 02/01/2021.Tolerated therapy with Xeloda. Still has thrombocytopenia and leukopenia from chemotherapy so cannot do more adjuvant chemotherapy,CA19-9 was 9 on 06/10/2022.CT c/a on 06/10/2022 reviewed, stable changes, no evidence of metastatic disease.CT c/a/p on 01/06/2023 reviewed, stable changes with no evidence of metastatic disease. Comes for follow up.CT c/a/p 02/05/2024 reviewed, no evidence of metastatic disease.CA19-9 on 02/01/2023 was 20No evidence of disease clinically. S/P Whipple Operatio n on 11/16/2020, Pancreatic adenocarcinoma pT3 pN1 M0-stage IIB with margins involved.Patient elected adjuvant concurrent chemoradiation with capecitabine. CA19-9 was 13 on 03/14/2021.Received adjuvant chemoradiation therapy from 12/25/2020 to 02/01/2021.Tolerated therapy with Xeloda. Still has thrombocytopenia and leukopenia from chemotherapy so cannot do more adjuvant chemotherapy,CA19-9 was 9 on 06/10/2022.CT c/a on 06/10/2022 reviewed, stable changes, no evidence of metastatic disease.CT c/a/p on 01/06/2023 reviewed, stable changes with no evidence of metastatic disease.CT c/a/p 02/05/2024 reviewed, no evidence of metastatic disease.Comes for follow up.CA19-9 on 01/31/2025 [address] 21[address] on 01/31/2025 showed stable JUAN ANTONIO mass, R lung nodule, increase in retroperitoneal nodes, Sigmoid mass. S/P Whipple Operatio n on 11/16/2020, Pancreatic adenocarcinoma pT3 pN1 M0-stage IIB with margins involved.Patient elected adjuvant concurrent chemoradiation with capecitabine. CA19-9 was 13 on 03/14/2021.Received adjuvant chemoradiation therapy from 12/25/2020 to 02/01/2021.Tolerated therapy with Xeloda. Still has thrombocytopenia and leukopenia from chemotherapy so cannot do more adjuvant chemotherapy,CA19-9 was 9 on 06/10/2022.CT c/a on 06/10/2022 reviewed, stable changes, no evidence of metastatic disease.CT c/a/p on 01/06/2023 reviewed, stable changes with no evidence of metastatic disease.CT c/a/p 02/05/2024 reviewed, no evidence of metastatic disease.CA19-9 on 01/31/[address]25 [address] on 01/31/2025 showed stable JUAN ANTONIO mass, R lung nodule, increase in retroperitoneal nodes, Sigmoid mass.Comes for follow up.PET/CT on 02/22/2025 shows uptake in Rectum, activity in lung is stable. S/P Whipple Operatio n on 11/16/2020, Pancreatic adenocarcinoma pT3 pN1 M0-stage IIB with margins involved.Patient elected adjuvant concurrent chemoradiation with capecitabine. CA19-9 was 13 on 03/14/2021.Received adjuvant chemoradiation therapy from 12/25/2020 to 02/01/2021.Tolerated therapy with Xeloda. Still has thrombocytopenia and leukopenia from chemotherapy so cannot do more adjuvant chemotherapy,CA19-9 was 9 on 06/10/2022.CT c/a on 06/10/2022 reviewed, stable changes, no evidence of metastatic disease.CT c/a/p on 01/06/2023 reviewed, stable changes with no evidence of metastatic disease.CT c/a/p 02/05/2024 reviewed, no evidence of metastatic disease.CA19-9 on 01/31/2025 [address] 21.CT on 01/31/2025 showed stable JUAN ANTONIO mass, R lung nodule, increase in retroperitoneal nodes, Sigmoid mass.PET/CT on 02/22/2025 shows uptake in Rectum, activity in lung is stable, no upper abdominal activity.Comes for follow up.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 S/P Whipple Operatio n on 11/16/2020, Pancreatic adenocarcinoma pT3 pN1 M0-stage IIB with margins involved.Patient elected adjuvant concurrent chemoradiation with capecitabine. CA19-9 was 13 on 03/14/2021.Received adjuvant chemoradiation therapy from 12/25/2020 to 02/01/2021.Tolerated therapy with Xeloda. Still has thrombocytopenia and leukopenia from chemotherapy so cannot do more adjuvant chemotherapy,CA19-9 was 9 on 06/10/2022.CT c/a on 06/10/2022 reviewed, stable changes, no evidence of metastatic disease.CT c/a/p on 01/06/2023 reviewed, stable changes with no evidence of metastatic disease.CT c/a/p 02/05/2024 reviewed, no evidence of metastatic disease.CA19-9 on 01/31/2025 was 21.CT on 01/31/2025 showed stable JUAN ANTONIO mass, R lung nodule, increase in retroperitoneal nodes, Sigmoid mass.PET/CT on 02/22/2025 shows uptake in Rectum, activity in lung is stable, no upper abdominal activity.Comes for follow up.Colonoscopy on 04/05/2025 showed Rectal Tubulovillous adenoma and Colonic Leiomyoma. Coagulation and hemorrhagic disorders (18 sources) Platelet count below reference range; Translations: [Thrombocytopenia, unspecified] Onset: 1 11-17-2020 Chronic Comment on above: Due to chemotherapy- Xeloda Coronary atherosclerosis and other heart disease (18 sources) Coronary atherosclerosis; Translations: [Atherosclerotic heart disease of [place] coronary artery without angina pectoris] 06-23-2020 Chronic Deficiency and other anemia (2 sources) Anemia; Translations: [Anemia, unspecified] 04-14-2025 Episodic Diabetes mellitus without complication (5 sources) Type 2 diabetes mellitus without complication; Translations: [Type 2 diabetes mellitus without complications] Onset: 5 06-23-2020 Chronic Disorders of lipid metabolism (20 sources) Hyperlipidemia; Translations: [Hyperlipidemia, unspecified] Chronic Essential hypertension (20 sources) Essential hypertension; Translations: [Essential (primary) hypertension] Chronic Maintenance chemotherapy; radiotherapy (15 sources) Patient encounter status; Translations: [Encounter for antineoplastic chemotherapy] 01-29-2021 Chronic Comment on above: Counts and chemistry OK for therapy. Other and unspecified benign neoplasm (4 sources) Adenomatous polyp of rectum; Translations: [Benign neoplasm of rectum] 04-14-2025 Episodic Comment on above: S/P excision on 04/05 Other gastrointestinal disorders (11 sources) Occult blood in stools; Translations: [Other fecal abnormalities] 03-09-2025 Episodic Comment on above: PET/CT on 02/22/2025 shows uptake in Rectum, Other liver diseases (3 sources) Jaundice; Translations: [Unspecified jaundice] 11-17-2020 Episodic Other nutritional; endocrine; and metabolic disorders (3 sources) Obese class I; Translations: [Obesity, unspecified] Onset: 1 11-17-2020 Chronic Other screening for suspected conditions (not mental disorders or infectious disease) (16 sources) Imaging result abnormal; Translations: [Abnormal findings on diagnostic imaging of other specified body structures] 02-14-2025 Chronic Comment on above: Abnormal finding of sigmoid Abnormal finding of sigmoid.PET/CT on 02/22/2025 shows activity in Rectum. Abnormal finding of sigmoid.PET/CT on 02/22/2025 shows activity in Rectum. CEA was 13.6 on 02/14/2025. 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] 07-27-2020 Chronic Residual codes; unclassified (13 sources) History of clinical finding in subject; Translations: [Personal history of other specified conditions] 03-31-2022 Episodic Skin and subcutaneous tissue infections (7 sources) Paronychia of finger; Translations: [Cellulitis of left finger] 05-11-2024 Episodic Unclassified (1 source) Unknown / UNK(Unknown) Onset: 7 Unclassified (1 source) Abnormal finding on imaging Unclassified (3 sources) R19.5 - Other fecal abnormalities,R93.89 - Abnormal findings on diagnostic imaging of other specified body structures Past or Other Problems Problem Classification Problem Date Documented Date Episodic/Chronic Acute posthemorrhagic anemia (3 sources) Anemia following acute postoperative blood loss; Translations: [Acute posthemorrhagic anemia] Onset: 11-17-2020 11-17-2020 Episodic Cardiac dysrhythmias (20 sources) Bradycardia; Translations: [Bradycardia, unspecified] Onset: 11-08-2024 08-08-2017 Episodic Complications of surgical procedures or medical [...] other serum enzymes] Onset: 11-17-2020 11-17-2020 Episodic Unclassified (1 source) P Onset: 01-08-2017 Results Test Name Value Interpretation Reference Range Facility Carcinoembryonic Antigenon 1 07-24-2024 CEA 16.6 ng/mL High 0.0-4.7 [facility] Comment on above: Result Comment: Nons mokers <3.9 Smokers <5.6 [facility] Electrochemiluminescence Immunoassay (ECLIA) Values obtained with different assay methods or kits cannot be used interchangeably. Results cannot be interpreted as absolute evidence of the presence or absence of malignant disease. Performed at: [facility] [id number] Fastener Technologist: Ulises Licea PhD, Phone: [phone] Performed By: #### L [id number] #### [facility] [address] [place], [place], [address] Anion gap in Serum or Plasma Ordered By: Mickey Flores on 05-10-2025 Anion gap [Moles/Vol] 8 mmol/L 5-15 [facility] BUN/creatinine ratioOrdered By: Mickey Flores on 05-10-2025 Urea nitrogen/Creatinine [Mass ratio] 20.5 mg/mg High 10-20 [facility] Bilirubin, totalOrdered By: Mickey Flores on 05-10-2025 Bilirubin [Mass/Vol] 0.70 mg/dL 0.00-1.30 [facility] Calculated very low density lipoprotein (VLDL) cholesterol measurementOrdered By: Mickey Flores on 05-10-2025 Calculated very low density lipoprotein (VLDL) cholesterol measurement 11 mg/dL 5-40 [facility] Carbon dioxide, total [Moles /volume] in Central venous bloodOrdered By: Mickey Flores on 05-10-2025 CO2 [Moles/Vol] 25.2 mmol/L 21.0-32.0 [facility] Chloride assayOrdered By: Maxi Flores on 05-10-2025 Chloride [Moles/Vol] 104 mmol/L 98-108 [facility] Comprehensive Metabolic Prof ilon 05-10-2025 Albumin [Mass/Vol] 3.4 g/dL Normal 3.4-4.8 [facility] Comment on above: Performed By: #### L 500.4100, L500.4050, L502.0250 ####[facility] [address] [place], [address] Albumin/Globulin [Mass ratio] 1.3 {ratio} Normal 0.9-2.4 [facility] Comment on above: Performed By: #### L 500.4100, L500.4050, L502.0250 ####[facility] [address] [place], [address] ALK PHOS 192 U/L High 40-129 [facility] Comment on above: Performed By: #### L 500.4100, L500.4050, L502.0250 ####[facility] [address] [place], [address] ALT [Catalytic activity/Vol] 60 U/L High <=46 [facility] Comment on above: Performed By: #### L 500.4100, L500.4050, L502.0250 ####[facility] [address] [place], [address] AST [Catalytic activity/Vol] 56 U/L High <=37 [facility] Comment on above: Performed By: #### L 500.4100, L500.4050, L502.0250 ####[facility] [address] [place], [address] Bilirubin [Mass/Vol] 0.70 mg/dL Normal 0.00-1.30 [facility] Comment on above: Performed By: #### L 500.4100, L500.4050, L502.0250 ####[facility] [address] [place], [address] BUN/CRE 20.5 RATIO High 10-20 [facility] Comment on above: Performed By: #### L 500.4100, L500.4050, L502.0250 ####[facility] [address] [place], [address] Calcium [Mass/Vol] 8.2 mg/dL Normal 7.6-11.0 [facility] Comment on above: Performed By: #### L 500.4100, L500.4050, L502.0250 ####[facility] [address] [place], [address] Chloride [Moles/Vol] 104 mmol/L Normal 98-108 [facility] Comment on above: Performed By: #### L 500.4100, L500.4050, L502.0250 ####[facility] [address] [place], [address] CO2 [Moles/Vol] 25.2 mmol/L Normal 21.0-32.0 [facility] Comment on above: Performed By: #### L 500.4100, L500.4050, L502.0250 ####[facility] [address] [place], [address] Creatinine [Mass/Vol] 1.20 mg/dL Normal 0.70-1.20 [facility] Comment on above: Performed By: #### L 500.4100, L500.4050, L502.0250 ####[facility] [address] [place], [address] GAP 8 Normal 5-15 [facility] Comment on above: Performed By: #### L 500.4100, L500.4050, L502.0250 ####[facility] [address] [place], [address] GFR/1.73 sq M.predicted among non-blacks MDRD (S/P/Bld) [Vol rate/Area] 59 mL/min/{1.73_m2} Low >60 [facility] Comment on above: Result Comment: mL/m in/1.73m2 CKD-EPI Creatinine Equation (2020) Performed By: #### L 500.4100, L500.4050, L502.0250 ####[facility] [address] [place], [address] Globulin (S) [Mass/Vol] 2.6 g/dL Normal 2.2-4.2 [facility] Comment on above: Performed By: #### L 500.4100, L500.4050, L502.0250 ####[facility] [address] [place], [address] Glucose [Mass/Vol] 126 mg/dL High 70-99 [facility] Comment on above: Performed By: #### L 500.4100, L500.4050, L502.0250 ####[facility] [address] [place], [address] Potassium [Moles/Vol] 4.2 mmol/L Normal 3.3-5.1 [facility] Comment on above: Performed By: #### L 500.4100, L500.4050, L502.0250 ####[facility] [address] [place], [address] Sodium [Moles/Vol] 138 mmol/L Normal 133-145 [facility] Comment on above: Performed By: #### L 500.4100, L500.4050, L502.0250 ####[facility] [address] [place], [address] T PROT 6.0 g/dL Normal 5.9-8.4 [facility] Comment on above: Performed By: #### L 500.4100, L500.4050, L502.0250 ####[facility] [address] [place], [address] Urea nitrogen [Mass/Vol] 25 mg/dL High 4-19 [facility] Comment on above: Performed By: #### L 500.4100, L500.4050, L502.0250 ####[facility] [address] [place], [address] Glomerular filtration rate ( GFR) estimation/1.73 sq m using serum, plasma, or whole bOrdered By: Mickey Flores on 05-10-2025 GFR/1.73 sq M.predicted among non-blacks MDRD (S/P/Bld) [Vol rate/Area] 59 mL/min/{1.73_m2} Low >60 [facility] Comment on above: mL/min/1.73m2 CKD-EP I Creatinine Equation (2020) LDL calc ser/plasOrdered By: Mickey Flores on 05-10-2025 Cholesterol in LDL [Mass/Vol] 16 mg/dL [facility] Comment on above: Bpxasraayh=363-491 m g/dL & Higher Attt=381 mg/dL or greaterSampson Equation 2020 for LDL-C Laboratory - Chemistry and C hemistry - challengeOrdered By: Mickey Flores on 05-10-2025 AST [Catalytic activity/Vol] 56 U/L High <38 [facility] Lipid Profileon 05-10-2025 CHOL:HDL 1.55 Normal [facility] Comment on above: Performed By: #### L 500.4100, L500.4050, L502.0250 ####[facility] [address] [place] [place], [address] Cholesterol [Mass/Vol] 82 mg/dL Normal <=200 [facility] Comment on above: Result Comment: Chol esterol level, Desirable <200 mg/dL Borderline high cholesterol 200-239 mg/dL High cholesterol >=240 mg/dL Recommendations of the NCEP Adult Treatment Panel for the following risk-cutoff thresholds for the [place] population. Performed By: #### L 500.4100, L500.4050, L502.0250 ####[facility] [address] [place], [address] Cholesterol in HDL [Mass/Vol] 53 mg/dL Normal [facility] Comment on above: Result Comment: Angela onal Cholesterol Education Program (NCEP) guidelines: <40 mg/dL: Low HDL-cholesterol (major risk factor for CHD) >= 60 mg/dL: High HDL-cholesterol (negative risk factor for CHD) HDL-cholesterol is affected by a number of factors, e.g. smoking, exercise, hormones, sex and age. Performed By: #### L 500.4100, L500.4050, L502.0250 ####[facility] [address] [place], [address] Cholesterol in LDL [Mass/Vol] 16 mg/dL Normal [facility] Comment on above: Result Comment: Bord aggtxh=636-206 mg/dL Higher Pxvu=532 mg/dL or greater Leavitt Equation 2020 for LDL-C Performed By: #### L 500.4100, L500.4050, L502.0250 ####[facility] [address] [place], [address] Cholesterol in VLDL [Mass/Vol] 11 mg/dL Normal 5-40 [facility] Comment on above: Performed By: #### L 500.4100, L500.4050, L502.0250 ####[facility] [address] [place], [address] Triglyceride [Mass/Vol] 55 mg/dL Normal [facility] Comment on above: Result Comment: The drugs N-Acetylcysteine and Metamizole may falsely depress this assay. Normal range: <150 mg/dL Borderline High: 150-199 mg/dL High: 200-499 mg/dL Very High: >500 mg/dL Performed By: #### L 500.4100, L500.4050, L502.0250 ####[facility] [address] [place], [address] Microalb:Creat Ratio,Random URon 05-10-2025 Creatinine [Mass/Vol] 86.40 mg/dL Normal 39.00- 259.0 0 [facility] Comment on above: Performed By: #### L 500.4100, L500.4050, L502.0250 ####[facility] [address] [place], [address] MALB:CREAT 121.5 mg/g CRE High <30 mg/g CRE [facility] Comment on above: Performed By: #### L 500.4100, L500.4050, L502.0250 ####[facility] [address] [place], [address] MICROALBUMIN,UR 105.0 mg/L Normal <20 mg/L [facility] Comment on above: Performed By: #### L 500.4100, L500.4050, L502.0250 ####[facility] [address] [place], [place], [id number] Potassium measurement (mass/ volume)Ordered By: Mickey Flores on 05-10-2025 Potassium (Unsp spec) [Mass/Vol] 4.2 mmol/L 3.3-5.1 [facility] Random urine creatinine koby urement (mass/volume)Ordered By: Mickey Flores on 05-10-2025 Creatinine Unsp time (U) [Mass/Vol] 86.40 mg/dL 39.00-259.0 0 [facility] Screening total cholesterol/ high density lipoprotein (HDL) cholesterol ratioOrdered By: Mickey Flores on 05-10-2025 Cholesterol.total/Chol esterol in HDL [Mass ratio] 1.55 {ratio} [facility] Serum creatinine measurement (mass/volume)Ordered By: Mickey Flores on 05-10-2025 Creatinine [Mass/Vol] 1.20 mg/dL 0.70-1.20 [facility] Serum globulin measurementOr dered By: Mickey Flores on 05-10-2025 Globulin (S) [Mass/Vol] 2.6 g/dL 2.2-4.2 [facility] Serum glucose measurement (m ass/volume)Ordered By: Mickey Flores on 05-10-2025 Glucose [Mass/Vol] 126 mg/dL High 70-99 [facility] Serum or plasma alanine hicks otransferase (ALT) measurementOrdered By: Mickey Flores on 05-10-2025 ALT [Catalytic activity/Vol] 60 U/L High <47 [facility] Serum or plasma albumin koby urement (mass/volume)Ordered By: Mickey Flores on 05-10-2025 Albumin [Mass/Vol] 3.4 g/dL 3.4-4.8 [facility] Serum or plasma albumin/glob ulin mass ratioOrdered By: Mickey Flores on 05-10-2025 Albumin/Globulin [Mass ratio] 1.3 {ratio} 0.9-2.4 [facility] Serum or plasma alkaline hui sphatase measurementOrdered By: Mickey Flores on 05-10-2025 ALP [Catalytic activity/Vol] 192 U/L High 40-129 [facility] Serum or plasma calcium koby urement (mass/volume)Ordered By: Mickey Flores on 05-10-2025 Calcium [Mass/Vol] 8.2 mg/dL 7.6-11.0 [facility] Serum or plasma cholesterol in HDL measurement (mass/volume)Ordered By: Mickey Flores on 05-10-2025 Cholesterol in HDL [Mass/Vol] 53 mg/dL >40 [facility] Comment on above: National Cholesterol Education Program (NCEP) guidelines:<40 mg/dL: Low HDL-cholesterol (major risk factor for CHD)>= 60 mg/dL: High HDL-cholesterol (negative risk factor for CHD)HDL-cholesterol is affected by a number of factors, e.g. smoking, exercise, hormones, sex and age. Serum or plasma cholesterol measurement (mass/volume)Ordered By: Mickey Flores on 05-10-2025 Cholesterol [Mass/Vol] 82 mg/dL <201 [facility] Comment on above: Cholesterol level, D esirable <200 mg/dLBorderline high cholesterol 200-239 mg/dLHigh cholesterol >=240 mg/dLRecommendations of the NCEP Adult Treatment Panel for the following risk-cutoff thresholds for the [place] population. Serum or plasma urea nitroge n measurement (mass/volume)Ordered By: Mickey Flores on 05-10-2025 Urea nitrogen [Mass/Vol] 25 mg/dL High 4-19 [facility] Sodium levelOrdered By: Mickey Flores on 05-10-2025 Sodium [Moles/Vol] 138 mmol/L 133-145 [facility] Total proteinOrdered By: Ximena Flores on 05-10-2025 Protein [Mass/Vol] 6.0 g/dL 5.9-8.4 [facility] Triglycerides measurementOrd ered By: Mickey Flores on 05-10-2025 Triglyceride [Mass/Vol] 55 mg/dL <199 [facility] Comment on above: The drugs N-Acetylcy steine and Metamizole may falsely depress this assay. Normal range: <150 mg/dLBorderline High: 150-199 mg/dLHigh: 200-499 mg/dLVery High: >500 mg/dL Urine albumin measurement wi detection limit of 20 mg/L or less (mass/volume)Ordered By: Mickey Flores on 05-10-2025 Albumin DL <= 20 mg/L (U) [Mass/Vol] 105.0 mg/L <20 mg/L [facility] Cardiology Visit Reporton Cardiology Visit Report [facility] [place] [address] OFFICE VISIT Date of Service: 04/29/25 MR#: [id number] Acct: [id number] Name: JOSE MANUEL DOMINGUEZ Rep #: [id number] : 1940 Provider: BELEN chavez Age/Sex: 84/M Location: [facility] [place] Status: Signed HPI HPI History of Present Illness Details: JOSE MANUEL DOMINGUEZ, is a 84 M who presents to the office today for a cardiovascular outpatient follow-up. He has a history of coronary artery disease status post rotational atherectomy, balloon angioplasty, and stent placement to LAD in December 2016 at [facility]. He also has a history of [...] energy level, myalgias, or claudication. He does acknowledge BLE edema-he states this has improved. He does wear compression stockings. He does not have sudden weight gain. He does acknowledge occasional lightheadedness with quick positional changes. He denies dizziness, syncopal or near syncopal episodes, and headaches. 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: No Is patient in pain?: No Allergies tetanus and diphtheria toxoids (tetanus diphtheria toxoids) Allergy (Verified 04/29/25 10:47) Hives atorvastatin (From Lipitor) Adverse Reaction (Unknown, Verified 04/29/25 10:47) Myalgias with 80mg, not 40mg pravastatin Adverse Reaction (Unknown, Verified 04/29/25 10:47) Severe myalgias, memory and balance issues rosuvastatin (From Crestor) Adverse Reaction (Unknown, Verified 04/29/25 10:47) Severe Myalgias espino Adverse Reaction (Verified 04/29/25 10:47) nasal congestion Medications ???Medication ???Instructions ???Recorded ???Confirmed ???Type allopurinol 300 mg tablet 300 mg PO DAILY 01/01/16 04/29/25 History aspirin 81 mg chewable tablet 81 mg PO DAILY@0800 12/27/1604/29 History clopidogrel 75 mg tablet 75 mg PO DAILY 12/30/16 04/29/25 H istory lisinopril 10 mg tablet 10 mg PO DAILY #90 tabs 02/05/19 1 History atorvastatin 40 mg tablet 40 mg PO DAILY #90 tabs 07/19/19 1 Rx furosemide 40 mg tablet (Lasix) 40 mg PO BID 10/28/24 04/29/25 His tory omega-3 acid ethyl esters 1 gram See Rx Instructions .Route 5 04/29/25 Rx capsule .COMPLEX #90 caps dapagliflozin propanediol 10 mg 10 mg PO QDAY 02/14/25 04/29/25 Hi story tablet (Farxiga) metformin 750 mg tablet,extended 750 mg PO TID 04/14/25 04/29/25 Hi story release 24 hr calcium carbonate 600 mg PO QDAY 04/29/25 04/29/25 H istory iron,carbonyl 65 mg-vitamin C 125 2 tab PO DAILY 04/29/25 04/29/25 History mg tablet Ejection fraction %: 55 Have you fallen in the past year?: No PFSH Medical History (Reviewed 04/29/25 @ 11:02 by Cristin Aguilar [employer], [employer]) Paronychia of left middle finger NSCLC of left lung Uses continuous positive airway pressure (CPAP) ventilation at home Nasal polyps Pilonidal cyst Hepatomegaly Jaundice Diabetes mellitus type II, controlled, with no complications 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 pulmonary arterial hypertension Obesity Essential (primary) hypertension Bradycardia Atherosclerosis of [place] coronary artery of [place] heart without angina pectoris Hyperlipidemia SUZANNE (obstructive sleep apnea) Surgical History (Reviewed 04/29/25 @ 11:02 by Cristin Aguilar [employer], [employer]) Hx of colonoscopy with polypectomy History of common bile duct surgery History of lung biopsy History of biliary duct stent placement H/O endoscopy Hx of nasal polypectomy History of coronary artery stent placement (01/01/17) H/O right knee surgery History of left heart catheterization (12/30/16) Family History (Reviewed 04/29/25 @ 11:02 by Cristin Aguilar [employer], [employer]) Mother CAD (coronary artery disease) Hypertension CHF (congestive heart failure) Sister AML (acute myeloid leukemia) Social History ... Normal [facility] Oncology Visit Reporton Oncology Visit Report [facility] [place] [address] OFFICE VISIT Date of Service: 04/14/25 1322 MR#: [id number] Acct: [id number] Name: JOSE MANUEL DOMINGUEZ DARIEN Rep #: [id number] : 1940 From: Pete Monet MD Age/Sex: 84/M [place] [facility] [place] Status: Signed HPI Subjective Date of Service 04/14/25 Chief Complaint F/u for Pancreatic cancer and NSCLC. History of Present Illness 84 year-old man presented with obstructive jaundice in May 2020.??? Abdominal ultrasound on 05/31/2020 showed dilated intrahepatic and common bile duct.??? MRCP on 06/05/2020 showed stricture of common bile duct.??? He had ERCP with stent placement by Dr. Freeman on 06/06/2020 at [place].??? It also showed stricture of the common bile duct, brushing was done and cytology showed atypical cells suspicious for malignancy.??? He was seen by Dr. Sousa in [place], had a CT scan of the chest [...] therapy so was referred for SBRT at [place]. Finished on 09/11/2020. CT chest on 10/26/2020 showed 1.2cm nodule in [place]. He went on to have pancreaticoduodenectomy with portal vein reconstruction on [facility]. Pathology showed pancreatic adenocarcinoma, tumor size [...] on 06/12/2021 showed no significant activity. He was on observation, CT on 01/31/2025 enhancing nodule in the sigmoid colon, increasing left upper lung mass, retroperitoneal nodes. PET CT scan done on 02/22/2025 showed Rectal activity, stable activity in [place] AN[place]. Had Colonoscopy on 04/05/2025 and comes for follow up. Feels well. 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 pulmonary arterial hypertension Obesity Essential (primary) hypertension Bradycardia Atherosclerosis of [place] coronary artery of [place] heart without angina pectoris Hyperlipidemia SUZANNE (obstructive [...] safe at home: Yes Intake Vital Signs 03/09/25 10:14 04/14/25 13:23 Height 5 ft 9 in 5 ft 9 in Weight: 79.379 kg 78.925 kg BMI 25.8 25.7 BP 120/55 L 111/66 Blood Pressure Location Lt brachial Lt brachial Position Sitting Sitting Respiration 18 16 Pulse 46 L 67 Pulse Source Monitor Monitor Temp 97.9 F 99.2 F H Temperature Source Temporal Artery Temporal Artery Pulse Oximetry (%) 100 99 Oxygen Delivery Method room air room air Intake Is patient in pain?: No Allergies mushroom Allergy (Verified 04/14/25 13:31) Hives tetanus and diphtheri (more content not included)... Normal [facility] Oncology Visit Reporton 02-12 Oncology Visit Report [facility] [place] [facility] [place] [address] OFFICE VISIT Date of Service: 03/09/25 1012 MR#: [id number] Acct: [id number] Name: JOSE MANUEL DOMINGUEZ Rep #: [id number] : 1940 From: Pete Monet MD Age/Sex: 84/M Location: [facility] [place] Status: Signed HPI Subjective Date of Service 03/09/25 Chief Complaint F/u for Pancreatic cancer and NSCLC. History of Present Illness 84 year-old man presented with obstructive jaundice in May 2020.??? Abdominal ultrasound on 05/31/2020 showed dilated intrahepatic and common bile duct.??? MRCP on 06/05/2020 showed stricture of common bile duct.??? He had ERCP with stent placement by Dr. Freeman on 06/06/2020 at [place].??? It also showed stricture of the common bile duct, brushing was done and cytology showed atypical cells suspicious for malignancy.??? He was seen by Dr. Sousa in [place], had a CT scan of the chest [...] therapy so was referred for SBRT at [place]. Finished on 09/11/2020. CT chest on 10/26/2020 showed 1.2cm nodule in [place]. He went on to have pancreaticoduodenectomy with portal vein reconstruction on [facility]. Pathology showed pancreatic adenocarcinoma, tumor size [...] on 06/12/2021 showed no significant activity. He was on observation, CT on 01/31/2025 enhancing nodule in the scalp sigmoid colon, increasing left upper lung mass, retroperitoneal nodes. Had a PET CT scan done, comes for follow up after CT. Feels well. 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 pulmonary arterial hypertension Obesity Essential (primary) hypertension Bradycardia Atherosclerosis of [place] coronary artery of [place] heart without angina pectoris Hyperlipidemia SUZANNE (obstructive [...] safe at home: Yes Intake Vital Signs 02/14/25 14:03 03/09/25 10:14 Height 5 ft 9 in 5 ft 9 in Weight: 83.092 kg 79.379 kg BMI 27.0 25.8 BP 110/57 L 120/55 L Blood Pressure Location Lt brachial Lt brachial Position Sitting Sitting Respiration 18 18 Pulse 46 L 46 L Pulse Source Monitor Monitor Temp 98.6 F 97.9 F Temperature Source Temporal Artery Temporal Artery Pulse Oximetry (%) 100 100 Oxygen Delivery Method room air room air Intake Accompanied by: Self Is patient in pain?: No Allergies mushroom Allergy (Verified 03/09/25 10:15) Hives tetanus and diphtheria toxoids (tetanus diphtheria toxoid (more content not included)... Normal [facility] PET/CT Tumor Base -Thigh Sub son 02-22-2025 PET/CT Tumor Base -Thigh Subs [facility] [address] [place] [address] PET/CT Tumor Base -Thigh Subs MR#: [id number] Acct: [id number] Name: JOSE MANUEL DOMINGUEZ Rep #: [id number] : 1940 M 84 From: Abdiel Lu PCP: Dr. Mickey Flores MD Status: REG RCR Study: PET/CT Tumor Base -Thigh Subs Date of Exam: Exam# [id number] Ordering Dr: Pete Monet MD PROCEDURE: PET/CT TUMOR BASE -THIGH SUBS 02/22/2025 REASON FOR EXAM: 84 y/o M with STAGING extrahepatic BILE DUCT cancer AND left upper lobe LUNG cancer. TECHNIQUE: Following the intravenous administration of radionucleotide, image acquisition on a dedicated PET/CT unit was performed at one hour post injection. A preliminary CT study encompassing the Skull base, neck, chest, abdomen, pelvis, and proximal thighs was performed for purposes of attenuation correction and anatomic localization. The proximal thighs were also included. The patient's blood glucose level was 107 mg/dL (allowable range: 50-180 mg/dL). RADIOPHARMACEUTICAL: 13.99 mCi 18F-FDG (Fluorodeoxyglucose F18) IV was injected into he patient. RADIATION DOSE SUMMARY: Effective Dose: Approximately 7 mSv for a standard whole-body PET scan Organ Doses: Varies by organ, with higher doses typically to the bladder, liver, and brain COMPARISON: COMPARISON FROM CT, PET OR OTHER PERTINENT EXAMS: Chest abdomen and pelvis CT of 01/31/2025 and PET-CT of 06/12/2021. FINDINGS: Physiologic uptake: There may be expected metabolic uptake within the brain, tongue and floor of the mouth and larynx/vocal cords, heart, tamera (many normal individuals have hilar uptake in less than 3 nodes with mildly avid hilar nodes less than 2.7 SUV), liver and spleen, system, and GI tract and symmetric muscle uptake. FDG AVID AND NON-AVID LESIONS. Reported avid SUV values (g/mL*) are maximum SUV. NECK: There are no significant neck abnormalities. CHEST: Chest wall- There are no significant chest wall abnormalities. Axilla- There are no significant axillary abnormalities. Lung parenchyma- A left upper lobe nodule is seen, with SUV max of 2.2. This is similar to the comparison CT, and more compact than on the PET-CT of 06/12/2021. Mediastinum- There are no significant hilar or mediastinal adenopathy. Pleura- There are no significant pleural abnormalities. Old granulomatous disease is seen, also involving the spleen. ABDOMEN: Moderate aortic calcification; no evidence of abdominal aortic aneurysm. Stomach- No significant abnormalities. Liver- No significant abnormalities. Spleen- No significant abnormalities. Pancrease- No significant abnormalities. Kidneys- No significant abnormalities. Bowel- Normal bowel activity. Spine- No significant abnormalities. PELVIS: Bowel- Normal physiologic bowel activity is identified. Masses- A hypermetabolic nodule of the left rectal wall is seen with SUV max of 13.3. This is very concerning for malignancy. A 2nd, probable focus of hypermetabolic activity of the superior rectal wall is seen, with SUV max of 10.7. This is concerning for malignancy. Bones- Degenerative changes of the spine are prominently seen. With the use of bone window settings, there are no osteolytic or osteoblastic lesions. There are no FDG avid lesions within the visualized portion of the axial skeleton. PET/PET/CT Tumor Base -Thigh Subs IMPRESSION: FDG avid- 1. Persistent left upper lobe nodule, with borderline metabolic activity. 2. Two rectal wall foci of hypermetabolic activity, concerning for the presence of rectal carcinoma. Other: 1. Moderate aortic calcification; no evidence of abdominal aortic aneurysm. 2. Prominent degenerative changes of the spine. Please note the low-dose CT scan was performed to facilitate PET image reconstruction and anatomic localization and does not replace a diagnostic CT. Any diagnostic CT requested and performed at the time of the PET will be reported separately. Reading Location: [address] CC: Dr. Pete Monet MD; Dr. Mickey Flores MD Manager Engine: Signed Normal [facility] Carbohydrate AG 19-9on 02-16 CA 19-9 28 U/mL Normal 0-35 [facility] Comment on above: Result Comment: [employer] Electrochemiluminescence Immunoassay (ECLIA) Values obtained with different assay methods or kits cannot be used interchangeably. Results cannot be interpreted as absolute evidence of the presence or absence of malignant disease. Performed at: [facility] [address] [id number] Fastener Technologist: Ulises Licea PhD, Phone: [phone] Performed By: #### L 3100.2300, L3135.5028 ####[facility] [id number] [facility]. [facility] [address] Carcinoembryonic Antigenon 0 02-16-2025 CEA 13.6 ng/mL High 0.0-4.7 [facility] Comment on above: Result Comment: Nons mokers <3.9 Smokers <5.6 [facility] [facility] Electrochemiluminescence Immunoassay (ECLIA) Values obtained with different assay methods or kits cannot be used interchangeably. Results cannot be interpreted as absolute evidence of the presence or absence of malignant disease. Performed By: #### L 3100.2300, L3100.5020 ####[facility] [id number] [place], [address] [facility] 02-15-2025 [facility] Telephone (AGGENS3) -- JOSE MANUEL DOMINGUEZ ([id number]) 1940 M Date Time Provider Department 02/15/25 ALFRED JENNA AGGENS3 During your visit today, we recorded the following information about you: Lizzeth Dumont LPN 02/15/2025 10:19 AM Signed Received outside lab results from Dr. Monet, scanned into patients chart under external labs: [facility] Ponce HARKINS Allergies As of Date: 02/15/2025 Noted Allergy Reaction MUSHROOM 03/18/2011 4 - Hives 14 - Other: See Comments POINSETTIAS 03/18/2011 14 - Other: See Comments Comments: Nasal congestion ROSUVASTATIN 04/21/2017 17 - Myalgia TETANUS TOXOID, ADSORBED 03/18/2011 4 - Hives Comments: HORSE TETANUS TETANUS AND DIPHTHERIA TOXOIDS 01/01/2016 4 - Hives Date Reviewed: 03/26/2022 Reviewed by: Carolina Sousa MD - Fully Assessed Reason for Visit: Received Outside Medical Records [[id number]] Prescriptions as of 02/15/2025 - levoFLOXacin (LEVAQUIN) 500 mg tablet - metFORMIN ER (GLUCOPHAGE XR) 750 mg 24 hr tablet Take 750 mg by mouth twice daily. - pantoprazole DR (PROTONIX) 40 mg tablet [...] once daily. 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 Hemoccult Stl Ql IA Limitation: Menstrual bleeding, constipation bleeding, bleeding hemorrhoids, and urinary bleeding conditions may interfere with test. Occult Blood A Positive A OCCULT BLOOD POSITIVE Normal [facility] Comment on above: Performed By: #### M 100.7900 ####[facility] [id number] [place], [address] Stool gastrointestinal hemog lobin detection by immunologic methodOrdered By: Pete Monet on 02-15-2025 Lower GI hemoglobin IA Ql (Stl) Positive Abnormal [facility] CA 19-9 agOrdered By: Pete Monet on 02-14-2025 CA 19-9 ag 28 U/mL 0-35 [facility] Comment on above: [facility] El ectrochemiluminescence Immunoassay(ECLIA)Values obtained with different assay methods or kits cannotbe used interchangeably. Results cannot be interpreted asabsolute evidence of the presence or absence of malignantdisease.Performed at: [facility] [id number] [place], [place] [id number] Director: Ulises Licea PhD, Phone: [phone] Oncology Visit Reporton Oncology Visit Report [facility] [place] [address] OFFICE VISIT Date of Service: 02/14/25 1357 MR#: [id number] Acct: [id number] Name: JOSE MANUEL DOMINGUEZ Rep #: [id number] : 1940 From: Pete Monet MD Age/Sex: 84/M Location: [facility] Status: Signed HPI Subjective Date of Service 02/14/25 Chief Complaint F/u for Pancreatic cancer and NSCLC. History of Present Illness 84 year-old man presented with obstructive jaundice in May 2020.??? Abdominal ultrasound on 05/31/2020 showed dilated intrahepatic and common bile duct.??? MRCP on 06/05/2020 showed stricture of common bile duct.??? He had ERCP with stent placement by Dr. Freeman on 06/06/2020 at [place].??? It also showed stricture of the common bile duct, brushing was done and cytology showed atypical cells suspicious for malignancy.??? He was seen by Dr. Sousa in [place], had a CT scan of the chest [...] therapy so was referred for SBRT at [place]. Finished on 09/11/2020. CT chest on 10/26/2020 showed 1.2cm nodule in [place]. He went on to have pancreaticoduodenectomy with portal vein reconstruction on [facility]. Pathology showed pancreatic adenocarcinoma, tumor size [...] for follow up after CT. Feels well. 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 pulmonary arterial hypertension Obesity Essential (primary) hypertension Bradycardia Atherosclerosis of [place] coronary artery of [place] heart without angina pectoris Hyperlipidemia SUZANNE (obstructive [...] safe at home: Yes Intake Vital Signs 10/28/24 10:04 02/14/25 14:03 Height 5 ft 9 in 5 ft 9 in Weight: 83.092 kg BMI 27.0 BP 110/57 L Blood Pressure Location Lt brachial Position Sitting Respiration 18 Pulse 46 L Pulse Source Monitor Temp 98.6 F Temperature Source Temporal Artery Pulse Oximetry (%) 100 Oxygen Delivery Method room air Intake Accompanied by: Self Is patient in pain?: No Allergies mushroom Allergy (Verified 02/14/25 13:57) Hives tetanus and diphtheria toxoids (tetanus diphtheria toxoids) Allergy (Verified 02/14/25 13:57) Hives atorvastatin (From Lipitor) Adverse Reaction (Unknown, Verified 02/14/25 13:57) Myalgias with 80mg, not 40mg pravastatin Adverse Reaction (Unknown, Verified 02/14/25 13:57) Severe myal (more content not included)... Normal [facility] Serum or plasma carcinoembry onic antigen measurement (mass/volume)Ordered By: Pete Monet on 02-14-2025 Carcinoembryonic Ag [Mass/Vol] 13.6 ng/mL High 0.0-4.7 [facility] Comment on above: Nonsmokers <3.9 Smok ers <5.6[employer] Electrochemiluminescence Immunoassay(ECLIA)Values obtained with different assay methods or kitscannot be used interchangeably. Results cannot beinterpreted as absolute evidence of the presence orabsence of malignant disease. CREATININE FINGERSTICKon CREATININE WB < 1.0 Normal 0.70-1.30 [facility] Comment on above: Performed By: #### L 9100.0200 ####[facility] [address] [place], [place], [address] EGFR WB > 60.0000 Normal >60 [facility] Comment on above: Performed By: #### L 9100.0200 ####[facility] [address] [facility] [place], [address] CT Chest, Abd, Pel w/Contras ton 01-31-2025 CT Chest, Abd, Pel w/Contrast [facility] [address] [place] [address] CT Chest, Abd, Pel w/Contrast MR#: [id number] Acct: [id number] Name: JOSE MANUEL DOMINGUEZ Rep #: [id number] : 1940 M 84 From: Niurka Kenny nd, MD PCP: Dr. Mickey Flores MD Status: REG CLI Study: CT Chest, Abd, Pel w/Contrast Date of Exam: Exam# [id number] Ordering Dr: Pete Monet MD PROCEDURE: CT CHEST, ABD, PEL W/CONTRAST 01/31/2025 REASON FOR EXAM: IV ONLY-HX OF LUNG CA TECHNIQUE: Chest, abdomen and pelvis CT with intravenous contrast. Coronal and Sagittal reconstruction series were provided. One or more dose reduction techniques were used (e.g., Automated exposure control, adjustment of the mA and/or kV according to patient size, use of iterative reconstruction technique. PATIENT PREPARATION: Per protocol ORAL CONTRAST TYPE: None. CONTRAST: Isovue 370 VOLUME: 100mL RADIATION DOSE SUMMARY: DLP: 2300 mGycm COMPARISON: CT chest, abdomen and pelvis 02/05/2024. FINDINGS: CT CHEST: Hardware: None. Lymph nodes: No axillary, mediastinal or hilar lymphadenopathy. Heart and Vasculature: The heart is normal in size without pericardial effusion. The great vessels are normal in caliber. Severe coronary artery calcifications. Mild thoracic aortic calcifications. Lungs and Airways: The central airways are patent. Slight increased size of the left upper lobe pulmonary mass, now measuring 3.0 x 1.8 cm (coronal image 147), previously measuring 2.9 x 1.7 cm when measured in a similar fashion. Slightly increased size/conspicuity of several small ground-glass pulmonary nodules (for example in the right upper lobe series 2, image 38, and right lower lobe series 2, image 84). The right lower lobe ground-glass nodule measures 0.6 cm. No pleural effusion or pneumothorax. Bones/soft tissues: Thoracic spondylosis. Bilateral gynecomastia. CT ABDOMEN/PELVIS: Liver: Normal in size without obvious hepatic mass. The major portal veins are patent. Mild intrahepatic and extrahepatic biliary ductal dilation. Mild left hepatic pneumobilia, unchanged. Gallbladder: Surgically absent. Spleen: Normal in size. Pancreas: Postsurgical changes of prior Whipple procedure. Marked atrophy of the pancreatic body/tail. Subtle soft tissue thickening within the pancreatic head resection bed and surrounding the celiac trunk and origin of the SMA (best visualized on coronal images 57-65). Persistent narrowing of the common hepatic artery off the celiac trunk, with additional subtle surrounding soft tissue thickening (series 3, images 29-30). Visualization for patency of the common hepatic artery is limited by venous phase imaging. Adrenals: No adrenal mass. Kidneys: Bilateral renal cysts and additional hypodensities. No hydronephrosis or nephrolithiasis. Bladder: Incompletely distended with diffuse, marked bladder wall thickening. Reproductive Organs: Dystrophic calcifications within the prostate gland. Bowel: The bowel loops are nondilated. Trace right-sided pelvic ascites, grossly unchanged over several examinations. No pneumoperitoneum. Venous contrast-enhancing mural nodule within the sigmoid colon, measuring 1.6 x 1.9 cm (series 3, image 97). This is retrospectively present on prior examination (see axial image 100 on prior examination). Normal appendix. Lymph nodes: Increased size/conspicuity of numerous central and retroperitoneal lymph nodes, which are technically normal by short axis diameter criteria. Vasculature: Moderate mixed plaque of the aortoiliac vessels. See above for additional vascular findings. Bones: Lumbar spondylosis. CT/CT Chest, Abd, Pel w/Contrast IMPRESSION: CT chest: 1. Slight increased size of the left upper lobe pulmonary mass, compatible with pulmonary neoplasm. 2. Increased size/conspicuity of several right lung ground-glass opacities, most compatible with additional sites of malignancy. These are below the threshold for accurate detection on PET-CT. CT abdomen/pelvis: 1. Postsurgical findings of prior Whipple procedure, with increased soft tissue thickening within the resection bed and surrounding the celiac trunk and SMA, most compatible with recurrent/residual neoplasm. If aggressive treatment pursued, correlation with abdominal MRI and/or PET-CT is recommended. 2. Increased size/conspicuity of numerous central and retroperitoneal nodes, which are technically normal in size by short axis diameter, however given findings in impression #1, are concerning for abisai metastatic disease. See above for follow-up recommendations. 3. Enhancing mural nodule within the sigmoid colon, which is retrospectively present on prior examination (though not present on CT 07/09/2023). Given unchanged location and increased size, this is concerning for col (more content not included)... Normal [facility] Chest PA and Lateralon 01-31 Chest PA and Lateral [facility] [address] [place], [place] [id number] Chest PA and Lateral MR#: [id number] Acct: [id number] Name: JOSE MANUEL DOMINGUEZ Rep #: [id number] : 1940 M 84 From: Francois Chapman MD PCP: Dr. Mickey Flores MD Status: REG CLI Study: Chest PA and Lateral Date of Exam: 01/31/25 Exam# [id number] Ordering Dr: Pete Monet MD PROCEDURE: CHEST PA AND LATERAL 01/31/2025 REASON FOR EXAM: HX OF LUNG CA TECHNIQUE: CHEST PA AND LATERAL COMPARISON: CT 01/31/2025 FINDINGS: Normal heart size, possible LVH. Status post coronary stenting. Well inflated lungs. No consolidation, effusion or pneumothorax. Multiple calcified granulomas and calcified lymph nodes. The left apex, there is a 2 cm rounded opacity, shown on CT to be a spiculated mass. RAD/Chest PA and Lateral IMPRESSION: Left upper lobe spiculated mass as better seen on recent CT. No acute chest findings. Reading Location: [place] [address] CC: Dr. Pete Monet MD; Dr. Mickey Flores MD Manager Engine: Signed Normal [facility] EGFROrdered By: Pete Monet on 01-31-2025 GFR/1.73 sq M.predicted among non-blacks MDRD (S/P/Bld) [Vol rate/Area] mL/min/{1.73_m2} >60 [facility] Carbohydrate AG 19-9on 01-29 CA 19-9 21 U/mL Normal 0-35 [facility] Comment on above: Result Comment: [employer] Electrochemiluminescence Immunoassay (ECLIA) Values obtained with different assay methods or kits cannot be used interchangeably. Results cannot be interpreted as absolute evidence of the presence or absence of malignant disease. Performed at: [address] [id number] Fastener Technologist: Ulises Licea PhD, Phone: [phone] Performed By: #### L 504.2610, L100.0100, L3100.5020, L500.4100, L500.4050 #### [facility] [address] [place], [address] Absolute lymphocyte countOrd ered By: Pete Monet on 01-28-2025 Lymphocytes Auto (Unsp spec) [#/Vol] 0.42 10*3/uL Low 0.83-4.51 [facility] Absolute neutrophil countOrd ered By: Ptee Monet on 01-28-2025 Neutrophils (Bld) [#/Vol] 3.3 10*3/uL 2.0-7.7 [facility] Anion gap in Serum or Plasma Ordered By: Pete Monet on 01-28-2025 Anion gap [Moles/Vol] 10 mmol/L 5-15 [facility] Automated lymphocyte count a s percentage of total leukocytesOrdered By: Pete Monet on 01-28-2025 Lymphocytes/100 WBC Auto (Unsp spec) 10.5 % Low 19-41 [facility] BUN/creatinine ratioOrdered By: [facility] on 01-28-2025 Urea nitrogen/Creatinine [Mass ratio] 21.2 mg/mg High 10-20 [facility] Basophil percentageOrdered B y: Pete Monet on 01-28-2025 Basophils/100 WBC (Bld) 0.2 % 0-1 [facility] Bilirubin, totalOrdered By: Pete Monet on 01-28-2025 Bilirubin [Mass/Vol] 0.67 mg/dL 0.00-1.30 [facility] CA 19-9 agOrdered By: Pete Monet on 01-28-2025 CA 19-9 ag 21 U/mL 0-35 [facility] Comment on above: [facility] El ectrochemiluminescence Immunoassay(ECLIA)Values obtained with different assay methods or kits cannotbe used interchangeably. Results cannot be interpreted asabsolute evidence of the presence or absence of malignantdisease.Performed at: [facility] [id number] Director: Ulises Licea PhD, Phone: [phone] CBC W/Diff, Automatedon 01-11 Absolute Lymph 0.42 X10 3/uL Low 0.83-4.51 [facility] Comment on above: Performed By: #### L 504.2610, L100.0100, L3100.5020, L500.4100, L500.4050 #### [facility] [address] [place], [address] Absolute Neut 3.3 X10 3/uL Normal 2.0-7.7 [facility] Comment on above: Performed By: #### L 504.2610, L100.0100, L3100.5020, L500.4100, L500.4050 #### [facility] [address] [place], [address] Basophils/100 WBC (Bld) 0.2 % Normal 0-1 [facility] Comment on above: Performed By: #### L 504.2610, L100.0100, L3100.5020, L500.4100, L500.4050 #### [facility] [address] [place], [address] Eosinophils/100 WBC (Bld) 0.2 % Normal 0-5 [facility] Comment on above: Performed By: #### L 504.2610, L100.0100, L3100.5020, L500.4100, L500.4050 #### [facility] [address] [place], [address] Erythrocyte distribution width (RBC) [Ratio] 13.8 % Normal 11.6-14.6 [facility] Comment on above: Performed By: #### L 504.2610, L100.0100, L3100.5020, L500.4100, L500.4050 #### [facility] [address] [place], [address] Hematocrit (Bld) [Volume fraction] 31.2 % Low 40-54 [facility] Comment on above: Performed By: #### L 504.2610, L100.0100, L3100.5020, L500.4100, L500.4050 #### [facility] [address] [place], [address] Hemoglobin (Bld) [Mass/Vol] 10.3 g/dL Low 13.0-16.5 [facility] Comment on above: Performed By: #### L 504.2610, L100.0100, L3100.5020, L500.4100, L500.4050 #### [facility] [address] [place], [address] IG% 0.500 Normal 0.0-0.9 [facility] Comment on above: Result Comment: IG% - Immature Granulocytes (promyelocytes, myelocytes and metamyelocytes) > 1% indicates that a LEFT SHIFT is Present. Performed By: #### L 504.2610, L100.0100, L3100.5020, L500.4100, L500.4050 #### [facility] [address] [place], [address] Lymphocytes/100 WBC (Bld) 10.5 % Low 19-41 [facility] Comment on above: Performed By: #### L 504.2610, L100.0100, L3100.5020, L500.4100, L500.4050 #### [facility] [address] [place], [address] MCH (RBC) [Entitic mass] 30.9 pg Normal 27.0-32.0 [facility] Comment on above: Performed By: #### L 504.2610, L100.0100, L3100.5020, L500.4100, L500.4050 #### [facility] [address] [place], [address] MCHC (RBC) [Mass/Vol] 33.0 g/dL Normal 32-36 [facility] Comment on above: Performed By: #### L 504.2610, L100.0100, L3100.5020, L500.4100, L500.4050 #### [facility] [address] [place], [address] MCV (RBC) [Entitic vol] 93.7 fL Normal 80-94 [facility] Comment on above: Performed By: #### L 504.2610, L100.0100, L3100.5020, L500.4100, L500.4050 #### [facility] [address] [place], [address] Monocytes/100 WBC (Bld) 7.5 % Normal 0-10 [facility] Comment on above: Performed By: #### L 504.2610, L100.0100, L3100.5020, L500.4100, L500.4050 #### [facility] [address] [place], [address] Neutrophils/100 WBC (Bld) 81.1 % High 47-70 [facility] Comment on above: Performed By: #### L 504.2610, L100.0100, L3100.5020, L500.4100, L500.4050 #### [facility] [address] [place], [address] Nucleated RBC (Bld) [#/Vol] 0 10*3/uL Normal 0-5 [facility] Comment on above: Performed By: #### L 504.2610, L100.0100, L3100.5020, L500.4100, L500.4050 #### [facility] [address] [place], [address] Platelet mean volume (Bld) [Entitic vol] 9.5 fL Normal 6.2-12.0 [facility] Comment on above: Performed By: #### L 504.2610, L100.0100, L3100.5020, L500.4100, L500.4050 #### [facility] [address] [place], [address] Platelets (Bld) [#/Vol] 121 10*3/uL Low 150-450 [facility] Comment on above: Performed By: #### L 504.2610, L100.0100, L3100.5020, L500.4100, L500.4050 #### [facility] [address] [place], [address] RBC (Bld) [#/Vol] 3.33 10*6/uL Low 4.6-6.2 [facility] Comment on above: Performed By: #### L 504.2610, L100.0100, L3100.5020, L500.4100, L500.4050 #### [facility] [address] [place], [address] RDW SD 46.6 fl High 35.1-43.9 [facility] Comment on above: Performed By: #### L 504.2610, L100.0100, L3100.5020, L500.4100, L500.4050 #### [facility] [address] [place], [address] WBC (Bld) [#/Vol] 4.0 10*3/uL Low 4.4-11.0 [facility] Comment on above: Performed By: #### L 504.2610, L100.0100, L3100.5020, L500.4100, L500.4050 #### [facility] [address] [place], [address] Calculated very low density lipoprotein (VLDL) cholesterol measurementOrdered By: Pete Monet on 01-28-2025 Calculated very low density lipoprotein (VLDL) cholesterol measurement 11 mg/dL 5-40 [facility] Carbon dioxide, total [Moles /volume] in Central venous bloodOrdered By: Pete Monet on 01-28-2025 CO2 [Moles/Vol] 24.8 mmol/L 21.0-32.0 [facility] Chloride assayOrdered By: Sophy Monet on 01-28-2025 Chloride [Moles/Vol] 103 mmol/L 98-108 [facility] Comprehensive Metabolic Prof ilon 01-28-2025 Albumin [Mass/Vol] 3.4 g/dL Normal 3.4-4.8 [facility] Comment on above: Order Comment: DR. Roman COLLINS ORDERED CMP/LIPID Performed By: #### L 504.2610, L100.0100, L3100.5020, L500.4100, L500.4050 #### [facility] [address] [place], [address] Albumin/Globulin [Mass ratio] 1.2 {ratio} Normal 0.9-2.4 [facility] Comment on above: Order Comment: DR. Roman COLLINS ORDERED CMP/LIPID Performed By: #### L 504.2610, L100.0100, L3100.5020, L500.4100, L500.4050 #### [facility] [address] [place], [address] ALK PHOS 286 U/L High 40-129 [facility] Comment on above: Order Comment: DR. Roman COLLINS ORDERED CMP/LIPID Performed By: #### L 504.2610, L100.0100, L3100.5020, L500.4100, L500.4050 #### [facility] [address] [place], [address] ALT [Catalytic activity/Vol] 30 U/L Normal <=46 [facility] Comment on above: Order Comment: DR. Roman COLLINS ORDERED CMP/LIPID Performed By: #### L 504.2610, L100.0100, L3100.5020, L500.4100, L500.4050 #### [facility] [address] [place], [address] AST [Catalytic activity/Vol] 33 U/L Normal <=37 [facility] Comment on above: Order Comment: DR. Roman COLLINS ORDERED CMP/LIPID Performed By: #### L 504.2610, L100.0100, L3100.5020, L500.4100, L500.4050 #### [facility] [address] [place], [address] Bilirubin [Mass/Vol] 0.67 mg/dL Normal 0.00-1.30 [facility] Comment on above: Order Comment: DR. Roman COLLINS ORDERED CMP/LIPID Performed By: #### L 504.2610, L100.0100, L3100.5020, L500.4100, L500.4050 #### [facility] [address] [place], [address] BUN/CRE 21.2 RATIO High 10-20 [facility] Comment on above: Order Comment: DR. Roman COLLINS ORDERED CMP/LIPID Performed By: #### L 504.2610, L100.0100, L3100.5020, L500.4100, L500.4050 #### [facility] [address] [place], [address] Calcium [Mass/Vol] 8.4 mg/dL Normal 7.6-11.0 [facility] Comment on above: Order Comment: DR. Roman COLLINS ORDERED CMP/LIPID Performed By: #### L 504.2610, L100.0100, L3100.5020, L500.4100, L500.4050 #### [facility] [address] [place], [address] Chloride [Moles/Vol] 103 mmol/L Normal 98-108 [facility] Comment on above: Order Comment: DR. Roman COLLINS ORDERED CMP/LIPID Performed By: #### L 504.2610, L100.0100, L3100.5020, L500.4100, L500.4050 #### [facility] [address] [place], [address] CO2 [Moles/Vol] 24.8 mmol/L Normal 21.0-32.0 [facility] Comment on above: Order Comment: DR. Roman COLLINS ORDERED CMP/LIPID Performed By: #### L 504.2610, L100.0100, L3100.5020, L500.4100, L500.4050 #### [facility] [address] [place], [address] Creatinine [Mass/Vol] 1.10 mg/dL Normal 0.70-1.20 [facility] Comment on above: Order Comment: DR. Roman COLLINS ORDERED CMP/LIPID Performed By: #### L 504.2610, L100.0100, L3100.5020, L500.4100, L500.4050 #### [facility] [address] [place], [address] GAP 10 Normal 5-15 [facility] Comment on above: Order Comment: DR. Roman COLLINS ORDERED CMP/LIPID Performed By: #### L 504.2610, L100.0100, L3100.5020, L500.4100, L500.4050 #### [facility] [address] [place], [address] GFR/1.73 sq M.predicted among non-blacks MDRD (S/P/Bld) [Vol rate/Area] 66 mL/min/{1.73_m2} Normal >60 [facility] Comment on above: Order Comment: DR. Roman COLLINS ORDERED CMP/LIPID Result Comment: mL/m in/1.73m2 CKD-EPI Creatinine Equation (2020) Performed By: #### L 504.2610, L100.0100, L3100.5020, L500.4100, L500.4050 #### [facility] [address] [place], [address] Globulin (S) [Mass/Vol] 2.7 g/dL Normal 2.2-4.2 [facility] Comment on above: Order Comment: DR. Roman COLLINS ORDERED CMP/LIPID Performed By: #### L 504.2610, L100.0100, L3100.5020, L500.4100, L500.4050 #### [facility] [address] [place], [address] Glucose [Mass/Vol] 353 mg/dL High 70-99 [facility] Comment on above: Order Comment: DR. Roman COLLINS ORDERED CMP/LIPID Performed By: #### L 504.2610, L100.0100, L3100.5020, L500.4100, L500.4050 #### [facility] [address] [place], [address] Potassium [Moles/Vol] 3.6 mmol/L Normal 3.3-5.1 [facility] Comment on above: Order Comment: DR. Roman COLLINS ORDERED CMP/LIPID Performed By: #### L 504.2610, L100.0100, L3100.5020, L500.4100, L500.4050 #### [facility] [address] [place], [address] Sodium [Moles/Vol] 138 mmol/L Normal 133-145 [facility] Comment on above: Order Comment: DR. Roman COLLINS ORDERED CMP/LIPID Performed By: #### L 504.2610, L100.0100, L3100.5020, L500.4100, L500.4050 #### [facility] [address] [place], [address] T PROT 6.1 g/dL Normal 5.9-8.4 [facility] Comment on above: Order Comment: DR. Roman COLLINS ORDERED CMP/LIPID Performed By: #### L 504.2610, L100.0100, L3100.5020, L500.4100, L500.4050 #### [facility] [address] [place], [address] Urea nitrogen [Mass/Vol] 23 mg/dL High 4-19 [facility] Comment on above: Order Comment: DR. Roman COLLINS ORDERED CMP/LIPID Performed By: #### L 504.2610, L100.0100, L3100.5020, L500.4100, L500.4050 #### [facility] [address] [place], [place], [address] Eosinophil percentageOrdered By: Pete Monet on 01-28-2025 Eosinophils/100 WBC (Bld) 0.2 % 0-5 [facility] Erythrocyte distribution wid th ratioOrdered By: Pete Monet on 01-28-2025 Erythrocyte distribution width (RBC) [Ratio] 13.8 % 11.6-14.6 [facility] Erythrocyte distribution wid th standard deviationOrdered By: Pete Monet on 01-28-2025 Erythrocyte distribution width (RBC) [Ratio] 46.6 fl High 35.1-43.9 [facility] Glomerular filtration rate ( GFR) estimation/1.73 sq m using serum, plasma, or whole bOrdered By: Pete Monet on 01-28-2025 GFR/1.73 sq M.predicted among non-blacks MDRD (S/P/Bld) [Vol rate/Area] 66 mL/min/{1.73_m2} >60 [facility] Comment on above: mL/min/1.73m2 CKD-EP I Creatinine Equation (2020) Hematocrit Auto (Bld) [Volum e fraction]Ordered By: Pete Monet on 01-28-2025 Hematocrit (Bld) [Volume fraction] 31.2 % Low 40-54 [facility] Hemoglobin measurementOrdere d By: Pete Monet on 01-28-2025 Hemoglobin (Bld) [Mass/Vol] 10.3 g/dL Low 13.0-16.5 [facility] Immature granulocytes/100 WB C Auto (Bld)Ordered By: Pete Monet on 01-28-2025 Immature granulocytes/100 WBC (Bld) 0.500 % 0.0-0.9 [facility] Comment on above: IG% - Immature Granu locytes (promyelocytes, myelocytes and metamyelocytes) > 1% indicates that a LEFT SHIFT is Present. LDHon 01-28-2025 LDH 148 U/L Normal 87-241 [facility] Comment on above: Order Comment: DR. Roman COLLINS ORDERED CMP/LIPID 1 Performed By: #### L 504.2610, L100.0100, L3100.5020, L500.4100, L500.4050 #### [facility] [address] [place], [address] LDL calc ser/plasOrdered By: Pete Monet on 01-28-2025 Cholesterol in LDL [Mass/Vol] 17 mg/dL [facility] Comment on above: Cauwgremaa=832-362 m g/dL & Higher Pytw=239 mg/dL or greater Laboratory - Chemistry and C hemistry - challengeOrdered By: Pete Monet on 01-28-2025 AST [Catalytic activity/Vol] 33 U/L <38 [facility] Lactate dehydrogenase (LDH) measurementOrdered By: Pete Moent on 01-28-2025 LDH [Catalytic activity/Vol] 148 U/L 87-241 [facility] Lipid Profileon 01-28-2025 CHOL:HDL 1.66 Normal [facility] Comment on above: Order Comment: DR. Roman COLLINS ORDERED CMP/LIPID Performed By: #### L 504.2610, L100.0100, L3100.5020, L500.4100, L500.4050 #### [facility] [address] [place], [address] Cholesterol [Mass/Vol] 72 mg/dL Normal <=200 [facility] Comment on above: Order Comment: DR. Roman COLLINS ORDERED CMP/LIPID Result Comment: Chol esterol level, Desirable <200 mg/dL Borderline high cholesterol 200-239 mg/dL High cholesterol >=240 mg/dL Recommendations of the NCEP Adult Treatment Panel for the following risk-cutoff thresholds for the [place] population. Performed By: #### L 504.2610, L100.0100, L3100.5020, L500.4100, L500.4050 #### [facility] [address] [place], [address] Cholesterol in HDL [Mass/Vol] 43 mg/dL Normal [facility] Comment on above: Order Comment: DR. Roman COLLINS ORDERED CMP/LIPID Result Comment: Angela onal Cholesterol Education Program (NCEP) guidelines: <40 mg/dL: Low HDL-cholesterol (major risk factor for CHD) >= 60 mg/dL: High HDL-cholesterol (negative risk factor for CHD) HDL-cholesterol is affected by a number of factors, e.g. smoking, exercise, hormones, sex and age. Performed By: #### L 504.2610, L100.0100, L3100.5020, L500.4100, L500.4050 #### [facility] [address] [place], [address] Cholesterol in LDL [Mass/Vol] 17 mg/dL Normal [facility] Comment on above: Order Comment: DR. Roman COLLINS ORDERED CMP/LIPID Result Comment: Bord jvhqzj=893-783 mg/dL Higher Bwti=463 mg/dL or greater Performed By: #### L 504.2610, L100.0100, L3100.5020, L500.4100, L500.4050 #### [facility] [address] [place], [address] Cholesterol in VLDL [Mass/Vol] 11 mg/dL Normal 5-40 [facility] Comment on above: Order Comment: DR. Roman COLLINS ORDERED CMP/LIPID Performed By: #### L 504.2610, L100.0100, L3100.5020, L500.4100, L500.4050 #### [facility] [address] [place], [address] Triglyceride [Mass/Vol] 57 mg/dL Normal [facility] Comment on above: Order Comment: DR. Roman COLLINS ORDERED CMP/LIPID Result Comment: The drugs N-Acetylcysteine and Metamizole may falsely depress this assay. Normal range: <150 mg/dL Borderline High: 150-199 mg/dL High: 200-499 mg/dL Very High: >500 mg/dL Performed By: #### L 504.2610, L100.0100, L3100.5020, L500.4100, L500.4050 #### [facility] [address] [place], [address] MCV (mean corpuscular volume ) determinationOrdered By: Pete Monet on 01-28-2025 MCV (RBC) [Entitic vol] 93.7 fL 80-94 [facility] Mean corpuscular hemoglobin (MCH) determinationOrdered By: Pete Monet on 01-28-2025 MCH (RBC) [Entitic mass] 30.9 pg 27.0-32.0 [facility] Mean corpuscular hemoglobin concentration (MCHC) determinationOrdered By: Pete Monet on 01-28-2025 MCHC (RBC) [Mass/Vol] 33.0 g/dL 32-36 [facility] Mean platelet volume determi nationOrdered By: Pete Monet on 01-28-2025 Platelet mean volume (Bld) [Entitic vol] 9.5 fL 6.2-12.0 [facility] Monocyte percentageOrdered B y: Pete Monet on 01-28-2025 Monocytes/100 WBC (Bld) 7.5 % 0-10 [facility] Neutrophil percentageOrdered By: Pete Monet on 01-28-2025 Neutrophils/100 WBC (Bld) 81.1 % High 47-70 [facility] Nucleated red blood cell per centageOrdered By: Pete Monet on 01-28-2025 Nucleated RBC/100 WBC (Bld) [Ratio] 0 % 0-5 [facility] Platelet countOrdered By: Sophy Monet on 01-28-2025 Platelets (Bld) [#/Vol] 121 10*3/uL Low 150-450 [facility] Potassium measurement (mass/ volume)Ordered By: Pete Monet on 01-28-2025 Potassium (Unsp spec) [Mass/Vol] 3.6 mmol/L 3.3-5.1 [facility] RBC Auto (Bld) [#/Vol]Ordere d By: Pete Monet on 01-28-2025 RBC (Bld) [#/Vol] 3.33 10*6/uL Low 4.6-6.2 [facility] Screening total cholesterol/ high density lipoprotein (HDL) cholesterol ratioOrdered By: Pete Monet on 01-28-2025 Cholesterol.total/Chol esterol in HDL [Mass ratio] 1.66 {ratio} [facility] Serum creatinine measurement (mass/volume)Ordered By: Pete Monet on 01-28-2025 Creatinine [Mass/Vol] 1.10 mg/dL 0.70-1.20 [facility] Serum globulin measurementOr dered By: Pete Monet on 01-28-2025 Globulin (S) [Mass/Vol] 2.7 g/dL 2.2-4.2 [facility] Serum glucose measurement (m ass/volume)Ordered By: Pete Monet on 01-28-2025 Glucose [Mass/Vol] 353 mg/dL High 70-99 [facility] Serum or plasma alanine hicks otransferase (ALT) measurementOrdered By: Pete Monet on 01-28-2025 ALT [Catalytic activity/Vol] 30 U/L <47 [facility] Serum or plasma albumin koby urement (mass/volume)Ordered By: Pete Monet on 01-28-2025 Albumin [Mass/Vol] 3.4 g/dL 3.4-4.8 [facility] Serum or plasma albumin/glob ulin mass ratioOrdered By: Pete Monet on 01-28-2025 Albumin/Globulin [Mass ratio] 1.2 {ratio} 0.9-2.4 [facility] Serum or plasma alkaline hui sphatase measurementOrdered By: Pete Monet on 01-28-2025 ALP [Catalytic activity/Vol] 286 U/L High 40-129 [facility] Serum or plasma calcium koby urement (mass/volume)Ordered By: Pete Monet on 01-28-2025 Calcium [Mass/Vol] 8.4 mg/dL 7.6-11.0 [facility] Serum or plasma cholesterol in HDL measurement (mass/volume)Ordered By: Pete Monet on 01-28-2025 Cholesterol in HDL [Mass/Vol] 43 mg/dL >40 [facility] Comment on above: National Cholesterol Education Program (NCEP) guidelines:<40 mg/dL: Low HDL-cholesterol (major risk factor for CHD)>= 60 mg/dL: High HDL-cholesterol (negative risk factor for CHD)HDL-cholesterol is affected by a number of factors, e.g. smoking, exercise, hormones, sex and age. Serum or plasma cholesterol measurement (mass/volume)Ordered By: Pete Monet on 01-28-2025 Cholesterol [Mass/Vol] 72 mg/dL <201 [facility] Comment on above: Cholesterol level, D esirable <200 mg/dLBorderline high cholesterol 200-239 mg/dLHigh cholesterol >=240 mg/dLRecommendations of the NCEP Adult Treatment Panel for the following risk-cutoff thresholds for the [place] population. Serum or plasma urea nitroge n measurement (mass/volume)Ordered By: Pete Monet on 01-28-2025 Urea nitrogen [Mass/Vol] 23 mg/dL High 4-19 [facility] Sodium levelOrdered By: Ramsey Monet on 01-28-2025 Sodium [Moles/Vol] 138 mmol/L 133-145 [facility] Total proteinOrdered By: Kodi Monet on 01-28-2025 Protein [Mass/Vol] 6.1 g/dL 5.9-8.4 [facility] Triglycerides measurementOrd ered By: Pete Monet on 01-28-2025 Triglyceride [Mass/Vol] 57 mg/dL <199 [facility] Comment on above: The drugs N-Acetylcy steine and Metamizole may falsely depress this assay. Normal range: <150 mg/dLBorderline High: 150-199 mg/dLHigh: 200-499 mg/dLVery High: >500 mg/dL White blood cell (WBC) count Ordered By: Pete Monet on 01-28-2025 WBC (Bld) [#/Vol] 4.0 10*3/uL Low 4.4-11.0 [facility] Cardiology Visit Reporton Cardiology Visit Report [facility] [address] [place] [address] OFFICE VISIT Date of Service: 10/28/24 MR#: [id number] Acct: [id number] Name: JOSE MANUEL DOMINGUEZ Rep #: [id number] : 1940 Provider: BELEN chavez Age/Sex: 84/M Location: [facility] [place] Status: Signed HPI HPI History of Present Illness Details: JOSE MANUEL DOMINGUEZ, is a 84 M who presents to the office today for a cardiovascular outpatient follow-up. He has a history of coronary artery disease status post rotational atherectomy, balloon angioplasty, and stent placement to LAD in December 2016 at [facility]. He also has a history of [...] just passed this week. 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 Is patient in pain?: No [...] Medical History (Reviewed 10/28/24 @ 10:23 by Crsitin Aguilar [employer], [employer]) Paronychia of left middle finger NSCLC of left lung Uses continuous positive airway pressure (CPAP) ventilation at home Nasal polyps Pilonidal cyst Hepatomegaly Jaundice Diabetes mellitus type II, controlled, with no complications 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 pulmonary arterial hypertension Obesity Essential (primary) hypertension Bradycardia Atherosclerosis of [place] coronary artery of [place] heart without angina pectoris Hyperlipidemia SUZANNE (obstructive sleep apnea) Surgical History (Reviewed 10/28/24 @ 10:23 by Cristin Aguilar [employer], [employer]) History of common bile duct surgery History of lung biopsy History of biliary duct stent placement H/O endoscopy Hx of nasal polypectomy History of coronary artery stent placement (01/01/17) H/O right knee surgery History of left heart catheterization (12/30/16) Family History (Reviewed 10/28/24 @ 10:23 by Cristin Aguilar [employer], [employer]-C) Mother CAD (coronary artery disease) Hypertension CHF (congestive heart failure) Sister AML (acute myeloid leukemia) Social History (Reviewed 10/28/24 @ 10:23 by Cristin Aguilar [employer], [employer]) Smoking Status: Former smoker Tobacco: How many years used: 60 how long ago did patient quit smokin second hand exposure: No alcohol intake: current alcohol intake frequency: a few times a week Alcohol type (more content not included)... Normal [facility] Comprehensive Metabolic Prof ilon 07-30-2024 Albumin [Mass/Vol] 2.8 g/dL Low 3.2-5.0 [facility] Comment on above: Performed By: #### L 500.4050, L500.4100, L501.0900 ####[facility] [address] [place], [address] Albumin/Globulin [Mass ratio] 0.9 {ratio} Normal 0.9-2.4 [facility] Comment on above: Performed By: #### L 500.4050, L500.4100, L501.0900 ####[facility] [address] [place], [address] ALK P 148 U/L High 45-117 [facility] Comment on above: Performed By: #### L 500.4050, L500.4100, L501.0900 ####[facility] [address] [place], [address] ALT [Catalytic activity/Vol] 49 U/L Normal 16-61 [facility] Comment on above: Performed By: #### L 500.4050, L500.4100, L501.0900 ####[facility] [address] [place], [address] AST [Catalytic activity/Vol] 39 U/L High 15-37 [facility] Comment on above: Performed By: #### L 500.4050, L500.4100, L501.0900 ####[facility] [address] [place], [address] Bilirubin [Mass/Vol] 0.90 mg/dL Normal 0.20-1.00 [facility] Comment on above: Result Comment: For patients on eltrombopag therapy, use of Dimension [place] TBIL is not recommended. Performed By: #### L 500.4050, L500.4100, L501.0900 ####[facility] [address] [place], [address] BUN/CRE 21.0 RATIO High 10-20 [facility] Comment on above: Performed By: #### L 500.4050, L500.4100, L501.0900 ####[facility] [address] [place], [address] CA,Total 7.8 mg/dL Low 8.5-10.1 [facility] Comment on above: Performed By: #### L 500.4050, L500.4100, L501.0900 ####[facility] [address] [place], [address] Chloride [Moles/Vol] 109 mmol/L High 98-107 [facility] Comment on above: Performed By: #### L 500.4050, L500.4100, L501.0900 ####[facility] [address] [place], [address] CO2 [Moles/Vol] 26.0 mmol/L Normal 21.0-32.0 [facility] Comment on above: Performed By: #### L 500.4050, L500.4100, L501.0900 ####[facility] [address] [place], [address] Creatinine [Mass/Vol] 1.05 mg/dL Normal 0.70-1.30 [facility] Comment on above: Result Comment: The validity of the calculated GFR GFRAA in patients over 70 years has not been determined. Clinical correlation is essential. Performed By: #### L 500.4050, L500.4100, L501.0900 ####[facility] [address] [place], [address] EST GFR - AA 86 mL/min Normal >60 [facility] Comment on above: Result Comment: Afri can [place] GFR Calc Performed By: #### L 500.4050, L500.4100, L501.0900 ####[facility] [address] [place], [address] GAP 5 Normal 5-15 [facility] Comment on above: Performed By: #### L 500.4050, L500.4100, L501.0900 ####[facility] [address] [place], [address] GFR/1.73 sq M.predicted among non-blacks MDRD (S/P/Bld) [Vol rate/Area] 71 mL/min/{1.73_m2} Normal >60 [facility] Comment on above: Result Comment: Non- GFR Calc Performed By: #### L 500.4050, L500.4100, L501.0900 ####[facility] [address] [place], [address] Globulin (S) [Mass/Vol] 3.1 g/dL Normal 2.2-4.2 [facility] Comment on above: Performed By: #### L 500.4050, L500.4100, L501.0900 ####[facility] [address] [place], [address] Glucose [Mass/Vol] 199 mg/dL High 74-106 [facility] Comment on above: Result Comment: Fast ing Glucose result greater than or equal to 126 mg/dL suggests DIABETES MELLITUS per A.D.A. criteria. Performed By: #### L 500.4050, L500.4100, L501.0900 ####[facility] [address] [place], [address] Potassium [Moles/Vol] 3.8 mmol/L Normal 3.5-5.1 [facility] Comment on above: Performed By: #### L 500.4050, L500.4100, L501.0900 ####[facility] [address] [place], [address] Sodium [Moles/Vol] 140 mmol/L Normal 136-145 [facility] Comment on above: Performed By: #### L 500.4050, L500.4100, L501.0900 ####[facility] [id number] [place], [address] T PROT 5.9 g/dL Low 6.4-8.2 [facility] Comment on above: Performed By: #### L 500.4050, L500.4100, L501.0900 ####[facility] [address] [place], [address] Urea nitrogen [Mass/Vol] 22 mg/dL High 7-18 [facility] Comment on above: Performed By: #### L 500.4050, L500.4100, L501.0900 ####[facility] [address] [place], [address] Lipid Profileon 07-30-2024 Cholesterol [Mass/Vol] 112 mg/dL Normal 200 [facility] Comment on above: Result Comment: <200 mg/dL Desirable 200-240 mg/dL Borderline >240 mg/dL High Risk Performed By: #### L 500.4050, L500.4100, L501.0900 ####[facility] [address] [place], [address] Cholesterol in HDL [Mass/Vol] 59 mg/dL Normal [facility] Comment on above: Result Comment: The drugs N-Acetylcysteine and Metamizole may falsely depress this assay. Reference Range HDL <40 mg/dL Low HDL Cholesterol HDL >or= 60 mg/dL High HDL Cholesterol Performed By: #### L 500.4050, L500.4100, L501.0900 ####[facility] [address] [place], [address] Cholesterol in LDL [Mass/Vol] 45 mg/dL Normal 0-130 [facility] Comment on above: Performed By: #### L 500.4050, L500.4100, L501.0900 ####[facility] [address] [place], [address] Cholesterol in VLDL [Mass/Vol] 8 mg/dL Normal 5-40 [facility] Comment on above: Performed By: #### L 500.4050, L500.4100, L501.0900 ####[facility] [address] [place], [address] Triglyceride [Mass/Vol] 39 mg/dL Normal [facility] Comment on above: Result Comment: The drugs N-Acetylcysteine and Metamizole may falsely depress this assay. Serum Triglycerides Reference Interval Normal <150 mg/dL Borderline high 150 - 199 mg/dL High 200 - 499 mg/dL Very High > or = 500 mg/dL Performed By: #### L 500.4050, L500.4100, L501.0900 ####[facility] [id number] [place], [address] Protein+Creatinine Ratio,Uri neon 07-30-2024 PROT:CRE RATIO 394 mg/g CRE High 0-200 [facility] Comment on above: Performed By: #### L 500.4050, L500.4100, L501.0900 #### [facility] [address] [place], [address] Protein (U) [Mass/Vol] 9.8 mg/dL Normal <11.9 [facility] Comment on above: Performed By: #### L 500.4050, L500.4100, L501.0900 #### [facility] [address] [place], [address] UR CREAT 24.90 mg/dL Normal NO RANGE EST. [facility] Comment on above: Performed By: #### L 500.4050, L500.4100, L501.0900 #### [facility] [address] [place], [address] Absolute lymphocyte countOrd ered By: Pete Monet on 02-02-2024 Lymphocytes Auto (Unsp spec) [#/Vol] 0.43 10*3/uL Low 0.83-4.51 [facility] Absolute neutrophil countOrd ered By: Pete Monet on 02-02-2024 Neutrophils (Bld) [#/Vol] 2.3 10*3/uL 2.0-7.7 [facility] Alanine aminotransferase (AL T) assayOrdered By: Pete Tierney on 02-02-2024 ALT [Catalytic activity/Vol] 90 U/L High 16-61 [facility] Albumin to globulin ratioOrd ered By: Pete Monet on 02-02-2024 Albumin/Globulin [Mass ratio] 1.0 {ratio} 0.9-2.4 [facility] Alkaline phosphataseOrdered By: Pete Monet on 02-02-2024 ALP [Catalytic activity/Vol] 223 U/L High 45-117 [facility] Automated lymphocyte count a s percentage of total leukocytesOrdered By: Pete Monet on 02-02-2024 Lymphocytes/100 WBC Auto (Unsp spec) 14.6 % Low 19-41 [facility] Basophil percentageOrdered B y: Pete Monet on 02-02-2024 Basophils/100 WBC (Bld) 0.7 % 0-1 [facility] Bilirubin Test strip Ql (U)O rdered By: Pete Monet on 02-02-2024 Bilirubin Ql (U) Negative Negative [facility] Bilirubin, totalOrdered By: Pete Monet on 02-02-2024 Bilirubin [Mass/Vol] 1.00 mg/dL 0.20-1.00 [facility] Comment on above: For patients on eltr ombopag therapy, use of Dimension [place] TBIL is not recommended. Blood urea nitrogen (BUN)/cr eatinine ratioOrdered By: Pete Monet on 02-02-2024 Urea nitrogen/Creatinine [Mass ratio] 18.3 mg/mg 10-20 [facility] Carbon dioxide measurementOr dered By: Pete Monet on 02-02-2024 CO2 [Moles/Vol] 28.0 mmol/L 21.0-32.0 [facility] Chloride measurementOrdered By: Pete Monet on 02-02-2024 Chloride [Moles/Vol] 105 mmol/L 98-107 [facility] Cholesterol measurementOrder ed By: Pete Monet on 02-02-2024 Cholesterol [Mass/Vol] 84 mg/dL <200 [facility] Comment on above: <200 mg/dL Desirable 200-240 mg/dL Borderline >240 mg/dL High Risk Eosinophil percentageOrdered By: Pete Monet on 02-02-2024 Eosinophils/100 WBC (Bld) 0.3 % 0-5 [facility] Erythrocyte distribution wid th ratioOrdered By: Pete Monet on 02-02-2024 Erythrocyte distribution width (RBC) [Ratio] 13.2 % 11.6-14.6 [facility] Erythrocyte distribution wid th standard deviationOrdered By: Pete Monet on 02-02-2024 Erythrocyte distribution width (RBC) [Ratio] 47.1 fl High 35.1-43.9 [facility] Glomerular filtration rate ( GFR) estimationOrdered By: Pete Monet on 02-02-2024 GFR/1.73 sq M.predicted among non-blacks MDRD (S/P/Bld) [Vol rate/Area] 61 mL/min/{1.73_m2} >60 [facility] Comment on above: Non- GFR Calc Glucose measurementOrdered B y: Pete Monet on 02-02-2024 Glucose [Mass/Vol] 218 mg/dL High 74-106 [facility] Comment on above: Glucose result great er than or equal to 200 mg/dLsuggests DIABETES MELLITUS per A.D.A. criteria. Hematocrit Auto (Bld) [Volum e fraction]Ordered By: Pete Monet on 02-02-2024 Hematocrit (Bld) [Volume fraction] 36.0 % Low 40-54 [facility] Hemoglobin measurementOrdere d By: Pete Monet on 02-02-2024 Hemoglobin (Bld) [Mass/Vol] 11.7 g/dL Low 13.0-16.5 [facility] High density lipoprotein (HD L) measurementOrdered By: Pete Monet on 02-02-2024 Cholesterol in HDL [Mass/Vol] 55 mg/dL >40 [facility] Comment on above: The drugs N-Acetylcy steine and Metamizole may falsely depress this assay. Reference Range HDL <40 mg/dL Low HDL Cholesterol HDL >or= 60 mg/dL High HDL Cholesterol Immature granulocytes/100 WB C Auto (Bld)Ordered By: Pete Monet on 02-02-2024 Immature granulocytes/100 WBC (Bld) 0.300 % 0.0-0.9 [facility] Comment on above: IG% - Immature Granu locytes (promyelocytes, myelocytes and metamyelocytes) > 1% indicates that a LEFT SHIFT is Present. Ketones Test strip Ql (U)Ord ered By: Ptee Monet on 02-02-2024 Ketones Ql (U) Negative Negative [facility] Laboratory - Chemistry and C hemistry - challengeOrdered By: Pete Monet on 02-02-2024 AST [Catalytic activity/Vol] 69 U/L High 15-37 [facility] Lactate dehydrogenase (LDH) measurementOrdered By: Pete Monet 02-02-2024 LDH [Catalytic activity/Vol] 198 U/L 87-241 [facility] Low density lipoprotein (LDL ) cholesterol measurementOrdered By: Pete Monet on 02-02-2024 Cholesterol in LDL [Mass/Vol] 17 mg/dL 0-130 [facility] MCV (mean corpuscular volume ) determinationOrdered By: Pete Monet on 02-02-2024 MCV (RBC) [Entitic vol] 97.6 fL High 80-94 [facility] Mean corpuscular hemoglobin (MCH) determinationOrdered By: Pete Monet 02-02-2024 MCH (RBC) [Entitic mass] 31.7 pg 27.0-32.0 [facility] Mean corpuscular hemoglobin concentration (MCHC) determinationOrdered By: Pete Monet on 02-02-2024 MCHC (RBC) [Mass/Vol] 32.5 g/dL 32-36 [facility] Mean platelet volume determi nationOrdered By: Pete Monet on 02-02-2024 Platelet mean volume (Bld) [Entitic vol] 9.1 fL 6.2-12.0 [facility] Microscopic analysis of urin e for red blood cells (RBC)Ordered By: Pete Monet on 02-02-2024 Microscopic analysis of urine for red blood cells (RBC) 0 SEEN /hpf 0-5 [facility] Monocyte percentageOrdered B y: Pete Monet on 02-02-2024 Monocytes/100 WBC (Bld) 6.4 % 0-10 [facility] Mucus LM Ql (Urine sed)Order ed By: Pete Monet on 02-02-2024 Mucus Ql (Urine sed) 0 SEEN /hpf [facility] Neutrophil percentageOrdered By: Pete Monet on 02-02-2024 Neutrophils/100 WBC (Bld) 77.7 % High 47-70 [facility] Nitrite Test strip Ql (U)Ord ered By: Pete Monet on 02-02-2024 Nitrite Ql (U) Negative Negative [facility] Nucleated red blood cell per centageOrdered By: Pete Monet on 02-02-2024 Nucleated RBC/100 WBC (Bld) [Ratio] 0 % 0-5 [facility] Platelet countOrdered By: Sophy Monet on 02-02-2024 Platelets (Bld) [#/Vol] 101 10*3/uL Low 150-450 [facility] Potassium measurementOrdered By: Pete Monet on 02-02-2024 Potassium [Moles/Vol] 3.7 mmol/L 3.5-5.1 [facility] Protein Test strip Ql (U)Ord ered By: Pete Monet on 02-02-2024 Protein Ql (U) 15 mg/dl High Negative [facility] RBC Auto (Bld) [#/Vol]Ordere d By: Pete Monet on 02-02-2024 RBC (Bld) [#/Vol] 3.69 10*6/uL Low 4.6-6.2 [facility] Serum albumin measurementOrd ered By: Pete Monet on 02-02-2024 Albumin [Mass/Vol] 3.0 g/dL Low 3.2-5.0 [facility] Serum anion gap measurementO rdered By: Pete Monet on 02-02-2024 Anion gap [Moles/Vol] 6 mmol/L 5-15 [facility] Serum globulin measurementOr dered By: Pete Monet on 02-02-2024 Globulin (S) [Mass/Vol] 2.9 g/dL 2.2-4.2 [facility] Serum or plasma calcium koby urement (mass/volume)Ordered By: Pete Monet on 02-02-2024 Calcium [Mass/Vol] 8.3 mg/dL Low 8.5-10.1 [facility] Serum or plasma creatinine m easurement (mass/volume)Ordered By: Pete Monet on 02-02-2024 Creatinine [Mass/Vol] 1.20 mg/dL 0.70-1.30 [facility] Comment on above: The validity of the calculated GFR & GFRAA in patients over 70 years has not been determined. Clinical correlation is essential. Serum or plasma urea nitroge n measurement (mass/volume)Ordered By: Pete Monet on 02-02-2024 Urea nitrogen [Mass/Vol] 22 mg/dL High 7-18 [facility] Sodium levelOrdered By: Ramsey Monet on 02-02-2024 Sodium [Moles/Vol] 139 mmol/L 136-145 [facility] Squamous epithelial cells de tection in urine sediment by light microscopyOrdered By: Pete Monte on 02-02-2024 Epithelial cells.squamous LM Ql (Urine sed) 0 SEEN /hpf 0-5 [facility] Total proteinOrdered By: Kodi Monet on 02-02-2024 Protein [Mass/Vol] 5.9 g/dL Low 6.4-8.2 [facility] Triglycerides measurementOrd ered By: Pete Monet on 02-02-2024 Triglyceride [Mass/Vol] 58 mg/dL <199 [facility] Comment on above: The drugs N-Acetylcy steine and Metamizole may falsely depress this assay.Serum Triglycerides Reference Interval Normal <150 mg/dL Borderline high 150 - 199 mg/dL High 200 - 499 mg/dL Very High > or = 500 mg/dL Urine clarityOrdered By: Kodi Monet on 02-02-2024 Clarity (U) Clear Clear [facility] Urine color determinationOrd ered By: Pete Monet on 02-02-2024 Color (U) Yellow Yellow [facility] Urine glucose detectionOrder ed By: Pete Monet on 02-02-2024 Glucose Ql (U) Normal mg/dl Normal [facility] Urine leukocyte esterase det ection by dipstickOrdered By: Pete Monet on 02-02-2024 Leukocyte esterase Test strip Ql (U) Negative Negative [facility] Urine pHOrdered By: Pete longoria on 02-02-2024 pH (U) 6.0 [pH] 5.0 - 8.0 [facility] Urine sediment bacteria coun t by microscopy (number/high power field)Ordered By: Pete Monet on 02-02-2024 Bacteria LM.HPF (Urine sed) [#/Area] 0 /[HPF] None Seen [facility] Urine specific gravity measu rementOrdered By: Pete Monet on 02-02-2024 Specific gravity (U) [Rel density] 1.010 1.002-1.030 [facility] Urine urobilinogen measureme ntOrdered By: Pete Monet on 02-02-2024 Urobilinogen Ql (U) Normal mg/dl Normal [facility] Very low density lipoprotein (VLDL) cholesterol measurementOrdered By: Pete Monet on 02-02-2024 Very low density lipoprotein (VLDL) cholesterol measurement 12 mg/dL 5-40 [facility] White blood cell (WBC) count Ordered By: Pete Monet on 02-02-2024 WBC (Bld) [#/Vol] 3.0 10*3/uL Low 4.4-11.0 [facility] White blood cell countOrdere d By: Pete Monet on 02-02-2024 White blood cell count 0 SEEN /hpf 0-5 [facility] Basophil percentageOrdered B y: Pete Monet on 07-09-2023 Creatinine [Mass/Vol] 1.2 mg/dL 0.70-1.30 [facility] No Panel InformationOrdered By: Pete Monet on 07-09-2023 Bedside Estimated GFR (eGFR) > 60.0000 mL/min >60 [facility] Absolute lymphocyte countOrd ered By: Pete Tierney on 07-08-2023 Lymphocytes Auto (Unsp spec) [#/Vol] 0.44 10*3/uL 0.83-4.51 [facility] Basophil percentageOrdered B y: Pete Monte on 07-08-2023 Basophils/100 WBC (Bld) 0.6 % 0-1 [facility] Bilirubin [Mass/Vol] 0.90 mg/dL 0.20-1.00 [facility] Comment on above: For patients on eltr ombopag therapy, use of Dimension [place] TBIL is not recommended. Chloride [Moles/Vol] 108 mmol/L 98-107 [facility] Eosinophils/100 WBC (Bld) 2.2 % 0-5 [facility] Glucose [Mass/Vol] 266 mg/dL 74-106 [facility] Comment on above: Glucose result great er than or equal to 200 mg/dLsuggests DIABETES MELLITUS per A.D.A. criteria. LDH [Catalytic activity/Vol] 191 U/L 87-241 [facility] Neutrophils (Bld) [#/Vol] 2.8 10*3/uL 2.0-7.7 [facility] Neutrophils/100 WBC (Bld) 77.3 % 47-70 [facility] Potassium [Moles/Vol] 3.6 mmol/L 3.5-5.1 [facility] Protein [Mass/Vol] 5.8 g/dL 6.4-8.2 [facility] Sodium [Moles/Vol] 139 mmol/L 136-145 [facility] WBC (Bld) [#/Vol] 3.6 10*3/uL 4.4-11.0 [facility] Blood erythrocytes count (nu mber/volume)Ordered By: Pete Monet on 07-08-2023 RBC (Bld) [#/Vol] 3.72 10*6/uL 4.6-6.2 [facility] Blood hemoglobin measurement (mass/volume)Ordered By: Pete Monet on 07-08-2023 Hemoglobin (Bld) [Mass/Vol] 11.8 g/dL 13.0-16.5 [facility] Blood lymphocytes/100 leukoc ytesOrdered By: Pete Monet on 07-08-2023 Lymphocytes/100 WBC (Bld) 12.3 % 19-41 [facility] Blood manual differential co mment interpretation (narrative result)Ordered By: Pete Monet on 07-08-2023 Manual differential comment [place] (Bld) [Interp] SCANNED [facility] Blood monocytes/100 leukocyt esOrdered By: Pete Monet on 07-08-2023 Monocytes/100 WBC (Bld) 7.3 % 0-10 [facility] Blood platelet mean volumeOr dered By: Pete Monet on 07-08-2023 Platelet mean volume (Bld) [Entitic vol] 9.8 fL 6.2-12.0 [facility] Determination of erythrocyte mean corpuscular volume (MCV)Ordered By: Pete Monet on 07-08-2023 MCV (RBC) [Entitic vol] 98.7 fL 80-94 [facility] Hematocrit Auto (Bld) [Volum e fraction]Ordered By: Pete Monet on 07-08-2023 Hematocrit (Bld) [Volume fraction] 36.7 % 40-54 [facility] Laboratory - Chemistry and C hemistry - challengeOrdered By: Pete Monet on 07-08-2023 ALP [Catalytic activity/Vol] 114 U/L 45-117 [facility] ALT [Catalytic activity/Vol] 90 U/L 16-61 [facility] CO2 [Moles/Vol] 27.0 mmol/L 21.0-32.0 [facility] Globulin (S) [Mass/Vol] 2.8 g/dL 2.2-4.2 [facility] Urea nitrogen/Creatinine [Mass ratio] 17.6 mg/mg 10-20 [facility] - Hematology and Cell countsOrdered By: Pete Monet on 07-08-2023 Erythrocyte distribution width (RBC) [Entitic vol] 47.3 fL 35.1-43.9 [facility] Erythrocyte distribution width (RBC) [Ratio] 13.1 % 11.6-14.6 [facility] Immature granulocytes/100 WBC (Bld) 0.300 % 0.0-0.9 [facility] Comment on above: IG% - Immature Granu locytes (promyelocytes, myelocytes and metamyelocytes) > 1% indicates that a LEFT SHIFT is Present. MCH (RBC) [Entitic mass] 31.7 pg 27.0-32.0 [facility] Nucleated RBC/100 WBC (Bld) [Ratio] 0 % 0-5 [facility] MCHC Auto (RBC) [Mass/Vol]Or dered By: Pete Monet on 07-08-2023 MCHC (RBC) [Mass/Vol] 32.2 g/dL 32-36 [facility] No Panel InformationOrdered By: Pete Monet on 07-08-2023 CA 19-9 Antigen 12 U/mL 0-35 [facility] Comment on above: [facility] El ectrochemiluminescence Immunoassay(ECLIA)Values obtained with different assay methods or kits cannotbe used interchangeably. Results cannot be interpreted asabsolute evidence of the presence or absence of malignantdisease.Performed at: [facility] [id number] Director: Ulises Licea PhD, Phone: [phone] Estimated Creatinine Clearance Calc 47.03 ml/min [facility] Estimated GFR (MDRD) Amer 75 mL/min >60 [facility] Comment on above: GFR Calc Estimated GFR (MDRD) Non-Af Amer 62 mL/min >60 [facility] Comment on above: Non- GFR Calc Platelets bldOrdered By: Kodi Monet on 07-08-2023 Platelets (Bld) [#/Vol] 97 10*3/uL 150-450 [facility] Review by pathologistOrdered By: Pete Monet on 07-08-2023 Pathologist review [place] (Unsp spec) [Interp] Reviewed [facility] Comment on above: Previous reported re sult: Jasmyne ozuna Edited by: RGOJAYCEE on 07/09/23:1321Pancytopenia.Leukopenia Macrocytic anemia.ThrombocytopeniaClinical correlation necessary.Kenn Leach M.D. 07/09/23 AMENDED REPORT 07/09/23 1321 PATH REV previously reported as: Jasmyne ozuna Serum or plasma albumin koby urement (mass/volume)Ordered By: Pete Monet on 07-08-2023 Albumin [Mass/Vol] 3.0 g/dL 3.2-5.0 [facility] Serum or plasma albumin/glob ulin mass ratioOrdered By: Pete Monet on 07-08-2023 Albumin/Globulin [Mass ratio] 1.1 {ratio} 0.9-2.4 [facility] Serum or plasma calcium koby urement (mass/volume)Ordered By: Pete Monet on 07-08-2023 Calcium [Mass/Vol] 8.2 mg/dL 8.5-10.1 [facility] Serum or plasma creatinine m easurement (mass/volume)Ordered By: Pete Monet on 07-08-2023 Creatinine [Mass/Vol] 1.19 mg/dL 0.70-1.30 [facility] Comment on above: The validity of the calculated GFR & GFRAA in patients over 70 years has not been determined. Clinical correlation is essential. Serum or plasma urea nitroge n measurement (mass/volume)Ordered By: Pete Monet on 07-08-2023 Urea nitrogen [Mass/Vol] 21 mg/dL 7-18 [facility] Thin prep Papanicolaou smear with manual screeningOrdered By: [facility] on 07-08-2023 Thin prep Papanicolaou smear with manual screening 106 U/L 15-37 [facility] Thin prep Papanicolaou smear with manual screening 4 5-15 [facility] Absolute lymphocyte countOrd ered By: Pete Monet on 01-06-2023 Lymphocytes Auto (Unsp spec) [#/Vol] 0.53 10*3/uL 0.83-4.51 [facility] Basophil percentageOrdered B y: Pete Monet on 01-06-2023 Basophil percentage < 0.9 mg/dL 0.70-1.30 [facility] Basophils/100 WBC (Bld) 0.7 % 0-1 [facility] Bilirubin [Mass/Vol] 0.80 mg/dL 0.20-1.00 [facility] Comment on above: For patients on eltr ombopag therapy, use of Dimension [place] TBIL is not recommended. Chloride [Moles/Vol] 110 mmol/L 98-107 [facility] Eosinophils/100 WBC (Bld) 2.0 % 0-5 [facility] Glucose [Mass/Vol] 143 mg/dL 74-106 [facility] Comment on above: Fasting Glucose resu lt greater than or equal to 126 mg/dL suggests DIABETES MELLITUS per A.D.A. criteria. LDH [Catalytic activity/Vol] 152 U/L 87-241 [facility] Neutrophils (Bld) [#/Vol] 2.1 10*3/uL 2.0-7.7 [facility] Neutrophils/100 WBC (Bld) 69.3 % 47-70 [facility] Potassium [Moles/Vol] 3.8 mmol/L 3.5-5.1 [facility] Protein [Mass/Vol] 5.4 g/dL 6.4-8.2 [facility] Sodium [Moles/Vol] 142 mmol/L 136-145 [facility] WBC (Bld) [#/Vol] 3.0 10*3/uL 4.4-11.0 [facility] Blood erythrocytes count (nu mber/volume)Ordered By: ePte Monet on 01-06-2023 RBC (Bld) [#/Vol] 3.50 10*6/uL 4.6-6.2 [facility] Blood hemoglobin measurement (mass/volume)Ordered By: Pete Monet on 01-06-2023 Hemoglobin (Bld) [Mass/Vol] 11.1 g/dL 13.0-16.5 [facility] Blood lymphocytes/100 leukoc ytesOrdered By: Pete Monet on 01-06-2023 Lymphocytes/100 WBC (Bld) 17.9 % 19-41 [facility] Blood manual differential co mment interpretation (narrative result)Ordered By: Pete Monet on 01-06-2023 Manual differential comment [place] (Bld) [Interp] SCANNED [facility] Blood monocytes/100 leukocyt esOrdered By: Pete Monet on 01-06-2023 Monocytes/100 WBC (Bld) 9.8 % 0-10 [facility] Blood platelet mean volumeOr dered By: Pete Monet on 01-06-2023 Platelet mean volume (Bld) [Entitic vol] 9.6 fL 6.2-12.0 [facility] Determination of erythrocyte mean corpuscular volume (MCV)Ordered By: Pete Monet on 01-06-2023 MCV (RBC) [Entitic vol] 98.9 fL 80-94 [facility] Hematocrit Auto (Bld) [Volum e fraction]Ordered By: Pete Monet on 01-06-2023 Hematocrit (Bld) [Volume fraction] 34.6 % 40-54 [facility] Laboratory - Chemistry and C hemistry - challengeOrdered By: [facility] on 01-06-2023 ALP [Catalytic activity/Vol] 111 U/L 45-117 [facility] ALT [Catalytic activity/Vol] 62 U/L 16-61 [facility] CO2 [Moles/Vol] 26.0 mmol/L 21.0-32.0 [facility] Globulin (S) [Mass/Vol] 2.5 g/dL 2.2-4.2 [facility] Urea nitrogen/Creatinine [Mass ratio] 17.3 mg/mg 10-20 [facility] Laboratory - Hematology and Cell countsOrdered By: [facility] on 01-06-2023 Erythrocyte distribution width (RBC) [Entitic vol] 47.8 fL 35.1-43.9 [facility] Erythrocyte distribution width (RBC) [Ratio] 13.3 % 11.6-14.6 [facility] Immature granulocytes/100 WBC (Bld) 0.300 % 0.0-0.9 [facility] Comment on above: IG% - Immature Granu locytes (promyelocytes, myelocytes and metamyelocytes) > 1% indicates that a LEFT SHIFT is Present. MCH (RBC) [Entitic mass] 31.7 pg 27.0-32.0 [facility] Nucleated RBC/100 WBC (Bld) [Ratio] 0 % 0-5 [facility] MCHC Auto (RBC) [Mass/Vol]Or dered By: [facility] on 01-06-2023 MCHC (RBC) [Mass/Vol] 32.1 g/dL 32-36 [facility] [facility] No Panel InformationOrdered By: Pete Monet on 01-06-2023 Bedside Estimated GFR (eGFR) > 60.0000 mL/min >60 [facility] [place] 19-9 Antigen 10 U/mL 0-35 [facility] Comment on above: [employer] El ectrochemiluminescence Immunoassay(ECLIA)Values obtained with different assay methods or kits cannotbe used interchangeably. Results cannot be interpreted asabsolute evidence of the presence or absence of malignantdisease.Performed at: [facility] [id number] Director: Ulises Licea PhD, Phone: [phone] Estimated GFR (MDRD) Amer 88 mL/min >60 [facility] Comment on above: GFR Calc Estimated GFR (MDRD) Non-Af Amer 72 mL/min >60 [facility] Comment on above: Non- GFR Calc Platelets bldOrdered By: Kodi Monet on 01-06-2023 Platelets (Bld) [#/Vol] 86 10*3/uL 150-450 [facility] Review by pathologistOrdered By: Pete Monet on 01-06-2023 Pathologist review [place] (Unsp spec) [Interp] Reviewed [facility] Comment on above: Previous reported re sult: Jasmyne ozuna Edited by: DAKOTAH on 01/06/23:1304Pancytopenia.Leukopenia Macrocytic anemia.ThrombocytopeniaClinical correlation necessary.Kenn Leach M.D. 01/06/23 AMENDED REPORT 01/06/23 1304 PATH REV previously reported as: Jasmyne ozuna Serum or plasma albumin koby urement (mass/volume)Ordered By: Pete Monet on 01-06-2023 Albumin [Mass/Vol] 2.9 g/dL 3.2-5.0 [facility] Serum or plasma albumin/glob ulin mass ratioOrdered By: Pete Monet on 01-06-2023 Albumin/Globulin [Mass ratio] 1.2 {ratio} 0.9-2.4 [facility] Serum or plasma calcium koby urement (mass/volume)Ordered By: Pete Monet on 01-06-2023 Calcium [Mass/Vol] 7.7 mg/dL 8.5-10.1 [facility] Serum or plasma creatinine m easurement (mass/volume)Ordered By: Pete Monet on 01-06-2023 Creatinine [Mass/Vol] 1.04 mg/dL 0.70-1.30 [facility] Comment on above: The validity of the calculated GFR & GFRAA in patients over 70 years has not been determined. Clinical correlation is essential. Serum or plasma urea nitroge n measurement (mass/volume)Ordered By: Pete Monet on 01-06-2023 Urea nitrogen [Mass/Vol] 18 mg/dL 7-18 [facility] Thin prep Papanicolaou smear with manual screeningOrdered By: Pete Monet on 01-06-2023 Thin prep Papanicolaou smear with manual screening 48 U/L 15-37 [facility] Thin prep Papanicolaou smear with manual screening 6 5-15 [facility] Absolute lymphocyte counton 06-10-2022 Lymphocytes Auto (Unsp spec) [#/Vol] 0.37 10*3/uL 0.83-4.51 [facility] Work Phone: Basophil percentageon 2021 Basophil percentage < 0.9 mg/dL 0.70-1.30 [facility] Work Phone: Basophils/100 WBC (Bld) 0.7 % 0-1 [facility] Work Phone: [phone] Bilirubin [Mass/Vol] 0.70 mg/dL 0.20-1.00 [facility] Work Phone: Comment on above: For patients on eltr ombopag therapy, use of Dimension [place] TBIL is not recommended. Chloride [Moles/Vol] 108 mmol/L 98-107 [facility] Work Phone: [phone] Eosinophils/100 WBC (Bld) 0.3 % 0-5 [facility] Work Phone: [phone] Glucose [Mass/Vol] 175 mg/dL 74-106 [facility] Work Phone: Comment on above: Fasting Glucose resu lt greater than or equal to 126 mg/dL suggests DIABETES MELLITUS per A.D.A. criteria. Neutrophils (Bld) [#/Vol] 2.3 10*3/uL 2.0-7.7 [facility] Work Phone: Neutrophils/100 WBC (Bld) 78.4 % 47-70 [facility] Work Phone: Potassium [Moles/Vol] 3.7 mmol/L 3.5-5.1 [facility] Work Phone: Protein [Mass/Vol] 6.5 g/dL 6.4-8.2 [facility] Work Phone: Sodium [Moles/Vol] 140 mmol/L 136-145 [facility] Work Phone: WBC (Bld) [#/Vol] 3.0 10*3/uL 4.4-11.0 [facility] Work Phone: Blood erythrocytes count (nu mber/volume)on 06-10-2022 RBC (Bld) [#/Vol] 3.81 10*6/uL 4.6-6.2 [facility] Work Phone: Blood hemoglobin measurement (mass/volume)on 06-10-2022 Hemoglobin (Bld) [Mass/Vol] 12.0 g/dL 13.0-16.5 [facility] Work Phone: Blood lymphocytes/100 leukoc yteson 06-10-2022 Lymphocytes/100 WBC (Bld) 12.5 % 19-41 [facility] Work Phone: Blood manual differential co mment interpretation (narrative result)on 06-10-2022 Manual differential comment [place] (Bld) [Interp] COMMENT [facility] Work Phone: Comment on above: LYMPHOPENIA. Blood monocytes/100 leukocyt eson 06-10-2022 Monocytes/100 WBC (Bld) 7.8 % 0-10 [facility] Work Phone: Blood platelet mean volumeon 06-10-2022 Platelet mean volume (Bld) [Entitic vol] 8.9 fL 6.2-12.0 [facility] Work Phone: Determination of erythrocyte mean corpuscular volume (MCV)on 06-10-2022 MCV (RBC) [Entitic vol] 96.3 fL 80-94 [facility] Work Phone: Hematocrit Auto (Bld) [Volum e fraction]on 06-10-2022 Hematocrit (Bld) [Volume fraction] 36.7 % 40-54 [facility] Work Phone: Laboratory - Chemistry and C hemistry - challengeon 06-10-2022 ALP [Catalytic activity/Vol] 122 U/L 45-117 [facility] Work Phone: ALT [Catalytic activity/Vol] 52 U/L 16-61 [facility] Work Phone: CO2 [Moles/Vol] 27.0 mmol/L 21.0-32.0 [facility] Work Phone: Globulin (S) [Mass/Vol] 3.3 g/dL 2.2-4.2 [facility] Work Phone: Urea nitrogen/Creatinine [Mass ratio] 22.1 mg/mg 10-20 [facility] Work Phone: Laboratory - Hematology and Cell countson 06-10-2022 Erythrocyte distribution width (RBC) [Entitic vol] 48.0 fL 35.1-43.9 [facility] Work Phone: Erythrocyte distribution width (RBC) [Ratio] 13.6 % 11.6-14.6 [facility] Work Phone: Immature granulocytes/100 WBC (Bld) 0.300 % 0.0-0.9 [facility] Work Phone: Comment on above: IG% - Immature Granu locytes (promyelocytes, myelocytes and metamyelocytes) > 1% indicates that a LEFT SHIFT is Present. MCH (RBC) [Entitic mass] 31.5 pg 27.0-32.0 [facility] Work Phone: Nucleated RBC/100 WBC (Bld) [Ratio] 0 % 0-5 [facility] Work Phone: MCHC Auto (RBC) [Mass/Vol]on 06-10-2022 MCHC (RBC) [Mass/Vol] 32.7 g/dL 32-36 [facility] Work Phone: No Panel Informationon 06-10 Bedside Estimated GFR (eGFR) > 60.0000 mL/min >60 [facility] Work Phone: [place] 19-9 Antigen 9 U/mL 0-35 [facility] Work Phone: Comment on above: [facility] [facility] El ectrochemiluminescence Immunoassay(ECLIA)Values obtained with different assay methods or kits cannotbe used interchangeably. Results cannot be interpreted asabsolute evidence of the presence or absence of malignantdisease.Performed at: [facility] [employer] [id number] Director: Ulises Licea PhD, Phone: [phone] Estimated GFR (MDRD) Amer 93 mL/min >60 [facility] Work Phone: Comment on above: GFR Calc Estimated GFR (MDRD) Non-Af Amer 76 mL/min >60 [facility] Work Phone: Comment on above: Non- GFR Calc Platelets bldon 06-10-2022 Platelets (Bld) [#/Vol] 112 10*3/uL 150-450 [facility] Work Phone: Review by pathologiston 05-15 Pathologist review [place] (Unsp spec) [Interp] Reviewed [facility] Work Phone: Comment on above: Previous reported re sult: Jasmyne ozuna Edited by: DAKOTAH on 06/11/22:1111Pancytopenia.Leukopenia Macrocytic anemia.Mild ThrombocytopeniaClinical correlation necessary.Kenn Leach M.D. 06/11/22 AMENDED REPORT 06/11/22 1111 PATH REV previously reported as: [facility] Serum or plasma albumin koby urement (mass/volume)on 06-10-2022 Albumin [Mass/Vol] 3.2 g/dL 3.2-5.0 [facility] Work Phone: Serum or plasma albumin/glob ulin mass ratioon 06-10-2022 Albumin/Globulin [Mass ratio] 1.0 {ratio} 0.9-2.4 [facility] Work Phone: Serum or plasma calcium koby urement (mass/volume)on 06-10-2022 Calcium [Mass/Vol] 8.3 mg/dL 8.5-10.1 [facility] Work Phone: Serum or plasma creatinine m easurement (mass/volume)on 06-10-2022 Creatinine [Mass/Vol] 0.99 mg/dL 0.70-1.30 [facility] Work Phone: Comment on above: The validity of the calculated GFR & GFRAA in patients over 70 years has not been determined. Clinical correlation is essential. Serum or plasma urea nitroge n measurement (mass/volume)on 06-10-2022 Urea nitrogen [Mass/Vol] 22 mg/dL 7-18 [facility] Work Phone: Thin prep Papanicolaou smear with manual screeningon 06-10-2022 Thin prep Papanicolaou smear with manual screening 40 U/L 15-37 [facility] Work Phone: Thin prep Papanicolaou smear with manual screening 5 5-15 [facility] Work Phone: Thin prep Papanicolaou smear with manual screening 154 U/L 87-241 [facility] Work Phone: Absolute lymphocyte counton 03-25-2022 Lymphocytes Auto (Unsp spec) [#/Vol] 0.35 10*3/uL 0.83-4.51 [facility] Work Phone: Basophil percentageon 2021 Basophils/100 WBC (Bld) 0.3 % 0-1 [facility] Work Phone: Bilirubin [Mass/Vol] 0.70 mg/dL 0.20-1.00 [facility] Work Phone: Comment on above: For patients on eltr ombopag therapy, use of Dimension [place] TBIL is not recommended. Chloride [Moles/Vol] 103 mmol/L 98-107 [facility] Work Phone: Eosinophils/100 WBC (Bld) 0.9 % 0-5 [facility] Work Phone: Glucose [Mass/Vol] 188 mg/dL 74-106 [facility] Work Phone: Comment on above: Fasting Glucose resu lt greater than or equal to 126 mg/dL suggests DIABETES MELLITUS per A.D.A. criteria. Neutrophils (Bld) [#/Vol] 2.3 10*3/uL 2.0-7.7 [facility] Work Phone: Neutrophils/100 WBC (Bld) 72.8 % 47-70 [facility] Work Phone: Potassium [Moles/Vol] 4.0 mmol/L 3.5-5.1 [facility] Work Phone: Protein [Mass/Vol] 6.0 g/dL 6.4-8.2 [facility] Work Phone: Sodium [Moles/Vol] 137 mmol/L 136-145 [facility] Work Phone: WBC (Bld) [#/Vol] 3.2 10*3/uL 4.4-11.0 [facility] Work Phone: Blood erythrocytes count (nu mber/volume)on 03-25-2022 RBC (Bld) [#/Vol] 3.37 10*6/uL 4.6-6.2 [facility] Work Phone: Blood hemoglobin measurement (mass/volume)on 03-25-2022 Hemoglobin (Bld) [Mass/Vol] 10.8 g/dL 13.0-16.5 [facility] Work Phone: Blood lymphocytes/100 leukoc yteson 03-25-2022 Lymphocytes/100 WBC (Bld) 11.0 % 19-41 [facility] Work Phone: Blood manual differential co mment interpretation (narrative result)on 03-25-2022 Manual differential comment [place] (Bld) [Interp] SCANNED [facility] Work Phone: Comment on above: LYMPHOPENIA NOTED Blood monocytes/100 leukocyt eson 03-25-2022 Monocytes/100 WBC (Bld) 14.7 % 0-10 [facility] Work Phone: Blood platelet adequacy dete ction by light microscopyon 03-25-2022 Platelets LM Ql (Bld) MOD DEC ADEQ [facility] Work Phone: Blood platelet mean volumeon 03-25-2022 Platelet mean volume (Bld) [Entitic vol] 9.9 fL 6.2-12.0 [facility] Work Phone: Determination of erythrocyte mean corpuscular volume (MCV)on 03-25-2022 MCV (RBC) [Entitic vol] 96.7 fL 80-94 [facility] Work Phone: Hematocrit Auto (Bld) [Volum e fraction]on 03-25-2022 Hematocrit (Bld) [Volume fraction] 32.6 % 40-54 [facility] Work Phone: Laboratory - Chemistry and C hemistry - challengeon 03-25-2022 ALP [Catalytic activity/Vol] 98 U/L 45-117 [facility] Work Phone: ALT [Catalytic activity/Vol] 33 U/L 16-61 [facility] Work Phone: [phone] CO2 [Moles/Vol] 28.0 mmol/L 21.0-32.0 [facility] Work Phone: Globulin (S) [Mass/Vol] 3.3 g/dL 2.2-4.2 [facility] Work Phone: Urea nitrogen/Creatinine [Mass ratio] 15.4 mg/mg 10-20 [facility] Work Phone: Laboratory - Hematology and Cell countson 03-25-2022 Erythrocyte distribution width (RBC) [Entitic vol] 46.1 fL 35.1-43.9 [facility] Work Phone: Erythrocyte distribution width (RBC) [Ratio] 13.0 % 11.6-14.6 [facility] Work Phone: Immature granulocytes/100 WBC (Bld) 0.300 % 0.0-0.9 [facility] Work Phone: Comment on above: IG% - Immature Granu locytes (promyelocytes, myelocytes and metamyelocytes) > 1% indicates that a LEFT SHIFT is Present. MCH (RBC) [Entitic mass] 32.0 pg 27.0-32.0 [facility] Work Phone: Nucleated RBC/100 WBC (Bld) [Ratio] 0 % 0-5 [facility] Work Phone: MCHC Auto (RBC) [Mass/Vol]on 03-25-2022 MCHC (RBC) [Mass/Vol] 33.1 g/dL 32-36 [facility] Work Phone: No Panel Informationon 03-25 Estimated GFR (MDRD) Amer 72 mL/min >60 [facility] Work Phone: Comment on above: GFR Calc Estimated GFR (MDRD) Non-Af Amer 60 mL/min >60 [facility] Work Phone: Comment on above: Non- GFR Calc Platelets bldon 03-25-2022 Platelets (Bld) [#/Vol] 63 10*3/uL 150-450 [facility] Work Phone: Review by pathologiston 03-14 Pathologist review [place] (Unsp spec) [Interp] Reviewed [facility] Work Phone: Comment on above: Previous reported re sult: Jasmyne ozuna Edited by: DAKOTAH on 03/26/22:1428Pancytopenia.Leukopenia Macrocytic anemia.ThrombocytopeniaClinical correlation necessary.Kenn Leach M.D. 03/26/22 AMENDED REPORT 03/26/22 1428 PATH REV previously reported as: Jasmyne ozuna Serum or plasma albumin koby urement (mass/volume)on 03-25-2022 Albumin [Mass/Vol] 2.7 g/dL 3.2-5.0 [facility] Work Phone: Serum or plasma albumin/glob ulin mass ratioon 03-25-2022 Albumin/Globulin [Mass ratio] 0.8 {ratio} 0.9-2.4 [facility] Work Phone: Serum or plasma calcium koby urement (mass/volume)on 03-25-2022 Calcium [Mass/Vol] 8.4 mg/dL 8.5-10.1 [facility] Work Phone: Serum or plasma creatinine m easurement (mass/volume)on 03-25-2022 Creatinine [Mass/Vol] 1.23 mg/dL 0.70-1.30 [facility] Work Phone: Comment on above: The validity of the calculated GFR & GFRAA in patients over 70 years has not been determined. Clinical correlation is essential. Serum or plasma urea nitroge n measurement (mass/volume)on 03-25-2022 Urea nitrogen [Mass/Vol] 19 mg/dL 7-18 [facility] Work Phone: Thin prep Papanicolaou smear with manual screeningon 03-25-2022 Thin prep Papanicolaou smear with manual screening 22 U/L 15-37 [facility] Work Phone: Thin prep Papanicolaou smear with manual screening 6 5-15 [facility] Work Phone: Absolute lymphocyte counton 03-23-2022 Lymphocytes Auto (Unsp spec) [#/Vol] 0.12 10*3/uL 0.83-4.51 [facility] Work Phone: Basophil percentageon 2021 Basophil percentage 0 SEEN /hpf 0-5 [facility] Work Phone: Basophils/100 WBC (Bld) 0.0 % 0-1 [facility] Work Phone: Bilirubin [Mass/Vol] 1.00 mg/dL 0.20-1.00 [facility] Work Phone: Comment on above: For patients on eltr ombopag therapy, use of Dimension [place] TBIL is not recommended. Chloride [Moles/Vol] 106 mmol/L 98-107 [facility] Work Phone: Eosinophils/100 WBC (Bld) 0.3 % 0-5 [facility] Work Phone: Glucose [Mass/Vol] 225 mg/dL 74-106 [facility] Work Phone: Comment on above: Glucose result great er than or equal to 200 mg/dLsuggests DIABETES MELLITUS per A.D.A. criteria. Neutrophils (Bld) [#/Vol] 3.4 10*3/uL 2.0-7.7 [facility] Work Phone: Neutrophils/100 WBC (Bld) 92.3 % 47-70 [facility] Work Phone: Potassium [Moles/Vol] 3.7 mmol/L 3.5-5.1 [facility] Work Phone: Protein [Mass/Vol] 6.0 g/dL 6.4-8.2 [facility] Work Phone: Sodium [Moles/Vol] 140 mmol/L 136-145 [facility] Work Phone: WBC (Bld) [#/Vol] 3.7 10*3/uL 4.4-11.0 [facility] Work Phone: Bilirubin Test strip Ql (U)o n 03-23-2022 Bilirubin Ql (U) Negative Negative [facility] Work Phone: Blood erythrocytes count (nu mber/volume)on 03-23-2022 RBC (Bld) [#/Vol] 3.53 10*6/uL 4.6-6.2 [facility] Work Phone: Blood hemoglobin measurement (mass/volume)on 03-23-2022 Hemoglobin (Bld) [Mass/Vol] 11.3 g/dL 13.0-16.5 [facility] Work Phone: Blood lymphocytes/100 leukoc yteson 03-23-2022 Lymphocytes/100 WBC (Bld) 3.3 % 19-41 [facility] Work Phone: Blood manual differential co mment interpretation (narrative result)on 03-23-2022 Manual differential comment [place] (Bld) [Interp] SEE COMMENT [facility] Work Phone: Comment on above: LYMPHOPENIA NOTED Blood monocytes/100 leukocyt eson 03-23-2022 Monocytes/100 WBC (Bld) 3.8 % 0-10 [facility] Work Phone: Blood platelet adequacy dete ction by light microscopyon 03-23-2022 Platelets LM Ql (Bld) ADEQUATE ADEQ [facility] Work Phone: Blood platelet mean volumeon 03-23-2022 Platelet mean volume (Bld) [Entitic vol] 9.4 fL 6.2-12.0 [facility] Work Phone: Determination of erythrocyte mean corpuscular volume (MCV)on 03-23-2022 MCV (RBC) [Entitic vol] 94.9 fL 80-94 [facility] Work Phone: Hematocrit Auto (Bld) [Volum e fraction]on 03-23-2022 Hematocrit (Bld) [Volume fraction] 33.5 % 40-54 [facility] Work Phone: Ketones Test strip Ql (U)on 03-23-2022 Ketones Ql (U) Negative Negative [facility] Work Phone: Laboratory - Chemistry and C hemistry - challengeon 03-23-2022 ALP [Catalytic activity/Vol] 98 U/L 45-117 [facility] Work Phone: ALT [Catalytic activity/Vol] 42 U/L 16-61 [facility] Work Phone: CO2 [Moles/Vol] 27.0 mmol/L 21.0-32.0 [facility] Work Phone: Globulin (S) [Mass/Vol] 2.9 g/dL 2.2-4.2 [facility] Work Phone: Urea nitrogen/Creatinine [Mass ratio] 17.1 mg/mg 10-20 [facility] Work Phone: Laboratory - Hematology and Cell countson 03-23-2022 Anisocytosis Ql (Bld) RARE [facility] Work Phone: Erythrocyte distribution width (RBC) [Entitic vol] 43.8 fL 35.1-43.9 [facility] Work Phone: Erythrocyte distribution width (RBC) [Ratio] 12.7 % 11.6-14.6 [facility] Work Phone: Immature granulocytes/100 WBC (Bld) 0.300 % 0.0-0.9 [facility] Work Phone: Comment on above: IG% - Immature Granu locytes (promyelocytes, myelocytes and metamyelocytes) > 1% indicates that a LEFT SHIFT is Present. MCH (RBC) [Entitic mass] 32.0 pg 27.0-32.0 [facility] Work Phone: Nucleated RBC/100 WBC (Bld) [Ratio] 0 % 0-5 [facility] Work Phone: MCHC Auto (RBC) [Mass/Vol]on 03-23-2022 MCHC (RBC) [Mass/Vol] 33.7 g/dL 32-36 [facility] Work Phone: Macrocytes detectionon 03-23 Macrocytes Ql (Bld) RARE [facility] Work Phone: Mucus LM Ql (Urine sed)on Mucus Ql (Urine sed) 0 SEEN /hpf [facility] Work Phone: Nitrite Test strip Ql (U)on 03-23-2022 Nitrite Ql (U) Negative Negative [facility] Work Phone: No Panel Informationon 03-23 Estimated Creatinine Clearance Calc 48.68 ml/min [facility] Work Phone: Estimated GFR (MDRD) Amer 77 mL/min >60 [facility] Work Phone: Comment on above: GFR Calc Estimated GFR (MDRD) Non-Af Amer 63 mL/min >60 [facility] Work Phone: Comment on above: Non- GFR Calc Platelets bldon 03-23-2022 Platelets (Bld) [#/Vol] 66 10*3/uL 150-450 [facility] Work Phone: Protein Test strip Ql (U)on 03-23-2022 Protein Ql (U) Negative Negative [facility] Work Phone: RBC morphologyon 03-23-2022 RBC morphology finding Nom (Bld) N CHROM NORMAL NORM C&C [facility] Work Phone: Review by pathologiston 03-14 Pathologist review [place] (Unsp spec) [Interp] Jasmyne ozuna [facility] Work Phone: Pathologist review [place] (Unsp spec) [Interp] Reviewed [facility] Work Phone: Comment on above: Previous reported re sult: Jasmyne ozuna Edited by: DAKOTAH on 03/25/22:1341Pancytopenia.Leukopenia Macrocytic anemia.ThrombocytopeniaClinical correlation necessary.Kenn Leach M.D. 03/25/22 AMENDED REPORT 03/25/22 1341 PATH REV previously reported as: Jasmyne ozuna Serum or plasma albumin koby urement (mass/volume)on 03-23-2022 Albumin [Mass/Vol] 3.1 g/dL 3.2-5.0 [facility] Work Phone: Serum or plasma albumin/glob ulin mass ratioon 03-23-2022 Albumin/Globulin [Mass ratio] 1.1 {ratio} 0.9-2.4 [facility] Work Phone: Serum or plasma calcium koby urement (mass/volume)on 03-23-2022 Calcium [Mass/Vol] 8.4 mg/dL 8.5-10.1 [facility] Work Phone: Serum or plasma creatinine m easurement (mass/volume)on 03-23-2022 Creatinine [Mass/Vol] 1.17 mg/dL 0.70-1.30 [facility] Work Phone: Comment on above: The validity of the calculated GFR & GFRAA in patients over 70 years has not been determined. Clinical correlation is essential. Serum or plasma urea nitroge n measurement (mass/volume)on 03-23-2022 Urea nitrogen [Mass/Vol] 20 mg/dL 7-18 [facility] Work Phone: Squamous epithelial cells de tection in urine sediment by light microscopyon 03-23-2022 Epithelial cells.squamous LM Ql (Urine sed) 0 SEEN /hpf 0-5 [facility] Work Phone: Thin prep Papanicolaou smear with manual screeningon 03-23-2022 Thin prep Papanicolaou smear with manual screening 27 U/L 15-37 [facility] Work Phone: Thin prep Papanicolaou smear with manual screening 7 5-15 [facility] Work Phone: Urine blood detectionon 03-14 RBC Ql (U) Negative Negative [facility] Work Phone: RBC Ql (U) 0 SEEN /hpf 0-5 [facility] Work Phone: Urine clarityon 03-23-2022 Clarity (U) Clear Clear [facility] Work Phone: Urine color determinationon 03-23-2022 Color (U) Yellow Yellow [facility] Work Phone: Urine glucose detectionon Glucose Ql (U) Normal mg/dl Normal [facility] Work Phone: Urine leukocyte esterase det ection by dipstickon 03-23-2022 Leukocyte esterase Test strip Ql (U) Negative Negative [facility] Work Phone: Urine pHon 03-23-2022 pH (U) 6.0 [pH] 5.0 - 8.0 [facility] Work Phone: Urine sediment bacteria coun t by microscopy (number/high power field)on 03-23-2022 Bacteria LM.HPF (Urine sed) [#/Area] 0 /[HPF] None Seen [facility] Work Phone: Urine specific gravity measu rementon 03-23-2022 Specific gravity (U) [Rel density] 1.010 1.002-1.030 [facility] Work Phone: Urobilinogen Auto test strip Ql (U)on 03-23-2022 Urobilinogen Ql (U) Normal mg/dl Normal [facility] Work Phone: Absolute lymphocyte counton 12-03-2021 Lymphocytes Auto (Unsp spec) [#/Vol] 0.39 10*3/uL 0.83-4.51 [facility] Work Phone: Basophil percentageon 2021 Basophil percentage < 0.9 mg/dL 0.70-1.30 [facility] Work Phone: Basophils/100 WBC (Bld) 0.2 % 0-1 [facility] Work Phone: Bilirubin [Mass/Vol] 0.90 mg/dL 0.20-1.00 [facility] Work Phone: Comment on above: For patients on eltr ombopag therapy, use of Dimension [place] TBIL is not recommended. Chloride [Moles/Vol] 106 mmol/L 98-107 [facility] Work Phone: [phone] Eosinophils/100 WBC (Bld) 1.2 % 0-5 [facility] Work Phone: Glucose [Mass/Vol] 173 mg/dL 74-106 [facility] Work Phone: Comment on above: Fasting Glucose resu lt greater than or equal to 126 mg/dL suggests DIABETES MELLITUS per A.D.A. criteria. Neutrophils (Bld) [#/Vol] 3.3 10*3/uL 2.0-7.7 [facility] Work Phone: Neutrophils/100 WBC (Bld) 82.2 % 47-70 [facility] Work Phone: Potassium [Moles/Vol] 3.9 mmol/L 3.5-5.1 [facility] Work Phone: Protein [Mass/Vol] 6.6 g/dL 6.4-8.2 [facility] Work Phone: Sodium [Moles/Vol] 141 mmol/L 136-145 [facility] Work Phone: WBC (Bld) [#/Vol] 4.0 10*3/uL 4.4-11.0 [facility] Work Phone: Blood erythrocytes count (nu mber/volume)on 12-03-2021 RBC (Bld) [#/Vol] 3.86 10*6/uL 4.6-6.2 [facility] Work Phone: Blood hemoglobin measurement (mass/volume)on 12-03-2021 Hemoglobin (Bld) [Mass/Vol] 12.2 g/dL 13.0-16.5 [facility] Work Phone: Blood lymphocytes/100 leukoc yteson 12-03-2021 Lymphocytes/100 WBC (Bld) 9.7 % 19-41 [facility] Work Phone: Blood manual differential co mment interpretation (narrative result)on 12-03-2021 Manual differential comment [place] (Bld) [Interp] COMMENT [facility] Work Phone: Comment on above: LYMPHOPENIA. Blood monocytes/100 leukocyt eson 12-03-2021 Monocytes/100 WBC (Bld) 6.5 % 0-10 [facility] Work Phone: Blood platelet mean volumeon 12-03-2021 Platelet mean volume (Bld) [Entitic vol] 8.7 fL 6.2-12.0 [facility] Work Phone: [phone] Determination of erythrocyte mean corpuscular volume (MCV)on 12-03-2021 MCV (RBC) [Entitic vol] 95.1 fL 80-94 [facility] Work Phone: Hematocrit Auto (Bld) [Volum e fraction]on 12-03-2021 Hematocrit (Bld) [Volume fraction] 36.7 % 40-54 [facility] Work Phone: Laboratory - Chemistry and C hemistry - challengeon 12-03-2021 ALP [Catalytic activity/Vol] 136 U/L 45-117 [facility] Work Phone: ALT [Catalytic activity/Vol] 75 U/L 16-61 [facility] Work Phone: CO2 [Moles/Vol] 32.0 mmol/L 21.0-32.0 [facility] Work Phone: Globulin (S) [Mass/Vol] 3.2 g/dL 2.2-4.2 [facility] Work Phone: Urea nitrogen/Creatinine [Mass ratio] 16.2 mg/mg 10-20 [facility] Work Phone: Laboratory - Hematology and Cell countson 12-03-2021 Erythrocyte distribution width (RBC) [Entitic vol] 44.9 fL 35.1-43.9 [facility] Work Phone: Erythrocyte distribution width (RBC) [Ratio] 13.1 % 11.6-14.6 [facility] Work Phone: Immature granulocytes/100 WBC (Bld) 0.200 % 0.0-0.9 [facility] Work Phone: Comment on above: IG% - Immature Granu locytes (promyelocytes, myelocytes and metamyelocytes) > 1% indicates that a LEFT SHIFT is Present. MCH (RBC) [Entitic mass] 31.6 pg 27.0-32.0 [facility] Work Phone: Nucleated RBC/100 WBC (Bld) [Ratio] 0 % 0-5 [facility] Work Phone: MCHC Auto (RBC) [Mass/Vol]on 12-03-2021 MCHC (RBC) [Mass/Vol] 33.2 g/dL 32-36 [facility] Work Phone: No Panel Informationon 12-03 Bedside Estimated GFR (eGFR) > 60.0000 mL/min >60 [facility] Work Phone: CA 19-9 Antigen 9 U/mL 0-35 [facility] Work Phone: Comment on above: [facility] El ectrochemiluminescence Immunoassay(ECLIA)Values obtained with different assay methods or kits cannotbe used interchangeably. Results cannot be interpreted asabsolute evidence of the presence or absence of malignantdisease.Performed at: [address] [id number] Director: Ulises Licea PhD, Phone: [phone] Estimated GFR (MDRD) Amer 77 mL/min >60 [facility] Work Phone: Comment on above: GFR Calc Estimated GFR (MDRD) Non-Af Amer 63 mL/min >60 [facility] Work Phone: Comment on above: Non- GFR Calc Platelets bldon 12-03-2021 Platelets (Bld) [#/Vol] 103 10*3/uL 150-450 [facility] Work Phone: Review by pathologiston 11-12 Pathologist review [place] (Unsp spec) [Interp] Reviewed [facility] Work Phone: Comment on above: Previous reported re sult: Jasmyne ozuna Edited by: DAKOTAH on 12/04/21:1233Pancytopenia.Leukopenia Macrocytic anemia.Mild ThrombocytopeniaAs per EMR, the patient has history of adenocarcinoma lung and pancreatic carcinoma.Clinical correlation necessary.Kenn Leach M.D. 12/04/21 AMENDED REPORT 12/04/21 1233 PATH REV previously reported as: Jasmyne ozuna Serum or plasma albumin koby urement (mass/volume)on 12-03-2021 Albumin [Mass/Vol] 3.4 g/dL 3.2-5.0 [facility] Work Phone: Serum or plasma albumin/glob ulin mass ratioon 12-03-2021 Albumin/Globulin [Mass ratio] 1.1 {ratio} 0.9-2.4 [facility] Work Phone: Serum or plasma calcium koby urement (mass/volume)on 12-03-2021 Calcium [Mass/Vol] 8.4 mg/dL 8.5-10.1 [facility] Work Phone: Serum or plasma creatinine m easurement (mass/volume)on 12-03-2021 Creatinine [Mass/Vol] 1.17 mg/dL 0.70-1.30 [facility] Work Phone: Comment on above: The validity of the calculated GFR & GFRAA in patients over 70 years has not been determined. Clinical correlation is essential. Serum or plasma urea nitroge n measurement (mass/volume)on 12-03-2021 Urea nitrogen [Mass/Vol] 19 mg/dL 7-18 [facility] Work Phone: Thin prep Papanicolaou smear with manual screeningon 12-03-2021 Thin prep Papanicolaou smear with manual screening 41 U/L 15-37 [facility] Work Phone: Thin prep Papanicolaou smear with manual screening 3 5-15 [facility] Work Phone: Thin prep Papanicolaou smear with manual screening 173 U/L 87-241 [facility] Work Phone: Basophil percentageon 2021 Bilirubin [Mass/Vol] 1.00 mg/dL 0.20-1.00 [facility] Work Phone: Comment on above: For patients on eltr ombopag therapy, use of Dimension [place] TBIL is not recommended. Chloride [Moles/Vol] 107 mmol/L 98-107 [facility] Work Phone: Cholesterol [Mass/Vol] 69 mg/dL <200 [facility] Work Phone: Comment on above: <200 mg/dL Desirable 200-240 mg/dL Borderline >240 mg/dL High Risk Glucose [Mass/Vol] 161 mg/dL 74-106 [facility] Work Phone: Comment on above: Fasting Glucose resu lt greater than or equal to 126 mg/dL suggests DIABETES MELLITUS per A.D.A. criteria. Potassium [Moles/Vol] 3.4 mmol/L 3.5-5.1 [facility] Work Phone: Protein [Mass/Vol] 6.1 g/dL 6.4-8.2 [facility] Work Phone: Sodium [Moles/Vol] 141 mmol/L 136-145 [facility] Work Phone: Triglyceride [Mass/Vol] 116 mg/dL [facility] Work Phone: Comment on above: The drugs N-Acetylcy steine and Metamizole may falsely depress this assay.Serum Triglycerides Reference Interval Normal <150 mg/dL Borderline high 150 - 199 mg/dL High 200 - 499 mg/dL Very High > or = 500 mg/dL Direct bilirubinon 2 Bilirubin.direct [Mass/Vol] 0.31 mg/dL 0.00-0.30 [facility] Work Phone: Laboratory - Chemistry and C hemistry - challengeon 10-26-2021 ALP [Catalytic activity/Vol] 111 U/L 45-117 [facility] Work Phone: ALT [Catalytic activity/Vol] 75 U/L 16-61 [facility] Work Phone: CO2 [Moles/Vol] 30.0 mmol/L 21.0-32.0 [facility] Work Phone: Globulin (S) [Mass/Vol] 2.7 g/dL 2.2-4.2 [facility] Work Phone: Urea nitrogen/Creatinine [Mass ratio] 17.3 mg/mg 10-20 [facility] Work Phone: No Panel Informationon 10-26 Estimated GFR (MDRD) Amer 82 mL/min >60 [facility] Work Phone: Comment on above: GFR Calc Estimated GFR (MDRD) Non-Af Amer 68 mL/min >60 [facility] Work Phone: Comment on above: Non- GFR Calc Urine Microalbumin/Creatinin e Ratio 22.1 mg/g CRE <30 [facility] Work Phone: Serum or plasma albumin koby urement (mass/volume)on 10-26-2021 Albumin [Mass/Vol] 3.4 g/dL 3.2-5.0 [facility] Work Phone: Serum or plasma calcium koby urement (mass/volume)on 10-26-2021 Calcium [Mass/Vol] 7.9 mg/dL 8.5-10.1 [facility] Work Phone: Serum or plasma cholesterol in HDL measurement (mass/volume)on 10-26-2021 Cholesterol in HDL [Mass/Vol] 36 mg/dL [facility] Work Phone: Comment on above: The drugs N-Acetylcy steine and Metamizole may falsely depress this assay. Reference Range HDL <40 mg/dL Low HDL Cholesterol HDL >or= 60 mg/dL High HDL Cholesterol Serum or plasma cholesterol in VLDL measurement (mass/volume)on 10-26-2021 Cholesterol in VLDL [Mass/Vol] 23 mg/dL 5-40 [facility] Work Phone: Serum or plasma creatinine m easurement (mass/volume)on 10-26-2021 Creatinine [Mass/Vol] 1.10 mg/dL 0.70-1.30 [facility] Work Phone: Comment on above: The validity of the calculated GFR & GFRAA in patients over 70 years has not been determined. Clinical correlation is essential. Serum or plasma low density lipoprotein (LDL) cholesterol measurement (mass/volume)on 10-26-2021 Cholesterol in LDL [Mass/Vol] 10 mg/dL 0-130 [facility] Work Phone: Serum or plasma urea nitroge n measurement (mass/volume)on 10-26-2021 Urea nitrogen [Mass/Vol] 19 mg/dL 7-18 [facility] Work Phone: Thin prep Papanicolaou smear with manual screeningon 10-26-2021 Thin prep Papanicolaou smear with manual screening 50 U/L 15-37 [facility] Work Phone: Thin prep Papanicolaou smear with manual screening 4 5-15 [facility] Work Phone: Thin prep Papanicolaou smear with manual screening 36.4 mg/L NO RANGE EST. [facility] Work Phone: Urine creatinine measurement (mass/volume)on 10-26-2021 Creatinine (U) [Mass/Vol] 165.00 mg/dL NO RANGE EST. [facility] Work Phone: Blood platelet adequacy dete ction by light microscopyon 03-14-2021 Platelets LM Ql (Bld) MOD DEC ADEQ [facility] Iron measurement (mass/mass) on 03-14-2021 Iron (Unsp spec) [Mass/Mass] 110 ug/dL 65-175 [facility] Laboratory - Hematology and Cell countson 03-14-2021 Anisocytosis Ql (Bld) 2+ [facility] No Panel Informationon 03-14 Total Iron Binding Capacity 406 ug/dL 250-450 [facility] RBC morphologyon 03-14-2021 RBC morphology finding Nom (Bld) N CHROM NORMAL NORM C&C [facility] Serum or plasma ferritin aurelio surement (mass/volume)on 03-14-2021 Ferritin [Mass/Vol] 19 ng/mL Low 26-388 [facility] Serum or plasma iron saturat ion measurement (mass fraction)on 03-14-2021 Iron saturation [Mass fraction] 27.1 % 15.0-55.0 [facility] Basophil percentageon 2020 Cholesterol [Mass/Vol] 76 mg/dL <200 [facility] Comment on above: <200 mg/dL Desirable 200-240 mg/dL Borderline >240 mg/dL High Risk Triglyceride [Mass/Vol] 88 mg/dL <199 [facility] Comment on above: The drugs N-Acetylcy steine and Metamizole may falsely depress this assay.Serum Triglycerides Reference Interval Normal <150 mg/dL Borderline high 150 - 199 mg/dL High 200 - 499 mg/dL Very High > or = 500 mg/dL Direct bilirubinon Bilirubin.direct [Mass/Vol] 0.23 mg/dL 0.00-0.30 [facility] Serum or plasma cholesterol in HDL measurement (mass/volume)on 02-28-2021 Cholesterol in HDL [Mass/Vol] 35 mg/dL >40 [facility] Comment on above: The drugs N-Acetylcy steine and Metamizole may falsely depress this assay. Reference Range HDL <40 mg/dL Low HDL Cholesterol HDL >or= 60 mg/dL High HDL Cholesterol Serum or plasma cholesterol in VLDL measurement (mass/volume)on 02-28-2021 Cholesterol in VLDL [Mass/Vol] 18 mg/dL 5-40 [facility] Serum or plasma low density lipoprotein (LDL) cholesterol measurement (mass/volume)on 02-28-2021 Cholesterol in LDL [Mass/Vol] 23 mg/dL 0-130 [facility] Hypochromatic red blood cell detectionon 02-05-2021 Hypochromia Ql (Bld) 1+ [facility] Laboratory - Chemistry and C hemistry - challengeon 01-08-2021 Cobalamin (Vitamin B12) [Mass/Vol] 507 pg/mL 211-911 [facility] Serum or plasma folate measu rement (mass/volume)on 01-08-2021 Folate [Mass/Vol] 15.00 ng/mL 3.1-55.4 [facility] XR ERCP READ ONLYon 08-28-19 XR [...] Kerma: 88.0 mGy Dose Area Product (DAP): 12048.0 mGycm Fluoro time: 2:25 min:sec RESULT: Examination [...] refer to operative notes for full details. Manager Engine: PSCB Transcribe Date/Time: Aug 29 2020 12:23P Dictated by : DELIA MCGUIRE MD This examination was interpreted and the report reviewed and electronically signed by: DELIA MCGUIRE MD on Aug 29 2020 12:26PM EST Normal [facility] CT BIOPSY LUNGon 07-18-2020 CT BIOPSY LUNG Final Report DATE OF EXAM: Jul 18 2020 12:02PM [facility] 2009 - CT BIOPSY LUNG / PROCEDURE [...] with administration of agent, ends when continuous [id number] time ends): 13 minutes. Patient monitoring: I [...] biopsy of left upper lobe pulmonary nodule. Manager Engine: ELOY Transcribe Date/Time: Jul 18 2020 12:39P Dictated by : NILDA CARRION MD This examination was interpreted and the report reviewed and electronically signed by: NILDA CARRION MD on Jul 18 2020 12:47PM EST Normal [employer] [facility] XR CHEST 1V FRONTALon 2020 XR CHEST [...] pneumothorax status post left pulmonary nodule biopsy. Manager Engine: [facility] Transcribe Date/Time: Jul 18 2020 2:21P Dictated by : YUSUF COBOS MD This examination was interpreted and the report reviewed and electronically signed by: YUSUF COBOS MD on Jul 18 2020 2:23PM EST Normal [employer] XR CHEST 1V FRONTAL Final Report DATE [...] left lung apex likely post biopsy hemorrhage. Manager Engine: ELOY Transcribe Date/Time: Jul 18 2020 12:14P Dictated by : NILDA CARRION MD This examination was interpreted and the report reviewed and electronically signed by: NILDA CARRION MD on Jul 18 2020 12:21PM [facility] [place] Non-Security Rep Cytology Reporton Non-Security Rep Cytology Report . 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 DIAGNOSIS: ATYPICAL CELLS SUSPICIOUS FOR MALIGNANCY SPECIMEN: CBD BRUSHING GROSS DESCRIPTION: RECEIVED BRUSH IN CYTOLYT 1 MONOLAYER Electronically Signed by Pathology report verified by [facility] Screened by: GL MES Electronically signed by NILDA HERNANDEZ DO Sign-Out Date: 06/09/2020 08:27 Performing Lab: [facility], [address] [place] [address] ([place]) Comment on above: Performed By: #### N GCR #### [place] [id number] XR ERCP BILIARY AND PANCREAT IC DUCTon 06-07-2020 XR ERCP BILIARY AND PANCREATIC DUCT ORIGINAL XR ERCP BILIARY AND PANCREATIC DUCT ORDERING PROVIDER: SIXTO CLINICAL STATEMENT: ERCP Technical Details: History - ERCP. CBD stricture, CBD dilat; Total Dose - 153.56 mGy; Combatant Diver Qualified - jlm; Fluoro Time - 5min 37sec; [...] Sign Date: 06/07/2020 3:54:02 PM Ordering Provider:Ulises [facility] ([place]) Culture, urine Bacteria identified Cx Nom (U) Culture exhibits no growth. [facility] Work Phone: Influenza virus A and B and SARS-CoV-2 (COVID-19) Ag panel - Upper respiratory specim SARS-CoV-2 (COVID-19) RNA BLAKE+probe Ql (Resp) [facility] Work Phone: Laboratory - Microbiology an d Antimicrobial susceptibility Bacteria identified Cx Nom (Bld) GNR lactose oven tender [facility] Work Phone: No Panel Information SARS-CoV-2 & FLU Antigen (Rapid) [facility] Work Phone: Vital Signs Date Time Vital Sign Value Performing Clinician Faci lity 04-29-2025 10:55-0400 Heart rate 49 /min Dr. Mickey Flores MD Work Phone: [facility] 04-29-2025 10:22-0400 Body height 175.[address] Mickey Flores MD Work Phone: [facility] 04-29-2025 10:22-0400 Body mass index (BMI) [Ratio] 25.8 kg/m2 Dr. Mickey Flores MD Work Phone: [facility] 04-29-2025 10:22-0400 Body weight 79.[address] Mickey Flores MD Work Phone: [facility] 04-29-2025 10:22-0400 Diastolic blood pressure 57 mm[Hg] Dr. Mickey Flores MD Work Phone: 9(167)963-478659 [place] [address] 04-29-2025 10:22-0400 Respiratory rate 18 /min Dr. Mickey Flores MD Work Phone: 5(093)025-879175 [address] 04-29-2025 10:22-0400 Systolic blood pressure 103 mm[Hg] Dr. Mickey Flores MD Work Phone: 3(712)758-203038 [place] [address] 04-14-2025 13:23-0400 Body height 175.[address] Mickey Flores MD Work Phone: 0(498)043-053538 [place] [address] 04-14-2025 13:23-0400 Body mass index (BMI) [Ratio] 25.7 kg/m2 Dr. Mickey Flores MD Work Phone: 6(671)737-716638 [place] [address] 04-14-2025 13:23-0400 Body temperature 99.2 [degF] Dr. Mickey Flores MD Work Phone: 9(837)470-223138 [place] [address] 04-14-2025 13:23-0400 Body weight 78.[address] Mickey Flores MD Work Phone: 1(256)752-504938 [place] [address] 04-14-2025 13:23-0400 Diastolic blood pressure 66 mm[Hg] Dr. Mickey Flores MD Work Phone: 0(308)937-560138 [place] [address] 04-14-2025 13:23-0400 Heart rate 67 /min Dr. Mickey Flores MD Work Phone: 9(049)887-494338 [place] [address] 04-14-2025 13:23-0400 Respiratory rate 16 /min Dr. Mickey Flores MD Work Phone: 5(980)060-532038 [place] [address] 04-14-2025 13:23-0400 SaO2% (BldA) [Mass fraction] 99 % Dr. Mickey Flores MD Work Phone: 3(877)335-474438 [place] [address] 04-14-2025 13:23-0400 Systolic blood pressure 111 mm[Hg] Dr. Mickey Flores MD Work Phone: 5(513)601-796138 [place] [address] 03-09-2025 10:14-0400 Body height 175.[address] Mickey Flores MD Work Phone: [facility] 03-09-2025 10:14-0400 Body mass index (BMI) [Ratio] 25.8 kg/m2 Dr. Mickey Flores MD Work Phone: [facility] 03-09-2025 10:140400 Body temperature 97.9 [degF] Dr. Mickey Flores MD Work Phone: 2(601)048-830475 [address] 03-09-2025 10:140400 Body weight 79.[address] Mickey Flores MD Work Phone: 1(000)766-121638 [place] [address] 03-09-2025 10:14-0400 Diastolic blood pressure 55 mm[Hg] Dr. Mickey Flores MD Work Phone: 5(280)098-528175 [address] 03-09-2025 10:14-0400 Heart rate 46 /min Dr. Mickey Flores MD Work Phone: 3(844)791-749659 [place] [address] 03-09-2025 10:14-0400 Respiratory rate 18 /min Dr. Mickey Flores MD Work Phone: 3(738)030-805438 [place] [address] 03-09-2025 10:14-0400 SaO2% (BldA) [Mass fraction] 100 % Dr. Mickey Flores MD Work Phone: 0(131)546-463059 [place] [address] 03-09-2025 10:14-0400 Systolic blood pressure 120 mm[Hg] Dr. Mickey Flores MD Work Phone: 8(215)647-973759 [place] [address] 02-14-2025 14:03-0400 Body height 175.[address] Mickey Flores MD Work Phone: 1(582)694-866438 [place] [address] 02-14-2025 14:03-0400 Body mass index (BMI) [Ratio] 27 kg/m2 Dr. Mickey Flores MD Work Phone: 8(858)917-972038 [place] [address] 02-14-2025 14:03-0400 Body temperature 98.6 [degF] Dr. Mickey Flores MD Work Phone: 9(445)883-462759 [place] [address] 02-14-2025 14:03-0400 Body weight 83.[address] Mickey Flores MD Work Phone: [facility] 02-14-2025 14:03-0400 Diastolic blood pressure 57 mm[Hg] Dr. Mickey Flores MD Work Phone: [facility] 02-14-2025 14:03-0400 Heart rate 46 /min Dr. Mickey Flores MD Work Phone: 4(321)611-938259 [place] [address] 02-14-2025 14:03-0400 Respiratory rate 18 /min Dr. Mickey Flores MD Work Phone: 4(433)703-135338 [place] [address] 02-14-2025 14:03-0400 SaO2% (BldA) [Mass fraction] 100 % Dr. Mickey Flores MD Work Phone: 9(776)968-644538 [place] [address] 02-14-2025 14:03-0400 Systolic blood pressure 110 mm[Hg] Dr. Mickey Flores MD Work Phone: 1(589)658-960838 [place] [address] 10-28-2024 10:04-0400 Body height 175.[address] Mickey Flores MD Work Phone: 5(032)476-082038 [place] [address] 10-28-2024 10:04-0400 Body mass index (BMI) [Ratio] 26.9 kg/m2 Dr. Mickey Flores MD Work Phone: 5(633)593-219559 [place] [address] 10-28-2024 10:04-0400 Body weight 82.[address] Mickey Flores MD Work Phone: 6(838)915-721559 [place] [address] 10-28-2024 10:04-0400 Diastolic blood pressure 67 mm[Hg] Dr. Mickey Flores MD Work Phone: 7(498)415-453359 [place] [address] 10-28-2024 10:04-0400 Heart rate 51 /min Dr. Mickey Flores MD Work Phone: 4(546)398-995159 [place] [address] 10-28-2024 10:04-0400 Respiratory rate 18 /min Dr. Mickey Flores MD Work Phone: 6(340)256-163059 [place] [address] 10-28-2024 10:04-0400 SaO2% (BldA) [Mass fraction] 100 % Dr. Mickey Flores MD Work Phone: [facility] 10-28-2024 10:04-0400 Systolic blood pressure 122 mm[Hg] Dr. Mickey Flores MD Work Phone: [facility] 10-16-2023 09:28-0400 Body height 175.[address] Mickey Flores Work Phone: [facility] 10-16-2023 09:28-0400 Body mass index (BMI) [Ratio] 27.9 kg/m2 Dr. Mickey Flores Work Phone: [facility] 10-16-2023 09:28-0400 Body weight 85.[address] Mickey Flores Work Phone: [facility] 10-16-2023 09:28-0400 Diastolic blood pressure 59 mm[Hg] Dr. Mickey Flores Work Phone: [facility] 10-16-2023 09:28-0400 Heart rate 45 /min Dr. Mickey Flores Work Phone: [facility] 10-16-2023 09:28-0400 Respiratory rate 16 /min Dr. Mickey Flores Work Phone: [facility] 10-16-2023 09:28-0400 Systolic blood pressure 125 mm[Hg] Dr. Mickey Flores Work Phone: [facility] 07-15-2023 13:58-0500 Body height 175.[address] Mickey Flores Work Phone: [facility] 07-15-2023 13:58-0500 Body mass index (BMI) [Ratio] 28.5 kg/m2 Dr. Mickey Flores Work Phone: [facility] 07-15-2023 13:58-0500 Body temperature 98.5 [degF] Dr. Mickey Flores Work Phone: [facility] 07-15-2023 13:58-0500 Body weight 87.[address] Mickey Flores Work Phone: [facility] 07-15-2023 13:58-0500 Diastolic blood pressure 61 mm[Hg] Dr. Mickey Flores Work Phone: [facility] 07-15-2023 13:58-0500 Heart rate 56 /min Dr. Mickey Flores Work Phone: [facility] 07-15-2023 13:58-0500 Respiratory rate 18 /min Dr. Mickey Flores Work Phone: [facility] 07-15-2023 13:58-0500 SaO2% (BldA) [Mass fraction] 100 % Dr. Mickey Flores Work Phone: [facility] 07-15-2023 13:58-0500 Systolic blood pressure 137 mm[Hg] Dr. Mickey Flores Work Phone: [facility] 09-24-2022 10:35-0400 Body height 175.3 cm Jenna Fernandez PA-C Work Phone: [facility] 09-24-2022 10:35-0400 Body weight 86.64 kg Jenna Fernandez PA-C Work Phone: [facility] 09-24-2022 10:35-0400 Diastolic blood pressure 73 mm[Hg] Jenna Fernandez PA-C Work Phone: [facility] 09-24-2022 10:35-0400 Heart rate 50 /min Jenna Fernandez PA-C Work Phone: [facility] 09-24-2022 10:35-0400 SaO2% (BldA) [Mass fraction] 99 % Jenna Fernandez PA-C Work Phone: [facility] 09-24-2022 10:35-0400 Systolic blood pressure 134 mm[Hg] Jenna Fernandez PA-C Work Phone: [facility] 06-13-2022 10:37-0500 Body height 176.[address] Mickey Flores Work Phone: [facility] Work Phone: 06-13-2022 10:27-0500 Body mass index (BMI) [Ratio] 27.1 kg/m2 Dr. Mickey Flores Work Phone: [facility] Work Phone: 06-13-2022 10:27-0500 Body temperature 98.4 [degF] Dr. Mickey Flores Work Phone: [facility] Work Phone: 06-13-2022 10:27-0500 Body weight 84.[address] Mickey Flores Work Phone: [facility] Work Phone: 06-13-2022 10:27-0500 Diastolic blood pressure 67 mm[Hg] Dr. Mickey Flores Work Phone: [facility] Work Phone: 06-13-2022 10:27-0500 Heart rate 42 /min Dr. Mickey Flores Work Phone: [facility] Work Phone: 06-13-2022 10:27-0500 Respiratory rate 16 /min Dr. Mickey Flores Work Phone: [facility] Work Phone: 06-13-2022 10:27-0500 SaO2% (BldA) [Mass fraction] 100 % Dr. Mickey Flores Work Phone: [facility] Work Phone: 06-13-2022 10:27-0500 Systolic blood pressure 129 mm[Hg] Dr. Mickey Flores Work Phone: [facility] Work Phone: 03-26-2022 09:30-0400 Body height 176.5 cm Carolina Sousa MD Work Phone: [facility] 03-26-2022 09:30-0400 Body weight 88.45 kg Carolina Sousa MD Work Phone: [facility] 03-26-2022 09:30-0400 Diastolic blood pressure 75 mm[Hg] Carolina Sousa MD Work Phone: [facility] 03-26-2022 09:30-0400 Heart rate 44 /min Carolina Sousa MD Work Phone: [facility] 03-26-2022 09:30-0400 SaO2% (BldA) [Mass fraction] 100 % Carolina Sousa MD Work Phone: [facility] 03-26-2022 09:30-0400 Systolic blood pressure 136 mm[Hg] Carolina Sousa MD Work Phone: [facility] 03-23-2022 23:43-0400 Diastolic blood pressure 50 mm[Hg] Dr. Mickey Flores Work Phone: [facility] Work Phone: 03-23-2022 23:43-0400 Heart rate 66 /min Dr. Mickey Flores Work Phone: [facility] Work Phone: 03-23-2022 23:43-0400 Respiratory rate 17 /min Dr. Mickey Flores Work Phone: [facility] Work Phone: 03-23-2022 23:43-0400 SaO2% (BldA) [Mass fraction] 97 % Dr. Mickey Flores Work Phone: [facility] Work Phone: 03-23-2022 23:43-0400 Systolic blood pressure 102 mm[Hg] Dr. Mickey Flores Work Phone: [facility] Work Phone: 03-23-2022 22:01-0400 Body temperature 99.6 [degF] Dr. Mickey Flores Work Phone: [facility] Work Phone: 03-23-2022 20:31-0400 Body height 176.[address] Mickey Flores Work Phone: [facility] Work Phone: 03-23-2022 20:31-0400 Body mass index (BMI) [Ratio] 27.9 kg/m2 Dr. Mickey Flores Work Phone: [facility] Work Phone: 03-23-2022 20:31-0400 Body weight 87.[address] Mickey Flores Work Phone: [facility] Work Phone: 02-25-2022 11:29-0400 Body mass index (BMI) [Ratio] 28.3 kg/m2 Dr. Mickey Flores Work Phone: [facility] Work Phone: 02-25-2022 11:29-0400 Body temperature 97.7 [degF] Dr. Mickey Flores Work Phone: [facility] Work Phone: 02-25-2022 11:29-0400 Body weight 88.[address] Mickey Flores Work Phone: [facility] Work Phone: 02-25-2022 11:29-0400 Diastolic blood pressure 64 mm[Hg] Dr. Mickey Flores Work Phone: [facility] Work Phone: 02-25-2022 11:29-0400 Heart rate 46 /min Dr. Mickey Flores Work Phone: [facility] Work Phone: 02-25-2022 11:29-0400 Respiratory rate 16 /min Dr. Mickey Flores Work Phone: [facility] Work Phone: 02-25-2022 11:29-0400 SaO2% (BldA) [Mass fraction] 100 % Dr. Mickey Flores Work Phone: [facility] Work Phone: 02-25-2022 11:29-0400 Systolic blood pressure 132 mm[Hg] Dr. Mickey Flores Work Phone: [facility] Work Phone: 02-15-2022 11:26-0400 Body mass index (BMI) [Ratio] 29.5 kg/m2 Dr. Mickey Flores Work Phone: [facility] Work Phone: 02-15-2022 09:36-0400 Body weight 88.[address] Mickey Flores Work Phone: [facility] Work Phone: 02-15-2022 09:36-0400 Diastolic blood pressure 64 mm[Hg] Dr. Mickey Flores Work Phone: [facility] Work Phone: 02-15-2022 09:36-0400 Heart rate 48 /min Dr. Mickey Flores Work Phone: [facility] Work Phone: 02-15-2022 09:36-0400 Respiratory rate 16 /min Dr. Mickey Flores Work Phone: [facility] Work Phone: 02-15-2022 09:36-0400 SaO2% (BldA) [Mass fraction] 100 % Dr. Mickey Flores Work Phone: [facility] Work Phone: 02-15-2022 09:36-0400 Systolic blood pressure 133 mm[Hg] Dr. Mickey Flores Work Phone: [facility] Work Phone: 12-12-2021 11:26-0400 Body mass index (BMI) [Ratio] 29.3 kg/m2 Dr. Mickey Flores Work Phone: [facility] Work Phone: 12-12-2021 11:26-0400 Body temperature 98.7 [degF] Dr. Mickey Flores Work Phone: [facility] Work Phone: 12-12-2021 11:26-0400 Body weight 91.[address] Mickey Flores Work Phone: [facility] Work Phone: 12-12-2021 11:26-0400 Diastolic blood pressure 69 mm[Hg] Dr. Mickey Flores Work Phone: [facility] Work Phone: 12-12-2021 11:26-0400 Heart rate 45 /min Dr. Mickey Flores Work Phone: [facility] Work Phone: 12-12-2021 11:26-0400 Respiratory rate 15 /min Dr. Mickey Flores Work Phone: [facility] Work Phone: 12-12-2021 11:26-0400 SaO2% (BldA) [Mass fraction] 99 % Dr. Mickey Flores Work Phone: [facility] Work Phone: 12-12-2021 11:26-0400 Systolic blood pressure 170 mm[Hg] Dr. Mickey Flores Work Phone: [facility] Work Phone: 08-30-2021 07:57-0500 Body temperature 97.9 [degF] Dr. Mickey Flores Work Phone: [facility] Work Phone: 08-30-2021 07:57-0500 Body weight 94.[address] Mickey Flores Work Phone: [facility] Work Phone: 08-30-2021 07:57-0500 Diastolic blood pressure 74 mm[Hg] Dr. Mickey Flores Work Phone: [facility] Work Phone: 08-30-2021 07:57-0500 Heart rate 74 /min Dr. Mickey Flores Work Phone: [facility] Work Phone: 08-30-2021 07:57-0500 Respiratory rate 14 /min Dr. Mickey Flores Work Phone: [facility] Work Phone: 08-30-2021 07:57-0500 SaO2% (BldA) [Mass fraction] 100 % Dr. Mickey Florse Work Phone: [facility] Work Phone: 08-30-2021 07:57-0500 Systolic blood pressure 153 mm[Hg] Dr. Mickey Flores Work Phone: [facility] Work Phone: 01-01-2021 11:28-0400 Body mass index (BMI) [Ratio] 30.2 kg/m2 Dr. Mickey Flores Work Phone: [facility] 10-30-2020 14:09-0400 Body temperature 98.3 [degF] Dr. Mickey Flores Work Phone: [facility] 10-30-2020 14:09-0400 Diastolic blood pressure 80 mm[Hg] Dr. Mickey Flores Work Phone: [facility] 10-30-2020 14:09-0400 Heart rate 52 /min Dr. Mickey Flores Work Phone: [facility] 10-30-2020 14:09-0400 Respiratory rate 16 /min Dr. Mickey Flores Work Phone: [facility] 10-30-2020 14:09-0400 SaO2% (BldA) [Mass fraction] 99 % Dr. Mickey Flores Work Phone: [facility] 10-30-2020 14:09-0400 Systolic blood pressure 163 mm[Hg] Dr. Mickey Flores Work Phone: [facility] Encounters Encounter Date Encounter Type Care Provider Facility Start: 05-23-2025 ambulatory Pete Monet Facility:[facility] Start: 05-10-2025 ambulatory Mickey Flores Facility:[facility] Start: 05-04-[address] ULISES MASTERS MD Facility:[facility] Start: 04-29-2025 End: 04-29-2025 Patient encounter procedure Cristin GLOVER -[facility] Work Phone: Start: 04-29-2025 End: 04-29-[address] Mickey Flores MD Work Phone: -[facility] Start: 04-14-2025 End: 04-14-[address] Pete Monet MD -[facility] Work Phone: Start: 04-14-2025 End: 04-14-[address] Mickey Flores MD Work Phone: [facility] Start: 03-09-2025 End: 03-09-[address] Pete Monet MD -[facility] Work Phone: Start: 03-09-2025 End: 03-09-[address] Mickey Flores MD Work Phone: [facility] Start: 02-22-[address] Pete Monet MD -[facility] Start: 02-14-2025 End: 02-14-[address] Pete Monet MD -[facility] Work Phone: Start: 02-14-2025 End: 02-14-[address] Mickey Flores MD Work Phone: [facility] Start: 01-31-2025 End: 01-31-[address] Mickey Flores MD Work Phone: -[facility] Start: 01-31-2025 End: 01-31-[address] Pete Monet MD -Cat Scan [facility] Work Phone: Start: 01-31-2025 End: 01-31-2025 ambulatory Pete Monet Facility:[facility] Start: 01-28-2025 End: 01-28-[address] Mickey Flores MD Work Phone: -Laboratory Start: 01-28-2025 End: 01-28-[address] Pete Monet MD -Laboratory Work Phone: Start: 01-28-2025 End: 01-28-2025 ambulatory Pete Monet Facility:[facility] Start: 11-01-2024 ambulatory Mickey Flores Facility:[facility] Start: 11-01-2024 Non-patient / Non-visit [facility]. Tejeda [facility] Work Phone: Start: 11-01-2024 End: 11-01-2024 Patient encounter procedure Cristin Aguilar [employer] -Pulmonary Services/Neurology Work Phone: Start: 11-01-2024 End: 11-01-2024 ambulatory Mickey Flores Facility:[facility] Start: 10-28-2024 End: 10-28-2024 Patient encounter procedure Cristin Aguilar NP-[facility] Work Phone: Start: 10-28-2024 End: 10-28-2024 ambulatory Mickey Flores Facility:[facility] Start: 07-30-2024 End: 07-30-2024 ambulatory Mickey Flores Facility:[facility] Start: 11-12-2023 Non-patient / Non-visit Dr. Maxi Flores Work Phone: [facility] Work Phone: Start: 11-12-2023 Non-patient / Non-visit Dr. Maxi Flores Work Phone: [facility] Start: 11-12-2023 End: 11-12-[address] Mickey Flores Work Phone: [facility] Work Phone: Start: 11-12-2023 End: 11-12-[address] Mickey Flores Work Phone: [facility]-Cardiovascu lar Services Work Phone: Start: 10-16-2023 End: 10-16-[address] Mickey Flores Work Phone: [facility] Work Phone: Start: 07-15-2023 End: 07-15-[address] Mickey Flores Work Phone: [facility] Work Phone: Start: 07-09-2023 End: 07-09-[address] Mickey Flores Work Phone: [facility] Work Phone: Start: 07-09-2023 End: 07-09-[address] Mickey Flores Work Phone: [facility] Work Phone: Start: 07-08-[address] Mickey Flores Work Phone: [facility] Oncology Start: 03-24-2023 End: 03-24-2023 ambulatory Jenna Fernandez PA-C Work Phone: [facility] SUR[facility] Comment on above: Cholangiocarcinoma ( HCC) (Primary Dx) Start: 03-24-2023 End: 03-24-2023 Telemedicine consultation with patient Jenna Fernandez PA-C Work Phone: [facility] Start: 01-06-2023 End: 01-06-2023 ambulatory [facility] Work Phone: Start: 01-06-2023 End: 01-06-2023 Patient encounter procedure [facility] Work Phone: Start: 09-24-2022 End: 09-24-2022 Office outpatient visit 25 minutes Jenna Fernandez PA-C Work Phone: [facility] DE[facility] Comment on above: Cholangiocarcinoma ( HCC) (Primary Dx) Start: 06-13-2022 End: 06-13-[address] Mickey Flores Work Phone: [facility] Care Start: 06-10-2022 End: 06-10-[address] Mickey Flores Work Phone: [facility] Work Phone: Start: 06-10-2022 End: 06-10-[address] Mickey Flores Work Phone: [facility] Start: 03-26-2022 End: 03-26-2022 Patient encounter procedure Carolina Sousa MD Work Phone: [facility] Comment on above: Cholangiocarcinoma ( HCC) (Primary Dx) Start: 03-25-2022 End: 03-25-[address] Mickey Floers Work Phone: [facility] Work Phone: Start: 03-25-2022 End: 03-25-[address] Mickey Flores Work Phone: [facility] Start: 03-23-2022 End: 03-23-2022 Emergency department patient visit Dr. Mickey Flores Work Phone: [facility]-Emergency Department Start: 02-25-2022 End: 02-25-[address] Mickey Flores Work Phone: [facility] Start: 02-15-2022 End: 02-15-[address] Mickey Flores Work Phone: [facility] Start: 12-12-2021 End: 12-12-[address] Mickey Flores Work Phone: [facility] Start: 12-03-2021 End: 12-03-[address] Mickey Flores Work Phone: [facility] Start: 10-26-2021 End: 10-26-[address] [facility] Start: 08-30-2021 End: 08-30-[address] Mickey Flores Work Phone: [facility] Start: 06-16-2020 End: 06-16-2020 Telephone encounter Tapan Ramsey Work Phone: [facility] Comment on above: Future Appointment Start: 01-08-2017 End: 01-08-2017 Ambulatory PHY WO ID REFERRING Facility:[facility] Procedures Date Procedure Procedure Detail Performing Clinician Start: 05-10-2025 Urine microalbumin/creatinine ratio measurement Dr. Mickey Flores MD Work Phone: Start: 02-22-2025 PET study for localization of tumor Dr. Mickey Flores MD Work Phone: Start: 02-15-2025 Measurement of occul t blood in stool specimen using immunoassay Dr. Mickey Flores MD Work Phone: Start: 01-31-2025 X-ray of chest, PA a nd lateral views Dr. Mickey Flores MD Work Phone: Start: 01-31-[address] Maxi Flores MD Work Phone: Start: 01-31-[address] Mickey Flores MD Work Phone: Start: 01-31-2025 CT of thorax, abdome n and pelvis with contrast Dr. Mickey Flores MD Work Phone: Start: 02-02-2024 Urnls dip stick/tabl et reagent auto microscopy Dr. Mickey Flores MD Work Phone: Start: 02-02-[address] Mickey Flores MD Work Phone: Start: 02-02-2024 Measurement of renal function Dr. Mickey Flores MD Work Phone: Comment on above: GFR Calc Start: 07-09-2023 CT of chest and abdomen Dr. Mickey Flores Work Phone: Start: 01-06-2023 CT of chest and abdomen Start: 06-10-2022 CT of chest and abdomen Dr. Mickey Flores Work Phone: Start: 03-23-2022 Plain chest X-ray Dr. Karl Flores Work Phone: Start: 12-03-2021 CT of thorax with contrast Dr. Mickey Flores Work Phone: Start: 06-12-2021 PET study for localization of tumor Dr. Mickey Flores MD Work Phone: Start: 06-12-2021 PET/CT Tumor Base -T high Subs Dr. Mickey Flores Work Phone: Start: 08-01-2020 Positron emission tomography with computed tomography Dr. Mickey Flores Work Phone: Start: 01-01-2017 History of placement of stent for coronary artery disease History of coronary artery stent placement Cristin Aguilar [employer] Comment on above: PCI-rotational ather ectomy, balloon angioplasty, and HECTOR-Mid LAD w/ 2.75 x 12 mm Resolute Integrity Stent 01/01/2017 Bacteria identified in Blood by Culture Dr. Mickey Flores Work Phone: SARS-CoV-2 & FLU Ant igen (Rapid) Dr. Mickey Flores Work Phone: Urine culture Dr. Mickey armstrong Work Phone: Plan of Treatment Date Care Activity Detail Author Start: 05-10-2025 Patient encounter procedure Registered Clinical -[facility] Start: 02-14-2025 Cancer Ag 19-9 [Units/volume] in Serum or Plasma [facility] Start: 02-14-2025 Carcinoembryonic Ag [Mass/volume] in Serum or Plasma [facility] Start: 02-14-2025 [facility] Start: 03-14-2023 Influenza vaccination Influenza Vaccine (#1) [facility] Start: 07-14-2022 ADVANCE DIRECTIVE DISCUSSION ADVANCE DIRECTIVE DISCUSSION [facility] Start: 07-14-2022 DEPRESSION ASSESSMENT DEPRESSION ASSESSMENT [facility] Start: 07-05-2022 COVID-19 VACCINE (4 - Booster for Moderna series) COVID-19 VACCINE (4 - Booster for Moderna series) [facility] Start: 04-30-2022 COVID-19 VACCINE (4 - Booster for Moderna series) COVID-19 VACCINE (4 - Booster for Moderna series) [facility] Start: 04-30-2022 Covid-19 Vaccine (4 - Moderna series) Covid-19 Vaccine (4 - Moderna series) [facility] Start: 03-23-2022 [facility] Work Phone: Start: 03-23-2022 End: 03-23-2022 Blood culture [facility] Work Phone: Start: 03-23-2022 [facility] Work Phone: Start: 03-14-2022 Influenza vaccination INFLUENZA (#1) [facility] Start: 07-14-2021 ADVANCE DIRECTIVE DISCUSSION ADVANCE DIRECTIVE DISCUSSION [facility] Start: 03-14-2020 Influenza vaccination INFLUENZA (#1) [facility] Start: 2004 ADVANCE DIRECTIVE DISCUSSION ADVANCE DIRECTIVE DISCUSSION [facility] Start: 2004 PNEUMOVAX AGE 65 AND OVER WITH 5YR LOOKBACK (#1) PNEUMOVAX AGE 65 AND OVER WITH 5YR LOOKBACK (#1) [facility] Start: 1989 SHINGRIX VACCINE (1 of 2) SHINGRIX VACCINE (1 of 2) [facility] Start: 1984 DIABETES SCREEN DIABETES SCREEN [facility] Start: 1974 LIPID SCREEN LIPID SCREEN [facility] Start: 1958 Urine microalbumin profile [facility] Start: 1957 Hepatitis B surface antibody level LDL CHOLESTEROL [facility] Start: 1949 3 comp foot exam completed DIABETIC FOOT EXAM [facility] Start: 1949 Hepatitis B screening URINE ALBUMIN:CREATININE RATIO [facility] Start: 1949 Hepatitis C antibody, confirmatory test DILATED RETINAL EXAM [facility] Start: 1945 Pneumococcal Vaccine: 65+ (1 - PCV) Pneumococcal Vaccine: 65+ (1 - PCV) [facility] Start: 1945 PNEUMOCOCCAL: 65+ (1 - PCV) PNEUMOCOCCAL: 65+ (1 - PCV) [facility] Start: 1944 Hemoglobin A1c/Hemoglobin.total in Blood HBA1C [facility] Bacteria identified in Blood by Culture Blood Culture [facility] Work Phone: Bacteria identified in Urine by Culture Urine Culture [facility] Work Phone: Blood culture [facility] Work Phone: Cancer Ag 19-9 [Units/volume] in Serum or Plasma [facility] Work Phone: Carcinoembryonic Ag [Mass/volume] in Serum or Plasma [facility] CBC W Auto Different ial panel - Blood [facility] Work Phone: CT Chest and Abdomen W contrast IV [facility] Work Phone: Gas panel - Arterial blood W [facility] Work Phone: Patient Education ED FUO Adult [facility] Work Phone: Patient referral [facility] Work Phone: PT Unspecified body region [facility] Immunizations Immunization Date Immunization Notes Care Provider [facility] 05-02-2021 influenza virus vaccine, unspecified formulation Jenna Fernandez PA-C Work Phone: [facility] 09-27-2020 Covid (Moderna) Dr. Mickey herman Work Phone: [facility] 08-30-2020 Covid (Moderna) Dr. Mickey herman Work Phone: [facility] Payers Date Payer Category Payer Medicare [employer] MEDICARE A ETNA MEDICARE PPO [id number] 2021-Present [phone] [address] [place] [address] PPO [id number] 2020 Private Health Insurance [id number] 2020 Self-pay [id number] 2019 Unknown MMO MMO TRADITIO NAL [id number] 2019-Present Indemnity [id number] 2016 Unknown [id number] 1939 Unknown [id number] Medicare [id number] Private Health Insurance [employer] MCR SEE NOTE [id number] Unknown [id number] Unknown [id number] Unknown [id number] Unknown [id number] Unknown [id number] Unknown [id number] Unknown [id number] Unknown [id number] 462 Unknown [id number] 462 Unknown [id number] Unknown [id number] Unknown [id number] Social History Date Type Detail Facility Tobacco smoking stat us TNIS Unknown if ever smoked [facility] Start: 1940 Sex Assigned At Not on file C [facility] Start: 02-13-2021 End: 10-16-2023 Tobacco smoking status TNIS Unknown if ever smoked [facility] Start: 10-30-2020 Non-smoker [facility] Start: 1940 Sex Assigned At Male W [facility] Start: 11-09-2020 End: 04-16-2024 Tobacco smoking status NHIS Ex-smoker [facility] End: 07-14-2004 History of tobacco use Current smoker [facility] End: 07-14-2004 History of tobacco use Cigarette Smoker [facility] Start: 11-09-2020 Tobacco use and exposure Smokeless tobacco non-user [facility] Start: 03-26-2022 End: 09-24-2022 Alcohol intake Current drinker of alcohol (finding) [facility] Start: 06-23-2020 History SDOH Alcohol Frequency 1 [facility] Start: 11-09-2020 History SDOH Alcohol Comment 1-2X/WEEK [facility] Start: 03-16-2022 End: 03-26-2022 Exposure to SARS-CoV-2 (event) Not sure [facility] Start: 09-24-2022 End: 03-24-2023 History of Social function [facility] Start: 09-24-2022 End: 03-24-2023 Tobacco use panel [facility] National Score (1-10 0), lower number is lower risk 66 [facility] Medical Equipment Procedure Code Equipment Code Equipment Origin al Text Equipment Identifier Dates Patch Xenosure Bovine Pericardial Tissue 8x.8cm Vascular Sterile - [id number] Start: 11-16-2020 Stent Wallflex 1 0mm 8.5fr Permalume 60mm Biliary Rapid Exchange Self Expand - [id number] Start: 08-28-2020 Start: 06-12-2020 Comment on above: TESTING BLOOD SUGAR ONCE DAIILY once daily. USE D IRECTED. Mental Status Date Assessment Result Facility 03-23-2022 Cognitive function Level Of Cons ciousness Awake;Alert;Appropriate;Follow s Commands [facility] Work Phone: Clinical Notes 01-01-2017 to 04-29-2025 Note Date & Type Note Facility 04-29-2025 Progress note [facility] 02-14-2025 Evaluation note Diagnosis Onset Date Resolution Abnormal finding on imaging acute February 14, 2025 1:48pm NSCLC of left lung chronic February 14, 2025 1:48pm Pancreatic adenocarcinoma chronic February 14, 2025 1:48pm Malignant neoplasm of biliary tract chronic February 22 10:00am NSCLC of left lung chronic February 22, 2025 10:00am Bile duct cancer deleted February 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 10:00am Abnormal finding on imaging acute March 09 9:17am Positive occult stool blood test acute March 09 9:17am NSCLC of left lung chronic March 09, 2025 9:17am Pancreatic adenocarcinoma chronic March 09 9:17am [facility] Work Phone: 1(979) 360-330708-04-2025 Evaluation note* Diagnosis Onset Date Resolution Status Admit Date Abnormal finding on imaging chronic February 14, 2025 1:48pm NSCLC of left lung chronic February 14, 2025 1:48pm Pancreatic adenocarcinoma chronic February 14, 2025 1:48pm 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 February 22 10:00am NSCLC of left lung chronic February 22, 2025 10:00am Bile duct cancer deleted February 112024 10:00am Positive occult stool blood test acute March 09 9:17am Abnormal finding on imaging chronic March 09, 2025 9:17am NSCLC of left lung chronic March 09, 2025 9:17am Pancreatic adenocarcinoma chronic March 09, 2025 9:17am Adenomatous rectal polyp chronic April 14, 2025 1:17pm NSCLC of left lung chronic Octobe r 2024 1:17pm Pancreatic adenocarcinoma chronic April 14, 2025 1:17pm [facility] Work Phone: 1([phone]) 202-256308-04-2025 Evaluation note* Diagnosis Onset Date Resolution Status Admit Date Abnormal finding on imaging chronic February 14, 2025 1:48pm NSCLC of left lung chronic February 14, 2025 1:48pm Pancreatic adenocarcinoma chronic February 14, 2025 1:48pm 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 February 22 10:00am NSCLC of left lung chronic February 22, 2025 10:00am Bile duct cancer deleted February 112024 10:00am Positive occult stool blood test acute March 09 9:17am Abnormal finding on imaging chronic March 09, 2025 9:17am NSCLC of left lung chronic March 09, 2025 9:17am Pancreatic adenocarcinoma chronic March 09, 2025 9:17am Anemia acute April 14 1:17pm Adenomatous rectal polyp chronic April 14, 2025 1:17pm NSCLC of left lung chronic Octobe r 2024 1:17pm Pancreatic adenocarcinoma chronic April 14, 2025 1:17pm Bradycardia chronic April 29, 2025 10:09am Essential (primary) hypertension chronic April 29 10:09am History of coronary artery stent placement January 01, 2017 chronic April 29 10:09am Hyperlipidemia chronic April 292024 10:09am Pancreatic adenocarcinoma chronic April 29, 2025 10:09am [facility] Work Phone: 1(450) 203-147007-22-2025 Radiology Diagnostic study note [facility] [address] [place] [id number] Chest, Abd, Pel w/Contrast MR#: [id number] Acct: [id number] Name: JOSE MANUEL DOMINGUEZ Rep #: [id number] : 1940 M 84 From: Tessa Grady MD PCP: Dr. Mickey Flores MD Status: REG C RAYMUNDO Study:CT Chest, Abd, Pel w/Contrast Date of E xam: 01/31/25 Exam# [id number] Ordering Dr: Kodi Monet MD PROCEDURE: CT CHEST, ABD, PEL W/CONTRAST 01/31/2025 REASON FOR EXAM: IV ONLY-HX OF LUNG CA TECHNIQUE: Chest, abdomen and pelvis CT with intravenous contrast. Coronal and Sagittal reconstruction series were provided. One or more dose reduction techniques were used (e.g., Automated exposure control, adjustment of the mA and/or kV according to patient size, use of iterative reconstruction technique. PATIENT PREPARATION: Per protocol ORAL CONTRAST TYPE: None. CONTRAST: Isovue 370 VOLUME: 100mL RADIATION DOSE SUMMARY: DLP: 2300 mGycm COMPARISON: CT chest, abdomen and pelvis 02/05/2024. FINDINGS: CT CHEST: Hardware: None. Lymph nodes: No axillary, mediastinal or hilar lymphadenopathy. Heart and Vasculature: The heart is normal in size without pericardial effusion. The great vessels are normal in caliber. Severe coronary artery calcifications. Mild thoracic aortic calcifications. Lungs and Airways: The central airways are patent. Slight increased size of theleft upper lobe pulmonary mass, now measuring 3.0 x 1.8 cm (coronal image 147), previously measuring 2.9 x 1.7 cm when measured in a similar fashion. Slightly increased size/conspicuity of several small ground-glass pulmonary nodules (for example inthe right upper lobe series 2, image 38, and right lower lobe series 2, image 84). The right lower lobe ground-glass nodule measures 0.6 cm. No pleural effusion or pneumothorax. Bones/soft tissues: Thoracic spondylosis. Bilateral gynecomastia. CT ABDOMEN/PELVIS: Liver: Normal in size without obvious hepatic mass. The major portal veins are patent. Mild intrahepatic and extrahepatic biliary ductal dilation. Mild left hepatic pneumobilia, unchanged. Gallbladder: Surgically absent. Spleen: Normal in size. Pancreas: Postsurgical changes of prior Whipple procedure. Marked atrophy of the pancreatic body/tail. Subtle soft tissue thickening within the pancreatic head resection bed and surrounding the celiac trunk and origin of the SMA (best visualized on coronal images 57-65). Persistent narrowing of the common hepatic artery off the celiac trunk, withadditional subtle surrounding soft tissue thickening (series 3, images 29-30). Visualization for patency of the common hepatic artery is limited by venous phase imaging. Adrenals: No adrenal mass. Kidneys: Bilateral renal cysts and additional hypodensities. No hydronephrosis or nephrolithiasis. Bladder: Incompletely distended with diffuse, marked bladder wall thickening. Reproductive Organs: Dystrophic calcifications within the prostate gland. Bowel: The bowel loops are nondilated. Trace right-sided pelvic ascites, grossly unchanged over several examinations. No pneumoperitoneum. Venous contrast-enhancing mural nodule within the sigmoid colon, measuring 1.6 x 1.9 cm (series 3, image 97). This is retrospectively present on prior examination (see axial image 100 on prior examination). Normal appendix. Lymph nodes: Increased size/conspicuity of numerous central and retroperitoneal lymph nodes, which are technically normal by short axis diameter criteria. Vasculature: Moderate mixed plaque of the aortoiliac vessels. See above for additional vascular findings. Bones: Lumbar spondylosis. CT/CT Chest, Abd, Pel w/Contrast IMPRESSION: CT chest: 1. Slight increased size of the left upper lobe pulmonary mass, compatible with pulmonary neoplasm. 2. Increased size/conspicuity of several right lung ground-glass opacities, mostcompatible with additional sites of malignancy. These are below the threshold for accurate detection on PET-CT. CT abdomen/pelvis: 1. Postsurgical findings of prior Whipple procedure, with increased soft tissue thickening within the resection bed and surrounding the celiac trunk and SMA, most compatible with recurrent/residual neoplasm. If aggressive treatment pursued, correlation with abdominal MRI and/or PET-CT is recommended. 2. Increased size/conspicuity of numerous central and retroperitoneal nodes, which are technically normal in size by short axis diameter, however given findings in impression #1, are concerning for abisai metastatic disease. Seeabove for follow-up recommendations. 3. Enhancing mural nodule within the sigmoid colon, which is retrospectively present on prior examination (though not present on CT 07/09/2023). Given unchanged location and increased size, this is concerningfor colorectal neoplasm. Urgent gastroenterology consultation and colonoscopy recommended for further evaluation. Reading Location: [id number] CC: (more content not included)...[facility]07-22-2025 Radiology Diagnostic study note [facility] [address] [place], [place] [id number] Chest PA and Lateral MR#: [id number] Acct: [id number] Name: JOSE MANUEL DOMINGUEZ Rep #: [id number] : 1940 M 84 From: Tessa Chapman MD PCP: Dr. Mickey Flores MD Status: MASSIMO FONSECA Study:Chest PA and Lateral Date of Exam: 01/31/25 Exam# [id number] Ordering Dr: Kodi Monet MD PROCEDURE: CHEST PA AND LATERAL 01/31/2025 REASON FOR EXAM: HX OF LUNG CA TECHNIQUE: CHEST PA AND LATERAL COMPARISON: CT 01/31/2025 FINDINGS: Normal heart size, possible LVH. Status post coronary stenting. Well inflated lungs. No consolidation, effusion or pneumothorax. Multiple calcified granulomas and calcified lymph nodes. The left apex, there is a 2 cm rounded opacity, shown on CT to be a spiculated mass. RAD/Chest PA and Lateral IMPRESSION: Left upper lobe spiculated mass as better seen on recent CT. No acute chest findings. Reading Location: [place] [address] CC: Dr. Pete Monet MD; Dr. Mickey Flores MD ~ Manager Engine: Signed [facility]04-17-2025 Evaluation note* Diagnosis Onset Date Resolution Status Admit Date Bradycardia chronic October 28, 025 9:55am Essential (primary) hypertension chronic October 28, 2024 9:55am Hyperlipidemia chronic October 9:55am Pancreatic adenocarcinoma chronic October 28, 2024 9:55am History of coronary artery stent placement January 01, 2017 resolved October 28, 2024 9:55am [facility] Work Phone: 1([phone]) 404-680004-17-2025 Evaluation note* Diagnosis Onset Date Resolution Status Admit Date Bradycardia chronic October 28, 025 9:55am Essential (primary) hypertension chronic October 28, 2024 9:55am Hyperlipidemia chronic October 9:55am Pancreatic adenocarcinoma chronic October 28, 2024 9:55am History of coronary artery stent placement January 01, 2017 resolved October 28, 2024 9:55am Abnormal finding on imaging acute February 14, 2025 1:48pm NSCLC of left lung chronic February 14, 2025 1:48pm Pancreatic adenocarcinoma chronic February 14, 2025 1:48pm [facility] Work Phone: 1([phone]) 494-215109-11-2023 History of Present illness Narrative* Jenna Fernandez PA-C - 03/24/2023 2:47 PM EDT Images from the original note were not included. Jenna Fernandez PA-C [facility] [address] [facility], [address] [place] [id number] TELEPHONE VISIT NOTE SUBJECTIVE Jose Manuel Dominguez is a 82 year old male on the phone for a surveillance visit. 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 He denies abdominal pain, nausea, vomiting, weight loss, jaundice. No new changes in medical history. He is still following with Dr. Monet, oncology. The ROS, medical, surgical, family, and social history were reviewed by Jenna Fernandez PA-C Plan Cholangiocarcinoma The patient is 2 years s/p whipple procedure for cholangiocarcinoma. No change in symptoms since last seen. He has a planned repeat CT scan in June that Dr. Monet had ordered. Discussed with patient that he can continue surveillance visits with Dr. Monet in the future. If he has any changes in symptoms, he was instructed to call the office. All questions were answered to the patient's satisfaction and he is agreeable with the plan. Total time of telephone encounter: 15 minutes Jenna Fernandez PA-C 03/24/2023 2:48 PM I have communicated my name and active licensure. The patient's identity and physical location wereverified at the time of this visit. Either the patient or their legal in home sales representative has been informed of the risks and benefits of -- and alternatives to -- treatment through a remote evaluation andconsents to proceed with the evaluation remotely. [facility] History of Present illness Narrative* Jenna Fernandez PA-C - 09/24/2022 10:36 AM EDT Patient referred by: Tapan Ramsey [address] [place] [address] [address] [facility] [id number] Patient presents with: Established Patient: Mr. Dominguez [...] Diagnosis Date Bradycardia CAD (coronary artery disease) shawn 12/2016 Cholangiocarcinoma (HCC) 06/21/2020 Daryn SOUSA MD [...] VSL 2016 REMV CATARACT EXTRACAP,INSERT LENS Right 2010 FAMILY HISTORY Problem Relation Age of Onset [...] which included preparing to see the patient, [id number] patient care, completing clinical documentation, obtaining and/or reviewing separately obtained history, performing a medically appropriate examination, counseling and educating the pat ient/family/caregiver, and independently interpreting results (not separately reported). [...] she is agreeable with the plan. Jenna Fernandez PA-C documented [facility]22 Instructions* Patient Instructions* Carolina Sousa MD - 03/26/2022 9:59 AM EDT Please call us after your next CT scan is performed. documented in [facility] History of Present illness Narrative* Carolina Sousa MD - 03/26/2022 9:45 AM EDT Patient referred by: SELF Patient presents with: [...] which included preparing to see the patient, [id number] patient care, completing clinical documentation, obtaining and/or reviewing separately obtained history, performing a medically appropriate examination, counseling and educating the pat ient/family/caregiver, ordering medications, tests, or procedures, and communicating results to thepatient/family/caregiver. .Greater than 50% of the direct patient [...] He can follow-up with me after that. Carolina Sousa MD Please Note: This office note has been created using [employer]UK[employer], a speech recognition software program, and may contain errors including punctuation, grammar, spelling, gender, and inappropriate words or phrases that pertain to the sytem. documented in this encounterMartin [facility]06-16-2022 NoteHNO ID: [id number] Author: Nico Marcial PA-C Service: ? Author Type: Physician Promotion Producer Type: Progress Notes Filed: 12/27/2021 1:46 PM Note Text: Actionable Findings Registry I am following up on this actionable finding at the direction of the [employer]. Patient was found previously to have an abnormal CT chest Consult to the lung nodule clinic was recommended. Outreach was done by the office and patient has encounters from an OSH regarding this. Will close this out of the actionable findings registry. Actionable Findings follow up status: Complete Nico Marcial PA-C December 27, 2021 1:45 [facility]06-16-2022 NotePatient Outreach (VTRIAG) JOSE MANUEL DOMINGUEZ ([id number]) 1940 M Date Time Provider Department 12/27/21 NICO MARCIAL During your visit today, we recorded the following information about you: Nico Marcial PA-C 12/27/2021 1:46 PM Signed Actionable Findings Registry I am following up on this actionable finding at the direction of the [employer]. Patient was found previously to have an [...] - Hives 14 - Other: See Comments VALENTIN 03/18/2011 14 - Other: See Comments Comments: [...] 11/17/2020 Encounter Status:Closed by NICO MARCIAL on 12/27/21[facility] 01-01-2017 Evaluation note* Diagnosis Onset Date Resolution Status Essential (primary) hypertension chronic Hyperlipidemia chronic Pancreatic adenocarcinoma ch [facility] History of coronary artery stent placement January 01, 2017 resolved Pancreatic adenocarcinoma ch ronic NSCLC of left lung chronic Pancreatic adenocarcinoma ch [facility] Work Phone: 1([phone]) 419-386006-21-2017 Evaluation note* Diagnosis Onset Date Resolution Status Essential (primary) hypertension chronic Hyperlipidemia chronic Pancreatic adenocarcinoma ch [facility] History of coronary artery stent placement January 01, 2017 resolved [facility] Work Phone: Evaluation note* Diagnosis Onset Date Resolution Status Pancreatic adenocarcinoma ac [facility] Work Phone: Evaluation note* Diagnosis Onset Date Resolution Status Pancreatic adenocarcinoma ac [place] NSCLC of left lung chronic Pancreatic adenocarcinoma ac [place] Essential (primary) hypertension chronic Hyperlipidemia chronic History of coronary artery stent placement January 01, 2017 resolved Pancreatic adenocarcinoma ac [facility] Work Phone: Evaluation note* Diagnosis Cholangiocarcinoma (HCC)- Primary Malignant neoplasm of intrahepatic bile ducts documented in this encounter [facility] noteNo assessment information [facility] Work Phone: Evaluation note* Diagnosis Cholangiocarcinoma (HCC)- Primary Malignant neoplasm of intrahepatic bile ducts documented in this encounter [facility] note* Diagnosis Onset Date Resolution Status 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 [place], [place] [address] OFFICE VISIT Date of Service: 04/29/25 MR#: [id number] Acct: [id number] Name: JOSE MANUEL DOMINGUEZ Rep #: [id number] : 1940 Provider: BELEN Aguilar Age/Sex: 84/M Location: [facility] Status: Signed HPI HPI History of Present Illness Details: JOSE MANUEL DOMINGUEZ, is a 84 M who presents to the office today for a cardiovascular outpatient follow-up. He has a history of coronary artery disease status post rotational atherectomy, balloon angioplasty, and stent placement to LAD in December 2016 at [facility]. He also has a history of [...] energy level, myalgias, or claudication. He does acknowledge BLE edema-he states this has improved. He does wear compression stockings. He does not have sudden weight gain. He does acknowledge occasional lightheadedness with quick positional changes. He denies dizziness, syncopal or near syncopal episodes, and headaches. 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: No Is patient in pain?: No Allergies tetanus and diphtheria toxoids (tetanus & diphtheria toxoids) Allergy (Verified 04/29/25 10:47) Hives atorvastatin (From Lipitor) Adverse Reaction (Unknown, Verified 04/29/25 10:47) Myalgias with 80mg, not 40mg pravastatin Adverse Reaction (Unknown, Verified 04/29/25 10:47) Severe myalgias, memory and balance issues rosuvastatin (From Crestor) Adverse Reaction (Unknown, Verified 04/29/25 10:47) Severe Myalgias espino Adverse Reaction (Verified 04/29/25 10:47) nasal congestion Medications ?Medication ?Instructions ?Recorded ?Confirmed ?Type allopurinol 300 mg tablet 300 mg PO DAILY 01/01/16 History aspirin 81 mg chewable tablet 81 mg PO DAILY@0800 12/1204/29/25 History clopidogrel 75 mg tablet 75 mg PO DAILY 12/30/1604/13 History lisinopril 10 mg tablet 10 mg PO DAILY #90 tabs 01/1204/29/25 History atorvastatin 40 mg tablet 40 mg PO DAILY #90 tabs 12/3104/29/25 Rx furosemide 40 mg tablet (Lasix) 40 mg PO BID 10/28/24 04/29/25 History omega-3 acid ethyl esters 1 gram See Rx Instructions . Route 01/11/25 04/29/25 Rx capsule .COMPLEX #90 caps dapagliflozin propanediol 10 mg 10 mg PO QDAY 02/14/25 04/29/25 History tablet (Farxiga) metformin 750 mg tablet,extended 750 mg PO TID 5 04/29/25 History release 24 hr calcium carbonate 600 mg PO QDAY 04/29/2504/13 History iron,carbonyl 65 mg-vitamin C 125 2 tab PO DAILY 04/2904/29/25 History mg tablet Ejection fraction %: 55 Have you fallen in the past year?: No PFSH Medical History (Reviewed 04/29/25 @ 11:02 by Cristin Aguilar [employer] HEL[employer], [employer] HEL[employer]-C) Paronychia of left middle finger NSCLC of left lung Uses continuous positive airway pressure (CPAP) ventilation at home Nasal polyps Pilonidal cyst Hepatomegaly Jaundice Diabetes mellitus type II, controlled, with no complications 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 pulmonary arterial hypertension Obesity Essential (primary) hypertension Bradycardia Atherosclerosis of [place] coronary artery of [place] heart without angina pectoris Hyperlipidemia SUZANNE (obstructive sleep apnea) Surgical History (Reviewed 04/29/25 @ 11:02 by Cristin Aguilar [employer] RO[employer]ER HELPER, [employer] ROASTER HELPER-C) Hx of colonoscopy with polypectomy History of common bile duct surgery History of lung biopsy History of biliary duct stent placement H/O endoscopy Hx of nasal polypectomy History of coronary artery stent placement (01/01/17) H/O right knee surgery History of left heart catheterization (12/30/16) Family History (Reviewed 04/29/25 @ 11:02 by Cristin Aguilar [employer] RO[employer]ER HELPER, [employer] RO[employer]ER HELPER-C) Mother CAD (coronary artery disease) Hypertension CHF [...] home: Yes ROS Const Const: Negative for fatigue or weakness Eyes Eyes: Negative for change in vision ENT ENT: Negative for dizziness or balance problems Cardio Chest Pain: No Palpitations: No Edema: Bilateral (Improving) Resp Respiratory: Negative for SOB with activity, SOB at rest or SOB orthopnea\SOB lying down GI GI: Negative nausea or heartburn Musc Musc: Negative for balance problems Neuro Neuro: Positive for lightheadedness (Occasionally when standing up too quickly); Negative for dizziness, near syncope, syncope or weakness Endo Endo: Negative for fatigue Cardiology Exam Const Appearance: cooperative, healthy appearing, comfortable and no acute distress Nutritional Appearance: well nourished and overweight Orientation: alert, awake and oriented x3 Head Head: normal to inspection Ears: hearing grossly normal bilaterally Nose: external nose normal Face and Sinus: face symmetric Eyes General: appearance normal, both eyes and all related structures Eyelids: eyelids normal EOM: EOM intact bilaterally Neck Neck: normal visual inspection and no JVD Carotids: normal carotid upstroke Chest Chest inspection: normal inspection of the chest, symmetric chest movement and normal respiratory effort; Negative cough Auscultation: Bilateral: Clear to Auscultation Cardio Rate: bradycardic Rhythm: regular rhythm Heart sounds: S1 normal and S2 normal; Negative rub, gallop or murmur GI GI: normal to inspection Neuro General: patient alert, patient awake, patient oriented x3 and CN's II-XI intactbilaterally Skin Skin: no rashes or lesions noted Extremities Pulses: Normal: Right Posterior Tibial Pulse, Left Posterior Tibial Pulse, RightRadial Pulse and Left Radial Pulse Lower Extremity Edema: +1: Right and +2: Left Psych Psychological: normal affect Supplemental Info Supplemental Information Echocardiogram 11/12/2023: Interpretation Summary Normal LV size. Mild concentric left ventricular hypertrophy. Left ventricular systolic function is normal. The left ventricular ejection fraction is 55 %. Stage 1 diastolic dysfunction. Pulmonary artery systolic pressure is 40 mmHg. Mildly dilated aortic root. ECHOCARDIOGRAM 12/11/2016 Interpretation Summary Normal LV size. Left ventricular systolic function is normal. The estimated ejection fraction is 55 %. No regional wall motion abnormalities noted. Mild (1+) tricuspid valve insufficiency. Mild (1+) eccentric aortic valve insufficiency. Exercise myocardial perfusion stress test 02/16/2020 Conclusion: Normal exercise myocardial perfusion stress test at a moderate workload. Preserved ejection fraction. Assessment and Plan Assessment and Plan (1) History of coronary artery stent placement: Status: Chronic Comment: PCI-rotational atherectomy, balloon angioplasty, and HECTOR-Mid LAD w/ 2.75 x 12 mmResolute Integrity Stent 01/01/2017 Plan: Patient has a history of coronary artery disease with stent placement. His mostrecent stress test from 02/16/2020 was negative for ischemia at a moderate workload. His echocardiogram on 11/12/2023 demonstrated ejection fraction of 55%. He appears stable at this time, and denies any recent symptoms or events. He will continue with his current medical therapy, along with aggressive risk factor and lifestyle modifications. He will continue to monitor for any concerning symptoms. (2) Essential (primary) hypertension: Status: Chronic Plan: Patient has a history of hypertension. His blood pressure is well controlled at this time-103/57. He will continue with his current medical therapy, along with monitoring his blood pressures at home. He will notify our office of any persistently elevated or low blood pressure readings. (3) Hyperlipidemia: Status: Chronic Qualifiers: Hyperlipidemia type: mixed hyperlipidemia Qualified Code(s): E78.2 - Mixed hyperlipidemia Plan: Patient has a history of hyperlipidemia. His most recent lipid panel from 01/28/2025: Cholesterol 72, HDL 43, LDL 17, triglycerides 57. He will continue atorvastatin 40mg daily, along with aggressive risk factor and lifestyle modifications. (4) Pancreatic adenocarcinoma: Status: Chronic Comment: S/P Whipple Operation on 11/16/2020, Pancreatic adenocarcinoma pT3 pN1 M0-stage IIB with margins involved. Patient elected adjuvant concurrent chemoradiation with capecitabine. CA19-9 was13 on 03/14/2021. Received adjuvant chemoradiation therapy from 12/25/2020 to 02/01/2021. Tolerated therapy with Xeloda. 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 CT c/a on 06/10/2022 reviewed, stable changes, no evidence of metastatic disease. CT c/a/p on 01/06/2023 reviewed, stable changes with no evidence of metastatic disease. CT c/a/p 02/05/2024 reviewed, no evidence of metastatic disease. CA19-9 on 01/31/[address] on 01/31/2025 showed stable JUAN ANTONIO mass, R lung nodule, increase in retroperitoneal nodes, Sigmoid mass. PET/CT on 02/22/2025 shows uptake in Rectum, activity in lung is stable, no upper abdominal activity. Comes for follow up. 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 Plan: He does have a history of pancreatic adenocarcinoma and will continue to follow- up with the oncology service. (5) Bradycardia: Status: Chronic Plan: Patients heart rate in the office today was low at 49. He is not on any rate limiting medications. His most recent 24-hour Holter monitor from 11/01/2024 demonstrated normal sinus bradycardia with periods of PVCs/rare PACs. His average heart rate was noted to be 53 bpm, minimum heart rate 39 bpm at 12:51 AM, and maximum heart rate 92 bpm at 1807 p.m. He denies any recent symptoms orevents. He was instructed to continue to monitor for any dizziness dizziness, lightheadedness, fatigue, or syncopal episodes. Plan Details Additional Comments: Patient will follow-up in 6 months, or sooner if needed. Thank you for allowing me to participate in the care of your patient. Please donot hesitate to call if any issues arise. This note was generated using a voice recognition system and there may be incorrect words, spelling, or punctuation that were not noted when reviewing theoffice note prior to saving. Portions of this documentation were copied and pasted from previous office visitnotes to provide cohesive continuity of the history. The note has been reviewed,edited, and updated, as necessary. 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) Coding Level of Care Code Off vis,est,level 4 Diagnoses History of coronary artery stent placement Z95.5 Essential (primary) hypertension I10 Mixed hyperlipidemia E78.2 Hyperlipidemia type: mixed hyperlipidemia Pancreatic adenocarcinoma C25.9 Bradycardia R00.1 Coding Level of Care Code Off vis,est,level 4 Diagnoses History of coronary artery stent placement Z95.5 Essential (primary) hypertension I10 Mixed hyperlipidemia E78.2 Hyperlipidemia type: mixed hyperlipidemia Pancreatic adenocarcinoma C25.9 Bradycardia R00.1 Clinical Quality Measures Falls Risk Screening/Assistive Devices Have you fallen in the past year?: No Cardiac Ejection fraction %: 55 04/29/25 1104 <Electronically signed by Cristin Aguilar NP, NP-C> Date _ Cristin Aguilar NP [employer] HEL[employer]-C Cosigner Signature: Date (if applicable) CC: Dr. Mickey Flores MD ~ [facility] [employer] Work Phone: Reason for referral (narrative)No reason for referral information availableWMercy Health [facility] Work Phone: Summary Purpose Family History No Family History Records Found Relationship Condition Age at Onset Recorded Date/T lucius mother Coronary artery disease Unknown Hypertension Unknown Congestive heart failure Unknown sister Acute myeloid leukemia Unknown Advance Directives No Advanced Directives Records Found Advance Directive Response Recorded Date/ Time Living Will Yes September 02 9:38am Power of Social Services Yes September 02, 2020 9:38am Advance Directive Response Recorded Date/ Time Name of Medical Power of Social Services Audelia Dominguez March 23, 2022 8:39pm Living Will Yes March 23, 2022 8:39pm Power of Social Services Yes March 8:39pm Advance Directive Response Recorded Date/ Time Name of Medical Power of Social Services Audelia Dominguez March 23, 2022 7:39pm Living Will Yes March 23, 2022 7:39pm Power of Social Services Yes March 7:39pm Advance Directive Response Recorded Date/ Time Living Will Yes March 23, 2022 8:39pm Power of Social Services Yes March 8:39pm Advance Directive Response Recorded Date/ Time Advance Directives on File Yes 2020 1:26pm Living Will Yes March 23, 2022 7:39pm Power of Social Services Yes March 7:39pm Advance Directive Response Recorded Date/ Time Living Will Yes March 23, 2022 8:39pm Do you have a Healthcare Power of Social Services? Yes March 23, 2022 8:39pm Advance Directive Response Recorded Date/ Time Living Will Yes March 23, 2022 8:39pm Do you have a Healthcare Power of Social Services? Yes March 23, 2022 8:39pm Advance Directives on File Yes 2020 2:26pm Living Will Yes September 02 9:38am Do you have a Healthcare Power of Social Services? Yes September 02, 2020 9:38am Advance Directive Response Recorded Date/ Time Advance Directives on File Yes 2020 2:26pm Living Will Yes September 02 9:38am Do you have a Healthcare Power of Social Services? Yes September 02, 2020 9:38am Chief Complaint and Reason for Visit Chief [...] adenocarcinoma History of coronary artery stent placement Chief Complaint Admit Date 1 Y FU October 28, 2024 9:5 5am BRADYCARIDA November 01, 2024 8:2 1am BRADYCARIDA November 01, 2024 8:4 5am E ORDERS & PAPER//2 ORDERING DRS January 282024 9:13am Malignant neoplasm of upper lobe, left b ronchus or January 31, 2025 12:34pm Reason for Visit Admit Date Bradycardia October 28, 2024 9:5 5am Essential (primary) hypertension October 122024 9:55am Hyperlipidemia October 28, 2024 9:5 5am Pancreatic adenocarcinoma October 28 9:55am History of coronary artery stent placeme nt October 28, 2024 9:55am Chief Complaint Admit Date 1 Y FU October 28, 2024 9:5 5am BRADYCARIDA November 01, 2024 8:2 1am BRADYCARIDA November 01, 2024 8:4 5am E ORDERS & PAPER//2 ORDERING DRS January 282024 9:13am Malignant neoplasm of upper lobe, left b ronchus or January 31, 2025 12:34pm 1YR LABS PRIOR REVIEW CT February 14 1:48pm Reason for Visit Admit Date Bradycardia October 28, 2024 9:5 5am Essential (primary) hypertension October 122024 9:55am Hyperlipidemia October 28, 2024 9:5 5am Pancreatic adenocarcinoma October 28 9:55am History of coronary artery stent placeme nt October 28, 2024 9:55am Abnormal finding on imaging February 14, 2025 1:48pm NSCLC of left lung February 14, 2025 1:4 8pm Pancreatic adenocarcinoma February 14 1:48pm Chief Complaint Admit Date E ORDERS & PAPER//2 ORDERING DRS January 282024 9:13am Malignant neoplasm of upper lobe, left b ronchus or January 31, 2025 12:34pm 1YR LABS PRIOR REVIEW CT February 14 1:48pm STAGING BILE DUCT AND LUNG CA February 10:00am 3WKS LABS REVIEW PET March 09, 2025 9 :17am Reason for Visit Admit Date Abnormal finding on imaging February 14, 2025 1:48pm NSCLC of left lung February 14, 2025 1:4 8pm Pancreatic adenocarcinoma February 14 1:48pm 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 February 22, 2025 10 :00am 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, 2025 10 :00am Abnormal finding on imaging March 09, 2025 9:17am Positive occult stool blood test March 09, 2025 9:17am NSCLC of left lung March 09, 2025 9: 17am Pancreatic adenocarcinoma March 09 025 9:17am Chief Complaint Admit Date E ORDERS & PAPER//2 ORDERING DRS January 282024 9:13am Malignant neoplasm of upper lobe, left b ronchus or January 31, 2025 12:34pm 1YR LABS PRIOR REVIEW CT February 14 1:48pm STAGING BILE DUCT AND LUNG CA February 10:00am 3WKS LABS REVIEW PET March 09, 2025 9 :17am 4WKS NO LABS, PATH FROM [facility] April 142024 1:17pm Reason for Visit Admit Date Abnormal finding on imaging February 14, 2025 1:48pm NSCLC of left lung February 14, 2025 1:4 8pm Pancreatic adenocarcinoma February 14 1:48pm 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 February 22, 2025 10 :00am 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, 2025 10 :00am Positive occult stool blood test March 09, 2025 9:17am Abnormal finding on imaging March 09, 2025 9:17am NSCLC of left lung March 09, 2025 9: 17am Pancreatic adenocarcinoma March 09, 025 9:17am Adenomatous rectal polyp April 14 1:17pm NSCLC of left lung April 14, 2025 1: 17pm Pancreatic adenocarcinoma April 14 025 1:17pm Chief Complaint Admit Date E ORDERS & PAPER//2 ORDERING DRS January 282024 9:13am Malignant neoplasm of upper lobe, left b ronchus or January 31, 2025 12:34pm 1YR LABS PRIOR REVIEW CT February 14 1:48pm STAGING BILE DUCT AND LUNG CA February 10:00am 3WKS LABS REVIEW PET March 09, 2025 9 :17am 4WKS NO LABS, PATH FROM [facility] April 142024 1:17pm 6 M FU April 29, 2025 1 0:09am Reason for Visit Admit Date Abnormal finding on imaging February 14, 2025 1:48pm NSCLC of left lung February 14, 2025 1:4 8pm Pancreatic adenocarcinoma February 14 1:48pm Malignant neoplasm of biliary tract Augu 2024 10:00am NSCLC of left lung February 22, 2025 10 :00am 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, 2025 10 :00am Positive occult stool blood test March 09, 2025 9:17am Abnormal finding on imaging March 09, 2025 9:17am NSCLC of left lung March 09, 2025 9: 17am Pancreatic adenocarcinoma March 09, 025 9:17am Anemia April 14, 2025 1: 17pm Adenomatous rectal polyp April 14 1:17pm NSCLC of left lung April 14, 2025 1: 17pm Pancreatic adenocarcinoma April 14 025 1:17pm Bradycardia April 29, 2025 1 0:09am Essential (primary) hypertension April 29, 2025 10:09am History of coronary artery stent placeme nt April 29, 2025 10:09am Hyperlipidemia April 29, 2025 1 0:09am Pancreatic adenocarcinoma April 29, 2025 10:09am Additional Source Comments (unrecognized sect ion and content) No Status Records FoundNo Status Records FoundNo Status Records FoundNo Status Records FoundNo Status Records FoundNo Status Records FoundNo Status Records Found INFORMATION SOURCE (unrecogn ized section and content) DATE CREATED AUTHOR 01/07/2018 [facility] DATE CREATED AUTHOR AUTHOR'S ORGANIZ ATION 10/26/2020 [facility] ([place] DATE CREATED AUTHOR AUTHOR'S ORGANIZ ATION 03/06/2021 [facility] DATE CREATED AUTHOR AUTHOR'S ORGANIZ ATION 12/28/2021 [facility] DATE CREATED AUTHOR AUTHOR'S ORGANIZ ATION 02/18/2025 [facility] DATE CREATED AUTHOR AUTHOR'S ORGANIZ ATION 05/06/2025 [facility] DATE CREATED AUTHOR AUTHOR'S ORGANIZ ATION 05/25/2025 [facility] Source Comments (unrecognize d section and content) In the event this informatio n is protected by the Federal Confidentiality of Alcohol and Drug Abuse Patient Records regulations: The Federal rules restrict any use of the information to criminally investigate or prosecute any alcohol or drug abuse patient.[facility] the event this information is protected by the Federal Confidentiality of Alcohol and Drug Abuse Patient Records regulations: The Federal rules restrict any use of the information to criminally investigate or prosecute any alcohol or drug abuse patient.[facility] the event this information is protected by the Federal Confidentiality of Alcohol and Drug Abuse Patient Records regulations: The Federal rules restrict any use of the information to criminally investigate or prosecute any alcohol or drug abuse patient.[facility] the event this information is protected by the Federal Confidentiality of Alcohol and Drug Abuse Patient Records regulations: The Federal rules restrict any use of the information to criminally investigate or prosecute any alcohol or drug abuse patient.[facility] Reason for Visit (unrecogniz ed section and content) Reason Comments Future Appointment Reason Comments Established Patient Mr. Dominguez is here t she[place] for his yearly check up. Reason Comments Established Patient Mr. Dominguez is here t sheri for his 6 month check up for cholangiocarcinoma. Reason Comments Cancer Surveillance Telephone Encounter - Erin Milner) - 06/16/2020 4:23 PM ESTTelephone Encounter - Tapan Ramsey - 06/16/2020 3:32 PM EST Miscellaneous Notes (unrecog nized section and content) Pt scheduled Erin Milner CMA pls add this pt on for VV on Friday PM Dx. CholangioCA; ERCP at [place] neg for malignancy; needs Spyglass and EUS [...] Care Teams (unrecognized sec tion and content) Anodize Machine Operator Relationship Specialty Start Date End Date Mickey Flores MD [address] [facility] [address] [place] [address] PCP - General Family Practice 06/19/20 Nikhil Soto Clam Picker Cardiology 06/21/20 Anodize Machine Operator Relationship Specialty Start Date End Date Mickey Flores MD [address] [facility] [address] [place] [address] PCP - General Family Medicine 06/19/20 Charles, Lagrange S [address] [facility] [address] [place] [address] Clam Picker Cardiology 06/21/20 Team Status: Active Member Role Status Dates Dr. Mickey Flores MD Family Provider Active Dr. Mickey Flores MD Primary Care Provider Active Team Status: Inactive Member Role Status Dates Dr. Mickey Flores MD Primary Care Provider Active Dr. Pete Monet MD Attending Provider, Referring Pro vider Active Anodize Machine Operator Relationship Specialty Start Date End Date Mickey Flores MD [address] [facility] [address] [place] [address] PCP - General Family Medicine 06/19/20 CharlesDb cotoril S [address] [place] [address] [address] [place] [address] Clam Picker Cardiology 06/21/20 Team Status: Inactive Member Role Status Dates Dr. Mickey Flores MD Primary Care Provider, Referring Provider Active Dr. Pete Monet MD Attending Provider Active Team Status: Active Member Role Status Dates Dr. Mickey Flores MD Primary Care Provider Active Dr. Pete Monet MD Attending Provider Active ROSSY FIGUEROA Referring [...] Primary Care Provider Active Cristin Aguilar NP, [employer] HELPER-C Attending Provider Active Team Status: Inactive Member Role Status Dates Dr. Mickey Flores MD Primary Care Provider Active Dr. Nikhil Soto MD Attending Provider, Referring Pro vider Active Team Status: Active Member Role/Relationship Status Dates Dr. Mickey Flores MD Primary Care Provider Active Team Status: Inactive Member Role/Relationship Status Dates Dr. Mickey Flores MD Primary Care Provider Active Start: October 28, 2024 End: October 28, 2024 Dr. Mickey Flores MD Referring Provider Active Start: October 28, 2024 End: October 28, 2024 Cristin Aguilar [employer] BE[employer] ROASTER HELPER, [employer] RO[employer]ER HELPER-C Attending Provider Active Start: October 28, 2024 End: October 28, 2024 Team Status: Inactive Member Role/Relationship Status Dates Dr. Mickey Flores MD Primary Care Provider Active Start: November 01, 2024 End: November 01, 2024 Cristin Aguilar [employer] BE[employer] ROASTER HELPER, [employer] ROASTER HELPER-C Attending Provider Active Start: November 01, 2024 End: November 01, 2024 Cristin Aguilar C[employer] BEAN ROASTER HELPER, [employer] ROASTER HELPER-C Referring Provider Active Start: November 01, 2024 End: November 01, 2024 Team Status: Active Member Role/Relationship Status Dates Dr. Mickey Flores MD Primary Care Provider Active Start: November 01, 2024 Dr. Nikhil Soto MD Attending Provider Active S tart: November 01, 2024 Cristin Aguilar [employer] BEAN ROASTER HELPER, [employer] ROASTER HELPER-C Referring Provider Active Start: November 01, 2024 Team Status: Inactive Member Role/Relationship Status Dates Dr. Mickey Flores MD Primary Care Provider Active Start: January 28, 2025 End: January 28, 2025 Dr. Pete Mnoet MD Attending Provider Active S tart: January 28, 2025 End: January 28, 2025 Dr. Pete Monet MD Referring Provider Active S tart: January 28, 2025 End: January 28, 2025 Team Status: Active Member Role/Relationship Status Dates Dr. Mickey Flores MD Primary Care Provider Active Start: January 31, 2025 Dr. Pete Monet MD Attending Provider Active S tart: January 31, 2025 Dr. Pete Monet MD Referring Provider Active S tart: January 31, 2025 Team Status: Inactive Member Role/Relationship Status Dates Dr. Mickey Flores MD Primary Care Provider Active Start: January 31, 2025 End: January 31, 2025 Dr. Pete Monet MD Attending Provider Active S tart: January 31, 2025 End: January 31, 2025 Dr. Pete Monet MD Referring Provider Active S tart: January 31, 2025 End: January 31, 2025 Team Status: Inactive Member Role/Relationship Status Dates Dr. Mickey Flores MD Primary Care Provider Active Start: February 14, 2025 End: February 14, 2025 Dr. Mickey Flores MD Referring Provider Active Start: February 14, 2025 End: February 14, 2025 Dr. Pete Monet MD Attending Provider Active S tart: February 14, 2025 End: February 14, 2025 Team Status: Inactive Member Role/Relationship Status Dates Dr. Mickey Flores MD Primary Care Provider Active Start: January 28, 2025 End: January 28, 2025 Dr. Pete Monet MD Attending Provider Active S tart: January 28, 2025 End: January 28, 2025 Dr. Pete Monet MD Referring Provider Active S tart: January 28, 2025 End: January 28, 2025 Team Status: Inactive Member Role/Relationship Status Dates Dr. Mickey Flores MD Primary Care Provider Active Start: January 31, 2025 End: January 31, 2025 Dr. Pete Monet MD Attending Provider Active S tart: January 31, 2025 End: January 31, 2025 Dr. Pete Monet MD Referring Provider Active S tart: January 31, 2025 End: January 31, 2025 Team Status: Inactive Member Role/Relationship Status Dates Dr. Mickey Flores MD Primary Care Provider Active Start: February 14, 2025 End: February 14, 2025 Dr. Mickey Flores MD Referring Provider Active Start: February 14, 2025 End: February 14, 2025 Dr. Pete Monet MD Attending Provider Active S tart: February 14, 2025 End: February 14, 2025 Team Status: Active Member Role/Relationship Status Dates Dr. Mickey Flores MD Primary Care Provider Active Start: February 22, 2025 Dr. Pete Monet MD Attending Provider Active S tart: February 22, 2025 ROSSY FIGUEROA Referring Provider Active Start: 2024 Team Status: Inactive Member Role/Relationship Status Dates Dr. Mickey Flores MD Primary Care Provider Active Start: March 09, 2025 End: March 09, 2025 Dr. Mickey Flores MD Referring Provider Active Start: March 09, 2025 End: March 09, 2025 Dr. Pete Monet MD Attending Provider Active S tart: March 09, 2025 End: March 09, 2025 Team Status: Active Member Role/Relationship Status Dates Dr. Mickey Flores MD Primary care physician Active Team Status: Inactive Member Role/Relationship Status Dates Dr. Mickey Flores MD Primary care physician Active Start: January 28, 2025 End: January 28, 2025 Dr. Pete Monet MD Attending physician Active Start: January 28, 2025 End: January 28, 2025 Dr. Pete Monet MD Referring Provider Active S tart: January 28, 2025 End: January 28, 2025 Team Status: Inactive Member Role/Relationship Status Dates Dr. Mickey Flores MD Primary care physician Active Start: January 31, 2025 End: January 31, 2025 Dr. Pete Monet MD Attending physician Active Start: January 31, 2025 End: January 31, 2025 Dr. Pete Monet MD Referring Provider Active S tart: January 31, 2025 End: January 31, 2025 Team Status: Inactive Member Role/Relationship Status Dates Dr. Mickey Flores MD Primary care physician Active Start: February 14, 2025 End: February 14, 2025 Dr. Mickey Flores MD Referring Provider Active Start: February 14, 2025 End: February 14, 2025 Dr. Pete Monet MD Attending physician Active Start: February 14, 2025 End: February 14, 2025 Team Status: Active Member Role/Relationship Status Dates Dr. Mickey Flores MD Primary care physician Active Start: February 22, 2025 Dr. Pete Monet MD Attending physician Active Start: February 22, 2025 ROSSY FIGUEROA Referring Provider Active Start: 2024 Team Status: Inactive Member Role/Relationship Status Dates Dr. Mickey Flores MD Primary care physician Active Start: March 09, 2025 End: March 09, 2025 Dr. Mickey Flores MD Referring Provider Active Start: March 09, 2025 End: March 09, 2025 Dr. Pete Monet MD Attending physician Active Start: March 09, 2025 End: March 09, 2025 Team Status: Inactive Member Role/Relationship Status Dates Dr. Mickey Flores MD Primary care physician Active Start: April 14, 2025 End: April 14, 2025 Dr. Mickey Flores MD Referring Provider Active Start: April 14, 2025 End: April 14, 2025 Dr. Pete Monet MD Attending physician Active Start: April 14, 2025 End: April 14, 2025 Team Status: Inactive Member Role/Relationship Status Dates Dr. Mickey Flores MD Primary care physician Active Start: April 29, 2025 End: April 29, 2025 Dr. Mickey Flores MD Referring Provider Active Start: April 29, 2025 End: April 29, 2025 Cristin Aguilar [employer] BE[employer] ROASTER HELPER, [employer] ROASTER HELPER-C Attending physician Active Start: April 29, 2025 End: April 29, 2025 Team Status: Active Member Role/Relationship Status Dates Dr. Mickey Flores MD Primary care physician Active Start: May 10, 2025 Dr. Mickey Flores MD Attending physician Active Start: May 10, 2025 Dr. Mickey Flores MD Referring Provider Active Start: May 10, 2025 FOR RECORDS PERTAINING TO PATIENTS WHO ARE [...] BE BASED ON THE PRIMARY CLINICAL RECORDS. [employer] provides no warranty or guarantee of the accuracy or completeness of information in this document.
[2025-06-25 22:06] LABS: Hematocrit 35.8 % (40-54); Hemoglobin 11.6 g/dL (13.0-16.5); Immature Granulocytes Count 0.040 X10^3/uL (0.0-0.0); Mean Corp Hgb Conc 32.4 g/dL (32-36); Mean Corpuscular Volume 97.0 fL (80-94); Mean Platelet Vol. 10.3 fl (6.2-12.0); NRBC Flagged by Analyzer 0 % (0-5); Platelet Count 145 K/mm3 (150-450); RBC Distribution Width CV 14.1 % (11.6-14.6); RBC Distribution Width SD 50.2 fl (35.1-43.9); Red Blood Count 3.69 M/mm3 (4.6-6.2); White Blood Count 5.6 K/mm3 (4.4-11.0)
[2025-06-25 22:18] LABS: Prothrombin Time (Protime)PT. 14.4 SECONDS (11.7-14.9)
[2025-06-25 22:20] LABS: Partial Thromboplast Time 33.0 Seconds (24.1-36.2)
[2025-06-25 22:27] LABS: Anion Gap 16 (5-15); BUN 27 mg/dL (4-19); BUN/Creat Ratio 23.1 RATIO (10-20); Calcium,Total 8.7 mg/dL (7.6-11.0); Carbon Dioxide 20.2 mmol/L (21.0-32.0); Chloride 106 mmol/L (98-108); Estimated Creatinine Clearance 46.96 ml/min (50-250); Glucose 205 mg/dL (70-99); Potassium 3.0 mmol/L (3.3-5.1)
--- NOTE | 2025-06-25 22:37 | ED.RN ---
labetalol pulled to be given for BP 151/81. Recheck prior to administration 113/68, held at this time
--- NOTE | 2025-06-25 23:48 | ED.RN ---
Report called to Aggie LAND @ [facility].
[2025-06-26] VITALS (8 sets, daily range): BP systolic 92–118; BP diastolic 56–64; PULSE 55–84; RESP 12–19; O2SAT 98–100
--- NOTE | 2025-06-26 01:39 | ED.RN ---
transporting [employer] in [place].
== END 2025-06-26 01:45 | disposition short-term general hospital (02) ==
PROVIDERS: Emergency Provider Emergency Medicine; PCP Family Medicine; Visit Provider Emergency Medicine
DX: S06.6X0A Traumatic subarachnoid hemorrhage without loss of consciousness, initial encounter (principal); E11.9 Type 2 diabetes mellitus without complications; Z87.891 Personal history of nicotine dependence; E78.5 Hyperlipidemia, unspecified; Z79.82 Long term (current) use of aspirin; S01.01XA Laceration without foreign body of scalp, initial encounter; Z79.02 Long term (current) use of antithrombotics/antiplatelets; I25.10 Atherosclerotic heart disease of native coronary artery without angina pectoris; I10 Essential (primary) hypertension; Z95.5 Presence of coronary angioplasty implant and graft; W01.198A Fall on same level from slipping, tripping and stumbling with subsequent striking against other object, initial encounter; Y92.010 Kitchen of single-family (private) house as the place of occurrence of the external cause; Z99.89 Dependence on other enabling machines and devices; G47.33 Obstructive sleep apnea (adult) (pediatric)
CPT/HCPCS: 12001; 70450; 72125; 80048; 85025; 85610; 85730; 99284; A4216

== ENCOUNTER → 2025-07-01 | Outpatient (CLI) | payer MEDICARE, SELFPAY ==
[2025-07-01 12:10] LABS: Differential Indicated SCAN CRITERIA MET; Hematocrit 30.9 % (40-54); Hemoglobin 10.1 g/dL (13.0-16.5); Immature Granulocytes Count 0.010 X10^3/uL (0.0-0.0); Mean Corp Hgb Conc 32.7 g/dL (32-36); Mean Corpuscular Volume 96.9 fL (80-94); Mean Platelet Vol. 9.9 fl (6.2-12.0); NRBC Flagged by Analyzer 0 % (0-5); POSITIVE COUNT YES; POSITIVE DIFFERENTIAL YES; Platelet Count 84 K/mm3 (150-450); RBC Distribution Width CV 14.9 % (11.6-14.6); RBC Distribution Width SD 53.1 fl (35.1-43.9); Red Blood Count 3.19 M/mm3 (4.6-6.2); White Blood Count 3.1 K/mm3 (4.4-11.0)
[2025-07-01 12:51] LABS: Ferritin 124 ng/mL (37-417); Iron 47 ug/dL (65-175); Iron Binding Capacity,Total 255 ug/dL (250-450); Iron Binding Capacity,Unsat 208 ug/dL (228-428)
[2025-07-01 13:20] LABS: AST(SGOT) 111 U/L (<=37); Alanine Aminotransfer ALT/SGPT 191 U/L (<=46); Albumin, Serum 3.3 g/dL (3.4-4.8); Alkaline Phosphatase 524 U/L (40-129); Anion Gap 10 (5-15); BUN 19 mg/dL (4-19); BUN/Creat Ratio 18.4 RATIO (10-20); Calcium,Total 8.1 mg/dL (7.6-11.0); Carbon Dioxide 23.4 mmol/L (21.0-32.0); Chloride 106 mmol/L (98-108); Globulin 2.5 g/dL (2.2-4.2); Glucose 258 mg/dL (70-99); Potassium 4.1 mmol/L (3.3-5.1)
[2025-07-02 08:08] LABS: Carcinoembryonic Antigen 14.9 ng/mL (0.0-4.7)
== END | disposition home or self-care (01) ==
LOC: LAB 11:41
PROVIDERS: PCP Family Medicine; Referring Provider Internal Medicine Medical Oncology; Visit Provider Internal Medicine Medical Oncology
DX: C24.9 Malignant neoplasm of biliary tract, unspecified (principal); C25.9 Malignant neoplasm of pancreas, unspecified; C34.92 Malignant neoplasm of unspecified part of left bronchus or lung; D12.8 Benign neoplasm of rectum; D64.9 Anemia, unspecified
CPT/HCPCS: 36415; 80053; 82378; 82728; 83540; 83550; 85025; 86301